=== PATIENT | female | born 1990 | race Caucasian/White ===

== ENCOUNTER 2021-08-29 15:15 | Outpatient (CLI) | payer BC, MEDICAID, SELFPAY | END 2021-08-29 15:16 | disposition home or self-care (01) | LOC: LKVREF 15:15 | PROVIDERS: PCP Family Medicine; Visit Provider Nurse Practitioner Family | DX: R53.83 Other fatigue (principal); N76.0 Acute vaginitis | CPT/HCPCS: 86618 ==

== ENCOUNTER 2021-09-11 15:30 | Outpatient (CLI) | payer BC, MEDICAID, SELFPAY ==
[2021-09-11 16:01] LABS: Basophils Absolute Auto 0.06 K/uL (0.00-0.30); Basophils Percent Auto 0.9 % (0.0-3.0); Eosinophils Percent Auto 25.3 % (0.0-7.0); Hematocrit 44.3 % (33.0-51.0); Hemoglobin* 14.4 gm/dL (12.0-16.0); Immature Granulocytes Abs Auto 0.01 K/uL (0.00-0.30); Immature Granulocytes Pct Auto 0.1 %; Lymphocytes Percent Auto 31.1 % (20-44); Mean Corpuscular HGB Conc 33 gm/dL (32-36); Mean Corpuscular Hemoglobin 29 pg (26-34); Mean Corpuscular Volume 89 fL (80-100); Monocytes Absolute Auto 0.52 K/UL (0.00-0.90); Monocytes Percent Auto 7.7 % (0.0-11.0); Neutrophils Percent Auto 34.9 % (42.0-72.0); Platelet Count* 287 K/uL (140-440); RDW Coefficient of Variation % 13.2 % (11.5-15.5); Red Blood Count 4.97 m/uL (4.00-5.20); White Blood Count* 6.76 K/uL (4.50-11.00)
[2021-09-11 16:05] LABS: Slide Review Reflex No
[2021-09-11 17:31] LABS: Chloride* 106 mmol/L (96-114); Potassium* 4.3 mmol/L (3.6-5.1); Sodium* 137 mmol/L (135-149)
[2021-09-11 17:33] LABS: Creatinine* 0.6 mg/dL (0.5-1.5); Estimated Glomerular Filt Rate 125 ml/min
[2021-09-11 17:34] LABS: Blood Urea Nitrogen* 10 mg/dL (5-24); Calcium* 8.9 mg/dL (8.4-10.6); Carbon Dioxide* 28 mmol/L (20-32); Glucose* 69 mg/dL (60-115)
[2021-09-11 17:48] LABS: Vitamin D 25 Hydroxy* 49 ng/mL (30-80)
[2021-09-11 18:06] LABS: Ferritin* 23.6 ng/mL (6.24-137.0)
[2021-09-11 18:08] LABS: Thyroid Stimulating Hormone* < 0.015 uIU/mL (0.270-4.20)
== END 2021-09-11 15:31 | disposition home or self-care (01) ==
PROVIDERS: PCP Family Medicine; Visit Provider Family Medicine
DX: E03.9 Hypothyroidism, unspecified (principal); R53.83 Other fatigue
CPT/HCPCS: 80048; 82306; 82728; 84443; 85025

== ENCOUNTER 2021-12-26 15:50 | Outpatient (CLI) | payer BC, MEDICAID, SELFPAY ==
[2021-12-26 22:08] LABS: Chlamydia DNA Amplified* NOT DETECTED (No Detected); GC DNA Amplified* NOT DETECTED (No Detected)
== END 2021-12-26 15:51 | disposition home or self-care (01) ==
LOC: NFLDREF 15:51
PROVIDERS: PCP Family Medicine; Visit Provider Registered Nurse
DX: Z11.3 Encounter for screening for infections with a predominantly sexual mode of transmission (principal)
CPT/HCPCS: 87491; 87591

== ENCOUNTER 2022-02-12 00:05 | Emergency (ER) | payer MEDICAID, SELFPAY ==
[2022-02-12 00:13] VITALS: BP 123/89; PULSE 60; RESP 14; TEMP 36.4; O2SAT 100; BMI 22.6
--- NOTE | 2022-02-12 00:59 | ED.NURSE ---
Vaginal exam chaperoned. Condom removed by MD. Patient tolerated well.
--- NOTE | 2022-02-12 08:32 | ED_ITS ---
HPI - General Adult General Chief complaint: Skin/Abscess/Foreign Body Stated complaint: Condom stuck inside vagina Time Seen by Provider: 02/12/22 00:22 History of Present Illness HPI narrative: 31-year-old woman presenting to the emergency department with concern of retained condom. This was consensual sex. She is here that this is the only place the condom can be. She has been unable to locate it. She would also like to be screened for STIs. She is currently with a longer standing partner. He apparently so far has resisted any screening. This is the only encounter where there has been condom failure; always using condoms prior. She is less worried about noting that she has a Mirena in place. Related Data Home Medications Medication Instructions Recorded Confirmed montelukast 10 mg tablet 10 mg PO .Bedtime 09/07/21 12/29/21 Previous Rx's Medication Instructions Recorded albuterol sulfate 90 mcg/actuation 2 puff inhalation Q4-6H PRN 12/29/21 aerosol inhaler shortness of breath or wheezing #8.5 grams fluticasone 250 mcg-salmeterol 50 1 inh inhalation BID #60 ea 12/29/21 mcg/dose blistr powdr for inhalation levothyroxine 125 mcg tablet 125 mcg PO QDAY #30 tabs 01/01/22 Allergies Allergy/AdvReac Type Severity Reaction Status Date / Time etonogestrel [From Nexplanon] Allergy Mild Verified 12/29/21 15:48 Review of Systems Status of ROS: Reports: 6 or more systems reviewed and unremarkable except as noted in History and below [facility] Medical History Allergic rhinitis Arnold-Chiari malformation Chronic sinusitis History of anemia (2016) History of radioactive iodine thyroid ablation (03/2013) History of severe acute respiratory syndrome coronavirus 2 (SARS-CoV-2) disease (12/24/19) History of use of contraceptive intrauterine device (IUD) (01/2020) Hypothyroidism Incomplete spontaneous (2013) Meniere's disease Moderate asthma without complication Moderate persistent asthma Numbness and tingling of right upper extremity Positive antinuclear antibody (01/26/20) Recurrent urinary tract infection Varicose veins of both legs with edema Surgical History History of dilation and curettage (05/13/13) History of nasal septoplasty (2018) Status post delivery (11/2019) Social History Narrative: Exercises daily, 20 min walking , 6 kids, Balaji Patient told she was single 04/01/2020 Non-smoker No EtOH Smoking Status: Never smoker Do you use any of these nicotine containing products: None and E-Cigarettes Second hand tobacco smoke exposure: No How often do you have a drink containing alcohol: monthly or less AUDIT-C Alcohol total score: 1 Non-prescribed substance use: denies use service: No Exam Narrative: Exam Narrative: Pleasant NAD. Breathing easily. Skin is warm and dry. No evidence of trauma on her person. Carefully and casually groomed. Abdomen soft. Return with Nursing assist for a speculum exam. Placing speculum then at the distal end of the speculum relatively easy to locate the condom. Removed with ring forceps along with the speculum without difficulty. Const: Vital Signs, click to edit/add: Vital Signs - 24 hr 02/12/22 00:13 Temperature 97.5 F L Pulse Rate [Left P ulse Oximeter] 60 Respiratory Rate 14 Blood Pressure [Le ft Upper Arm] 123/89 Pulse Oximetry 100 Oxygen Delivery Me thod Room Air Documenting provider has reviewed patient's vital signs: yes Course Vital Signs Vital signs: Initial Vital Signs Temperature 97.5 F L 02/12/22 00:13 Temperature Source Temporal Artery Scan 02/12/22 00:13 Pulse Rate 60 02/12/22 00:13 Respiratory Rate 14 02/12/22 00:13 Blood Pressure 123/89 02/12/22 00:13 Blood Pressure Mean 100 02/12/22 00:13 Pulse Oximetry 100 02/12/22 00:13 Oxygen Delivery Method 02/12/22 00:13 Vital Signs Temperature 97.5 F L 02/12/22 00:13 Pulse Rate 60 02/12/22 00:13 Respiratory Rate 14 02/12/22 00:13 Blood Pressure 123/89 02/12/22 00:13 Pulse Oximetry 100 02/12/22 00:13 Oxygen Delivery Method 02/12/22 00:13 Temperature 97.5 F L 02/12/22 00:13 Pulse Rate 60 02/12/22 00:13 Respiratory Rate 14 02/12/22 00:13 Blood Pressure 123/89 02/12/22 00:13 Pulse Oximetry 100 02/12/22 00:13 Oxygen Delivery Method 02/12/22 00:13 Medical Decision Making MDM Narrative Medical decision making narrative: Discussed STI screening. This was apparently not thought to be a higher risk encounter. Does not sound like baseline labs would be indicated. I would therefore wait and screen in a couple of weeks or pending symptoms in primary care.. Discharge Plan Discharge Clinical Impression: Retained vaginal foreign body Patient Disposition: Home, Self-Care Condition: Improved Additional Instructions: Yes. Probably is a good idea to get STI screening in maybe a couple of weeks as discussed. Prescriptions: No Action fluticasone propion-salmeterol 250-50 mcg/dose blister with device 1 inh inhalation BID Qty: 60 12RF albuterol sulfate 90 mcg/actuation HFA aerosol inhaler 2 puff inhalation Q4-6H PRN (Reason: shortness of breath or wheezing) Qty: 8.5 12RF montelukast 10 mg tablet 10 mg PO .Bedtime levothyroxine 125 mcg tablet 125 mcg PO QDAY Qty: 30 1RF Follow Up/Referrals: Indra Rose MD [Primary Care Provider] - Stand Alone Forms: [employer] Info Instructions
== END 2022-02-12 01:11 | disposition home or self-care (01) ==
LOC: ED 01:06
PROVIDERS: Emergency Provider Family Medicine; PCP Family Medicine
DX: T19.2XXA Foreign body in vulva and vagina, initial encounter (principal); X58.XXXA Exposure to other specified factors, initial encounter; Y93.89 Activity, other specified; Y92.9 Unspecified place or not applicable
CPT/HCPCS: 99282; 99283

== ENCOUNTER 2022-04-09 10:24 | Outpatient (CLI) | payer MEDICAID, SELFPAY | END 2022-04-09 10:25 | disposition home or self-care (01) | LOC: NFLDREF 16:01 | PROVIDERS: PCP Family Medicine; Visit Provider Family Medicine | DX: E03.9 Hypothyroidism, unspecified (principal) | CPT/HCPCS: 84443 ==

== ENCOUNTER 2022-05-17 16:48 | Outpatient (CLI) | payer MEDICAID, SELFPAY | END 2022-05-17 16:49 | disposition home or self-care (01) | PROVIDERS: PCP Family Medicine; Visit Provider Physician Assistant Medical | DX: Z00.00 Encounter for general adult medical examination without abnormal findings (principal); J45.40 Moderate persistent asthma, uncomplicated; R05.9 Cough, unspecified | CPT/HCPCS: 80053; 84439; 84443; 86480; 86592; 86703; 86706; 86803; 87340 ==

== ENCOUNTER 2022-06-25 16:45 | Outpatient (RCR) | payer MEDICAID, SELFPAY | END 2022-10-23 23:59 | disposition home or self-care (01) | PROVIDERS: PCP Family Medicine; Visit Provider Family Medicine | DX: M54.2 Cervicalgia (principal); Z51.89 Encounter for other specified aftercare | CPT/HCPCS: 97110; 97140; 97161 ==

== ENCOUNTER 2022-07-19 19:01 | Outpatient (CLI) | payer MEDICAID, SELFPAY | END 2022-07-19 19:02 | disposition home or self-care (01) | PROVIDERS: PCP Family Medicine; Visit Provider Family Medicine | DX: R53.83 Other fatigue (principal); E03.9 Hypothyroidism, unspecified | CPT/HCPCS: 84439; 84443; 84703 ==

== ENCOUNTER 2022-11-26 15:48 | Outpatient (CLI) | payer MEDICAID, SELFPAY ==
[2022-11-26 16:05] LABS: Clue Cells No Clue Cells Seen (None Seen); Trichomonas No Trichomonas Seen (None Seen); Yeast No Yeast Seen (None Seen)
[2022-11-26 21:02] LABS: Chlamydia DNA Amplified* NOT DETECTED (No Detected); GC DNA Amplified* NOT DETECTED (No Detected)
== END 2022-11-26 15:49 | disposition home or self-care (01) ==
PROVIDERS: PCP Family Medicine; Visit Provider Advanced Practice Midwife
DX: N89.8 Other specified noninflammatory disorders of vagina (principal); Z11.3 Encounter for screening for infections with a predominantly sexual mode of transmission
CPT/HCPCS: 84439; 84443; 86592; 86703; 86706; 87210; 87340; 87491; 87591

== ENCOUNTER 2022-12-04 15:40 | Outpatient (CLI) | payer MEDICAID, SELFPAY | END 2022-12-04 15:41 | disposition home or self-care (01) | LOC: NFLDREF 12-07 22:27 | PROVIDERS: PCP Family Medicine; Referring Provider Family Medicine; Visit Provider Advanced Practice Midwife | DX: E03.9 Hypothyroidism, unspecified (principal) | CPT/HCPCS: 84480; 84481; 86376; 86800 ==

== ENCOUNTER 2023-01-08 16:12 | Outpatient (CLI) | payer MEDICAID, SELFPAY | END 2023-01-08 16:13 | disposition home or self-care (01) | PROVIDERS: PCP Family Medicine; Referring Provider Family Medicine; Visit Provider Advanced Practice Midwife | DX: Z13.29 Encounter for screening for other suspected endocrine disorder (principal) | CPT/HCPCS: 84443 ==

== ENCOUNTER 2023-02-05 16:52 | Outpatient (CLI) | payer MEDICAID, SELFPAY ==
--- NOTE | 2023-02-05 17:00 | CRLHL7_ITS ---
For Patients: As a result of the Cures Act, medical imaging exams and procedure reports are released immediately into your electronic medical record. You may view this report before your referring provider. If you have questions, please contact your health care provider. INDICATION: First trimester scan, establish dates. COMPARISON: None. TECHNIQUE: Real-time aguilar-scale imaging of the pelvis was performed. FINDINGS: Sonographic imaging demonstrates a single living intrauterine gestation. The embryo demonstrates a regular cardiac rate measuring 185 beats per minute. The embryo`s crown-rump length measurement of 2.4 cm corresponds to a gestational age of 9 weeks 1 day with a sonographic due date of 09/09/2023. There is a normal-appearing yolk sac. There are no gross abnormalities noted within the embryo at this early state of development. The gestational sac has a normal appearance. There is a right-sided perigestational hemorrhage measuring 5.4 x 1.0 x 1.5 cm. The amount of fluid within the sac appears appropriate for gestational age. The cervix is closed. section scar incidentally noted. The ovaries are of normal size. Corpus luteal cyst right ovary. There are no suspicious fluid collections noted in the cul-de-sac. IMPRESSION: Single living intrauterine with sonographic gestational age 9 weeks 1 day and sonographic due date 09/09/2023. Large right-sided subchorionic hemorrhage measuring 5.4 x 1.0 x 1.5 cm extending from the fundal region to the lower uterine segment. Dictated by Indra Bonner MD @ 02/06/2023 11:30:50 AM (Electronically Signed)
== END 2023-02-05 16:53 | disposition home or self-care (01) ==
LOC: US 16:54
PROVIDERS: PCP Family Medicine; Visit Provider Registered Nurse
DX: Z34.91 Encounter for supervision of normal pregnancy, unspecified, first trimester (principal); O20.9 Hemorrhage in early pregnancy, unspecified; Z3A.09 9 weeks gestation of pregnancy
CPT/HCPCS: 76817

== ENCOUNTER 2023-02-05 18:48 | Outpatient (CLI) | payer MEDICAID, SELFPAY ==
[2023-02-06 06:10] LABS: Chlamydia DNA Amplified* NOT DETECTED (No Detected); GC DNA Amplified* NOT DETECTED (No Detected)
== END 2023-02-05 18:49 | disposition home or self-care (01) ==
PROVIDERS: PCP Family Medicine; Visit Provider Registered Nurse
DX: Z34.91 Encounter for supervision of normal pregnancy, unspecified, first trimester (principal); O20.9 Hemorrhage in early pregnancy, unspecified; Z3A.09 9 weeks gestation of pregnancy
CPT/HCPCS: 86592; 86703; 86704; 86706; 86762; 86787; 86803; 86850; 86900; 86901; 87086; 87340; 87491; 87591

== ENCOUNTER 2023-02-21 15:32 | Outpatient (CLI) | payer BC, MEDICAID, SELFPAY | END 2023-02-21 15:33 | disposition home or self-care (01) | PROVIDERS: PCP Family Medicine; Visit Provider Nurse Practitioner Family | DX: R63.1 Polydipsia (principal); R35.0 Frequency of micturition; R51.9 Headache, unspecified; R11.0 Nausea | CPT/HCPCS: 80048; 82607; 84443; 86592; 86703; 86704; 86706; 86762; 86787; 86803; 86850; 86900; 86901; 87086; 87340 ==

== ENCOUNTER 2023-03-24 06:46 | Emergency (ER) | payer BC, MEDICAID, SELFPAY ==
[2023-03-24 06:50] VITALS: BP 123/77; PULSE 102; RESP 28; TEMP 36.2; O2SAT 96; BMI 26.6
--- NOTE | 2023-03-24 07:24 | ED_ITS ---
HPI - General Adult General Chief complaint: Shortness of Breath/Dyspnea <Keke Cutler MD - Last Filed: 03/25/23 00:25> Stated complaint: difficulty breathing, wheezing <Keke Cutler MD - Last Filed: 03/25/23 00:25> Time Seen by Provider: 03/24/23 07:12 <Keke Cutler MD - Last Filed: 03/25/23 00:25> Source: patient <Keke Cutler MD - Last Filed: 03/25/23 00:25> Mode of arrival: ambulatory <Keke Cutler MD - Last Filed: 03/25/23 00:25> Limitations: no limitations <Keke Cutler MD - Last Filed: 03/25/23 00:25> History of Present Illness HPI narrative: 32-year-old female, reportedly 14 weeks presents to the emergency department with wheezing and cough. Symptoms started last night. No fever. Known history of asthma. Reports that she is out of her inhalers. She does not currently have a nebulizer machine. She has been prescribed steroids in the past but no prior hospitalization or intubation for her asthma. Mild nonproductive cough, no nausea or vomiting. No vaginal bleeding. Is not yet feeling movement. No pelvic cramping. No known sick contacts or pertinent travel. Has not tried any other interventions prior to coming to the emergency department. Past medical history notable for hypothyroidism, multiple prior pregnancies. Home meds are Synthroid and does have prescriptions for inhalers that she does not currently have any in her possession. Nonsmoker. ROS notable for the respi ratory symptoms as described above, otherwise benign times 12 systems. <Keke Cutler MD - Last Filed: 03/25/23 00:25> Related Data Home medications: Previous Rx's Medication Instructions Recorded fluticasone 250 mcg-salmeterol 50 1 inh inhalation BID #60 ea 12/29/21 mcg/dose blistr powdr for inhalation albuterol sulfate 2.5 mg/0.5 mL 2.5 mg (0.5 mL) inhalation Q4-6H 05/17/22 solution for nebulization #30 ea albuterol sulfate 90 mcg/actuation 2 puff inhalation Q4-6H PRN 05/17/22 aerosol inhaler shortness of breath or wheezing #8.5 grams montelukast 10 mg tablet 10 mg PO QHS #90 tabs 06/22/22 cetirizine 10 mg tablet (Zyrtec) 10 mg PO QDAY #30 tabs 08/06/22 fluticasone propionate 50 1 spray intranasal QDAY #16 grams 08/06/22 mcg/actuation nasal spray,suspension (Flonase Allergy Relief) levothyroxine 200 mcg tablet 200 mcg PO DAILY #30 tabs 01/11/23 albuterol sulfate 90 mcg/actuation 2 puff inhalation Q4H PRN 03/24/23 aerosol inhaler (Proventil HFA) shortness of breath or wheezing #8.5 grams beclomethasone dipropionate 80 1 inh inhalation BID #10.6 grams 03/24/23 mcg/actuation HFA breath activated aerosol (Qvar RediHaler) prednisone 20 mg tablet 20 mg PO DAILY #3 tabs 03/24/23 <Keke Cutler MD - Last Filed: 03/25/23 00:25> Allergies/adverse reactions: Allergies Allergy/AdvReac Type Severity Reaction Status Date / Time etonogestrel [From Nexplanon] Allergy Mild Verified 02/19/23 15:57 <Keke Cutler MD - Last Filed: 03/25/23 00:25> [facility] Medical History: Medical History PTSD (post-traumatic stress disorder) ?F43.10 - Post-traumatic stress disorder, unspecified (ICD-10) Moderate persistent asthma ?J45.40 - Moderate persistent asthma, uncomplicated (ICD-10) Varicose veins of both legs with edema ?I83.893 - Varicose veins of bilateral lower extremities with other complications (ICD-10) Recurrent urinary tract infection ?N39.0 - Urinary tract infection, site not specified (ICD-10) Positive antinuclear antibody (01/26/20) ?R76.8 - Other specified abnormal immunological findings in serum (ICD-10) Numbness and tingling of right upper extremity ?R20.0 - Anesthesia of skin (ICD-10) ?R20.2 - Paresthesia of skin (ICD-10) Moderate asthma without complication ?J45.909 - Unspecified asthma, uncomplicated (ICD-10) Meniere's disease ?H81.09 - Meniere's disease, unspecified ear (ICD-10) Incomplete spontaneous (2013) ?O03.4 - Incomplete spontaneous without complication (ICD-10) Hypothyroidism ?E03.9 - Hypothyroidism, unspecified (ICD-10) History of use of contraceptive intrauterine device (IUD) (01/2020) ?Z92.0 - Personal history of contraception (ICD-10) History of severe acute respiratory syndrome coronavirus 2 (SARS-CoV-2) disease (12/24/19) ?Z86.16 - Personal history of COVID-19 (ICD-10) History of radioactive iodine thyroid ablation (03/2013) ?Z92.3 - Personal history of irradiation (ICD-10) History of anemia (2016) ?Z86.2 - Personal history of diseases of the blood and blood-forming organs and certain disorders involving the immune mechanism (ICD-10) Chronic sinusitis ?J32.9 - Chronic sinusitis, unspecified (ICD-10) Arnold-Chiari malformation ?Q07.00 - Arnold-Chiari syndrome without spina bifida or hydrocephalus (ICD- 10) Allergic rhinitis ?J30.9 - Allergic rhinitis, unspecified (ICD-10) <Keke Cutler MD - Last Filed: 03/25/23 00:25> Surgical History: Surgical History Status post delivery (11/2019) ?Z98.891 - History of uterine scar from previous surgery (ICD-10) History of nasal septoplasty (2017) ?Z98.890 - Other specified postprocedural states (ICD-10) History of dilation and curettage (05/13/13) ?Z98.890 - Other specified postprocedural states (ICD-10) <Keke Cutler MD - Last Filed: 03/25/23 00:25> Social History: Social History Narrative: Works at [employer] and [employer] 6 kids Non-smoker No EtOH What is your current living situation?: I presently have a place to live Problems where you live: no known problems In the past 12 months, utilities in danger of being shut off: no In past 12 months, lack of transportation kept you from medical appts, meetings, work, or getting things needed for daily living: no In the past 12 mos, have been you worried that your food would run out before you had money to buy more?: never true In the past 12 mos, the food you bought just didn't last and you didn't have money to buy more?: never true Smoking Status: Never smoker Do you use any of these nicotine containing products: None and E-Cigarettes Second hand tobacco smoke exposure: No How often do you have a drink containing alcohol: monthly or less AUDIT-C Alcohol total score: 1 Non-prescribed substance use: denies use How often does anyone, including family, friends and others, physically hurt you : never How often does anyone, including family, friends and others, insult or talk down to you: never How often does anyone, including family, friends and others, threaten you with harm: never How often does anyone, including family, friends and others, scream or curse at you: never Little interest or pleasure in doing things: not at all Feeling down, depressed, or hopeless: not at all service: No <Keke Cutler MD - Last Filed: 03/25/23 00:25> Exam Const: Vital Signs, click to edit/add: Vital Signs - 24 hr 03/24/23 06:50 Temperature 97.1 F L Pulse Rate [Left P ulse Oximeter] 102 H Respiratory Rate 28 H Blood Pressure [Ri ght Upper Arm] 123/77 Pulse Oximetry 96 Oxygen Delivery Me thod Room Air <Keke Cutler MD - Last Filed: 03/25/23 00:25> Vital Signs, click to edit/add: Vital Signs - 24 hr 03/24/23 06:50 Temperature 97.1 F L Pulse Rate [Left P ulse Oximeter] 102 H Respiratory Rate 28 H Blood Pressure [Ri ght Upper Arm] 123/77 Pulse Oximetry 96 Oxygen Delivery Me thod Room Air <Kingsley Shanks MD - Last Filed: 03/24/23 08:17> Documenting provider has reviewed patient's vital signs: yes <Keke Cutler MD - Last Filed: 03/25/23 00:25> Common normals: no apparent distress <MD Daisha Cardenas Last Filed: 03/25/23 00:25> General appearance: cooperative and well kempt <Keek Cutler MD - Last Filed: 03/25/23 00:25> Other: Nursing team reported that she was audibly wheezing in triage and I was in another room, they did elect to start a DuoNeb. By the time I get to her about 5 minutes later, she is breathing comfortably on room air and respiratory rate is around 16. <Keke Cutler MD - Last Filed: 03/25/23 00:25> HENMT: Common normals: normocephalic <Keke Cutelr MD - Last Filed: 03/25/23 00:25> Head and scalp: normocephalic <MD Daisha Cardenas Last Filed: 03/25/23 00:25> Face and sinus: normal facial exam <MD Daisha Cardenas Last Filed: 03/25/23 00:25> Mouth: oral and palatal mucosa normal <MD Daisha Cardenas Last Filed: 03/25/23 00:25> Throat: posterior oropharynx normal <MD Daisha Cardenas Last Filed: 03/25/23 00:25> Eye: Common normals: conjunctivae normal <MD Daisha Cardenas Last Filed: 03/25/23 00:25> General eye: normal appearance of both eyes <MD Daisha Cardenas Last Filed: 03/25/23 00:25> Conjunctiva: conjunctiva(e) normal <MD Daisha Cardenas Last Filed: 03/25/23 00:25> Neck & C-Spine: Common normals: full ROM and no lymphadenopathy <MD Daisha Cardenas Last Filed: 03/25/23 00:25> Resp: Common normals: normal respiratory effort <MD Daisha Cardenas Last Filed: 02/12/24 00:25> Other: Moderate expiratory wheeze and mild prolongation of expiration. No crackles. Normal respiratory effort on my exam but that was after DuoNeb, reportedly increased by the nursing team. <Keke Cutler MD - Last Filed: 03/25/23 00:25> Cardio: Common normals: regular rate, regular rhythm, S1 normal heart sound, S2 normal heart sound and no murmurs <Keke Cutler MD - Last Filed: 03/25/23 00:25> Rate: regular rate <Keke Cutler MD - Last Filed: 03/25/23 00:25> Rhythm: regular rhythm <Keke Cutler MD - Last Filed: 03/25/23 00:25> Heart sounds: S1 normal and S2 normal <Keke Cutler MD - Last Filed: 03/25/23 00:25> Extremity: Common normals: normal to inspection and normal capillary refill <Keke Cutler MD - Last Filed: 03/25/23 00:25> Psych: Appearance: well kempt <Keke Cutler MD - Last Filed: 03/25/23 00:25> Mood and affect: euthymic mood <Keke Cutler MD - Last Filed: 03/25/23 00:25> Insight: insight good <Keke Cutler MD - Last Filed: 03/25/23 00:25> Judgement: judgment good <Keke Cutler MD - Last Filed: 03/25/23 00: 25> Skin: Common normals: no rashes or lesions noted <Keke Cutler MD - Last Filed: 03/25/23 00:25> General skin exam: no rashes or lesions noted <Keke Cutler MD - Last Filed: 03/25/23 00:25> Course Course ED Course: Asthma exacerbation in 2nd trimester . Risks and benefits of steroids discussed with patient. I do recommend that she start prednisone based on her history. Will give 40 mg p.o. x1 and I recommend a 5 day course of steroid. Since her symptoms have been present for less than 24 hours and she also is and would potentially benefit from antiviral medicine, I recommend viral swabs. Consider an additional albuterol neb treatment prior to discharge. Discussed need for home inhalers, I will prescribe these with lots of refills. Alarm symptoms reviewed that would warrant ED presentation. She verbalizes understanding and agreement. <Keke Cutler MD - Last Filed: 03/25/23 00:25> Reevaluation(s) Reevaluation #1: Care handed over for Dr. Kevin toussaint for interpretation of labs and additional prescription if needed. <Keke Cutler MD - Last Filed: 03/25/23 00:25> Vital Signs Vital signs: Initial Vital Signs Temperature 97.1 F L 03/24/23 06:50 Temperature Source Temporal Artery Scan 03/24/23 06:50 Pulse Rate 102 H 03/24/23 06:50 Pulse Rhythm Regular 03/24/23 06:50 Respiratory Rate 28 H 03/24/23 06:50 Blood Pressure 123/77 03/24/23 06:50 Blood Pressure Mean 92 03/24/23 06:50 Blood Pressure Position Sitting 03/24/23 06:50 Pulse Oximetry 96 03/24/23 06:50 Oxygen Delivery Method Room Air 03/24/23 06:50 Vital Signs Temperature 97.1 F L 03/24/23 06:50 Pulse Rate 102 H 03/24/23 06:50 Respiratory Rate 28 H 03/24/23 06:50 Blood Pressure 123/77 03/24/23 06:50 Pulse Oximetry 96 03/24/23 06:50 Oxygen Delivery Method Room Air 03/24/23 06:50 Temperature 97.1 F L 03/24/23 06:50 Pulse Rate 102 H 03/24/23 06:50 Respiratory Rate 28 H 03/24/23 06:50 Blood Pressure 123/77 03/24/23 06:50 Pulse Oximetry 96 03/24/23 06:50 Oxygen Delivery Method Room Air 03/24/23 06:50 <Keke Cutler MD - Last Filed: 03/25/23 00:25> Initial Vital Signs Temperature 97.1 F L 03/24/23 06:50 Temperature Source Temporal Artery Scan 03/24/23 06:50 Pulse Rate 102 H 03/24/23 06:50 Pulse Rhythm Regular 03/24/23 06:50 Respiratory Rate 28 H 03/24/23 06:50 Blood Pressure 123/77 03/24/23 06:50 Blood Pressure Mean 92 03/24/23 06:50 Blood Pressure Position Sitting 03/24/23 06:50 Pulse Oximetry 96 03/24/23 06:50 Oxygen Delivery Method Room Air 03/24/23 06:50 Vital Signs Temperature 97.1 F L 03/24/23 06:50 Pulse Rate 102 H 03/24/23 06:50 Respiratory Rate 28 H 03/24/23 06:50 Blood Pressure 123/77 03/24/23 06:50 Pulse Oximetry 96 03/24/23 06:50 Oxygen Delivery Method Room Air 03/24/23 06:50 Temperature 97.1 F L 03/24/23 06:50 Pulse Rate 102 H 03/24/23 06:50 Respiratory Rate 28 H 03/24/23 06:50 Blood Pressure 123/77 03/24/23 06:50 Pulse Oximetry 96 03/24/23 06:50 Oxygen Delivery Method Room Air 03/24/23 06:50 <Kingsley Shanks MD - Last Filed: 03/24/23 08:17> Medications Administered Medications: Discontinued Medications Generic Name Dose Route Start Last Admin Trade Name Freq PRN Reason Stop Dose Admin Albuterol/Ipratropium 1 neb 03/24/23 07:22 03/24/23 07:38 Iprat-Albut 0.5-2.5 Mg/3 Ml Neb 03/24/23 07:23 1 neb ONCE ONE Administration Prednisone 40 mg 03/24/23 07:22 03/24/23 07:38 Prednisone 10 Mg Tablet PO 03/24/23 07:23 20 mg ONCE ONE Administration <Keke Cutler MD - Last Filed: 03/25/23 00:25> Discontinued Medications Generic Name Dose Route Start Last Admin Trade Name Freq PRN Reason Stop Dose Admin Albuterol/Ipratropium 1 neb 03/24/23 07:22 03/24/23 07:38 Iprat-Albut 0.5-2.5 Mg/3 Ml Neb 03/24/23 07:23 1 neb ONCE ONE Administration Prednisone 40 mg 03/24/23 07:22 03/24/23 07:38 Prednisone 10 Mg Tablet PO 03/24/23 07:23 20 mg ONCE ONE Administration <Kingsley Shanks MD - Last Filed: 03/24/23 08:17> Medical Decision Making MDM Narrative Medical decision making narrative: Nasal pharyngeal swab returns negative for COVID, influenza, and RSV. The patient is feeling much better and is okay to be discharged home. Prescriptions are provided for a steroid and inhaler. <Kingsley Shanks MD - Last Filed: 03/24/23 08:17> Lab Data Lab results reviewed: Yes I reviewed the patient's lab results <Keke Cutler MD - Last Filed: 03/25/23 00:25> Labs: Lab Results 03/24/23 Range/Units 07:23 SARS-CoV-2 (PCR) Negative SARS-CoV-2 (Negative) Influenza Type A (PCR) Negative PCR FLU A (Negative) Influenza Type B (PCR) Negative PCR FLU B (Negative) RSV (PCR) Negative PCR RSV (Negative) <Keke Cutler MD - Last Filed: 03/25/23 00:25> Lab Results 03/24/23 Range/Units 07:23 SARS-CoV-2 (PCR) Negative SARS-CoV-2 (Negative) Influenza Type A (PCR) Negative PCR FLU A (Negative) Influenza Type B (PCR) Negative PCR FLU B (Negative) RSV (PCR) Negative PCR RSV (Negative) <Kingsley Shanks MD - Last Filed: 03/24/23 08:17> Discharge Plan Discharge Clinical Impression: Asthma exacerbation <Keke Cutler MD - Last Filed: 03/25/23 00:25> Patient Disposition: Home w/ Parent or Adult <Keke Cutler MD - Last Filed: 03/25/23 00:25> Condition: Improved <Keke Cutler MD - Last Filed: 03/25/23 00:25> Instructions: Asthma (DC) <Keke Cutler MD - Last Filed: 03/25/23 00:25> Additional Instructions: As we discussed, I am concerned about your asthma flare up. You were given 40 mg of prednisone today in the emergency department as well as a nebulizer treatment. I have sent prescriptions for a few things to your pharmacy. The 1st is more prednisone. You will take this once daily for 3 additional days. This is a slightly lower dose than what your given today and your next dose will be Saturday morning. Please try to pick this up today. Try to take it with food as it can upset your stomach. The next thing is albuterol. I have prescribed and albuterol inhaler with lots of refills. Pick these up so that you have several around the house and easy access to them when needed. Use these every few hours as needed to help with your shortness of breath and coughing spells. I have also refilled a medication called QVAR. This is an inhaled steroid that helps prevent asthma flares. I want you on this for the next 2-3 months. This is safer than Advair or other medications that have long- acting bronchodilators and them. Sometimes though, it does not keep her asthma under good enough control and we need to increase to a stronger medication. This is the safest option for you and the baby for now. You should be doing much better in 48 hours, if not I would like for you to make an appointment to be re-evaluated by her primary care or urgent care. Any severe shortness of breath, please come back to the emergency department. <Keke Cutler MD - Last Filed: 03/25/23 00:25> Prescriptions: New Qvar RediHaler 80 mcg/actuation HFA aerosol breath activated 1 inh inhalation BID Qty: 10.6 3RF Rx Instructions: Use 1-2 daily to prevent asthma flare. Not a rescue inhaler. albuterol sulfate [Proventil HFA] 90 mcg/actuation HFA aerosol inhaler 2 puff inhalation Q4H PRN (Reason: shortness of breath or wheezing) Qty: 8.5 12RF prednisone 20 mg tablet 20 mg PO DAILY Qty: 3 0RF No Action fluticasone propion-salmeterol 250-50 mcg/dose blister with device 1 inh inhalation BID Qty: 60 12RF albuterol sulfate 2.5 mg/0.5 mL solution for nebulization 2.5 mg inhalation Q4-6H Qty: 30 3RF albuterol sulfate 90 mcg/actuation HFA aerosol inhaler 2 puff inhalation Q4-6H PRN (Reason: shortness of breath or wheezing) Qty: 8.5 12RF fluticasone propionate [Flonase Allergy Relief] 50 mcg/actuation spray ,suspension 1 spray intranasal QDAY Qty: 16 5RF Rx Instructions: administer into each nostril cetirizine [Zyrtec] 10 mg tablet 10 mg PO QDAY Qty: 30 5RF montelukast 10 mg tablet 10 mg PO QHS Qty: 90 1RF levothyroxine 200 mcg tablet 200 mcg PO DAILY Qty: 30 6RF <Keke Cutler MD - Last Filed: 03/25/23 00:25> Follow Up/Referrals: Indra Rose MD [Primary Care Provider] - <Keke Cutler MD - Last Filed: 03/25/23 00:25> [facility] <Keke Cutler MD - Last Filed: 03/25/23 00:25>
[2023-03-24] MEDS: IPRAT-ALBUT 0.5-2.5 MG/3 ML NEB 1 NEB IH (07:38)
[2023-03-24] MEDS: predniSONE 10 MG TABLET 40 MG PO (07:38)
--- OUTSIDE RECORDS SUMMARY | 2023-03-24 07:42 | XMS_ITS | Referral Summary ---
Author Name Unknown Organization [facility] Address [address] [place] [address] Care Team Providers Care Plating Department Helper Name Role Phone Unavailable Primary Care Provider Unavailabl e Source Comments Patient records contain information from all sites at [facility]. For routine questions regarding patient records, call [phone] during business hours, M-F 8:00 AM - 5:00 PM Central Time. Record requests for emergency care only can be directed to [phone] at any time.[facility] Allergies Active Allergy Reactions Criticality Noted Date Comments Etonogestrel Other (see comments) Low 07/29/2017 Medications Medication Sig Dispensed Refills Start Date End Date Status acetaminophen (TYLENOL) 325 mg tablet Take 650 mg by mouth every 6 (six) hours as needed. 0 09/02/2017 Active levothyroxine (SYNTHROID, LEVOTHROID) 200 mcg tablet Take 200 mcg by mouth daily. 0 07/15/2017 Active levothyroxine (SYNTHROID, LEVOTHROID) 25 mcg tablet Take 25 mcg by mouth daily. 0 07/11/2017 Active albuterol 2.5 mg /3 mL nebulizer solution USE 1 VIAL VIA NEBULIZER EVERY 4 TO 6 HOURS 0 05/18/2022 Active Ventolin HFA 90 mcg/actuation inhaler INHALE 2 PUFFS BY MOUTH EVERY 4 TO 6 HOURS NEEDED FOR SHORTNESS OF BREATH OR WHEEZING 0 05/16/2022 Active albuterol 90 mcg/actuation inhaler Inhale 1-2 puffs. 0 01/04/2020 Active albuterol 90 mcg/actuation inhaler Every 4 Hours as needed 0 09/10/2019 Active azelastine (ASTELIN) 137 mcg/spray (0.1 %) nasal spray Inhale 2 Sprays into affected nostril(s) 2 times daily. 0 08/29/2020 Active budesonide (PULMICORT) 1 mg/2 mL nebulizer solution Put one respule in sinus rinse kit and irrigate twice daily 0 02/17/2020 Active cetirizine (ZyrTEC) 10 mg tablet Daily 0 09/04/2019 Active fluticasone propion-salmeteroL 250-50 mcg/dose diskus inhaler Twice A Day 0 09/11/2019 Active montelukast (SINGULAIR) 10 mg tablet Take 10 mg by mouth at bedtime. 0 06/22/2022 Active polyethylene glycol (MIRALAX) 17 gram/dose oral powder Take 17 g by mouth as needed. 0 05/15/2019 Active predniSONE (DELTASONE) 20 mg tablet daily. 0 05/17/2022 Active fluticasone propionate (FLOVENT HFA) 110 mcg/actuation inhaler Inhale 2 puffs 2 (two) times a day. 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 left for [place] and no treatment till 01/2013. Poor concentration, forgetfulness, shakiness, nervous, hyperactive, restless, weight loss, history of lose BMs. Weak muscles. 11/2012: TSH < 0.02, FreeT4 2.78 Immunizations Name Administration Dates Next Due DTaP ([employer], [employer]) 06/27/1995,1992, 1992,1992 HepB Pediatric/Adolescent 03/17/1996,08/29/1995, 06/27/1995 Hib, Unspecified 06/27/1995,1992, 3,1992 IPV 06/27/1995,1992,1992 Influenza TIV (IM) 12/25/2009 Influenza, Unspecified 03/24/2011,12/25/2009 MMR 03/24/2011,06/27/1995 Tdap 12/19/2016,05/27/2015,12/28/2013 ,10/11/2004 GALDINO 10/11/2004 Social History Tobacco Use Types Packs/Day Years Used Date Smoking Tobacco: Never Smokeless Tobacco: Never Tobacco Cessation:Counseling Given: Not Answered Nutrition Answer Date Recorded Nutrition: EVOO Fat Source Unknown 04/01 Nutrition: Servings of Fruits/Vegetables per Day Not on file 04/01/2020 Dental Answer Date Recorded Dental: Regular Dentist Unknown 04/01/19 21 Sex and Gender Information Value Date Recorded Sex Assigned at Not on file Gender Identity Not on file Sexual Orientation Not on file Last Filed Vital Signs Vital Sign Reading Time Taken Comments Blood Pressure 106/66 08/02/2022 3:44 PM CDT Pulse 77 08/02/2022 3:44 PM CDT Temperature - - Respiratory Rate - - Oxygen Saturation - - Inhaled Oxygen Concentration - - Weight 64.8 kg (142 lb 12 oz) 08/02/2022 3:44 PM CDT Height 167.6 cm (5' 6) 08/02/2022 3:44 PM CDT Body Mass Index 23.04 08/02/2022 3:44 PM CDT Plan of Treatment Not on file
--- OUTSIDE RECORDS SUMMARY | 2023-03-24 07:42 | XMS_ITS | Encounter Summary ---
Author Name Unknown Organization [facility] Address [address] [place] [address] Care Team Providers Care Heel Brusher Name Role Phone Unavailable Primary Care Provider Unavailabl e Reason for Referral * MRI/CAT/PET Scan (Routine) - Closed Specialty Diagnoses / Procedures Referred By Contac t Referred To Contact Radiology Diagnoses Headache Unspecified Malformation Arnold Chiari (HCC) Procedures MR Brain without and with IV Contrast MR Brain without IV Contrast UT MRI BRAIN WO CNTRST HC MRI BRAIN WO CNTRST UT MRI BRAIN WO/W Gina Johansen M.D., M.P.H. [address] [place] [address] [facility] Region Referral ID Status Reason Start Date Expiration Date Visits Re quested Visits Authorized [id number] Closed 08/02/2022 08/02/2023 1 1 Reason for Visit * MRI/CAT/PET Scan (Routine) - Closed Specialty Diagnoses / Procedures Referred By Contac t Referred To Contact Radiology Diagnoses Headache Unspecified Malformation Arnold Chiari (HCC) Procedures MR Brain without and with IV Contrast MR Brain without IV Contrast UT MRI BRAIN WO CNTRST HC MRI BRAIN WO CNTRST UT MRI BRAIN WO/W CNTPOLINAT Gina Schroeder M.D., M.P.H. [address] [place] [address] [facility] Region Referral ID Status Reason Start Date Expiration Date Visits Re quested Visits Authorized [id number] Closed 08/02/2022 08/02/2023 1 1 Encounter Details Date Type Department Care Team (Latest Contact Info) Description 09/12/2022 3:31 PM CDT - 09/12/2022 11:59 PM CDT Hospital Encounter Department of Radiology in [place], [place] [address] [place] [address] Gina Schroeder M.D., M.P.H. [address] [place] [address] Headache Unspecified; Malformation Michael Sanchez ([facility]) Discharge Disposition: Home or Self Care Social History Tobacco Use Types Packs/Day Years Used Date Smoking Tobacco: Never Smokeless Tobacco: Never Nutrition Answer Date Recorded Nutrition: EVOO Fat Source Unknown 04/01 Nutrition: Servings of Fruits/Vegetables per Day Not on file 04/01/2020 Dental Answer Date Recorded Dental: Regular Dentist Unknown 04/01/19 21 Sex and Gender Information Value Date Recorded Sex Assigned at Not on file Gender Identity Not on file Sexual Orientation Not on file documented as of this encounter Medications at Time of Discharge Medication Sig Dispensed Refills Start Date End Date acetaminophen (TYLENOL) 325 mg tablet Take 650 mg by mouth every 6 (six) hours as needed. 0 09/02/2017 albuterol 2.5 mg /3 mL nebulizer solution USE 1 VIAL VIA NEBULIZER EVERY 4 TO 6 HOURS 0 05/18/2022 albuterol 90 mcg/actuation inhaler Inhale 1-2 puffs. 0 01/04/2020 albuterol 90 mcg/actuation inhaler Every 4 Hours as needed 0 09/10/19 20 azelastine (ASTELIN) 137 mcg/spray (0.1 %) nasal spray Inhale 2 Sprays into affected nostril(s) 2 times daily. 0 08/29/2020 budesonide (PULMICORT) 1 mg/2 mL nebulizer solution Put one respule in sinus rinse kit and irrigate twice daily 0 02/17/2020 cetirizine (ZyrTEC) 10 mg tablet Daily 0 09/04/2019 fluticasone propion-salmeteroL 250-50 mcg/dose diskus inhaler Twice A Day 0 09/11/2019 fluticasone propionate (FLOVENT HFA) 110 mcg/actuation inhaler Inhale 2 puffs 2 (two) times a day. 0 02/08/2020 ipratropium-albuteroL (DUONEB) 0.5-2.5 mg/3 mL nebulizer solution Four Times Daily 0 09/05/2019 levothyroxine (SYNTHROID, LEVOTHROID) 200 mcg tablet Take 200 mcg by mouth daily. 0 07/15/2017 levothyroxine (SYNTHROID, LEVOTHROID) 25 mcg tablet Take 25 mcg by mouth daily. 0 07/11/2017 montelukast (SINGULAIR) 10 mg tablet Take 10 mg by mouth at bedtime. 0 06/22/2022 polyethylene glycol (MIRALAX) 17 gram/dose oral powder Take 17 g by mouth as needed. 0 05/15/2019 predniSONE (DELTASONE) 20 mg tablet daily. 0 05/17/2022 Ventolin HFA 90 mcg/actuation inhaler INHALE 2 PUFFS BY MOUTH EVERY 4 TO 6 HOURS NEEDED FOR SHORTNESS OF BREATH OR WHEEZING 0 05/16/2022 documented as of this encounter Plan of Treatment Not on file documented as of this encounter Procedures Procedure Name Priority Date/Time Associated Diagnosis Comments MR BRAIN WITHOUT AND WITH IV CONTRAST RAD - Routine (most inpatients and all outpatients) 09/12/2022 4:35 PM CDT Headache Unspecified Malformation Arnold Chiari (HCC) documented in this encounter Results * MR Brain without and with IV Contrast (09/12/2022 4:35 PM CDT) Anatomical Region Laterality Modality Head, Brain, Neuroradiology [facility], [facility], [facility] N[facility]A Magnetic Resonance 09/12/2022 4:39 PM CDT Impressions 09/12/2022 4:52 PM CDT -Cerebellar tonsillar ectopia. -Bilateral maxillary and ethmoid sinusitis. Narrative 09/12/2022 4:52 PM CDT EXAM: MR BRAIN WITHOUT AND WITH IV CONTRAST COMPARISON:None FINDINGS: The right cerebellar tonsils extend approximately 5 mm below the foramen magnum. The left cerebellar tonsil extends approximately 2 mm below the foramen magnum. Bilateral cerebellar tonsils maintain normal rounded configuration. Normal morphology of the cerebellar vermis, brainstem and upper cervical cord. No areas of restricted diffusion to suggest acute infarct. No abnormal parenchymal susceptibility. No focal enhancing brain lesions. No extra-axial fluid collection, intracranial mass or midline shift. The basal cisterns are patent. ??Intact intracranial arterial flow voids. Bilateral orbits are unremarkable. Near complete opacification of the right maxillary sinus, partial opacification of bilateral ethmoid sinuses and mild mucosal thickening of the left maxillary sinus. Procedure Note Octavio Mackey M.B., Sourav Rice - 09/12/2022 EXAM: MR BRAIN WITHOUT AND WITH IV CONTRAST COMPARISON:None FINDINGS: The right cerebellar tonsils extend approximately 5 mm below the foramenmagnum. The left cerebellar tonsil extends approximately 2 mm below the foramen magnum. Bilateralcerebellar tonsils maintain normal rounded configuration. Normal morphology of the cerebellar vermis,brainstem and upper cervical cord. No areas of restricted diffusion to suggest acute infarct.No abnormal parenchymal susceptibility. No focal enhancing brain lesions. No extra-axial fluidcollection, intracranial mass or midline shift. The basal cisterns are patent. Intact intracranialarterial flow voids. Bilateral orbits are unremarkable. Near complete opacification of the rightmaxillary sinus, partial opacification of bilateral ethmoid sinuses and mild mucosal thickening ofthe left maxillary sinus. IMPRESSION: -Cerebellar tonsillar ectopia. -Bilateral maxillary and ethmoid sinusitis. Gina Schroeder M.D., M.P.H. [facility] MRI PROC EDURES documented in this encounter Visit Diagnoses Diagnosis Headache Unspecified Malformation Arnold Chiari (HCC) documented in this encounter Administered Medications Inactive Administered Medications - up to 3 most recent administrations Medication Order MAR Action Action Date Dose Rate Site gadobutrol injection 0.5-15 mL (GADAVIST) 0.5-15 mL, intravenous, Once in imaging, contrast, Starting on Sat09/12/22 at 1636, For 1 dose, Dose per Radiant Medication Guidelines Intrathecal doses greater than 0.25 mL not recommended. Given 09/12/2022 4:36 PM CDT 6.5 mL NaCl 0.9 % bolus 10 mL 10 mL, intravenous, at 10 mL/hr, Administer over 1 Hours, Once, On Sat09/12/22 at 1700, For 1 dose New Bag 09/12/2022 4:37 PM CDT 10 mL 10 mL/hr documented in this encounter
--- OUTSIDE RECORDS SUMMARY | 2023-03-24 07:42 | XMS_ITS ---
Author Name Unknown Organization [facility] Address [address] [place] [address] Care Team Providers Care Transmission Maintenance Supervisor Name Role Phone Unavailable Unavailable Unavailable Surgery Details Not on file Complications Check Surgery Details section. Procedure Estimated Blood Loss Check Surgery Details section. Procedure Findings Check Surgery Details section. Procedure Specimens Taken Check Surgery Details section.
--- OUTSIDE RECORDS SUMMARY | 2023-03-24 07:42 | XMS_ITS | Clinical Summary ---
Author Name Unknown Organization [facility] Address [facility] [place] [address] Care Team Providers Care Supervisor [employer] Name Role Phone Clinic, [facility] Primary Care Provider Allergies No known active allergies Medications Medication Sig Dispensed Refills Start Date End Date Status Vit w/Xl-Rfwoxembn-YF (PNV PO) Take 1 tablet by mouth 0 Active levothyroxine (SYNTHROID, LEVOTHROID) 125 MCG tabletIndications:Hypot hyroidism, unspecified hypothyroidism type Take 1 tablet (125 mcg) by mouth daily 90 tablet 3 07/14/2014 Active Omeprazole (PRILOSEC PO) 0 Active Active Problems Problem Noted Date Diagnosed Date Abdominal pain 02/05/2014 CARDIOVASCULAR SCREENING; LDL GOAL LESS THAN 160 07/02/2013 [facility] 05/02/2011 Overview: DX V65.8 REPLACED WITH [address]28 [employer] LONGTERM (05/19/2012) Hypothyroidism Resolved Problems Problem Noted Date Diagnosed Date Resolved Date Hyperthyroidism 01/02/2013 07/20/2013 Cervical pain 05/18/2011 07/17/2011 Pain in thoracic spine 05/18/201107/16 Mirena IUD placed 05/02/2011 05/02/2011 07/02/2013 Overview: Problem list name updated by automated process. Provider to review and confirm Neck pain 03/02/2011 04/03/2011 Headache 03/02/2011 04/03/2011 Overview: Problem list name updated by automated process. Provider to review and confirm Problem list name updated by automated process. Provider to review state, incidental 03/02/2011 0 04/03/2011 Supervision of normal first 01/15/2011 06/29/2013 Encounters Date Type Department Care Team Description 03/13/2023 11:30 AM DRAFTER CIVIL (CAD) Office Visit [facility] [address] [place] [address] Elena Giraldo APRN CNM Parnerkar, Vaishnavi, MD Hypothyroidism, unspecified type 03/13/2023 Travel from Last 3 Months Immunizations Name Administration Dates Next Due DTAP (<7y) 06/27/1995,1992,1992 ,1992 HIB (PRP-T) 06/27/1995,1992,1992 ,1992 HepB 03/17/1996,08/29/1995,06/27/1995 Influenza (IIV3) PF 03/24/2011,12/25/2009 MMR 03/24/2011,06/27/1995 OPV, trivalent, live 06/27/1995,1992,07/27 TD,PF 7+ (Tenivac) 10/11/2004 Varicella 10/11/2004 Family History Medical History Relation Comments Asthma Maternal Aunt Depression Mother living Relation Status Comments Maternal Aunt Mother Social History Tobacco Use Types Packs/Day Years Used Date Smoking Tobacco: Never Smokeless Tobacco: Never Alcohol Use Standard Drinks/Week Comments No 0 (1 standard drink = 0.6 oz pur e alcohol) Adolescent Education Answer Date Record ed Getting School Help Needed Not on file 11/02 Sex and Gender Information Value Date Recorded Sex Assigned at Not on file Gender Identity Not on file Sexual Orientation Not on file Last Filed Vital Signs Vital Sign Reading Time Taken Comments Blood Pressure 99/66 03/13/2023 11:34 AM DRAFTER CIVIL (CAD) Pulse 114 03/13/2023 11:34 AM DRAFTER CIVIL (CAD) Temperature 37 ??C (98.6 ??F) 03/13/2023 11:34 AM DRAFTER CIVIL (CAD) Respiratory Rate 18 03/13/2023 11:34 AM DRAFTER CIVIL (CAD) Oxygen Saturation 94% 03/13/2023 11:34 AM DRAFTER CIVIL (CAD) Inhaled Oxygen Concentration - - Weight 71.8 kg (158 lb 3.2 oz) 03/13/2023 11:34 AM DRAFTER CIVIL (CAD) Height 153.7 cm (5' 0.5) 03/13/2023 11:34 AM CS T Body Mass Index 30.39 03/13/2023 11:34 AM DRAFTER CIVIL (CAD) Plan of Treatment Upcoming Encounters Date Type Department Care Team (Late st Contact Info) Description 06/11/2023 8:30 AM CDT Virtual Visit [facility] [address] [place] [address] Anita Celis MD [address] [place] [address] Health Maintenance Due Date Last Done Comments ADVANCE CARE PLANNING 1992 ANNUAL REVIEW OF HM ORDERS 1992 YEARLY PREVENTIVE VISIT 1992 IPV IMMUNIZATION (4 of 4 - 4-dose series) 1996 06/27/1995, 06/27/1995, 1992, Additional history exists HEPATITIS C SCREENING 2010 PAP 05/12/2016 05/12/2013 COVID-19 Vaccine ( season) 2022 12/09/2021, 11/11/2021 INFLUENZA VACCINE (#1) 2022 9, 11/17/2017, 11/17/2017, Additional history exists PHQ-2 (once per calendar year) 2023 TSH W/FREE T4 REFLEX 03/13/2024 03/13/2023, 03/13/2023, 07/13/2014, Additional history exists DTAP/TDAP/TD IMMUNIZATION (11 - Td or Tdap) 11/06/2028 11/06/2018, 12/05/2017, 12/19/2016, Additional history exists HEPATITIS B IMMUNIZATION Completed 997, 03/17/1996, 03/17/1996, Additional history exists HIV SCREENING Completed 10/24/2010 HPV IMMUNIZATION Aged Out No longer e ligible based on patient's age to complete this topic MENINGITIS IMMUNIZATION Aged Out No l onger eligible based on patient's age to complete this topic Pneumococcal Vaccine: Pediatrics (0 to 5 Years) and At-Risk Patients (6 to 64 Years) Aged Out No longer eligible based on patient's age to complete this topic RSV MONOCLONAL ANTIBODY Aged Out No l onger eligible based on patient's age to complete this topic Procedures Procedure Name Priority Date/Time Associated Diagnosis Comments THYROID PEROXIDASE ANTIBODY Routine 03/13/2023 11:57 AM DRAFTER CIVIL (CAD) Hypothyroidism, unspecified type TSH Routine 03/13/2023 11:57 AM DRAFTER CIVIL (CAD) Hypothyroidism, unspecified type T4 FREE Routine 03/13/2023 11:57 AM DRAFTER CIVIL (CAD) Hypothyroidism, unspecified type from Last 3 Months Results * (ABNORMAL) TSH (03/13/2023 11:57 AM DRAFTER CIVIL (CAD)) TSH 30.80(H) 0.30 - 4.20 uIU/mL 03/14/2023 6:59 AM DRAFTER CIVIL (CAD) [facility] Blood BLOOD SPECIMEN / Unknown Venipuncture / Unknown 03/13/2023 11:57 AM DRAFTER CIVIL (CAD) 03/13/2023 11:57 AM DRAFTER CIVIL (CAD) Anita Celis MD LAB - BLOOD ORDER [facility] [address], [address] [id number] [phone] * Thyroid peroxidase antibody (03/13/2023 11:57 AM DRAFTER CIVIL (CAD)) Thyroid Peroxidase Antibody <10 <35 IU/mL 03/14/2023 11:24 AM DRAFTER CIVIL (CAD) [facility] Blood BLOOD SPECIMEN / Unknown Venipuncture / Unknown 03/13/2023 11:57 AM DRAFTER CIVIL (CAD) 03/13/2023 11:57 AM DRAFTER CIVIL (CAD) Anita Celis MD LAB - BLOOD ORDER [facility]o [address] [facility] [address], [id number] [place] [address] * (ABNORMAL) T4 free (03/13/2023 11:57 AM DRAFTER CIVIL (CAD)) Free T4 0.86(L) 0.90 - 1.70 ng/dL 03/14/2023 6:59 AM DRAFTER CIVIL (CAD) [facility] Blood BLOOD SPECIMEN / Unknown Venipuncture / Unknown 03/13/2023 11:57 AM DRAFTER CIVIL (CAD) 03/13/2023 11:57 AM DRAFTER CIVIL (CAD) Anita Celis MD LAB - BLOOD ORDER [facility] [address], [address] [place] [address], [facility] [phone] from Last 3 Months Care Teams Supervisor [employer] Relationship Specialty Start Date End Date [facility], [address] [address] PCP - General 04/07/15
--- OUTSIDE RECORDS SUMMARY | 2023-03-24 07:42 | XMS_ITS | Encounter Summary ---
Author Name Unknown Organization [facility] Address [address] [place] [address] Care Team Providers Care Case Advocate Name Role Phone Unavailable Primary Care Provider Unavailabl e Encounter Details Date Type Department Care Team (Late st Contact Info) Description 09/17/2022 Clinical Communication Department of Sleep Medicine in [address] [address] Gina Schroeder M.D., M.P.H. [address] [place] [id number] Social History Tobacco Use Types Packs/Day Years [...] on file documented as of this encounter Plan of Treatment Not on file documented as of this encounter Visit Diagnoses Not on filedocumented in this encounter
--- OUTSIDE RECORDS SUMMARY | 2023-03-24 07:42 | XMS_ITS | Data Portability ---
Author Name Unknown Address [address] [place] [address] Phone [phone] Organization [place] - [facility], [facility] Address [address] [place] [address] Care Team Providers Care Knockout Man Name Role Phone RUTHANN HENRY Referring Provider [phone] Assessment Encounter Date Assessment Date Assessment LastModified by Organization Details LastModified Time 09/12/2020 09/12/2020 Today I spent an extensive amount of time discussing this patient's chief complaints in addition to reviewing their past medical and personal history. I performed a physical examination which is fully documented in the electronic health record. I also educated the patient about the pathophysiology of the disorder, potential contributing and risk factors as well as treatment options to address their complaints. Today panoramic imaging was obtained. On this film there appeared to be very mild flattening on the anterior aspect of the left TMJ condyle. There was sclerosis on the anterior aspect of the right TMJ condyle. There appeared to be moderately reduced radiolucency in the right maxillary sinus with what appears to be a large (~4.0cm x ~8.0cm) oval mass with increased radiopacity, having the appearance of a mucous retention cyst. Multiple teeth were missing (see exam for details). There was a large radiolucent area on the mesial of tooth #30. There were smaller radiolucent areas on the distal of tooth #30 and the mesial of tooth #31. Root canal filling material was extruded through the apices of tooth #19 (RCT tooth). Within the limits of resolution for this film, all other bony and dental structures visualized appeared to be within normal limits. I've recommended advanced imaging with CT. From a treatment perspective I've recommended self-care. Treatment begins with home self management designed to rest the muscles of mastication and reduce inflammation in the temporomandibular joints. This includes heat and ice compresses, eating a soft food or pain-free diet, bilateral chewing identifying and decreasing daytime muscle tension and modification of their sleep position. Beyond self management I do believe that they would benefit from an intraoral appliance. The goal of treatment is to restore function and reduce pain. I do believe that by following these treatment recommendations there is a good prognosis for reduction of symptoms. Today time spent may have included a review of past records, history taking, review of diagnoses, contributing factors, treatment plan, diagnostic testing, prognosis, expectations, risks and complications of treatment/no treatment, discussions with other providers and completing documentation was 60. Not available 09/14/2020 12:20:52 10/13/2020 10/13/2020 Patient was seen today for follow-up and insertion of a maxillary stabilization intraoral appliance. Diagnosis and contributing factors were reviewed. Questions were answered. Self-management and home exercise techniques were reviewed. Today the intraoral appliance was fit to patient comfort. Specifically, adjustments were made to balance appliance occlusion. Instructions on proper use and care were discussed/reviewed both written and verbally. I suggested that (s)he uses the appliance as a retraining tool to aid in relaxing their jaw muscles - put it in 20-30 minutes before bed time, keeping their jaw in a relaxed balanced position, simultaneously applying a heat compress on the jaw as a way to help with jaw relaxation. Potential side effects were reviewed. The patient was advised to discontinue oral appliance use should they experience untoward side effects or be unable to return for follow-up care. The patient was advised to return in 3-4 weeks to reassess their progress and continue their treatment plan as previously outlined. In addition to oral appliance insertion today we review home self-care strategies as previously discussed. We discussed additional treatment options including rehabilitative treatment with physical therapy. Today cone beam CT imaging was obtained. History today was obtained from the patient. The patient has 5+ diagnoses which we are addressing. Their symptoms are unchanged. This case is low complexity because of limited diagnoses and chronic nature. Data reviewed included no records were available today ? SREEDHAR was obtained. Discussion with treatment team members before visit was not necessary. Risk of complications include disease/symptom progression were discussed. Today time spent may have included a review of past records, history taking, review of diagnoses, contributing factors, treatment plan, diagnostic testing, prognosis, expectations, risks and complications of treatment/no treatment, discussions with other providers and completing documentation was 35 minutes. Not available 10/18/2020 11:11:49 Plan of Treatment Reminders Order Date Submit Date Provider Last Modified By Organization Details Last Modified Time Details Appointments None recorded. Lab None recorded. Referral None recorded. Procedures None recorded. Surgeries None recorded. Imaging CT, maxillofaci al, w/o contrast 2020 021 [email or web address] 2 Not available 14:10:45 XR, orthopantog tee 2020 021 [email or web address], [place], [address], 08:48:53 Medication Orders None recorded. Patient TargetsNo targets recorded. Patient Instructions Encounter Date Encounter Id Patient Instructions Last Modified By Organization Details Last Modified Time 10/13/2020 [id number] 1. inserted [place] F PS splint and instructed pt. in care and use of the splint 2. 1/2 hr w/Dr. De La Cruz in 2 weeks to monitor symptoms and review CT scan results. 3. took maxillofacial CT today. Not available 10/13/2020 17:43:52 09/12/2020 [id number] 1. instructed in self cares 2. possible PT evaluation in the future: muscle relaxation, instruct in proper jaw mechanics to reduce TMJ clicking 3. P.A. Mx FPS (4mm thick posterior Thermoflex): impressions by dental assistant administrator done today are being held until insurance authorizes FPS. Pt. also has [employer] through the state (secondary insurance) 4. took and reviewed panorex with patient today 5. .P.A. maxillofacial CT scan to evaluate for dental pathology that may be causing pt's tooth pain 6. possible health psychology evaluation: extreme stress in her home life (see confid). I didn't discuss this with pt. yet. Not available 09/12/2020 22:24:47 Reason for Referral None Reported. Results Created Date Observation Date Name Description Value Unit Range Abnormal Flag LastModifiedBy Organization Detail LastModifiedTime 09/13/19 21 XR, ortho panto gram No observ ation record ed. Not Available 09/12/2020 17:00:29 09/13/19 21 09/13/2020 XR, ortho panto gram No observ ation record ed. [address], [place], [address], 09/13/2020 21:22:25 10/29/[address], maxil lofac ial, w/o contr ast No observ ation record ed. Not Available 10/30/2020 17:02:56 Result Notes None recorded. 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 021 Peggy De La Cruz DDS [address], [place], [address] , [facility] 09/12/2020 22:25:05 Bilateral temporomandibular joint pain Active 021 Peggy De La Cruz DDS [address], [place], [address] , [facility] 09/12/2020 22:25:07 Toothache Active 021 Peggy De La Cruz DDS [address], [place], [address] , [facility] 09/12/2020 22:30:40 Tension-type headache Active 021 Peggy De La Cruz DDS [address], [place], [address] , [facility] 09/12/2020 22:30:42 Problem Notes None recorded. Procedures Surgical History Date Name Laterality Status Provider Name and Address Organization Details Recorded Time CT TMJ completed Milagros guadalupe, [facility] 10/13/2020 17:22:03 Oral appliance completed Milagros guadalupe, [facility] 10/13/2020 16:59:09 Caesarean Section completed Milagros guadalupe, [facility] 09/12/2020 16:15:07 Unlisted px accessory sinus completed Milagros guadalupe, [facility] 09/12/2020 16:15:18 endoscopy completed Milagros guadalupe, [facility] 09/12/2020 16:15:36 Dilation and Curettage completed Milagros guadalupe, [facility] 09/12/2020 16:15:53 Imaging Results Imaging Date Name Status LastModified by Organization Details LastModified Time 09/12/2020 [email or web address] In[facility] not available 09/12/2020 17:00:29 09/13/2020 XR, orthopantogram completed [email or web address] [address], [address], 09/13/2020 21:22:25 10/28/2020 CT, maxillofacial, w/o contrast completed [facility] Information not available 10/30/2020 17:02:56 Procedure Notes None recorded. Medical Equipment None Reported. Allergies Allergen ID Allergen Name Allergen Category Reaction Reaction Severity Criticality Documentation Date Start Date Code Code System Note Provider Name and Address Organization Details Recorded Time 55903 naproxen medicatio n Not available Not available Not available 09/12/2020 7258 RxNorm Milagros guadalupe, [facility] 16:12:26 Medications Name Sig Start Date Stop Date Status Note LastModified by Organization Details LastModified Time clindamycin HCl 300 mg capsule 09/12 completed Not Available Not Available Not Available albuterol sulfate 2.5 mg/3 mL (0.083 %) solution for nebulization 09/12 completed Not Available Not Available Not Available azithromycin 250 mg tablet 09/12 completed Not Available Not Available Not Available metronidazole 0.75 % (37.5 mg/5 gram) vaginal gel 09/12 completed Not Available Not Available Not Available prednisone 20 mg tablet 021 active Not Available Not Available Not Avai lable metronidazole 500 mg tablet 09/12 completed Not Available Not Available Not Available levothyroxine 150 mcg tablet 09/12 completed Not Available Not Available Not Available Advair Diskus 250 mcg-50 mcg/dose powder for inhalation 09/12 completed Not Available Not Available Not Available azelastine 137 mcg (0.1 %) nasal spray aerosol 09/12 completed Not Available Not Available Not Available albuterol sulfate HFA 90 mcg/actuation aerosol inhaler 021 active Not Available Not Available Not Avai lable Flovent HFA 110 mcg/actuation aerosol inhaler 09/12 completed Not Available Not Available Not Available Synthroid active Not Available Not Amparo ilable Not Available Hair Vitamins active Not Available Not Available Not Available budesonide 1 mg/2 mL suspension for nebulization 09/12 completed Not Available Not Available Not Available Neilmed Sinus Rinse Complete with packet 09/12 completed Not Available Not Available Not Available ProChamber 09/12 completed Not Available Not Available Not Available Vitals Date Recorded Body height Body mass index (BMI) Body weight Heart rate Systolic blood pressure Diastolic blood pressure Provider Name and Address Organization Details Last Updated DateTime 1 167.64 cm 21 kg/m2 38732.0 1 g 71 /min 107 mm[Hg] 70 mm[Hg] WIL[place] Sterling [facility] 1 16:35:07 Date Recorded Body height Body mass index (BMI) Body weight Heart rate Systolic blood pressure Diastolic blood pressure Provider Name and Address Organization Details Last Updated DateTime 1 167.64 cm 21 kg/m2 74968.0 1 g 81 /min 107 mm[Hg] 77 mm[Hg] [place] Sterling [facility] 1 16:58:37 Social History Question Answer Notes LastModified by Organizat ion Details LastModified Time Tobacco Smoking Status Never Smoker WILIAM Sterling [facility] 09/12/2020 16:14:49 What Is Your Level Of Alcohol Consumption? None Information not available 09/12/2020 What Is Your Level Of Caffeine Consumption? Moderate Information not available 09/12/2020 Are You Currently Employed? Yes Information not available 09/12/2020 What Type Of Diet Are You Following? REGULAR Information not available 09/12/2020 What Is The Highest Grade Or Level Of School You Have Completed Or The Highest Degree You Have Received? [id number] Information not available 09/12/2020 What Is Your Relationship Status? Information not available 09/12/2020 Sex: Female Functional Status Question Answer Note LastModified by Organizat ion Details LastModified Time What is your exercise level? Occasional Information not available 09/12/2020 Mental Status None recorded. Family History Relationship Description Onset Age of this Age Resolved Age Notes Father No current problems or disability Mother No current problems or disability Medical History Condition Response Coronary Artery Disease N Other N Gout N Chronic fatigue syndrome N Hyperthyroidism N Premenstrual syndrome (PMS) N MRSA N Emphysema N Head Trauma/Injury N Irritable bowel syndrome N COPD N Depression N Lung Disease N Hypothyroidism Y Glaucoma N Pneumonia N Pacemaker N Obstructive Sleep Apnea N Anxiety Disorder N Autoimmune disease N Muscle, Joint, or Bone Problems N Vision or Eye Problems N Arthritis N Serious Illness or Injuries N Acid Reflux (GERD) N Cancer N Stroke N Neck Injury N Eating disorder N Back Injury N High Cholesterol N History of chemotherapy N Neurologic Disorder Y Liver Disease N Organ Transplant N Rheumatoid Arthritis N Fibromyalgia N Headaches Y Kidney Disease N Allergies/Hayfever N Post traumatic stress disorder (PTSD) N Parkinson's Disease N Migraines N Brain Tumors N Anemia Y Multiple Sclerosis N Immune System Disorder N Meningitis N Pancreatic disease N Heart Attack (MS) N Stomach Ulcers N Back pain N Diabetes N Bleeding Disorder N Seizures/Epilepsy N Sjogren's syndrome N Tuberculosis N AIDS/HIV N History of radiation therapy N Hyperlipidemia N Dementia N Asthma Y Physical or sexual abuse N Substance Abuse N Peripheral Vascular Disease N Psoriasis N Reflux/GERD N Mental Problems N Vertigo N Sleep Disorder N Hepatitis N Aneurysm N Neuropathy N Heart Disease N Pulmonary Embolism N Hypertension N Osteoporosis N Gynecological HistoryNo gynecological history recorded. Obstetrics History GPAL:G 0 P 0 0 0 0 Past Encounters Encounter ID Performer Location Encounter Start Date Encounter Closed Date Diagnosis/Indication [id number] Peggy De La Cruz, DESMONDS [address] 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 Toothache Myofascial pain Tension-type headache Health Concerns Section Related Observation LastModified by Organization Detai ls LastModified Time None Recorded Concern Status LastModified by Organization Details LastModified Time None Recorded Advance Directives Directive None Recorded Payers Encounter Date Sequence Insurance Name Policy Number Policy Mckeon Covered Member ID Mckeon Member ID Guarantor Name 10/13/2020 2 [employer] - DOS PRIOR TO 2021 [facility] Kera Hale [id number] Jeanne Hale 10/13/2020 1 [place] [id number] Kera Hale [id number] Jeanne Hale 09/12/2020 2 [employer] - [place] PRIOR TO 2021 [facility] Kera Hale [id number] Jeanne Hale 09/12/2020 1 [place] [id number] Kera Hale [id number] Jeanne Hale Notes Date Note Type Note Provider Name and Address Organization Details Recorded Time 09/12/2020 text/html HPI Notes: gener al HPI for jaw, face, TMD pain Reported by patient. Onset: started 4 year(s) ago Location: bilateral Quality: aching Severity: radiating to the ear (and head) Duration constant Symptom triggers: no known trigger/insidious Aggravating Factors: sweet food, chocolate Alleviating Factors: acetaminophen (helps a little) Associated Symptoms: no jaw clicking; no jaw popping; malocclusion Prior Tests: NONE Prior opinion dentist Symptoms status stable Notes: Tooth sensitivity in multiple maxillary and mandibular teeth, 5-7/10, constant moderate to strong ache; sensitive to hot, cold, sweet pt. denies TMJ clicking or jaw locking R > L temporal/frontal and occipital headaches, 4-10/10, almost daily intermittent dull to strong ache; aggravated as the day progresses Patient presents today for evaluation of a possible temporomandibular disorder. These symptoms are chronic and began with no clear triggering events. Previous consultation include evaluation with his/her dentist. Symptoms are bilateral and aggravated by jaw use and function. The patient is not aware of teeth clenching and grinding. Jeanne states she has pain in multiple maxillary and mandibular teeth. She has had restorations placed in multiple teeth but her dental pain persisted so she had 4 root canals done. After the root canal treatments on those teeth she was still having tooth pain so she had 4 of the painful teeth extracted. However, in spite of this treatment she continues to have pain in the areas of the extraction. Jeanne is confused about why she still has tooth pain where there are no teeth. She subsequently developed tooth pain in some left-sided teeth last year but her dentist did not want to treat them until she was evaluated in our clinic. She states its really hard for her to eat and chew. When food touches are teeth (i.e. chocolate) her posterior teeth are really sensitive. She chews on her front teeth and puts food on her tongue to eat. Her teeth sometimes ache and the pain radiates to her ears. Her tooth pain gives her headaches. Her headaches are usually on top of head and back of head. The headaches are new and just started this year. Felicia states when she get dental treatment her dentist gives her extra Novocaine. It's hard to get her numb. Peggy De La Cruz, DESMONDS [address], [place], [address], [facility] 10/13/2020 14:03:49 10/13/2020 text/html HPI Notes: gener al HPI for jaw, face, TMD pain Reported by patient. Onset: started 4 year(s) ago Location: bilateral Quality: aching Severity: radiating to the ear (and head) Duration constant Symptom triggers: no known trigger/insidious Aggravating Factors: sweet food, chocolate Alleviating Factors: acetaminophen (helps a little) Associated Symptoms: no jaw clicking; no jaw popping; malocclusion Prior Tests: NONE Prior opinion dentist Symptoms status stable Notes: 10/13/2020: pt. reports her stress level has improved. 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 The Mx tooth pain went away for 4 months, but then maxillary tooth pain returned. 09/12/2020: Tooth sensitivity in multiple maxillary and mandibular teeth, 5-7/10, constant moderate to strong ache; sensitive to hot, cold, sweet pt. denies TMJ clicking or jaw locking R > L temporal/frontal and occipital headaches, 4-10/10, almost daily intermittent dull to strong ache; aggravated as the day progresses Patient presents today for insertion of a maxillary stabilization oral appliance. They note no changes in symptoms which along with prior data was reviewed, updated and documented in the patient history of present illness. (S)he describes compliance with home self care as previously recommended. Peggy De La Cruz, DDS [address], [place], [address], [facility] 10/18/2020 11:17:08 OBGyn Episode No OBEpisode recorded.
--- OUTSIDE RECORDS SUMMARY | 2023-03-24 07:42 | XMS_ITS | Clinical Summary ---
Author Name Unknown Organization [facility] Address [place], [place] [address] Care Team Providers Care Senior Sourcing Manager Name Role Phone Guilherme Olguin MD Unavailable Unavailable Pcp, No Primary Care Provider Unavailabl e Allergies Active Allergy Reactions Criticality Noted Date Comments Etonogestrel Other - Describe In Comment Field 02/15/2016 sig hair loss Medications Medication Sig Dispensed Refills Start Date End Date Status polyethylene glycoL (MIRALAX) 17 gram/dose powderIndications:Fat igue, unspecified type Take 17 g by mouth once daily. 1 jar 3 05/15/2019 Active albuterol HFA (PRO-AIR) 90 mcg/actuation inhalerIndications:Mi ld intermittent asthma, unspecified whether complicated Inhale 1-2 Puffs by mouth every 4 hours while awake. 1 Each 0 01/04/2020 Active inhalational spacing deviceIndications:Mod erate persistent asthma with acute exacerbation For home use. 1 Device 0 02/08/2020 Active fluticasone propionate (FLOVENT) 110 mcg/Actuation inhalerIndications:Mo derate persistent asthma with acute exacerbation Inhale 2 Puffs by mouth 2 times daily. 1 Inhaler 2 02/08/2020 Active budesonide (PULMICORT) 1 mg/2 mL neb suspensionIndications :Nasal congestion,Left nasal polyps Put one respule in sinus rinse kit and irrigate twice daily 120 mL 0 02/17/2020 Active levothyroxine (SYNTHROID) 150 mcg tabletIndications:Hyp othyroidism (acquired) Take 1 Tablet (150 mcg) by mouth before breakfast. 90 tablet. 1 06/11/2020 Active azelastine 137 mcg/actuation (ASTELIN) nasal sprayIndications:Microsoft Net Developer aye pansinusitis,Mucous retention cyst of maxillary sinus,Allergic rhinitis, unspecified seasonality, unspecified trigger Inhale 2 Sprays into affected nostril(s) 2 times daily. 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 left for [place] and no treatment till 01/2013. Poor concentration, forgetfulness, shakiness, nervous, hyperactive, restless, weight loss, history of lose BMs. Weak muscles. 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 left for [place] and no treatment till 01/2013. Poor concentration, forgetfulness, shakiness, nervous, hyperactive, restless, weight loss, history of lose BMs. Weak muscles. 11/2012: TSH < 0.02, FreeT4 2.78 Other and unspecified ovarian cyst 06/10/2012 Chronic frontal sinusitis Acute recurrent sphenoidal sinusitis Polypoid middle turbinate Chronic maxillary sinusitis Hypertrophy of both inferior nasal turbinates Nasal septal deviation Resolved Problems Problem Noted Date Diagnosed Date Resolved Date (normal spontaneous vaginal delivery) 01/03/2018 03/08/2020 Anemia during in third trimester 12/09/2017 03/08/2020 care, subsequent 10/29/2017 03/08/2020 Limited care in third trimester 02/21/2017 03/08/2020 Overview: GBS negative. (Lab drawn at [facility] on 02/03/17) Limited care. Kyleena or depo recommended . mirena cause hair loss. Discussed tubal ligation as she feels she is done having children now. Consult advised for after delivery. Silva ReevesODarren 02/21/2017 8:43 AM 01/11/2017 03/08/2020 Overview: Estimated Date of Delivery: 02/25/17 Patient's last menstrual period was 05/21/2016. Last Tdap- 12/19/2016 Last Flu vaccine- 03/24/2011 Allergies Allergen Reactions ? ? Nexplanon [Etonogestrel] Other - Describe In Comment Field sig hair loss Obstetric History T3 L3 SAB1 TAB0 Ectopic0 Multiple0 Live Births3 # Outcome Date GA Lbr Polo/2nd Weight Sex Delivery Anes PTL Lv 5 Current 4 Term 06/17/15 40w1d 3.175 kg (7 lb) M Vag NONE N [place] Name: Peter 3 Term 03/09/14 2.722 kg (6 lb) F Vag-Spont [place] Name: Nadine 2 SAB 05/2013 SPONTANEOUS 1 Term 03/22/11 38w0d 3.175 kg (7 lb) F Vag EPIDURAL [place] Name: Amanda Component Latest Ref Rng & Units 12/19/2016 HEMOGLOBIN 12.0 - 16.0 g/dL 10.8 (L) MCV 80 - 100 fL 83 TSH 0.35 - 4.94 uIU/mL 1.78 Past Medical History: Diagnosis Date ? ? Asthma Childhood ? ? Blighted ovum ? ? Graves disease 06/11/2012 Diagnosed in 05/2012 (12 months post ),FreeT4 2.67 , TSH < 0.01, T3 298, TSI 5.3. left for [place] and no treatment till 01/2013. Poor concentration, forgetfulness, shakiness, nervous, hyperactive, restless, weight loss, history of lose BMs. Weak muscles. 11/2012: TSH < 0.02, FreeT4 2.78 ? ? Postablative hypothyroidism 03/25/2013 ? ? Supervision of other normal 03/05/2013 Past Surgical History: Procedure Laterality Date ? ? D&C blighted ovum No data on file. AISHWARYA 02/25/2017 Problems (from 08/02/16 to present) Problem Noted Resolved Chiari I malformation (HC) 08/06/2016 by Silas John MD No Sinusitis chronic, frontal 08/06/2016 by Silas John MD No Asthma 08/06/2016 by Silas John MD No consult 08/02/2016 by Frida Salazar RN No Overview Addendum 08/02/2016 4:10 PM by Frida Salazar, [facility] MOMS CONSULTATION ON 08/06/2016 F/U MOMS CLINIC PATIENT REASON FOR CONSULT: Maternal Arnold Chiari malformation (pt believes type 1) TODAY'S APPOINTMENT: MD Consultation & ultrasound exam PRIMARY DIAGNOSIS: 26 y.o. Estimated Date of Delivery: 02/25/17 Maternal Arnold Chiari malformation Hx Graves Hypothryoidism, on synthroid Migraines (currently c/o every day) Hx recurrent UTI Chronic HTN (no documentation) LAST GROWTH: 07/27/16: viability 9w 4d by US (AISHWARYA 02/28/17) REFERRING PHYSICIAN/PHONE/LAST UPDATE: Olivia Shaw NP, [facility] - [phone] Primary MD approves scheduling of recommended ultrasounds/testing: Unknown SPECIALISTS/PHONE: Neurology [facility] - last seen 12/19/15 - notes scanned SREEDHAR: SREEDHAR signed for [facility]: CARE COORDINATION: GENETICS: PROCEDURES: PERTINENT LABS: Blood type: Last pap: Initial Hgb /Ferritin Hgb 28 wk Hgb 36 wk Repeat hgb anemic and compliant every 4 wks if/until >11.0 MEDS: Synthroid 150 mcg daily vitamin Miralax PRN NEXT VISIT ALERTS: FUTURE APPOINTMENTS: Testing: Through Growth: OB visits: Through TESTING PLANS: ROCK WORKER: CONSULTS: NURSING: DEPRESSION SCREEN Initial screen: Date PHQ-9 score: 24 week screen: Due ~ PHQ-9 score: Previous history of depression or anxiety? NO YES Tdap vaccine: GIVE BETWEEN 27 AND 36 WEEKS Date given: Treponema Pallidum: DRAW @ 28 WEEKS Date drawn: Plan for Gestational Diabetes screening: Plan screen @ for DELIVERY PLANS: Is the Delivery Care Plan in the chart? N/A Yes Date: Was it discussed with patient by 32 weeks? 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 Estimated Date of Delivery: 02/25/17 Maternal Arnold Chiari malformation Hx Graves Hypothryoidism, on synthroid Migraines (currently c/o every day) Hx recurrent UTI Chronic HTN (no documentation) LAST GROWTH: 07/27/16: viability 9w 4d by US (AISHWARYA 02/28/17) REFERRING PHYSICIAN/PHONE/LAST UPDATE: Olivia Shaw NP, [facility] - [phone] Primary MD approves scheduling of recommended ultrasounds/testing: Unknown SPECIALISTS/PHONE: Neurology [facility] - last seen 12/19/15 - notes scanned SREEDHAR: SREEDHAR signed for [facility]: CARE COORDINATION: GENETICS: PROCEDURES: PERTINENT LABS: Blood type: Last pap: Initial Hgb /Ferritin Hgb 28 wk Hgb 36 wk Repeat hgb anemic and compliant every 4 wks if/until >11.0 MEDS: Synthroid 150 mcg daily vitamin Miralax PRN NEXT VISIT ALERTS: FUTURE APPOINTMENTS: Testing: Through Growth: OB visits: Through TESTING PLANS: ROCK WORKER: CONSULTS: NURSING: DEPRESSION SCREEN Initial screen: Date PHQ-9 score: 24 week screen: Due ~ PHQ-9 score: Previous history of depression or anxiety? NO YES Tdap vaccine: GIVE BETWEEN 27 AND 36 WEEKS Date given: Treponema Pallidum: DRAW @ 28 WEEKS Date drawn: Plan for Gestational Diabetes screening: Plan screen @ for DELIVERY PLANS: Is the Delivery Care Plan in the chart? N/A Yes Date: Was it discussed with patient by 32 weeks? N/A Yes Date: Planning/Not planning Tubal Ligation Is/Is not Medical assistance PLAN OF CARE: Maternal iron deficiency ane bonita affecting in third trimester, antepartum 04/21/2015 11/09/2015 03/05/2013 11/09/2015 Overview: GBS negative. TDAP given 05/27/15 Hyperthyroidism 06/11/2012 01/06/2013 Diarrhea 06/10/2012 11/28/2012 Abdominal pain, left lower quadrant 06/10/2012 01/06/2013 Immunizations Name Administration Dates Next Due DTaP 06/27/1995, 3,1992,1992 Hepatitis B (Peds) 03/17/1996,08/29/1995, 996 Hib Conjugate, Unspecified 06/27/1995,,1992,1992 Inactivated Polio Vaccine 06/27/1995,1992, 1992 Influenza Virus, Unspecified 03/24/2011,12/26/19 10 Influenza, IIV3 (Age >=3 years) 03/24/2011,12/25 Influenza, IIV4 11/11/2018 Influenza, IIV4 (=>6mos) MDV 11/17/2017,12/26/19 10 MMR 01/04/2018,03/24/2011,06/27/1995 MMRV 01/04/2018,10/11/2004 Oral Polio Vaccine 06/27/1995,1992, 993 Td, Preservative Free (age > = 7 Years) 10/11/2004 Tdap 11/06/2018, 8,12/19/2016,2015,12/28/2013,10/11/2004 Varicella Vaccine 10/11/2004 Family History Medical History Relation Name Comments Diabetes Brother Relation Name Status Comments Brother Alive Father Maternal Grandfather Maternal Grandmother Mother Alive Paternal Grandfather Paternal Grandmother Social History Tobacco Use Types Packs/Day Years Used Date Smoking Tobacco: Never Smokeless Tobacco: Never Tobacco Cessation:Counseling Given: Yes Alcohol Use Standard Drinks/Week Comments No 0 (1 standard drink = 0.6 oz pur e alcohol) PHQ-2 Answer Date Recorded PHQ-2 Score 0 04/15/2018 Social Connections Answer Date Recorded Frequency of Communication with Friends and Fami ly Not on file 02/10/2021 Financial Resource Strain Answer Date R ecorded Difficulty of Paying Living Expenses Not on file 02/10/2021 Difficulty of Paying Living Expenses Not on file 02/10/2021 Sex and Gender Information Value Date Recorded Sex Assigned at Not on file Gender Identity Not on file Sexual Orientation Not on file Obstetrics History Para Term AB IAB SAB Ectopic Multiple Livin g Live Births 7 5 5 0 1 0 1 0 0 5 5 Date Outcome GA Total Labor Labor/2nd/3rd Weight Sex Delivery Anes PTL [place] A1 A5 Name Cl in 03/22 Term 38w 0d 3.18 kg (7 lb) F Vag Epidu ral Gypsy ng Amanda Delivery Location:[facility] 05/31 14 SAB SPONTANEO US Comments:Blighted Ovum 03/09 Term 2.72 kg (6 lb) F Vag-Spont Gypsy ng Umm za Delivery Location:[place] 06/16 Term 40w 1d 3.18 kg (7 lb) M Vag None N Gypsy ng Peter Complications:None Delivery Location:[facility] 02/22 Term 39w 4d M Vag Gypsy ng Santosh 01/03 Term 39w 2d 0h 11m 3.29 kg (7 lb 4 oz) F Vag Epidu ral N Gypsy ng 9 9 BONIL LA,BG JAAlexMI N Cosmo k Complications:None Delivery Location:[facility] Last Filed Vital Signs Vital Sign Reading Time Taken Comments Blood Pressure 120/73 04/13/2020 3:58 PM LEVERS LACE MACHINE OPERATOR Pulse 85 04/13/2020 3:58 PM LEVERS LACE MACHINE OPERATOR Temperature 37.1 ??C (98.7 ??F) 03/07/2020 3:36 PM CS T Respiratory Rate 20 03/24/2020 3:34 PM LEVERS LACE MACHINE OPERATOR Oxygen Saturation 99% 04/13/2020 3:58 PM LEVERS LACE MACHINE OPERATOR Inhaled Oxygen Concentration - - Weight 60.8 kg (134 lb) 03/07/2020 3:36 PM LEVERS LACE MACHINE OPERATOR Height 156 cm (5' 1.42) 03/07/2020 3:36 PM LEVERS LACE MACHINE OPERATOR Body Mass Index 24.98 03/07/2020 3:36 PM LEVERS LACE MACHINE OPERATOR Plan of Treatment Health Maintenance Due Date Last Done Comments COVID-19 vaccine series (#1) 1992 Depression screening for age 12+ 04/21/2020 04/22/2019, 04/22/2019, 07/17/2018, Additional history exists BMI (ht and wt on same day) for age 18+ 03/07/2021 03/07/2020, 01/26/2020, 01/04/2020, Additional history exists Influenza for age 9-49 10/12/2022 9, 11/17/2017, 03/24/2011, Additional history exists Pap test for age 21-65 10/31/2024 , 10/31/2021, 09/01/2018, Additional history exists Tetanus booster 11/06/2028 11/06/2018, 11/12, 12/19/2016, Additional history exists Hepatitis C screening for age 18-79 Completed 11/02/2014, 07/27/2013 HIV for age 15-65 Completed 10/29/2017, , 10/26/2013, Additional history exists Tdap Completed 11/06/2018, 11/12, 12/19/2016, Additional history exists Pneumococcal series for age 6-64 Aged Out No longer eligible based on patient's age to complete this topic Medical Devices Implanted Type Area Airport Utility Worker Device Identifier Shelf Expiration Date Model / Serial / Lot Stent Ent Mini Steroid-Releas ing Propel Bioabsorb - [id number] Implanted:Qty: 2 on 04/22/2017 by Pedro Plascencia MD at [facility] Bilateral : [employer] 10/30/2018 [id number]# / / [id number] Stent Sinus 8mm Propel Contour Bioabsorb - [id number] Implanted:Qty: 1 on 04/22/2017 by Pedro Plascencia MD at [facility] Left: [employer] 10/19/2018 [id number]# / / [id number] Advance Directives Latest Code Status on File Code Status Date Activated Date Inactivated Comments Full Code 01/03/2018 4:57 PM 01/04/2018 5:40 PM Code Status History Code Status Date Activated Date Inactivated Comments Full Code 09/01/2017 5:01 PM 09/02/2017 1:36 PM Question Answer Comments Code Status Discussion: Not Discussed Full Code 04/22/2017 10:35 AM 04/22/2017 7:58 PM Question Answer Comments Code Status Discussion: Not Discussed Care Teams Senior Sourcing Manager Relationship Specialty Start Date End Date Pcp, No . PCP - General 09/30/20 Guilherme Olguin MD [employer] Obstetrics and Gynecology 01/25/11
--- OUTSIDE RECORDS SUMMARY | 2023-03-24 07:42 | XMS_ITS | Clinical Summary ---
Author Name Unknown Organization [facility] Address [address] [place] [address] Care Team Providers Care Bed Worker Name Role Phone Unavailable Primary Care Provider Unavailabl e Source Comments Patient records contain information from all sites at [facility]. For routine questions regarding patient records, call [phone] during business hours, M-F 8:00 AM - 5:00 PM Central Time. Record requests for emergency care only can be directed to [phone] at any time.[facility] Allergies Active Allergy Reactions Criticality Noted [...] 08/02/2022 3:44 PM CDT Plan of Treatment Health Maintenance Due Date Last Done Comments HIV Screening 1992 Hepatitis C Screening 1992 Pneumococcal vaccine (0-64 years) (1 of 2 - PCV) 1998 Asthma Action Plan 09/04/2017 Asthma Control Test Questionnaire 09/04/2017 Thyroid Stimulating Hormone (TSH) test for thyroid function 01/25/2021 01/26/2020, 07/08/2019, 04/22/2019, Additional history exists COVID-19 Vaccine ( - season) 2022 12/09/2021, 11/11/2021 Influenza Vaccine (#1) 2022 9, 11/17/2017, 03/24/2011, Additional history exists Depression Screening (Annual PHQ-2) 02/11/2023 Cervical Cancer Screening 10/31/2024 10/31/2021 DTaP,Tdap,and Td Vaccines (11 - Td or Tdap) 11/06/2028 11/06/2018, 12/05/2017, 12/19/2016, Additional history exists Hepatitis B Vaccines Completed 03/17/1996, 03/17/1996, 03/17/1996, Additional history exists HPV Vaccines Aged Out No longer eligi ble based on patient's age to complete this topic
--- OUTSIDE RECORDS SUMMARY | 2023-03-24 07:42 | XMS_ITS | Referral Summary ---
Author Name Unknown Organization [facility] Address [address] [place] [address] Care Team Providers Care Freight Car Loader Name Role Phone [facility] Primary Care Provider Encounters Date Type Department Care Team Description 03/13/2023 Travel 03/13/2023 11:30 AM STAIN WIPER Office Visit [facility] [address] [place] [address] Elena Giraldo APRN CNM Parnerkar, Vaishnavi, MD Hypothyroidism, unspecified type from Last 3 Months Allergies No known active allergies Medications Medication Sig Dispensed Refills Start Date End Date Status Vit w/Ss-Jaqgwgxaf-VK (PNV PO) Take 1 tablet by mouth 0 Active levothyroxine (SYNTHROID, LEVOTHROID) 125 MCG tabletIndications:Hypot hyroidism, unspecified hypothyroidism type Take 1 tablet (125 mcg) by mouth daily 90 tablet 3 07/14/2014 Active Omeprazole (PRILOSEC PO) 0 Active Active Problems Problem Noted Date Diagnosed Date Abdominal pain 02/05/2014 CARDIOVASCULAR SCREENING; LDL GOAL LESS THAN 160 07/02/2013 [facility] Assisted 05/02/2011 Overview: DX V65.8 REPLACED WITH [id number] [facility] (05/19/2012) Hypothyroidism Resolved Problems Problem Noted Date [...] 04/03/2011 Supervision of normal first 01/15/2011 06/29/2013 Immunizations Name Administration Dates Next Due DTAP (<7y) 06/27/1995,1992,1992 ,1992 HIB (PRP-T) 06/27/1995,1992,1992 ,1992 HepB 03/17/1996,08/29/1995,06/27/1995 Influenza (IIV3) PF 03/24/2011,12/25/2009 MMR 03/24/2011,06/27/1995 OPV, trivalent, live 06/27/1995,1992,07/27 TD,PF 7+ (Tenivac) 10/11/2004 Varicella 10/11/2004 Social History Tobacco Use Types Packs/Day [...] Comments Blood Pressure 99/66 03/13/2023 11:34 AM STAIN WIPER Pulse 114 03/13/2023 11:34 AM STAIN WIPER Temperature 37 ??C (98.6 ??F) 03/13/2023 11:34 AM STAIN WIPER Respiratory Rate 18 03/13/2023 11:34 AM STAIN WIPER Oxygen Saturation 94% 03/13/2023 11:34 AM STAIN WIPER Inhaled Oxygen Concentration - - Weight 71.8 kg (158 lb 3.2 oz) 03/13/2023 11:34 AM STAIN WIPER Height 153.7 cm (5' 0.5) 03/13/2023 11:34 AM CS T Body Mass Index 30.39 03/13/2023 11:34 AM STAIN WIPER Plan of Treatment Upcoming Encounters Date Type Department Care Team (Late st Contact Info) Description 06/11/2023 8:30 AM CDT Virtual Visit [facility] [address] [place] [address] Anita Celis MD [address] [place] [address] Procedures Procedure Name Priority Date/Time Associated Diagnosis Comments THYROID PEROXIDASE ANTIBODY Routine 03/13/2023 11:57 AM STAIN WIPER Hypothyroidism, unspecified type TSH Routine 03/13/2023 11:57 AM STAIN WIPER Hypothyroidism, unspecified type T4 FREE Routine 03/13/2023 11:57 AM STAIN WIPER Hypothyroidism, unspecified type from Last 3 Months Results * (ABNORMAL) TSH (03/13/2023 11:57 AM STAIN WIPER) TSH 30.80(H) 0.30 - 4.20 uIU/mL 03/14/2023 6:59 AM STAIN WIPER [facility] Blood BLOOD SPECIMEN / Unknown Venipuncture / Unknown 03/13/2023 11:57 AM STAIN WIPER 03/13/2023 11:57 AM STAIN WIPER Anita Celis MD LAB - BLOOD ORDER [facility] [address], [address] [place] [address], [facility] [phone] * Thyroid peroxidase antibody (03/13/2023 11:57 AM STAIN WIPER) Thyroid Peroxidase Antibody <10 <35 IU/mL 03/14/2023 11:24 AM STAIN WIPER SPECIALTY CORE/PROT/ENDO Blood BLOOD SPECIMEN / Unknown Venipuncture / Unknown 03/13/2023 11:57 AM STAIN WIPER 03/13/2023 11:57 AM STAIN WIPER Anita Celis MD LAB - BLOOD ORDER [facility] SPECIALTY CORE/PROT/ENDO Specialty Core/Prot/Endo [address], [address] [place], [place] [address] [phone] * (ABNORMAL) T4 free (03/13/2023 11:57 AM STAIN WIPER) Free T4 0.86(L) 0.90 - 1.70 ng/dL 03/14/2023 6:59 AM STAIN WIPER [facility] Blood BLOOD SPECIMEN / Unknown Venipuncture / Unknown 03/13/2023 11:57 AM STAIN WIPER 03/13/2023 11:57 AM STAIN WIPER Anita Celis MD LAB - BLOOD ORDER [facility] [address], [address] [place] [address], [facility] [phone] from Last 3 Months Care Teams Freight Car Loader Relationship Specialty Start Date End Date [facility], [address] [address] PCP - General 04/07/15
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
--- OUTSIDE RECORDS SUMMARY | 2023-03-24 07:43 | XMS_ITS | Encounter Summary ---
Author Name Unknown Organization [facility] Address [address] [facility] [place] [address] Care Team Providers Care Brazer Controlled Atmospheric Furnace Name Role Phone [facility] Primary Care Provider Reason for Referral * Consultation (Routine) - Pending Review Specialty Diagnoses / Procedures Referred By Ashleigh t Referred To Contact Endocrinology, Diabetes, and Metabolism Diagnoses Hypothyroidism, unspecified type Elena Ordonez APRN CNM [facility] [address] [place] [address] Referral ID Status Reason Start Date Expiration Date V isits Requested Visits Authorized [id number] Pending Review 11/28/2022 11/28/2023 1 1 Question Answer Reason for Referral: Thyroid Scheduling Instructions: [employer] will call you to coordinate your care as prescribed by the provider. If you don? t hear from a underwriting sales representative within 2 business days, please call [phone]. Additional Information: TSH 44 on 11/27/22 Comments Please be aware that coverage of these services is subject to the terms and limitations of your health insurance plan. Call member services at your health plan with any benefit or coverage questions. Referral Transcribed by external fax Provider: ELENA ORDONEZ affiliated with [facility] at [address] [facility] [address]. Phone number: [phone] Fax number: [phone] [employer] will call you to coordinate your care as prescribed by the provider. If you don? t hear from a underwriting sales representative within 2 business days, please call [phone]. Encounter Details Date Type Department Care Team (Late st Contact Info) Description 11/28/2022 Transcribe Orders GENERIC EXTERNAL DATA DEPARTMENT Provider, Generic External Data Hypothyroidism, unspecified type (Primary Dx) Social History Tobacco Use Types Packs/Day Years [...] as of this encounter Plan of Treatment Upcoming Encounters Date Type Department Care Team (Late st Contact Info) Description 06/11/2023 8:30 AM CDT Virtual Visit [facility] [address] [facility] [address] [place] [phone] Anita Celis MD [address] [place] [address] [address] [place] [address] Scheduled Referrals Name Type Priority Associated Diagnoses Orde r Schedule Adult Endocrinology Surveillance Analyst Referral Referral Routine Hypothyroidism, Unspecified Type Expected: 11/28/2022 (Approximate), Expires: 11/29/2023 documented as of this encounter Visit Diagnoses Diagnosis Hypothyroidism, unspecified type- Primary documented in this encounter Care Teams [employer] At[employer] Furnace Relationship Specialty Start Date End Date [address] [address] PCP - General 04/07/15 documented as of this encounter
--- OUTSIDE RECORDS SUMMARY | 2023-03-24 07:43 | XMS_ITS | Encounter Summary ---
Author Name Unknown Organization [place] Address [address] [facility] [place] [address] Care Team Providers Care High Density Finishing Operator Name Role Phone [facility] Primary Care Provider No Ref-Primary, Physician Primary Care Provider India Arora DO Primary Care Provider [phone] No Ref-Primary, Physician Primary Care Provider Brit García APRN [facility] Primary Care [facility] Primary Care Provider Reason for Visit * Reason Onset Date Comments Nurse Advice Line 04/06/2011 Encounter Details Date Type Department Care Team (Late st Contact Info) Description 04/06/[address] [place] [address] [facility] - [address] [address] Nurse Advice Line Social History Tobacco Use Types Packs/Day Years Used Date Smoking Tobacco: Never Smokeless Tobacco: Never Alcohol Use Standard Drinks/Week Comments No 0 (1 standard drink = 0.6 oz pur e alcohol) Sex and Gender Information Value Date Recorded Sex Assigned at Not on file Gender Identity Not on file Sexual Orientation Not on file documented as of this encounter Miscellaneous Notes * Telephone Encounter - Negin Masters - 10/31/2011 8:51 AM CDT [facility] NurseLine Triage Call Report Patient Name: Kera Hale Call Date & Time: 04/06/2011 5:39:53PM Patient PCP Name: MRN: Patient Address: Patient Date of : 1990 Age: 21 yr. Patient Gender: Female Credit And Loan Collections Supervisor Name: Ora Joseph Presenting Problem: Calling that she had a baby 2 weeks ago and is having difficulty having bm's and some blood when she does. Hurts to have a bm and the stools are hard. Abdominal pain started last week and it torres with vdg. She is unsure what she will do but understands I recommend she be seen. Discussed urgent care options. Triage Note: Guideline Title: GI Bleeding Recommended Disposition: Override Disposition: See Provider within 4 hours Question Response Question Note New or worsening signs and symptoms that may indicate No shock Severe unbearable abdominal or back pain (localized, No generalized, deep, boring or tearing) Vomiting red, bloody or coffee-ground material, more than No streaks of blood or scant amount (not following nosebleed within past day) Passing red, black or tarry material from rectum AND No onset of new signs and symptoms of hypovolemia Any cardiac signs/symptoms for more than 5 minutes, now No or within last hour Swallowed toxic or caustic substance No Vomited blood after nosebleed No Bloody diarrhea associated with any temperature No elevation AND has not been evaluated. Receiving or recently completed chemotherapy or radiation No therapy AND more than one episode of black or tarry stool, not blood streaked History of esophageal varices AND more than one episode No of black or tarry stool, not blood streaked Immediately following abdominal or rectal injury AND No having any amount bright red rectal bleeding Rectal foreign body with any amount of bright red No bleeding Bleeding began after GI surgery or procedure during No cautionary timeframe specified in post-op instructions One or more episodes of rectal bleeding (more than Yes scant) and no symptoms of hypovolemia Physician Contacted: Physician Instructions: No Care Advice: - Limit activities and increase periods of rest. - May drink clear liquids (such as water, cola or other soda, tea) but do not eat solid foods priorto being seen by provider. - Call EMS 911 if signs and symptoms of shock develop (such as unable to stand due to faintness, dizziness, or lightheadedness; new onset of confusion; slow to respond or difficult to awaken; skin is pale, aguilar, cool, or moist to touch; severe weakness; loss of consciousness). - DO NOT drive until consulting with provider. - Call provider immediately if symptoms of hypovolemia develop including: pulse more than 100/minute, lightheaded or dizzy when rising from sitting/reclining position, shortness of breath, weakness with exertion, angina, or paleness. MEDICAL HISTORY Conditions: Condition Note: Medication: Medication Note: Allergy: Reaction: Procedure: Procedure Note: documented in this encounter Plan of Treatment Upcoming Encounters Date Type Department Care Team (Late st Contact Info) Description 06/11/2023 8:30 AM CDT Virtual Visit [facility] [address] [facility] [facility] [address] [place] [address] Anita Celis MD [address] [address] [place], [place] [id number] documented as of this encounter Visit Diagnoses Not on filedocumented in this encounter Care Teams High Density Finishing Operator Relationship Specialty Start Date End Date [facility] PCP - General 02/26/11 06/02/12 No Ref-Primary, Physician PCP - General 06/03/12 07/01/13 India Arora DO PCP - General product consultant 07/02/13 02/04/14 No Ref-Primary, Physician PCP - General 02/05/14 04/13/14 Brit García APRN CNP PCP - General Nurse Practitioner - Adult Health 07/13/14 04/06/[address] [address] PCP - General 04/07/15 documented as of this encounter
--- OUTSIDE RECORDS SUMMARY | 2023-03-24 07:43 | XMS_ITS | Encounter Summary ---
Author Name Unknown Organization [facility] Address [address] [facility] [place] [address] Care Team Providers Care Wet Process Operator Name Role Phone Clinic, [facility] Primary Care Provider Reason for Visit * Reason Comments New Patient Referred by Dr. Timur ngo for hypothyroid. * Consultation (Routine) - Pending Review Specialty Diagnoses / Procedures Referred By Ashleigh hines Referred To Contact Endocrinology, Diabetes, and Metabolism Diagnoses Hypothyroidism, unspecified type Elena Giraldo APRN [facility] [address] [place] [address] Referral ID Status Reason Start Date Expiration Date V isits Requested Visits Authorized [id number] Pending Review 11/28/2022 11/28/2023 1 1 Encounter Details Date Type Department Care Team (Late st Contact Info) Description 03/13/2023 11:30 AM FIRST OFFICER AND FLIGHT INSTRUCTOR Office Visit [facility] [address] [place] [address] Elena Giraldo APRN [facility] [address] [place] [address] Anita Celis MD [address] [place] [address] Hypothyroidism, unspecified type Social History Tobacco Use Types Packs/Day Years [...] Comments Blood Pressure 99/66 03/13/2023 11:34 AM FIRST OFFICER AND FLIGHT INSTRUCTOR Pulse 114 03/13/2023 11:34 AM FIRST OFFICER AND FLIGHT INSTRUCTOR Temperature 37 ??C (98.6 ??F) 03/13/2023 11:34 AM FIRST OFFICER AND FLIGHT INSTRUCTOR Respiratory Rate 18 03/13/2023 11:34 AM FIRST OFFICER AND FLIGHT INSTRUCTOR Oxygen Saturation 94% 03/13/2023 11:34 AM FIRST OFFICER AND FLIGHT INSTRUCTOR Inhaled Oxygen Concentration - - Weight 71.8 kg (158 lb 3.2 oz) 03/13/2023 11:34 AM FIRST OFFICER AND FLIGHT INSTRUCTOR Height 153.7 cm (5' 0.5) 03/13/2023 11:34 AM CS T Body Mass Index 30.39 03/13/2023 11:34 AM FIRST OFFICER AND FLIGHT INSTRUCTOR documented in this encounter Patient Instructions * Patient Instructions* Anita Celis MD - 03/13/2023 11:30 AM FIRST OFFICER AND FLIGHT INSTRUCTOR [facility] Dr Celis, Endocrinology Department [address] [place] [address] Appointment [phone] [place]: Saturday - Thyroid labs needed. Dose change based on that. Fax records from [facility]. Follow up in 3 months. Take Levothyroxine on an empty stomach. Take it with a full glass of water at least 30 minutes to 1hour before eating breakfast. This medicine should be taken at least 4 hours before or 4 hours after these medicines: antacids (Maalox??, Mylanta??, Tums??), calcium supplements, cholestyramine (Prevalite??, Questran??), colestipol (Colestid??), iron supplements, orlistat (Troy??, Xenical??), simethicone (Gas-X??, Mylicon??), and sucralfate (Carafate??). Swallow the capsule whole. Do not cut or crush it. T OFFICER AND FLIGHT INSTRUCTOR documented in this encounter Progress Notes * Anita Celis MD - 03/13/2023 11:30 AM CST ENDOCRINOLOGY CLINIC NOTE: Name: Kera Hale Seen in consultation with Elena Giraldo APRN CNM for Hypothyroidism. HPI: Kera Hale is a 32 year old female who presents for the evaluation of above. has a past medical history of Asthma, Depression, and Hypothyroidism. Was seen by in 2013. Referring provider Elena Giraldo APRN CNM outside [facility]. No recent lab results to review. Limited records are available. Postablative hypothyroidism: She reports that she was diagnosed with Graves' disease when she was 20-year-old and received radiation treatment. Following that she developed hypothyroidism and was started on levothyroxine after that. Currently she is --12 weeks. This is 7th . Has 6 kids. She reports that she is followed by [facility] at local clinic. She reports that she was having frequent periods in 06/2022 Labs done in 11/2022 showed abnormal thyroid labs. No records to review. She reports that she has history open stable labs. On review of record it appears that there was questionable compliance resulting in fluctuating labs. Currently taking levothyroxine 125 mcg X on this dose since 11/2022 Feeling exhausted and tired. Palpitations: Yes: on and off Changes to hair or skin: Yes: + hair loss Diarrhea/Constipation:on and off Changes in menses: Yes: Changes in vision:sometimes blurry Dysphagia or Shortness of breath:Yes: sometimes. No dysphagia. Tremors:Yes: sometimes Changes in weight: Yes: no weight gain during this . Heat or cold intolerance: feels warm History of Pelican or Amiodarone use:No Head or neck surgery/radiation:Yes: h/o hyperthyroidism (Graves disease s/p CASTILLO) at age 20. IV Contrast: No Family History of Thyroid Problems: No Wt Readings from Last 2 Encounters: 03/13/23 71.8 kg (158 lb 3.2 oz) 08/17/14 59.4 kg (131 lb) PMH/PSH: Past Medical History: Diagnosis Date Asthma starting at age 10 Depression started treatment 3 months ago. Hypothyroidism 2012 Past Surgical History: Procedure Laterality Date no history of surgery Family Hx: Family History Problem Relation Age of Onset Depression Mother living Asthma Maternal Aunt Social Hx: Social History Socioeconomic History Marital status: Single Spouse name: Not on file Number of children: Not on file Years of education: Not on file Highest education level: Not on file Occupational History Not on file Tobacco Use Smoking status: Never Smokeless tobacco: Never Substance and Sexual Activity Alcohol use: No Drug use: No Sexual activity: Yes Partners: Male Other Topics Concern Parent/sibling w/ CABG, IN or angioplasty before 65F 55M? Not Asked Social History Narrative Not on file Social Determinants of Health Financial Resource Strain: Not on file Food Insecurity: Not on file Transportation Needs: Not on file Physical Activity: Not on file Stress: Not on file Social Connections: Not on file Interpersonal Safety: Not on file Housing Stability: Not on file MEDICATIONS: has a current medication list which includes the following prescription(s): levothyroxine, omeprazole magnesium, and vit w/oj-tdltqaayu-wz. ROS ROS: 10 point ROS neg other than the symptoms noted above in the HPI. Physical Exam VS: There were no vitals taken for this visit. GENERAL: healthy, alert and no distress EYES: Eyes grossly normal to inspection, conjunctivae and sclerae normal ENT: no nose swelling, nasal discharge. Thyroid: no apparent thyroid nodules. Thyroid appears normal in size and nontender. CV: RRR, no rubs, gallops, no murmurs RESP: CTAB, no wheezes, rales, or ronchi ABDO: +BS EXTREMITIES: no hand tremors. NEURO: Cranial nerves grossly intact, mentation intact and speech normal SKIN: No apparent skin lesions, rash or edema seen PSYCH: mentation appears normal, affect normal/bright, judgement and insight intact, normal speech and appearance well-groomed LABS: TFTs: TSH Date Value Ref Range Status 07/13/2014 0.25 (L) 0.40 - 4.00 mU/L Final TG/TPO: All pertinent notes, labs, and images personally reviewed by me. A/P Ms.Jazmin Niko Hale is a 32 year old here for the evaluation of hypothyroidism: #1. Postablative hypothyroidism: History of Graves' disease status post radiation. Currently taking levothyroxine 125 mcg/day X 11/2022 Currently she is . No recent labs to review Plan: Discussed diagnosis, pathophysiology, management and treatment options of condition with pt. Recommend labs as noted below. Dose change based on labs. Will send a new prescription if dose is changed. Discussed importance of euthyroidism during and close follow-up during Follow-up in 3 months. Recommend to get records from outside clinic and fax. Discussed s/s of hypothyroidism and hyperthyroidism to watch for. The patient indicates understanding of these issues and agrees with the plan. Standard treatment for hypothyroidism involves daily use of the synthetic thyroid hormone levothyroxine (Levothroid, Synthroid, others). The dosage of thyroxine should normally be that required to bring the serum TSH level to the low normal range, such as 0.3 - 1 uU/ml. This is typically achieved with 1 ug L- T4/lb body weight/day, ranges from 75 - 125 ug/day in women, and 125 - 200 ug/day in men.Once thyroxine treatment is initiated, it is required indefinitely in most patients. Symptoms should improve one to two weeks after starting treatment. Treatment with levothyroxine is usually lifelong. Doseage may need to be adjusted based on body weight, medications, or . To determine the right dosage of levothyroxine initially we will repeat TSH and free T4 after two months. Excessive amounts of the hormone can cause side effects, such as: Increased appetite, insomnia, heart palpitations, and shakiness. Patients with CAD will be started on a lower dose. Levothyroxine causes virtually no side effects when used in the appropriate dose. In patients with childbearing age precaution should be taking regarding hypothyroidism. Hypothyroidwoman are more likely to experience infertility, and they have an increase. Balance and portion, anemia, and gestational hypertension, placental abruption and hemorrhage. Certain medications, supplements and foods can affect the body???s ability to absorb levothyroxine.Medications include: Iron supplements, Cholestyramine and Calcium supplements. Available records, labs and images from outside clinic were personally reviewed. Follow-up: As noted in AVS Anita Celis MD Endocrinology [facility] CC: [place] The longitudinal plan of care for hypothyroidism was addressed during this visit. Due to the added complexity in care, I will continue to support Kera in the subsequent management of this condition(s) and with the ongoing continuity of care of this condition(s). All questions were answered. The patient indicates understanding of the above issues and agrees with the plan set forth. T OFFICER AND FLIGHT INSTRUCTOR documented in this encounter Plan of Treatment Upcoming Encounters Date Type Department Care Team (Late st Contact Info) Description 06/11/2023 8:30 AM CDT Virtual Visit [facility] [address] [facility] [address] [place] [address] Anita Celis MD [address] [place] [address] documented as of this encounter Procedures Procedure Name Priority Date/Time Associated Diagnosis Comments TSH Routine 03/13/2023 11:57 AM FIRST OFFICER AND FLIGHT INSTRUCTOR Hypothyroidism, unspecified type THYROID PEROXIDASE ANTIBODY Routine 03/13/2023 11:57 AM FIRST OFFICER AND FLIGHT INSTRUCTOR Hypothyroidism, unspecified type T4 FREE Routine 03/13/2023 11:57 AM FIRST OFFICER AND FLIGHT INSTRUCTOR Hypothyroidism, unspecified type documented in this encounter Results * Thyroid peroxidase antibody (03/13/2023 11:57 AM FIRST OFFICER AND FLIGHT INSTRUCTOR) Thyroid Peroxidase Antibody <10 <35 IU/mL 03/14/2023 11:24 AM FIRST OFFICER AND FLIGHT INSTRUCTOR [facility] Blood BLOOD SPECIMEN / Unknown Venipuncture / Unknown 03/13/2023 11:57 AM FIRST OFFICER AND FLIGHT INSTRUCTOR 03/13/2023 11:57 AM FIRST OFFICER AND FLIGHT INSTRUCTOR Anita Celis MD LAB - BLOOD ORDER [facility]END[facility]Prot/Endo [address] [facility] [address], Room [address] [phone] * (ABNORMAL) TSH (03/13/2023 11:57 AM FIRST OFFICER AND FLIGHT INSTRUCTOR) TSH 30.80(H) 0.30 - 4.20 uIU/mL 03/14/2023 6:59 AM FIRST OFFICER AND FLIGHT INSTRUCTOR [facility] Blood BLOOD SPECIMEN / Unknown Venipuncture / Unknown 03/13/2023 11:57 AM FIRST OFFICER AND FLIGHT INSTRUCTOR 03/13/2023 11:57 AM FIRST OFFICER AND FLIGHT INSTRUCTOR Anita Celis MD LAB - BLOOD ORDER [facility] [address] [facility], [address] [address], [facility] [phone] * (ABNORMAL) T4 free (03/13/2023 11:57 AM FIRST OFFICER AND FLIGHT INSTRUCTOR) Free T4 0.86(L) 0.90 - 1.70 ng/dL 03/14/2023 6:59 AM FIRST OFFICER AND FLIGHT INSTRUCTOR [facility] Blood BLOOD SPECIMEN / Unknown Venipuncture / Unknown 03/13/2023 11:57 AM FIRST OFFICER AND FLIGHT INSTRUCTOR 03/13/2023 11:57 AM FIRST OFFICER AND FLIGHT INSTRUCTOR Anita Celis MD LAB - BLOOD ORDER EGR[facility] Core Lab [address] [facility], [address] [place] [address], [facility] [phone] documented in this encounter Visit Diagnoses Diagnosis Hypothyroidism, unspecified type documented in this encounter Care Teams Wet Process Operator Relationship Specialty Start Date End Date [address] [address] PCP - General 04/07/15 documented as of this encounter
--- OUTSIDE RECORDS SUMMARY | 2023-03-24 07:43 | XMS_ITS | Encounter Summary ---
Author Name Unknown Organization [facility] Address [address] [facility] [place] [address] Care Team Providers Care Independent Living Instructor Name Role Phone [facility] Primary Care Provider No Ref-Primary, Physician Primary Care Provider India Arora DO Primary Care Provider [phone] No Ref-Primary, Physician Primary Care Provider Brit García APRN [facility] Primary Care [facility] Primary Care Provider Reason for Visit * Reason Onset Date Comments Nurse Advice Line 08/25/2011 FNA Encounter Details Date Type Department Care Team (Late st Contact Info) Description 08/25/2011 [facility] [address] [place] [address] [facility] - [address] [id number] Nurse Advice Line (FNA) Social History Tobacco Use Types Packs/Day Years [...] encounter Miscellaneous Notes * Telephone Encounter - Juliet Spain - 08/25/2011 9:01 PM CDT Call to FNA: I have Mirena inserted in me and I was wondering how often I should get it checked. -wanting to have IUD checked, but states clinic will not make appt for her and that they were very rude to her when she was there last; gets sharp, stabbing pain in pelvic or lower abdominal area; happens about 3 times/day; has not gotten menses; is not feeling well and states she fainted yesterday Care advice given. FNA advised pt needs to be seen in ED and then follow up at [facility] for eval of the IUD Juliet Spain RN [facility] documented in this encounter Plan of Treatment Upcoming Encounters Date Type Department Care Team (Late st Contact Info) Description 06/11/2023 8:30 AM CDT Virtual Visit [facility] [address] [address] [place] [address] Anita Celis MD [address] [place] [address] documented as of this encounter Visit Diagnoses Not on filedocumented in this encounter Care Teams Independent Living Instructor Relationship Specialty Start Date End Date [facility] PCP - General 02/26/11 06/02/12 No Ref-Primary, Physician PCP - General 06/03/12 07/01/13 India Arora DO PCP - General time recorder 07/02/13 02/04/14 No Ref-Primary, Physician PCP - General 02/05/14 04/13/14 Brit García APRN LASER MACHINE OPERATOR PCP - General Nurse Practitioner - [facility] 07/13/14 04/06/15 Clinic, [address] [address] PCP - General 04/07/15 documented as of this encounter
--- OUTSIDE RECORDS SUMMARY | 2023-03-24 07:43 | XMS_ITS | Encounter Summary ---
Author Name Unknown Organization [facility] Address [address] [facility] [place] [address] Care Team Providers Care Senior Premium Auditor Name Role Phone [facility] Primary Care Provider Encounter Details Date Type Department Care Team (Latest Contact Info) Description 03/13/2023 Travel Social History Tobacco Use Types Packs/Day Years [...] Description 06/11/2023 8:30 AM CDT Virtual Visit [facility] [address] [facility] [address] [place] [address] Anita Celis MD [address] [place] [address] documented as of this encounter Visit Diagnoses Not on filedocumented in this encounter Care Teams Senior Premium Auditor Relationship Specialty Start Date [facility] [address] [place] [address] PCP - General 04/07/15 documented as of this encounter
--- OUTSIDE RECORDS SUMMARY | 2023-03-24 07:43 | XMS_ITS | Encounter Summary ---
Author Name Unknown Organization [facility] Address [address] [facility] [place] [address] Care Team Providers Care Insurance Risk Surveyor Name Role Phone [facility] Primary Care Provider Encounter Details Date Type Department Care Team (Late Contact Info) Description 11/27/2022 Medical Correspondence [facility] [address] [place] [address] Outside, Provider Social History Tobacco Use Types Packs/Day Years [...] Encounters Date Type Department Care Team (Late Contact Info) Description 06/11/2023 8:30 AM CDT Virtual Visit [facility] [address] [place] [address] Anita Celis MD [address] [place] [address] documented as of this encounter Visit Diagnoses Not on filedocumented in this encounter Care Teams Insurance Risk Surveyor Relationship Specialty Start Date End Date [facility] [address] [place] [address] PCP - General 04/07/15 documented as of this encounter
[2023-03-24 08:06] LABS: PCR FLU A Negative PCR FLU A (Negative); PCR FLU B Negative PCR FLU B (Negative); PCR RSV Negative PCR RSV (Negative); SARS PCR* Negative SARS-CoV-2 (Negative)
== END 2023-03-24 08:28 | disposition home or self-care (01) ==
PROVIDERS: Emergency Provider Family Medicine; PCP Family Medicine
DX: J45.901 Unspecified asthma with (acute) exacerbation (principal)
CPT/HCPCS: 87631; 94640; 99284; J7512

== ENCOUNTER 2023-04-11 09:09 | Outpatient (CLI) | payer BC, MEDICAID, SELFPAY ==
[2023-04-11 13:41] LABS: Chlamydia DNA Amplified* NOT DETECTED (No Detected); GC DNA Amplified* NOT DETECTED (No Detected)
== END 2023-04-11 09:10 | disposition home or self-care (01) ==
PROVIDERS: PCP Family Medicine; Visit Provider Physician Assistant
DX: N89.8 Other specified noninflammatory disorders of vagina (principal); O26.899 Other specified pregnancy related conditions, unspecified trimester; Z11.3 Encounter for screening for infections with a predominantly sexual mode of transmission
CPT/HCPCS: 80306; 84439; 84443; 87491; 87591

== ENCOUNTER 2023-04-26 04:31 | Emergency (ER) | payer BC, MEDICAID, SELFPAY ==
[2023-04-26 04:46] VITALS: BP 120/74; PULSE 72; RESP 20; TEMP 37; BMI 28.3
--- NOTE | 2023-04-26 05:05 | ED_ITS ---
HPI - General Adult General Time Seen by Provider: 04:50 Date Seen: 04/26/23 Chief complaint: Extremity Pain/Injury, Lower Stated complaint: Varicose veins - Clinic told her to come to ER Time Seen by Provider: 04/26/23 04:56 Source: patient, RN notes reviewed and old records reviewed Mode of arrival: ambulatory Limitations: no limitations History of Present Illness HPI narrative: Patient is a very pleasant 32-year-old female currently at 20 weeks, 116 with history of varicose veins who is sent to the [facility] by triage nurse for evaluation regarding leg pain. Patient noted to have a history of varicose veins in both legs and into the labia. She states that 2 days ago her left leg started hurting and that her lower right leg was swollen. She shows me her left leg and notes there is pain behind the knee and on the medial calf. She has not had a history of DVT in the past. She also notes that her right leg seems to be more swelling. She has not have any difficulty breathing, denies chest pain or a cough. Pressing over this area greatly increases the pain. Patient notes that she did take Tylenol at 0200 hours. Related Data Previous Rx's Medication Instructions Recorded fluticasone 250 mcg-salmeterol 50 1 inh inhalation BID #60 ea 12/29/21 mcg/dose blistr powdr for inhalation albuterol sulfate 2.5 mg/0.5 mL 2.5 mg (0.5 mL) inhalation Q4-6H 05/17/22 solution for nebulization #30 ea albuterol sulfate 90 mcg/actuation 2 puff inhalation Q4-6H PRN 05/17/22 aerosol inhaler shortness of breath or wheezing #8.5 grams montelukast 10 mg tablet 10 mg PO QHS #90 tabs 06/22/22 cetirizine 10 mg tablet (Zyrtec) 10 mg PO QDAY #30 tabs 08/06/22 fluticasone propionate 50 1 spray intranasal QDAY #16 grams 08/06/22 mcg/actuation nasal spray,suspension (Flonase Allergy Relief) albuterol sulfate 90 mcg/actuation 2 puff inhalation Q4H PRN 03/24/23 aerosol inhaler (Proventil HFA) shortness of breath or wheezing #8.5 grams prednisone 20 mg tablet 20 mg PO DAILY #3 tabs 02/11/24 fluticasone propionate 110 1 puff inhalation BID #12 grams 04/11/23 mcg/actuation HFA aerosol inhaler metronidazole 500 mg tablet 500 mg PO BID #14 tabs 04/11/23 levothyroxine 100 mcg tablet 100 mcg PO QDAY #30 tabs 04/22/23 levothyroxine 75 mcg tablet 75 mcg PO QDAY #30 tabs 04/22/23 Allergies Allergy/AdvReac Type Severity Reaction Status Date / Time etonogestrel [From Nexplanon] Allergy Mild Verified 04/11/23 08:40 Review of Systems Status of ROS: Reports: 10 or more systems reviewed and unremarkable except as noted in History and below Const: Denies: fever ENMT: Denies: difficulty swallowing Cardio: Reports: swelling of feet/ankles; Denies: chest pain, lightheadedness or shortness of breath with exertion Resp: Denies: shortness of breath or cough GI: Denies: abdominal pain, nausea, vomiting or difficulty swallowing PFSH [facility] Medical History History of thyroid irradiation ?Z92.3 - Personal history of irradiation (ICD-10) History of Graves' disease ?Z86.39 - Personal history of other endocrine, nutritional and metabolic disease (ICD-10) PTSD (post-traumatic stress disorder) ?F43.10 - Post-traumatic stress disorder, unspecified (ICD-10) Moderate persistent asthma ?J45.40 - Moderate persistent asthma, uncomplicated (ICD-10) Varicose veins of both legs with edema ?I83.893 - Varicose veins of bilateral lower extremities with other complications (ICD-10) Recurrent urinary tract infection ?N39.0 - Urinary tract infection, site not specified (ICD-10) Positive antinuclear antibody (01/26/20) ?R76.8 - Other specified abnormal immunological findings in serum (ICD-10) Numbness and tingling of right upper extremity ?R20.0 - Anesthesia of skin (ICD-10) ?R20.2 - Paresthesia of skin (ICD-10) Moderate asthma without complication ?J45.909 - Unspecified asthma, uncomplicated (ICD-10) Meniere's disease ?H81.09 - Meniere's disease, unspecified ear (ICD-10) Incomplete spontaneous (2013) ?O03.4 - Incomplete spontaneous without complication (ICD-10) Hypothyroidism ?E03.9 - Hypothyroidism, unspecified (ICD-10) History of use of contraceptive intrauterine device (IUD) (01/2020) ?Z92.0 - Personal history of contraception (ICD-10) History of severe acute respiratory syndrome coronavirus 2 (SARS-CoV-2) disease (12/24/19) ?Z86.16 - Personal history of COVID-19 (ICD-10) History of radioactive iodine thyroid ablation (03/2013) ?Z92.3 - Personal history of irradiation (ICD-10) History of anemia (2016) ?Z86.2 - Personal history of diseases of the blood and blood-forming organs and certain disorders involving the immune mechanism (ICD-10) Chronic sinusitis ?J32.9 - Chronic sinusitis, unspecified (ICD-10) Arnold-Chiari malformation ?Q07.00 - Arnold-Chiari syndrome without spina bifida or hydrocephalus (ICD- 10) Allergic rhinitis ?J30.9 - Allergic rhinitis, unspecified (ICD-10) Surgical History Status post delivery (11/2019) ?Z98.891 - History of uterine scar from previous surgery (ICD-10) History of nasal septoplasty (2017) ?Z98.890 - Other specified postprocedural states (ICD-10) History of dilation and curettage (05/13/13) ?Z98.890 - Other specified postprocedural states (ICD-10) Social History Narrative: Works at [employer] and [employer] 6 kids Non-smoker No EtOH What is your current living situation?: I presently have a place to live Problems where you live: no known problems In the past 12 months, utilities in danger of being shut off: no In past 12 months, lack of transportation kept you from medical appts, meetings, work, or getting things needed for daily living: no In the past 12 mos, have been you worried that your food would run out before y ou had money to buy more?: never true In the past 12 mos, the food you bought just didn't last and you didn't have money to buy more?: never true Smoking Status: Never smoker Do you use any of these nicotine containing products: None and E-Cigarettes Second hand tobacco smoke exposure: No How often do you have a drink containing alcohol: monthly or less AUDIT-C Alcohol total score: 1 Non-prescribed substance use: denies use How often does anyone, including family, friends and others, physically hurt you : never How often does anyone, including family, friends and others, insult or talk down to you: never How often does anyone, including family, friends and others, threaten you with harm: never How often does anyone, including family, friends and others, scream or curse at you: never Little interest or pleasure in doing things: not at all Feeling down, depressed, or hopeless: not at all service: No Exam Narrative: Exam Narrative: Patient is alert and oriented. Nontoxic in appearance. External ears eyes nose clear. Heart with regular rate and rhythm and lungs are clear bilaterally. Lower extremities show 1+ edema of the right leg with no calf tenderness. Left leg however shows a multiple superficial veins with some increased swelling on the medial calf as well as behind the knee. Moving all extremities. Const: Vital Signs, click to edit/add: Vital Signs - 24 hr 04/26/23 04:46 Temperature 98.6 F Pulse Rate [Pulse Oximeter] 72 Respiratory Rate 20 Blood Pressure [Ri ght Upper Arm] 120/74 Oxygen Delivery Me thod Room Air Documenting provider has reviewed patient's vital signs: yes Course Course ED Course: Differential diagnosis includes superficial thrombophlebitis, vein superficial engorgement, DVT. At this time patient needs ultrasound. We have an ultrasound appointment available at 0630 approximately 1 hour from now and she has been scheduled for that time slot. She agrees to sleep here until our techs are av ailable. Reevaluation(s) Reevaluation #1: Patient rested comfortably during her time in the emergency room. Ultrasound now here. Vital Signs Vital signs: Initial Vital Signs Temperature 98.6 F 04/26/23 04:46 Temperature Source Temporal Artery Scan 04/26/23 04:46 Pulse Rate 72 04/26/23 04:46 Respiratory Rate 20 04/26/23 04:46 Blood Pressure 120/74 04/26/23 04:46 Blood Pressure Mean 89 04/26/23 04:46 Oxygen Delivery Method Room Air 04/26/23 04:46 Vital Signs Temperature 98.6 F 04/26/23 04:46 Pulse Rate 72 04/26/23 04:46 Respiratory Rate 20 04/26/23 04:46 Blood Pressure 120/74 04/26/23 04:46 Oxygen Delivery Method Room Air 04/26/23 04:46 Temperature 98.6 F 04/26/23 04:46 Pulse Rate 72 04/26/23 04:46 Respiratory Rate 20 04/26/23 04:46 Blood Pressure 120/74 04/26/23 04:46 Oxygen Delivery Method Room Air 04/26/23 04:46 Medical Decision Making MDM Narrative Medical decision making narrative: 1. Bilateral leg pain-likely secondary to varicosities as well as and lower extremity edema. Fortunately no evidence of DVT or superficial thrombophlebitis at this time. Recommend use of compression stockings while awake. Recommend elevation of legs as much as possible. Follow-up with primary MD or corporate sales trainer for ongoing issues. Patient may use Tylenol as needed. 2. -no bleeding or abdominal pain reported today 3. Disposition-home at this time. Return for worsening symptoms and as needed. Medical Records Medical records reviewed: Yes I reviewed the patient's medical records Imaging Data Venous US: Attestation: I have reviewed the pertinent imaging results. Radiologist's impression: Ultrasound venous duplex lower extremity bilateral. Compression venous exam was performed using aguilar-scale, color Doppler, and spectral Doppler imaging. COMPARISON: None. FINDINGS: Sonographic imaging demonstrates the common femoral, deep femoral, superficial femoral, popliteal, posterior tibial and greater saphenous veins to be fully compressible with normal color Doppler blood flow in both lower extremities. IMPRESSION: Normal bilateral lower extremity venous ultrasound, no sign of deep venous thrombosis. Discharge Plan Discharge Clinical Impression: Bilateral leg pain Patient Disposition: Home, Self-Care Condition: Unchanged Additional Instructions: There was no evidence of blood clots on the ultrasound today. However, your discomfort is likely from blood pooling in your superficial varicose vein. I would recommend wearing stockings that are supportive such as Severino hose or Jobst stockings. Try to elevate her legs as much as possible. Follow-up with your OB specialist for ongoing issues. You may to use Tylenol as needed for discomfort. Prescriptions: No Action fluticasone propion-salmeterol 250-50 mcg/dose blister with device 1 inh inhalation BID Qty: 60 12RF albuterol sulfate 2.5 mg/0.5 mL solution for nebulization 2.5 mg inhalation Q4-6H Qty: 30 3RF albuterol sulfate 90 mcg/actuation HFA aerosol inhaler 2 puff inhalation Q4-6H PRN (Reason: shortness of breath or wheezing) Qty: 8.5 12RF fluticasone propionate [Flonase Allergy Relief] 50 mcg/actuation spray,suspension 1 spray intranasal QDAY Qty: 16 5RF Rx Instructions: administer into each nostril cetirizine [Zyrtec] 10 mg tablet 10 mg PO QDAY Qty: 30 5RF metronidazole 500 mg tablet 500 mg PO BID Qty: 14 0RF fluticasone propionate 110 mcg/actuation HFA aerosol inhaler 1 puff inhalation BID Qty: 12 3RF albuterol sulfate [Proventil HFA] 90 mcg/actuation HFA aerosol inhaler 2 puff inhalation Q4H PRN (Reason: shortness of breath or wheezing) Qty: 8.5 12RF prednisone 20 mg tablet 20 mg PO DAILY Qty: 3 0RF montelukast 10 mg tablet 10 mg PO QHS Qty: 90 1RF levothyroxine 100 mcg tablet 100 mcg PO QDAY Qty: 30 1RF levothyroxine 75 mcg tablet 75 mcg PO QDAY Qty: 30 1RF Follow Up/Referrals: Indra Rose MD [Primary Care Provider] - Stand Alone Forms: [facility] Info Instructions
--- NOTE | 2023-04-26 05:05 | US_ITS ---
Patient: JOSE A STANTON Facility:?[facility] Patient ID:?[id number] Site Patient ID:?[id number] Site :?1990 Study:?US-Extremity Bilateral LEV-04/26/2023 7:11:39 AM Ordering Physician:?JOE CERDA Final Report: INDICATION: Pain, swelling and varicose veins in TECHNIQUE: Ultrasound venous duplex lower extremity bilateral. Compression venous exam was performed using aguilar-scale, color Doppler, and spectral Doppler imaging. COMPARISON: None. FINDINGS: Sonographic imaging demonstrates the common femoral, deep femoral, superficial femoral, popliteal, posterior tibial and greater saphenous veins to be fully compressible with normal color Doppler blood flow in both lower extremities. IMPRESSION: Normal bilateral lower extremity venous ultrasound, no sign of deep venous thrombosis. Dictated by Callum Bianchi MD @ 04/26/2023 7:16:28 AM Signed by:?Callum Bianchi MD @04/26/2023 7:16:28 AM (Electronic Signature)
== END 2023-04-26 07:45 | disposition home or self-care (01) ==
PROVIDERS: Emergency Provider Family Medicine; PCP Family Medicine
DX: M79.661 Pain in right lower leg (principal); M79.662 Pain in left lower leg; Z3A.20 20 weeks gestation of pregnancy
CPT/HCPCS: 93970; 99283

== ENCOUNTER 2023-05-01 13:38 | Outpatient (CLI) | payer BC, MEDICAID, SELFPAY ==
--- NOTE | 2023-05-01 14:00 | US_ITS ---
Patient: JOSE A STANTON Facility:?[facility] Patient ID:?[id number] Site Patient ID:?[id number]. Site :?1990 Study:?US-OB Pelvis OB > 14wks-05/01/2023 3:19:25 PM Ordering Physician:?Agnieszka Horan Final Report: INDICATION: Evaluate anatomy. COMPARISON: 02/05/2023 TECHNIQUE: Real time aguilar scale imaging of the fetus was performed as well as color Doppler analysis of the umbilical vessels. FINDINGS: Sonographic imaging demonstrates a single living intrauterine gestation. Fetus demonstrates a regular cardiac rate of 138 beats per minute. Fetus has a breech position. The placenta lies anterior/posterior fundal without evidence of placenta previa. Posterior placental edge is 5.4 cm from the internal cervical os and 6.3 cm from the anterior placental edge amniotic fluid volume appears normal. Single deepest vertical pocket: 7.0 cm. The cervix is closed and measures 4.1 cm in length. The composite ultrasound gestational age is calculated at 21 weeks 1 day with an estimated sonographic due date of 09/10/2023. The estimated weight is 415 grams which lies at the 78th %. The following biometric measurements were obtained: Biparietal diameter: 5.0 cm/21 weeks 0 days 63rd% Head circumference: 18.5 cm/20 weeks 6 days 47th% Abdominal circumference: 16.4 cm/21 weeks 3 days 67th% Femur length: 3.6 cm/21 weeks 2 days 64th% The HC/AC ratio measures: 1.13 range (1.06-1.25) On anatomic survey, there is a normal appearance of the cerebral ventricles, cavum septi pellucidi, cisterna magna and cerebellum. The nose, lips, and facial profile appear normal. The cervical, thoracic and lumbar spine are incompletely visualized. There is a normal four-chamber heart view and the left and right ventricular outflow tracts appear normal. The diaphragm and stomach appear normal. The kidneys and bladder also appear normal. There is a normal three-vessel cord and there is an eccentric cord insertion site, located 2.7 cm from the anterior placental edge. The four extremities appear normal. IMPRESSION: Concordance of clinical and sonographic dating. Incomplete visualization of the spine due to position. Remainder of the anatomic survey is normal. Short-term follow-up recommended. Eccentric placental cord insertion. Dictated by Indra Bonner MD @ 05/02/2023 11:04:16 AM Signed by:?Indra Bonner MD @05/02/2023 11:04:16 AM (Electronic Signature)
== END 2023-05-01 13:39 | disposition home or self-care (01) ==
LOC: US 13:38
PROVIDERS: PCP Family Medicine; Visit Provider Registered Nurse
DX: Z34.92 Encounter for supervision of normal pregnancy, unspecified, second trimester (principal); Z3A.21 21 weeks gestation of pregnancy
CPT/HCPCS: 76805

== ENCOUNTER 2023-05-21 16:54 | Outpatient (CLI) | payer BC, MEDICAID, SELFPAY ==
--- NOTE | 2023-05-21 17:00 | US_ITS ---
Patient: JOSE A STANTON Facility:?[facility] Patient ID:?[id number] Site Patient ID:?[id number]. Site :?1990 Study:?US-OB Pelvis OB F/U SUBOPTIMAL VIEWS-05/21/2023 5:37:29 PM Ordering Physician:?JOSELITO DELUNA CNP Final Report: OB ULTRASOUND FOLLOWUP 05/21/2023 CLINICAL HISTORY: Followup suboptimal views of spine. AISHWARYA by LMP: 09/13/2023. GA: 23 weeks, 4 days. Single. COMPARISON: 05/01/2023. TECHNIQUE: Transabdominal. FINDINGS: CERVIX: Not visualized. POSITION: Vertex. AMNIOTIC FLUID: 7.2 cm SDP. PLACENTA: Technique: TA. PLACENTA POSITION: Anterior, left wall, posterior. DOPPLERS: heart rate: 144 bpm. IMPRESSION: The spine is visualized and appears within normal limits. Sarahi Cesar M.D. Diagnostic/Breast Radiologist [email or web address] TKP/rigow: D& Transcribed: 10:05 am DW/Dictated by: Sarahi Cesar MD @ 05/23/2023 6:54:00 AM Signed by:?Sarahi Cesar MD @05/23/2023 10:59:52 AM (Electronic Signature)
== END 2023-05-21 16:55 | disposition home or self-care (01) ==
LOC: US 16:54
PROVIDERS: PCP Family Medicine; Visit Provider Registered Nurse
DX: Z34.92 Encounter for supervision of normal pregnancy, unspecified, second trimester (principal); Z3A.23 23 weeks gestation of pregnancy
CPT/HCPCS: 76816

== ENCOUNTER 2023-06-04 17:01 | Outpatient (CLI) | payer BC, MEDICAID, SELFPAY ==
--- OUTSIDE RECORDS SUMMARY | 2023-06-04 17:07 | XMS_ITS | Encounter Summary ---
Author Name Unknown Organization [place] Address [address] [place] [address] Care Team Providers Care Efficiency Miner Blasting Name Role Phone [facility] Primary Care Provider No Ref-Primary, Physician Primary Care Provider India Arora DO Primary Care Provider [phone] No Ref-Primary, Physician Primary Care Provider Brit García APRN [facility] Primary Care Provi saad Unavailable [facility] Primary Care Provider Anita Celis MD Unavailable [phone] Reason for Visit * Reason Onset Date Comments Nurse Advice Line 08/25/2011 FNA Encounter Details Date Type Department Care Team (Late st Contact Info) Description 08/25/2011 [facility] [address] [place] [address] [address] Nurse Advice Line (FNA) Social History Tobacco [...] in ED and then follow up at [facility] for eval of the IUD Juliet Spain RN [place] [facility] documented in this encounter Plan of Treatment Upcoming Encounters Date Type Department Care Team (Late st Contact Info) Description 06/11/2023 8:30 AM CDT Virtual Visit [facility] [address] [place] [address] Anita Celis MD [address] [place], [place] [id number] documented as of this encounter Visit Diagnoses Not on filedocumented in this encounter Care Teams Efficiency Miner Blasting Relationship Specialty Start Date End Date Clinic - [facility] PCP - General 02/26/11 06/02/12 No Ref-Primary, Physician PCP - General 06/03/12 07/01/13 India Arora DO PCP - General top and seat cover fitter 07/02/13 02/04/14 No Ref-Primary, Physician PCP - General 02/05/14 04/13/14 Brit García APRN [employer] PCP - General Nurse Practitioner - Adult Health 07/13/14 04/06/15 [facility], [address] [address] PCP - General 04/07/15 Anita Celis MD [address] [place] [address] [address] [place] [address] Assigned Endocrinology Provider 04/05/23 documented as of this encounter
--- OUTSIDE RECORDS SUMMARY | 2023-06-04 17:07 | XMS_ITS | Encounter Summary ---
Author Name Unknown Organization [place] Address [address] [place] [address] Care Team Providers Care Produce Manager Name Role Phone Kaitlynn [facility] Primary Care Provider Encounter Details Date Type [...] 06/11/2023 8:30 AM CDT Virtual Visit [facility] [address] [place] [address] Ainta Celis MD [address] [place] [address] documented as of this encounter Visit Diagnoses Not on filedocumented in this encounter Care Teams Produce Manager Relationship Specialty Start Date End Date [facility] [address] [place] [address] PCP - General 04/07/15 documented as of this encounter
--- OUTSIDE RECORDS SUMMARY | 2023-06-04 17:07 | XMS_ITS | Encounter Summary ---
Author Name Unknown Organization [place] Address [address] [facility] [place] [address] Care Team Providers Care Drop Press Hand Name Role Phone Clinic, [facility] Primary Care Provider Encounter Details Date Type Department Care Team (Late st Contact Info) Description 03/28/2023 Telephone [facility] [address] [place] [address] Anita Celis MD [address] [place], [place] [phone] Social History Tobacco Use Types Packs/Day Years [...] encounter Miscellaneous Notes * Telephone Encounter - Charissa Barrios RN - 04/01/2023 10:45 AM EXECUTIVE ADMINISTRATOR Spoke to pt and informed of below. Pt verbalized understanding. Pt will call back to schedule lab appointment. UTIVE ADMINISTRATOR * Telephone Encounter - Charissa Barrios RN - 03/28/2023 2:52 PM EXECUTIVE ADMINISTRATOR LM for pt to c/b to discuss below. UTIVE ADMINISTRATOR * Telephone Encounter - Anita Celis MD - 03/28/2023 2:41 PM EXECUTIVE ADMINISTRATOR Latest Ref Rng 03/13/2023 11:57 AM ENDO THYROID LABS-[facility] TSH 0.30 - 4.20 uIU/mL 30.80 (H) FREE T4 0.90 - 1.70 ng/dL 0.86 (L) Thyroid Peroxidase Antibody <35 IU/mL <10 Last visit 02/2023. Currently she is --12 weeks. This is 7th . Has 6 kids. She reports that she is followed by CONTROL DIRECTOR at local clinic. Currently taking levothyroxine 125 mcg X on this dose since 11/2022 Based on 02/2023 labs recommend to increase dose to 150 mcg/day. Labs in 6 weeks. (Very important) Please make a lab appointment for blood work and follow up clinic appointment in 1 week after that to discuss results. Take Levothyroxine on an empty stomach. Take [...] whole. Do not cut or crush it. UTIVE ADMINISTRATOR documented in this encounter Plan of Treatment Upcoming Encounters Date Type Department Care Team (Late st Contact Info) Description 06/11/2023 8:30 AM CDT Virtual Visit [facility] [address] [facility] [address] [place] [address] Anita Celis MD [address] [facility] [address] [place] [address] Scheduled Orders Name Type Priority Associated Diagnoses Orde r Schedule T4 free Lab Routine Hypothyroidism, unspecified type Expected: 05/27/2023 (Approximate), Expires: 03/28/2024 TSH Lab Routine Hypothyroidism, unspecified type Expected: 05/27/2023 (Approximate), Expires: 03/28/2024 documented as of this encounter Visit Diagnoses Diagnosis Hypothyroidism, unspecified type- Primary documented in this encounter Care Teams Drop Press Hand Relationship Specialty Start Date End Date [facility], [address] [address] PCP - General 04/07/15 documented as of this encounter
--- OUTSIDE RECORDS SUMMARY | 2023-06-04 17:07 | XMS_ITS | Clinical Summary ---
Author Name Unknown Organization [facility] Address [address] [place] [address] Care Team Providers Care Certified Solid Waste Facility Operator Name Role Phone Unavailable Primary Care Provider Unavailabl e Source Comments Patient records contain information from all sites at [facility]. For routine questions regarding patient records, call [phone] during business hours, M-F 8:00 AM - 5:00 PM Central Time. Record requests for emergency care only can be directed to [phone] at any time.[facility] Allergies Active Allergy Reactions Criticality Noted Date Comments Etonogestrel Other (see comments) Low 07/29/2017 Medications Medication Sig Dispensed Refills Start Date End Date Status acetaminophen (TYLENOL) 325 mg tablet Take 650 mg by mouth every 6 (six) hours as needed. 09/02/2017 Active levothyroxine (SYNTHROID, LEVOTHROID) 200 mcg tablet Take 200 mcg by mouth daily. 07/15/2017 Active levothyroxine (SYNTHROID, LEVOTHROID) 25 mcg tablet Take 25 mcg by mouth daily. 07/11/2017 Active albuterol 2.5 mg /3 mL nebulizer solution USE 1 VIAL VIA NEBULIZER EVERY 4 TO 6 HOURS 05/18/2022 Active Ventolin HFA 90 mcg/actuation inhaler INHALE 2 PUFFS BY MOUTH EVERY 4 TO 6 HOURS NEEDED FOR SHORTNESS OF BREATH OR WHEEZING 05/16/2022 Active albuterol 90 mcg/actuation inhaler Inhale 1-2 puffs. 01/04/2020 Active albuterol 90 mcg/actuation inhaler Every 4 Hours as needed 09/10/2019 Active azelastine (ASTELIN) 137 mcg/spray (0.1 %) nasal spray Inhale 2 Sprays into affected nostril(s) 2 times daily. 08/29/2020 Active budesonide (PULMICORT) 1 mg/2 mL nebulizer solution Put one respule in sinus rinse kit and irrigate twice daily 02/17/2020 Active cetirizine (ZyrTEC) 10 mg tablet Daily 09/04/2019 Active fluticasone propion-salmeteroL 250-50 mcg/dose diskus inhaler Twice A Day 09/11/2019 Active montelukast (SINGULAIR) 10 mg tablet Take 10 mg by mouth at bedtime. 06/22/2022 Active polyethylene glycol (MIRALAX) 17 gram/dose oral powder Take 17 g by mouth as needed. 05/15/2019 Active predniSONE (DELTASONE) 20 mg tablet daily. 05/17/2022 Active fluticasone propionate (FLOVENT HFA) 110 mcg/actuation inhaler Inhale 2 puffs 2 (two) times a day. 02/08/2020 Active ipratropium-albuteroL (DUONEB) 0.5-2.5 mg/3 mL nebulizer solution Four Times Daily 09/05/2019 Active Active Problems Problem Noted Date [...] 04/22/2019, Additional history exists COVID-19 Vaccine ( season) 2022 12/09/2021, 11/11/2021 Influenza Vaccine (#1) 2022 9, 11/17/2017, 03/24/2011, Additional history exists Depression Screening (Annual PHQ-2) 02/11/2023 Cervical Cancer Screening 10/31/2024 10/31/2021 DTaP,Tdap,and Td Vaccines (11 - Td or Tdap) 11/06/2028 11/06/2018, 12/05/2017, 12/19/2016, Additional history exists Hepatitis B Vaccines Completed 03/17/1996, 08/29/1995, 06/27/1995 HPV Vaccines Aged Out No longer eligi ble based on patient's age to complete this topic Procedures Procedure Name Priority Date/Time Associated Diagnosis Comments EXTI THYROID-STIMULATING HORMONE-SENSITIVE (S-TSH), S Routine 01/26/2020 4:37 PM STICK PULLER from Last 3 Months or Most Recently Relevant to Health Maintenance
--- OUTSIDE RECORDS SUMMARY | 2023-06-04 17:07 | XMS_ITS ---
Author Name Unknown Organization [facility] Address [address] [place] [address] Care Team Providers Care Inside Sales Supervisor Name Role Phone Unavailable Unavailable Unavailable Surgery Details Not on file Complications Check Surgery Details section. Procedure Estimated Blood Loss Check Surgery Details section. Procedure Findings Check Surgery Details section. Procedure Specimens Taken Check Surgery Details section.
--- OUTSIDE RECORDS SUMMARY | 2023-06-04 17:07 | XMS_ITS | Encounter Summary ---
Author Name Unknown Organization [facility] Address [address] [facility] [place] [address] Care Team Providers Care Cnc Set Up Operator Name Role Phone Clinic, [facility] Primary Care Provider Reason for Visit * Reason Comments New Patient Referred by Dr. Timur ngo for hypothyroid. * Consultation (Routine) - Pending Review Specialty Diagnoses / Procedures Referred By Ashleigh hines Referred To Contact Endocrinology, Diabetes, and Metabolism Diagnoses Hypothyroidism, unspecified type Elena Giraldo APRN [facility] [address] [place] [address] Referral ID Status Reason Start Date Expiration Date V isits Requested Visits Authorized [id number] Pending Review 11/28/2022 11/28/2023 1 1 Encounter Details Date Type Department Care Team (Late st Contact Info) Description 03/13/2023 11:30 AM ALUMINUM CONTAINER TESTER Office Visit [facility] [address] [place] [address] [facility] [address] [place] [address] Anita Celis MD [address] [place] [address] Hypothyroidism, unspecified type Social History Tobacco Use [...] Comments Blood Pressure 99/66 03/13/2023 11:34 AM ALUMINUM CONTAINER TESTER Pulse 114 03/13/2023 11:34 AM ALUMINUM CONTAINER TESTER Temperature 37 ??C (98.6 ??F) 03/13/2023 11:34 AM ALUMINUM CONTAINER TESTER Respiratory Rate 18 03/13/2023 11:34 AM ALUMINUM CONTAINER TESTER Oxygen Saturation 94% 03/13/2023 11:34 AM ALUMINUM CONTAINER TESTER Inhaled Oxygen Concentration - - Weight 71.8 kg (158 lb 3.2 oz) 03/13/2023 11:34 AM ALUMINUM CONTAINER TESTER Height 153.7 cm (5' 0.5) 03/13/2023 11:34 AM CS T Body Mass Index 30.39 03/13/2023 11:34 AM ALUMINUM CONTAINER TESTER documented in this encounter Patient Instructions * Patient Instructions* Anita Celis MD - 03/13/2023 11:30 AM ALUMINUM CONTAINER TESTER [facility] [address] Celis, Endocrinology Department [address] [place] [address] Appointment [phone] [place]: Saturday - Thyroid labs needed. Dose change based on that. Fax records from [facility]. Follow up in 3 months. Take Levothyroxine [...] whole. Do not cut or crush it. INUM CONTAINER TESTER documented in this encounter Progress Notes * [...] Referring provider Elena Giraldo APRN CNM outside [facility]. No recent lab results to review. Limited records are available. Postablative hypothyroidism: She reports that she was diagnosed with Graves' disease when she was 20-year-old and received radiation treatment. Following that she developed hypothyroidism and was started on levothyroxine after that. Currently she is --12 weeks. This is 7th . Has 6 kids. She reports that she is followed by AUDIO VISUAL AIDE at local clinic. She reports that she [...] or cold intolerance: feels warm History of [place] or Amiodarone use:No Head or neck surgery/radiation:Yes: [...] Male Other Topics Concern Parent/sibling w/ CABG, [place] or angioplasty before 65F 55M? Not Asked [...] following prescription(s): levothyroxine, omeprazole magnesium, and vit w/ay-ymrfebjxv-uw. ROS ROS: 10 point ROS neg other [...] noted in AVS Anita Celis MD Endocrinology [facility]/[place] CC: [place] The longitudinal plan of [...] and agrees with the plan set forth. INUM CONTAINER TESTER documented in this encounter Miscellaneous Notes * Result Encounter Note - Anita Celis MD - 03/13/2023 11:30 AM ALUMINUM CONTAINER TESTER Labs/results noted. Please see telephone encounter dated 03/28/2023. INUM CONTAINER TESTER documented in this encounter Plan of Treatment Upcoming Encounters Date Type Department Care Team (Late st Contact Info) Description 06/11/2023 8:30 AM CDT Virtual Visit [facility] [address] [facility] [address] [place] [address] Anita Celis MD [address] [place] [address] documented as of this encounter Procedures Procedure Name Priority Date/Time Associated Diagnosis Comments TSH Routine 03/13/2023 11:57 AM ALUMINUM CONTAINER TESTER Hypothyroidism, unspecified type THYROID PEROXIDASE ANTIBODY Routine 03/13/2023 11:57 AM ALUMINUM CONTAINER TESTER Hypothyroidism, unspecified type T4 FREE Routine 03/13/2023 11:57 AM ALUMINUM CONTAINER TESTER Hypothyroidism, unspecified type documented in this encounter Results * Thyroid peroxidase antibody (03/13/2023 11:57 AM ALUMINUM CONTAINER TESTER) Thyroid Peroxidase Antibody <10 <35 IU/mL 03/14/2023 11:24 AM ALUMINUM CONTAINER TESTER [facility] CORE/PROT/ENDO Blood BLOOD SPECIMEN / Unknown Venipuncture / Unknown 03/13/2023 11:57 AM ALUMINUM CONTAINER TESTER 03/13/2023 11:57 AM ALUMINUM CONTAINER TESTER Anita Celis MD LAB - BLOOD ORDER GERRI [facility] SPECIALTY CORE/PROT/ENDO Specialty Core/Prot/Endo [address] [facility], [address] [address] [phone] * (ABNORMAL) TSH (03/13/2023 11:57 AM ALUMINUM CONTAINER TESTER) TSH 30.80(H) 0.30 - 4.20 uIU/mL 03/14/2023 6:59 AM ALUMINUM CONTAINER TESTER [facility] Blood BLOOD SPECIMEN / Unknown Venipuncture / Unknown 03/13/2023 11:57 AM ALUMINUM CONTAINER TESTER 03/13/2023 11:57 AM ALUMINUM CONTAINER TESTER Anita Celis MD LAB - BLOOD ORDER GERRI [facility] Core Lab [address] [facility], [address] [address], [place] [phone] * (ABNORMAL) T4 free (03/13/2023 11:57 AM ALUMINUM CONTAINER TESTER) Free T4 0.86(L) 0.90 - 1.70 ng/dL 03/14/2023 6:59 AM ALUMINUM CONTAINER TESTER [facility] Blood BLOOD SPECIMEN / Unknown Venipuncture / Unknown 03/13/2023 11:57 AM ALUMINUM CONTAINER TESTER 03/13/2023 11:57 AM ALUMINUM CONTAINER TESTER Anita Celis MD LAB - BLOOD ORDER GERRI [facility] [place] Core Lab [address] [facility], [address] [address], [place] [phone] documented in this encounter Visit Diagnoses Diagnosis Hypothyroidism, unspecified type documented in this encounter Care Teams Cnc Set Up Operator Relationship Specialty Start Date End Date [facility], [place] [id number] PCP - General 04/07/15 documented as of this encounter
--- OUTSIDE RECORDS SUMMARY | 2023-06-04 17:07 | XMS_ITS | Clinical Summary ---
Author Name Unknown Organization [facility] Address [facility] [facility] [address] Care Team Providers Care Client Success Director Name Role Phone Clinic, [facility] Primary Care Provider Anita Celis MD Unavailable [phone] Allergies No known active allergies Medications Medication Sig Dispensed Refills Start Date End Date Status Vit w/Bx-Vycldpqgm-FM (PNV PO) Take 1 tablet by mouth Active Omeprazole (PRILOSEC PO) Active levothyroxine (SYNTHROID/LEVOTHROID) 150 MCG tabletIndications:Hypo thyroidism, unspecified type Take 1 tablet (150 mcg) by mouth daily 90 tablet 03/28/2023 Active Active Problems Problem Noted Date Diagnosed Date Abdominal pain 02/05/2014 CARDIOVASCULAR SCREENING; LDL GOAL LESS THAN 160 07/02/2013 [facility] 05/02/2011 Overview: DX V65.8 REPLACED WITH 88[address] HEALTH HALFWAY (05/19/2012) Hypothyroidism Resolved Problems Problem Noted Date [...] Encounters Date Type Department Care Team Description 04/11/2023 Telephone [facility] [address] [place] [phone] [facility] [place] 03/28/2023 Telephone [facility] [address] [place] [phone] Anita Celis MD 03/13/2023 11:30 AM JOCKEY VALET Office Visit [facility] [address] [place] [phone] Elena Giraldo APRN CNM Parnerkar, Vaishnavi, MD [...] Comments Blood Pressure 99/66 03/13/2023 11:34 AM JOCKEY VALET Pulse 114 03/13/2023 11:34 AM JOCKEY VALET Temperature 37 ??C (98.6 ??F) 03/13/2023 11:34 AM JOCKEY VALET Respiratory Rate 18 03/13/2023 11:34 AM JOCKEY VALET Oxygen Saturation 94% 03/13/2023 11:34 AM JOCKEY VALET Inhaled Oxygen Concentration - - Weight 71.8 kg (158 lb 3.2 oz) 03/13/2023 11:34 AM JOCKEY VALET Height 153.7 cm (5' 0.5) 03/13/2023 11:34 AM CS T Body Mass Index 30.39 03/13/2023 11:34 AM JOCKEY VALET Plan of Treatment Upcoming Encounters Date Type Department Care Team (Late st Contact Info) Description 06/11/2023 8:30 AM CDT Virtual Visit [facility] [address] [facility] [address] [place] [address] Anita Cleis MD [address] [place] [address] Health Maintenance Due Date Last Done Comments [...] Procedure Name Priority Date/Time Associated Diagnosis Comments LAB RESULT - HIM SCAN 04/11/2023 12:00 AM JOCKEY VALET THYROID PEROXIDASE ANTIBODY Routine 03/13/2023 11:57 AM JOCKEY VALET Hypothyroidism, unspecified type TSH Routine 03/13/2023 11:57 AM JOCKEY VALET Hypothyroidism, unspecified type T4 FREE Routine 03/13/2023 11:57 AM JOCKEY VALET Hypothyroidism, unspecified type ABSTRACT PAP ([facility] EXTERNAL RESULT) Routine 05/12/2013 HIV 1 AND 2 ANTIBODY ([facility]) Routine 10/24/2010 11:41 AM CDT Supervision of normal first from Last 3 Months or Most Recently Relevant to Health Maintenance Results * LAB RESULT - HIM SCAN (04/11/2023 12:00 AM JOCKEY VALET) 04/11/2023 Provider Outside NON-BEAKER LAB TE STING * (ABNORMAL) TSH (03/13/2023 11:57 AM JOCKEY VALET) TSH 30.80(H) 0.30 - 4.20 uIU/mL 03/14/2023 6:59 AM JOCKEY VALET [facility] Blood BLOOD SPECIMEN / Unknown Venipuncture / Unknown 03/13/2023 11:57 AM JOCKEY VALET 03/13/2023 11:57 AM JOCKEY VALET Anita Celis MD LAB - BLOOD ORDER GERRI [facility] [place] Core Lab [address] [facility], [address] [address], [facility] [phone] * Thyroid peroxidase antibody (03/13/2023 11:57 AM JOCKEY VALET) Thyroid Peroxidase Antibody <10 <35 IU/mL 03/14/2023 11:24 AM JOCKEY VALET [facility] CORE/PROT/ENDO Blood BLOOD SPECIMEN / Unknown Venipuncture / Unknown 03/13/2023 11:57 AM JOCKEY VALET 03/13/2023 11:57 AM JOCKEY VALET Anita Celis MD LAB - BLOOD ORDER GERRI Performing Organization Address City/[facility]/ZIP Co de Phone Number SPECIALTY CORE/PROT/ENDO Specialty Core/Prot/Endo [address] [facility], [address] [address], [facility] [phone] * (ABNORMAL) T4 free (03/13/2023 11:57 AM JOCKEY VALET) Free T4 0.86(L) 0.90 - 1.70 ng/dL 03/14/2023 6:59 AM JOCKEY VALET [facility] Blood BLOOD SPECIMEN / Unknown Venipuncture / Unknown 03/13/2023 11:57 AM JOCKEY VALET 03/13/2023 11:57 AM JOCKEY VALET Anita Celis MD LAB - BLOOD ORDER GERRI [facility] [place] Core Lab [address] [facility], [address] [address], [facility] [phone] * ABSTRACT PAP-NO CHARGE (05/12/2013) 05/12/2013 Impressions EXTERNAL LAB - 05/12/2013 Information from office visit dated: 06/12/2013 Pap smear done on ??this date: 05/2013 (approximately), by this group: [facility], results were WNL. ?? Provider Outside LAB - HIM EXTERNAL R ESULT EXTERNAL LAB External Lab * HIV 1 and 2 Antibody (10/24/2010 11:41 AM CDT) HIV 1&2 Antibody Negative NEG [facility] Blood specimen (specimen) 10/24/2010 11:41 AM CDT 10/24/2010 11:46 AM CDT India Arora DO LAB - BLOOD ORDER GERRI [facility] from Last 3 Months or Most Recently Relevant to Health Maintenance Care Teams Client Success Director Relationship Specialty Start Date End Date Clinic, [facility] [address] [place] [address] PCP - General 04/07/15 Anita Celis MD [address] [facility] [address] [place] [address] Assigned Endocrinology Provider 04/05/23
--- OUTSIDE RECORDS SUMMARY | 2023-06-04 17:07 | XMS_ITS | Encounter Summary ---
Author Name Unknown Organization [facility] Address [address] [place] [address] Care Team Providers Care Sliver Machine Operator Name Role Phone [facility] Primary Care Provider Anita Celis MD Unavailable [phone] Encounter Details Date Type Department Care Team (Late st Contact Info) Description 04/11/[address] [place] [address] [facility] [address] [place] [address] Social History Tobacco Use Types Packs/Day Years [...] Telephone Encounter - Charissa Barrios RN - 04/17/2023 10:56 AM NIBBLER OPERATOR Spoke to Lyudmila and informed of below Verbalized understanding. LER OPERATOR * Telephone Encounter - Charissa Barrios RN - 04/15/2023 9:03 AM NIBBLER OPERATOR Called Clinic back to inform of below. No triage nurse available. Will have a triage nurse call back to relay below. LER OPERATOR * Telephone Encounter - Anita Celis MD - 04/15/2023 8:52 AM NIBBLER OPERATOR Ok to increase dose based on TSH as per OB plan. Ok to follow up with PCP/obgyn per pt preference. LER OPERATOR * Telephone Encounter - Kostas Jaquez RN - 04/11/2023 2:30 PM NIBBLER OPERATOR Lyudmila (triage nurse) with [facility] calling, requesting to relay a message from KALEY Peraza to Dr. Celis. Patient was seen in their clinic today with a high TSH result of 50.3 (from 30.8). Patient is awareabout the result and is currently taking Levothyroxine 150 mcg daily (no skip/missing doses). KALEY Rodriguez would like to know if they need to increase Levothyroxine to 175 mcg. Per nurse Coreas, the patient would like their team to manage her hypothyroidism during if okay with Dr. Celis. Nurse Coreas will fax the TSH result to Dr. Celis's fax # at [phone] Celis's team: patient told nurse Coreas that she may not be able to join a futurevideo appointment with Dr. Celis on 06/10 as some settings or Hit the [place] (patient is unsure) does not work on her phone. Patient needs some assistance on this. Can call [facility] at [phone] and speak to triage nurse. LER OPERATOR documented in this encounter Plan of Treatment Upcoming Encounters Date Type Department Care Team (Late st Contact Info) Description 06/11/2023 8:30 AM CDT Virtual Visit [place] [address] [place] [phone] Anita Celis MD [address] [facility] [address] [place] [address] documented as of this encounter Visit Diagnoses Not on filedocumented in this encounter Care Teams Sliver Machine Operator Relationship Specialty Start Date End Date [facility], [address] [address] PCP - General 04/07/15 Anita Celis MD [address] [facility] [address] [place] [address] Assigned Endocrinology Provider 04/05/23 documented as of this encounter
--- OUTSIDE RECORDS SUMMARY | 2023-06-04 17:07 | XMS_ITS | Encounter Summary ---
Author Name Unknown Organization [facility] Address [address] [facility] [place] [address] Care Team Providers Care Veterans Services Specialist Name Role Phone [facility] Primary Care Provider No Ref-Primary, Physician Primary Care Provider India Arora DO Primary Care Provider [phone] No Ref-Primary, Physician Primary Care Provider Brit García APRN [facility] Primary Care Provi saad Unavailable [facility] Primary Care Provider Anita Celis MD Unavailable [phone] Reason for Visit * Reason Onset Date Comments Nurse Advice Line 04/06/2011 Encounter Details Date Type Department Care Team (Late st Contact Info) Description 04/06/[address] [place] [address] [facility] [address] [place] [address] Nurse Advice Line Social History Tobacco [...] Negin Masters - 10/31/2011 8:51 AM CDT [facility] Triage Call Report Patient Name: Kera Hale Call Date & Time: 04/06/2011 5:39:53PM Patient PCP Name: MRN: Patient Address: Patient Date of : 1990 Age: 21 yr. Patient Gender: Female Custodian Supervisor Name: Ora Joseph Presenting Problem: Calling [...] Description 06/11/2023 8:30 AM CDT Virtual Visit [facility] [address] [facility] [address] [place] [address] Anita Celis MD [address] [address] [place] [address] documented as of this encounter Visit Diagnoses Not on filedocumented in this encounter Care Teams Veterans Services Specialist Relationship Specialty Start Date End Date [facility] PCP - General 02/26/11 06/02/12 No Ref-Primary, Physician PCP - General 06/03/12 07/01/13 India Arora DO PCP - General website designer 07/02/13 02/04/14 No Ref-Primary, Physician PCP - General 02/05/14 04/13/14 Brit García APRN CNP PCP - General Nurse Practitioner - [facility] 07/13/14 04/06/[address] [address] PCP - General 04/07/15 Anita Celis MD [address] [place] [address] [address] [place] [address] Assigned Endocrinology Provider 04/05/23 documented as of this encounter
--- OUTSIDE RECORDS SUMMARY | 2023-06-04 17:07 | XMS_ITS | Clinical Summary ---
Author Name Unknown Organization [facility] Address [place], [place] [address] Care Team Providers Care Ict Support Technicians Name Role Phone Guilherme Olguin MD Unavailable [...] every 4 hours while awake. 1 Each 01/04/2020 Active inhalational spacing deviceIndications:Mod erate persistent asthma with acute exacerbation For home use. 1 Device 02/08/2020 Active fluticasone propionate (FLOVENT) 110 mcg/Actuation inhalerIndications:Mo derate persistent asthma with acute exacerbation Inhale 2 Puffs by mouth 2 times daily. 1 Inhaler 2 02/08/2020 Active budesonide (PULMICORT) 1 mg/2 mL neb suspensionIndications :Nasal congestion,Left nasal polyps Put one respule in sinus rinse kit and irrigate twice daily 120 mL 02/17/2020 Active levothyroxine (SYNTHROID) 150 mcg tabletIndications:Hyp othyroidism (acquired) Take 1 Tablet (150 mcg) by mouth before breakfast. 90 tablet. 1 06/11/2020 Active azelastine 137 mcg/actuation (ASTELIN) nasal sprayIndications:Branch Operations Specialist aye pansinusitis,Mucous retention cyst of maxillary sinus,Allergic rhinitis, unspecified seasonality, unspecified trigger Inhale 2 Sprays into affected nostril(s) 2 times daily. 90 mL 08/29/2020 Active Hospital, Clinic, or Other Facility [...] 0.01, T3 298, TSI 5.3. left for [place] and no treatment till 01/2013. Poor concentration, forgetfulness, shakiness, nervous, hyperactive, restless, weight loss, history of lose BMs. Weak muscles. 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 left for [place] and no treatment till 01/2013. Poor concentration, [...] 03/08/2020 Overview: GBS negative. (Lab drawn at [facility] on 02/03/17) Limited care. Kyleena or depo [...] John MD No consult 08/02/2016 by Frida Salazar, RN No Overview Addendum 08/02/2016 4:10 PM by Frida Salazar, RN MPP MOMS CONSULTATION ON 08/06/2016 F/U MOMS [...] 02/28/17) REFERRING PHYSICIAN/PHONE/LAST UPDATE: Olivia Shaw NP, [facility] - [phone] Primary MD approves scheduling of recommended ultrasounds/testing: Unknown SPECIALISTS/PHONE: [facility] - last seen 12/19/15 - notes [...] Through Growth: OB visits: Through TESTING PLANS: FELT FINISHING SUPERVISOR: CONSULTS: NURSING: DEPRESSION SCREEN Initial screen: Date [...] RNC.....01/15/2017 9:45 AM consult 08/02/2016 03/08/2020 Overview: [facility] MOMS CONSULTATION ON 08/06/2016 F/U MOMS [...] 02/28/17) REFERRING PHYSICIAN/PHONE/LAST UPDATE: Olivia Shaw NP, [facility] - [phone] Primary MD approves scheduling of recommended ultrasounds/testing: Unknown SPECIALISTS/PHONE: [facility] - last seen 12/19/15 - notes scanned SREEDHAR: SREEDHAR signed for [facility]: CARE COORDINATION: GENETICS: PROCEDURES: PERTINENT LABS: Blood type: Last pap: Initial Hgb /Ferritin Hgb 28 wk Hgb 36 wk Repeat hgb anemic and compliant every 4 wks if/until >11.0 MEDS: Synthroid 150 mcg daily vitamin Miralax PRN NEXT VISIT ALERTS: FUTURE APPOINTMENTS: Testing: Through Growth: OB visits: Through TESTING PLANS: FELT FINISHING SUPERVISOR: CONSULTS: NURSING: DEPRESSION SCREEN Initial screen: Date [...] Vag Epidu ral Gypsy ng Amanda Delivery Location:[facility] 05/31 14 SAB SPONTANEO US Comments:Blighted Ovum 03/09 Term 2.72 kg (6 lb) F Vag-Spont Gypsy ng Umm za Delivery Location:[place] 06/16 Term 40w 1d 3.18 kg (7 lb) M Vag None N Gypsy ng Peter Complications:None Delivery Location:[place] 02/22 Term 39w 4d M Vag Gypsy ng Santosh 01/03 Term 39w 2d 0h 11m 3.29 kg (7 lb 4 oz) F Vag Epidu ral N Gpysy ng 9 9 BONIL LA,BG JAAlexMI N Cosmo k Complications:None Delivery Location:[facility] Last Filed Vital Signs Vital Sign Reading Time Taken Comments Blood Pressure 120/73 04/13/2020 3:58 PM PMO ANALYST Pulse 85 04/13/2020 3:58 PM PMO ANALYST Temperature 37.1 ??C (98.7 ??F) 03/07/2020 3:36 PM CS T Respiratory Rate 20 03/24/2020 3:34 PM PMO ANALYST Oxygen Saturation 99% 04/13/2020 3:58 PM PMO ANALYST Inhaled Oxygen Concentration - - Weight 60.8 kg (134 lb) 03/07/2020 3:36 PM PMO ANALYST Height 156 cm (5' 1.42) 03/07/2020 3:36 PM PMO ANALYST Body Mass Index 24.98 03/07/2020 3:36 PM PMO ANALYST Plan of Treatment Health Maintenance Due Date Last Done Comments Depression screening for age 12+ 04/21/2020 04/22/2019, 04/22/2019, 07/17/2018, Additional history exists BMI (ht and wt on same day) for age 18+ 03/07/2021 03/07/2020, 01/26/2020, 01/04/2020, Additional history exists COVID-19 vaccine series (2022- season) 2022 Influenza for age 9-49 10/13/2023 9, 11/17/2017, 03/24/2011, Additional history exists Pap [...] this topic Medical Devices Implanted Type Area Vp Corporate Partnerships Device Identifier Shelf Expiration Date Model / Serial / Lot Stent Ent Mini Steroid-Releas ing [employer] Bio[employer]orb - [id number] Implanted:Qty: 2 on 04/22/2017 by Pedro Plascencia MD at [facility] Bilateral : [employer] 10/30/2018 [id number]# / / [id number] Stent Sinus 8mm Propel Contour Bioabsorb - [id number] Implanted:Qty: 1 on 04/22/2017 by Pedro Plascencia MD at [facility] Left: [employer] 10/19/2018 [id number]# / / [id number] Procedures Procedure Name Priority Date/Time Associated Diagnosis Comments HPV THIN PREP Routine 10/31/2021 12:00 PM CDT ANTI HIV 1/2 Routine 10/29/2017 10:21 AM CDT , unspecified gestational age ANTI HCV Routine 11/02/2014 5:51 PM CDT from Last 3 Months or Most Recently Relevant to Health Maintenance Results * HPV HIGH RISK (10/31/2021 12:00 PM CDT) TYPE 16 Negative Negative 11/03/2021 11:22 AM CDT [facility] TYPE 18 Negative Negative 11/03/2021 11:22 AM CDT [facility] OTHER HIGH RISK TYPES Negative Negative 11/03/2021 11:22 AM CDT [facility] Other (Cervical) 10/31/2021 12:00 PM CDT 11/02/2021 9:17 AM CDT Narrative [facility] - 11/03/2021 11:22 AM CDT HPV types 16, 18, 31, 33, 35, 39, 45, 51, 52, 56, 58, 59, 66 and 68 DNA were undetectable or below the pre-set threshold. Methodology: Kenisha Simone 4800 HPV Test Agnieszka Horan NP MICROBIOLOGY [facility] [address] [place] [address], * ANTI HIV 1/2 (10/29/2017 10:21 AM CDT) HIV-1/HIV-2 ANTIBODY Non-Reacti ve Non-Reacti ve 10/29/2017 5:05 PM CDT [facility] Comment:HIV-1 p24 and HIV-1/ HIV-2 Ab not detected. Blood BLOOD SPECIMEN / Unknown Venipuncture / Unknown 10/29/2017 10:21 AM CDT 10/29/2017 10:21 AM CDT Jessica Machado MD SEND OUT[facility] [address] [place] [address], * ANTI HCV (11/02/2014 5:51 PM CDT) HEPATITIS C ANTIBODY Non-Reacti ve Non-Reacti ve 11/03/2014 1:19 PM CDT [facility] Blood specimen (specimen) BLOOD SPECIMEN / Unknown Venipuncture / Unknown 11/02/2014 5:51 PM CDT 11/02/2014 5:[address] [facility] - 11/03/2014 1:19 PM CDT Antibodies to HCV not detected; does not exclude the possibility of exposure to HCV. Vale ROCHE [facility] OUTS [facility] [address] [place] [address], from Last 3 Months or Most Recently Relevant to Health Maintenance Advance Directives * Full Code (Latest Code Status on File) Date Activated Date Inactivated Comments 01/03/2018 4:57 PM 01/04/2018 5:40 PM * Full Code Date Activated Date Inactivated Comments 09/01/2017 5:01 PM 09/02/2017 1:36 PM Question Answer Comments Code Status Discussion: Not Discussed * Full Code Date Activated Date Inactivated Comments 04/22/2017 10:35 AM 04/22/2017 7:58 PM Question Answer Comments Code Status Discussion: Not Discussed Care Teams Ict Support Technicians Relationship Specialty Start Date End Date Pcp, No . PCP - General 09/30/20 Guilherme Olguin MD [employer] Obstetrics and Gynecology 01/25/11
--- OUTSIDE RECORDS SUMMARY | 2023-06-04 17:07 | XMS_ITS | Referral Summary ---
Author Name Unknown Organization [facility] Address [address] [place] [address] Care Team Providers Care Milieu Therapist Name Role Phone Unavailable Primary Care Provider Unavailabl e Source Comments Patient records contain information from all sites at [facility]. For routine questions regarding patient records, call [phone] during business hours, M-F 8:00 AM - 5:00 PM Central Time. Record requests for emergency care only can be directed to [phone] at any time.[facility] Allergies Active Allergy Reactions Criticality Noted [...] CDT Plan of Treatment Not on file Procedures Procedure Name Priority Date/Time Associated Diagnosis Comments EXTI THYROID-STIMULATING HORMONE-SENSITIVE (S-TSH), S Routine 01/26/2020 4:37 PM ASSISTANT DISTRICT ATTORNEY from Last 3 Months or Most Recently Relevant to Health Maintenance
--- OUTSIDE RECORDS SUMMARY | 2023-06-04 17:07 | XMS_ITS | Referral Summary ---
Author Name Unknown Organization [facility] Address [facility] [place] [address] Care Team Providers Care Grinder Needle Tip Name Role Phone [facility] Primary Care Provider Anita Celis MD Unavailable [phone] Encounters Date Type Department Care Team Description 04/11/2023 Telephone [facility] [address] [place] [phone] [facility] 03/28/2023 Telephone [facility] [address] [place] [phone] Anita Celis MD 03/13/2023 Travel 03/13/2023 11:30 AM CENTRIFUGAL STATION OPERATOR Office Visit [facility] [address] [place] [phone] Elena Giraldo APRN CNM Parnerkar, Vaishnavi, MD Hypothyroidism, unspecified type from Last 3 Months Allergies No known active allergies Medications Medication Sig Dispensed Refills Start Date End Date Status Vit w/Cs-Zhidogqrn-RN (PNV PO) Take 1 tablet by mouth Active Omeprazole (PRILOSEC PO) Active levothyroxine (SYNTHROID/LEVOTHROID) 150 MCG tabletIndications:Hypo thyroidism, unspecified type Take 1 tablet (150 mcg) by mouth daily 90 tablet 03/28/2023 Active Active Problems Problem Noted Date Diagnosed Date Abdominal pain 02/05/2014 CARDIOVASCULAR SCREENING; LDL GOAL LESS THAN 160 07/02/2013 Health Long Term 05/02/2011 Overview: DX V65.8 REPLACED WITH 15380 HEALTH SHELTER (05/19/2012) Hypothyroidism Resolved Problems Problem Noted Date [...] Comments Blood Pressure 99/66 03/13/2023 11:34 AM CENTRIFUGAL STATION OPERATOR Pulse 114 03/13/2023 11:34 AM CENTRIFUGAL STATION OPERATOR Temperature 37 ??C (98.6 ??F) 03/13/2023 11:34 AM CENTRIFUGAL STATION OPERATOR Respiratory Rate 18 03/13/2023 11:34 AM CENTRIFUGAL STATION OPERATOR Oxygen Saturation 94% 03/13/2023 11:34 AM CENTRIFUGAL STATION OPERATOR Inhaled Oxygen Concentration - - Weight 71.8 kg (158 lb 3.2 oz) 03/13/2023 11:34 AM CENTRIFUGAL STATION OPERATOR Height 153.7 cm (5' 0.5) 03/13/2023 11:34 AM CS T Body Mass Index 30.39 03/13/2023 11:34 AM CENTRIFUGAL STATION OPERATOR Plan of Treatment Upcoming Encounters Date Type Department Care Team (Late st Contact Info) Description 06/11/2023 8:30 AM CDT Virtual Visit [facility] [address] [facility] [address] [place] [address] Anita Celis MD [address] [address] [place] [address] Procedures Procedure Name Priority Date/Time Associated Diagnosis Comments LAB RESULT - HIM SCAN 04/11/2023 12:00 AM CENTRIFUGAL STATION OPERATOR THYROID PEROXIDASE ANTIBODY Routine 03/13/2023 11:57 AM CENTRIFUGAL STATION OPERATOR Hypothyroidism, unspecified type TSH Routine 03/13/2023 11:57 AM CENTRIFUGAL STATION OPERATOR Hypothyroidism, unspecified type T4 FREE Routine 03/13/2023 11:57 AM CENTRIFUGAL STATION OPERATOR Hypothyroidism, unspecified type ABSTRACT PAP ([facility]) Routine 05/12/2013 HIV 1 AND 2 ANTIBODY ([facility]) Routine 10/24/2010 11:41 AM CDT Supervision of normal first from Last 3 Months or Most Recently Relevant to Health Maintenance Results * LAB RESULT - HIM SCAN (04/11/2023 12:00 AM CENTRIFUGAL STATION OPERATOR) 04/11/2023 Provider Outside NON-BEAKER LAB TE STING * (ABNORMAL) TSH (03/13/2023 11:57 AM CENTRIFUGAL STATION OPERATOR) TSH 30.80(H) 0.30 - 4.20 uIU/mL 03/14/2023 6:59 AM CENTRIFUGAL STATION OPERATOR [facility] Blood BLOOD SPECIMEN / Unknown Venipuncture / Unknown 03/13/2023 11:57 AM CENTRIFUGAL STATION OPERATOR 03/13/2023 11:57 AM CENTRIFUGAL STATION OPERATOR Anita Celis MD LAB - BLOOD ORDER [facility] [address] [facility] [address] [phone] * Thyroid peroxidase antibody (03/13/2023 11:57 AM CENTRIFUGAL STATION OPERATOR) Thyroid Peroxidase Antibody <10 <35 IU/mL 03/14/2023 11:24 AM CENTRIFUGAL STATION OPERATOR SPECIALTY CORE/PROT/ENDO Blood BLOOD SPECIMEN / Unknown Venipuncture / Unknown 03/13/2023 11:57 AM CENTRIFUGAL STATION OPERATOR 03/13/2023 11:57 AM CENTRIFUGAL STATION OPERATOR Anita Celis MD LAB - BLOOD ORDER [facility] SPECIALTY CORE/PROT/ENDO Specialty Core/Prot/Endo [address] [facility], [address] [phone] * (ABNORMAL) T4 free (03/13/2023 11:57 AM CENTRIFUGAL STATION OPERATOR) Free T4 0.86(L) 0.90 - 1.70 ng/dL 03/14/2023 6:59 AM CENTRIFUGAL STATION OPERATOR [facility] Blood BLOOD SPECIMEN / Unknown Venipuncture / Unknown 03/13/2023 11:57 AM CENTRIFUGAL STATION OPERATOR 03/13/2023 11:57 AM CENTRIFUGAL STATION OPERATOR Anita Celis MD LAB - BLOOD ORDER [facility] [address] [facility] [address], [address] [place] [address], [facility] [phone] * ABSTRACT PAP-NO CHARGE (05/12/2013) 05/12/2013 Impressions EXTERNAL LAB - 05/12/2013 Information from office visit dated: 06/12/2013 Pap smear done on ??this date: 05/2013 (approximately), by this group: [facility] [place], results were WNL. ?? Provider Outside LAB - HIM EXTERNAL R ESULT EXTERNAL LAB External Lab * HIV 1 and 2 Antibody (10/24/2010 11:41 AM CDT) HIV 1&2 Antibody Negative NEG [facility] Blood specimen (specimen) 10/24/2010 11:41 AM CDT 10/24/2010 11:46 AM CDT India Arora DO LAB - BLOOD ORDER GERRI [facility] from Last 3 Months or Most Recently Relevant to Health Maintenance Care Teams Grinder Needle Tip Relationship Specialty Start Date End Date Clinic, [facility] [address] [address] PCP - General 04/07/15 Anita Celis MD [address] [place] [address] [address] [place] [address] Assigned Endocrinology Provider 04/05/23
== END 2023-06-04 17:02 | disposition home or self-care (01) ==
PROVIDERS: PCP Family Medicine; Visit Provider Registered Nurse
DX: E03.9 Hypothyroidism, unspecified (principal); O09.32 Supervision of pregnancy with insufficient antenatal care, second trimester
CPT/HCPCS: 80306; 84439; 84443

== ENCOUNTER 2023-06-13 05:07 | Emergency (ER) | payer BC, MEDICAID, SELFPAY ==
[2023-06-13 05:14] VITALS: BP 115/74; PULSE 75; RESP 20; TEMP 36.9; O2SAT 99; BMI 26.6
--- NOTE | 2023-06-13 05:35 | ED_ITS ---
HPI - General Adult General Chief complaint: Lower Extremity Swelling Stated complaint: Swelling feet Time Seen by Provider: 06/13/23 05:25 Source: patient Mode of arrival: ambulatory Limitations: no limitations History of Present Illness HPI narrative: 33-year-old female presents the emergency department 27 weeks for evaluation of leg swelling. Has ongoing issues with leg swelling but her concern is that the right leg is more swollen over the last few days on the left. No fever, no shortness of breath, baby moving well. No vaginal discharge, no bleeding. Did not contact her Ob provider to report the increased unilateral swelling on the right. She has previously been prescribed compression socks which she states she does not often wear because they began to hurt. Denies history of DVT or PE. No headache or other symptoms of preeclampsia. States that she has had an ultrasound that was negative for DVT about a month ago. Quick review of the records shows several missed appointments and canceled ultrasounds in the past. Past medical history reviewed, OB notes briefly reviewed. Gestational it is consistent with reported history. Prior ultrasound reviewed. ROS is otherwise negative times 12 systems Related Data Previous Rx's Medication Instructions Recorded montelukast 10 mg tablet 10 mg PO QHS #90 tabs 06/22/22 levothyroxine 100 mcg tablet 100 mcg PO QDAY #30 tabs 04/22/23 levothyroxine 75 mcg tablet 75 mcg PO QDAY #30 tabs 04/22/23 gilbert.stocking,thigh,reg,med #2 ea 06/04/23 Allergies Allergy/AdvReac Type Severity Reaction Status Date / Time etonogestrel [From Nexplanon] Allergy Mild Verified 06/13/23 05:18 [facility] Medical History History of thyroid irradiation ?Z92.3 - Personal history of irradiation (ICD-10) History of Graves' disease ?Z86.39 - Personal history of other endocrine, nutritional and metabolic disease (ICD-10) PTSD (post-traumatic stress disorder) ?F43.10 - Post-traumatic stress disorder, unspecified (ICD-10) Moderate persistent asthma ?J45.40 - Moderate persistent asthma, uncomplicated (ICD-10) Varicose veins of both legs with edema ?I83.893 - Varicose veins of bilateral lower extremities with other complications (ICD-10) Recurrent urinary tract infection ?N39.0 - Urinary tract infection, site not specified (ICD-10) Positive antinuclear antibody (01/26/20) ?R76.8 - Other specified abnormal immunological findings in serum (ICD-10) Numbness and tingling of right upper extremity ?R20.0 - Anesthesia of skin (ICD-10) ?R20.2 - Paresthesia of skin (ICD-10) Moderate asthma without complication ?J45.909 - Unspecified asthma, uncomplicated (ICD-10) Meniere's disease ?H81.09 - Meniere's disease, unspecified ear (ICD-10) Incomplete spontaneous (2013) ?O03.4 - Incomplete spontaneous without complication (ICD-10) Hypothyroidism ?E03.9 - Hypothyroidism, unspecified (ICD-10) History of use of contraceptive intrauterine device (IUD) (01/2020) ?Z92.0 - Personal history of contraception (ICD-10) History of severe acute respiratory syndrome coronavirus 2 (SARS-CoV-2) disease (12/24/19) ?Z86.16 - Personal history of COVID-19 (ICD-10) History of radioactive iodine thyroid ablation (03/2013) ?Z92.3 - Personal history of irradiation (ICD-10) History of anemia (2016) ?Z86.2 - Personal history of diseases of the blood and blood-forming organs and certain disorders involving the immune mechanism (ICD-10) Chronic sinusitis ?J32.9 - Chronic sinusitis, unspecified (ICD-10) Arnold-Chiari malformation ?Q07.00 - Arnold-Chiari syndrome without spina bifida or hydrocephalus (ICD- 10) Allergic rhinitis ?J30.9 - Allergic rhinitis, unspecified (ICD-10) Surgical History Status post delivery (11/2019) ?Z98.891 - History of uterine scar from previous surgery (ICD-10) History of nasal septoplasty (2017) ?Z98.890 - Other specified postprocedural states (ICD-10) History of dilation and curettage (05/13/13) ?Z98.890 - Other specified postprocedural states (ICD-10) Social History Narrative: Works at [employer] and [employer] 6 kids Non-smoker No EtOH What is your current living situation?: I presently have a place to live Problems where you live: no known problems In the past 12 months, utilities in danger of being shut off: no In past 12 months, lack of transportation kept you from medical appts, meetings, work, or getting things needed for daily living: no In the past 12 mos, have been you worried that your food would run out before you had money to buy more?: never true In the past 12 mos, the food you bought just didn't last and you didn't have money to buy more?: never true Smoking Status: Never smoker Do you use any of these nicotine containing products: None and E-Cigarettes Second hand tobacco smoke exposure: No How often do you have a drink containing alcohol: monthly or less AUDIT-C Alcohol total score: 1 Non-prescribed substance use: denies use How often does anyone, including family, friends and others, physically hurt you : never How often does anyone, including family, friends and others, insult or talk down to you: never How often does anyone, including family, friends and others, threaten you with harm: never How often does anyone, including family, friends and others, scream or curse at you: never Little interest or pleasure in doing things: not at all Feeling down, depressed, or hopeless: not at all service: No Exam Const: Vital Signs, click to edit/add: Vital Signs - 24 hr 06/13/23 05:14 Temperature 98.4 F Pulse Rate [Right Pulse Oximeter] 75 Respiratory Rate 20 Blood Pressure [Ri ght Upper Arm] 115/74 Pulse Oximetry 99 Oxygen Delivery Me thod Room Air Documenting provider has reviewed patient's vital signs: yes General appearance: well kempt Resp: Common normals: normal respiratory effort, no use of accessory muscles and clear to auscultation bilaterally Effort & inspection: able to speak in complete sentences Auscultation: clear to auscultation bilaterally Cardio: Common normals: regular rate, regular rhythm, S1 normal heart sound, S2 normal heart sound and no murmurs Rate: regular rate Rhythm: regular rhythm Heart sounds: S1 normal and S2 normal Extremity: Other: Both legs with extensive varicose veins. Left side with 1+ edema to the knee. Right side with 2 to 3+ edema up to the knee, including foot. Obscuring of lateral malleolus borders which was her concern. Palpation does not reveal any obvious discrete clot but would be very difficult to tell due to the extent of her varicose veins. Equivocal Homans on right. Psych: Appearance: well kempt Activity/motor behavior: appropriate eye contact Insight: fair Judgement: fair Skin: Common normals: no rashes or lesions noted General skin exam: no rashes or lesions noted Course Course ED Course: Asymmetric leg swelling in , concern for DVT. I have not previously assessed patient but some asymmetry has been described in her note. Counseled patient that I would like to get an ultrasound. Our vending service technician will be here in about 1 hour. It will take about 15 minutes to do the study and about an hour to get the results after. She states that she cannot stay for the study as she needs to get her kids to school. She asked if she could come back to the ED. I tell her that this is not in her best interest and if she does I will not be here to get the results. If the test is being ordered by an emergency department provider, she needs to stay and wait for the test and the results. She asked if her Ob provider could order the test, I said her Ob provider can order whenever test that provider deems is appropriate. The patient should have been in contact with her Ob provider regarding the swelling. Patient states that she would like to leave, but will contact her Ob provider to get an order for an ultrasound later today. I counseled patient that that would definitely be leaving against medical advice and she understands the ramifications of that. I counseled her to please come back to the emergency department if she is unable to secure an order from her Ob provider. She was willing to sign AMA form outlining that she needed to stay for the ultrasound and chose to leave against medical advice. Vital Signs Vital signs: Initial Vital Signs Temperature 98.4 F 06/13/23 05:14 Temperature Source Temporal Artery Scan 06/13/23 05:14 Pulse Rate 75 06/13/23 05:14 Respiratory Rate 20 06/13/23 05:14 Blood Pressure 115/74 06/13/23 05:14 Blood Pressure Mean 87 06/13/23 05:14 Blood Pressure Position Sitting 06/13/23 05:14 Pulse Oximetry 99 06/13/23 05:14 Oxygen Delivery Method Room Air 06/13/23 05:14 Vital Signs Temperature 98.4 F 06/13/23 05:14 Pulse Rate 75 06/13/23 05:14 Respiratory Rate 20 06/13/23 05:14 Blood Pressure 115/74 06/13/23 05:14 Pulse Oximetry 99 06/13/23 05:14 Oxygen Delivery Method Room Air 06/13/23 05:14 Temperature 98.4 F 06/13/23 05:14 Pulse Rate 75 06/13/23 05:14 Respiratory Rate 20 06/13/23 05:14 Blood Pressure 115/74 06/13/23 05:14 Pulse Oximetry 99 06/13/23 05:14 Oxygen Delivery Method Room Air 06/13/23 05:14 Discharge Plan Discharge Clinical Impression: Leg swelling in Patient Disposition: Left Against Medical Advice Prescriptions: No Action (DME) gilbert.stocking,thigh,reg,med Misc See Rx Instructions .Route Qty: 2 0RF Rx Instructions: As directed montelukast 10 mg tablet 10 mg PO QHS Qty: 90 1RF levothyroxine 100 mcg tablet 100 mcg PO QDAY Qty: 30 1RF levothyroxine 75 mcg tablet 75 mcg PO QDAY Qty: 30 1RF Follow Up/Referrals: Indra Rose MD [Primary Care Provider] - Stand Alone Forms: MyHealth Info Instructions
--- OUTSIDE RECORDS SUMMARY | 2023-06-13 05:38 | XMS_ITS | Referral Summary ---
Author Name Unknown Organization [facility] Address [address] [place] [address] Care Team Providers Care Graphic Production Artist Name Role Phone Unavailable Primary Care Provider Unavailabl e Source Comments Patient records contain information from all sites at [facility]. For routine questions regarding patient records, call [phone] during business hours, M-F 8:00 AM - 5:00 PM Central Time. Record requests for emergency care only can be directed to [phone] at any time.[facility] Allergies Active Allergy Reactions Criticality Noted Date [...] HORMONE-SENSITIVE (S-TSH), S Routine 01/26/2020 4:37 PM WOOD CARVER HAND from Last 3 Months or Most Recently Relevant to Health Maintenance
--- OUTSIDE RECORDS SUMMARY | 2023-06-13 05:38 | XMS_ITS | Clinical Summary ---
Author Name Unknown Organization [facility] Address [address] [place] [address] Care Team Providers Care Director Funeral Name Role Phone Unavailable Primary Care Provider Unavailabl e Source Comments Patient records contain information from all sites at [facility]. For routine questions regarding patient records, call [phone] during business hours, M-F 8:00 AM - 5:00 PM Central Time. Record requests for emergency care only can be directed to [phone] at any time.[facility] Allergies Active Allergy Reactions Criticality Noted [...] Plan 09/04/2017 Asthma Control Test Questionnaire 09/04/2017 Asthma Management/Exacerbation Questionnaire (AMQ/AEQ) 09/04/2017 Thyroid Stimulating Hormone (TSH) test for thyroid function 01/25/2021 01/26/2020, 07/08/2019, 04/22/2019, Additional history exists COVID-19 Vaccine (3 - season) 2022 12/09/2021, 11/11/2021 Influenza Vaccine [...] HORMONE-SENSITIVE (S-TSH), S Routine 01/26/2020 4:37 PM MECHANICAL SERVICE SPECIALIST from Last 3 Months or Most Recently Relevant to Health Maintenance
--- OUTSIDE RECORDS SUMMARY | 2023-06-13 05:38 | XMS_ITS ---
Author Name Unknown Organization [facility] Address [address] [place] [address] Care Team Providers Care Studio Designer Name Role Phone Unavailable Unavailable Unavailable Surgery Details Not on file Complications Check Surgery Details section. Procedure Estimated Blood Loss Check Surgery Details section. Procedure Findings Check Surgery Details section. Procedure Specimens Taken Check Surgery Details section.
--- OUTSIDE RECORDS SUMMARY | 2023-06-13 05:39 | XMS_ITS | Encounter Summary ---
Author Name Unknown Organization [place] Address [address] [facility] [place] [address] Care Team Providers Care Coal Crusher Operator Name Role Phone Clinic, [facility] Primary Care Provider Encounter Details Date Type Department Care Team (Late st Contact Info) Description 03/28/2023 Telephone [facility] [address] [place] [address] Anita Celis MD [address] [place], [place] [id number] Social History Tobacco Use Types Packs/Day Years [...] Charissa Barrios RN - 04/01/2023 10:45 AM MOLDER AUTOMOBILE CARPETS Spoke to pt and informed of below. Pt verbalized understanding. Pt will call back to schedule lab appointment. ER AUTOMOBILE CARPETS * Telephone Encounter - Charissa Barrios RN - 03/28/2023 2:52 PM MOLDER AUTOMO[employer] CARPET[employer] LM for pt to c/b to discuss below. ER AUTOMOBILE CARPETS * Telephone Encounter - Anita Celis MD - 03/28/2023 2:41 PM MOLDER AUTOMOBILE CARPETS Latest Ref Rng 03/13/2023 11:57 AM ENDO [facility]YRO[facility] TSH 0.30 - 4.20 uIU/mL 30.80 (H) FREE T4 0.90 - 1.70 ng/dL 0.86 (L) Thyroid Peroxidase Antibody <35 IU/mL <10 Last visit 02/2023. Currently she is --12 weeks. This is 7th . Has 6 kids. She reports that she is followed by SMALL MACHINE BINDERY OPERATOR at local clinic. Currently taking levothyroxine 125 [...] whole. Do not cut or crush it. ER AUTOMOBILE CARPETS documented in this encounter Plan of Treatment Upcoming Encounters Date Type Department Care Team (Late st Contact Info) Description 06/13/2023 3:30 PM CDT Virtual Visit [facility] [address] [facility] [address] [place] [address] Anita Celis MD [address] [address] [place] [address] Scheduled Orders Name Type Priority Associated Diagnoses Orde r Schedule T4 free Lab Routine Hypothyroidism, unspecified type Expected: 05/27/2023 (Approximate), Expires: 03/28/2024 TSH Lab Routine Hypothyroidism, unspecified type Expected: 05/27/2023 (Approximate), Expires: 03/28/2024 documented as of this encounter Visit Diagnoses Diagnosis Hypothyroidism, unspecified type- Primary documented in this encounter Care Teams Coal Crusher Operator Relationship Specialty Start Date End Date [facility], [address] [address] PCP - General 04/07/15 documented as of this encounter
--- OUTSIDE RECORDS SUMMARY | 2023-06-13 05:39 | XMS_ITS | Encounter Summary ---
Author Name Unknown Organization [place] Address [address] [facility] [place] [address] Care Team Providers Care Programming Equipment Operator Name Role Phone [facility] Primary Care Provider No Ref-Primary, Physician Primary Care Provider India Arora DO Primary Care Provider [phone] No Ref-Primary, Physician Primary Care Provider Brit García APRN [facility] Primary Care Provi saad Unavailable [facility] Primary Care Provider Anita Celis MD Unavailable [phone] Reason for Visit * Reason Onset Date Comments Nurse Advice Line 08/25/2011 [facility] Encounter Details Date Type Department Care Team (Late st Contact Info) Description 08/25/2011 [facility] [address] [place] [address] [address] Nurse Advice Line (FNA) Social History Tobacco [...] in ED and then follow up at [facility] for eval of the IUD Juliet Spain RN [facility] documented in this encounter Plan of Treatment Upcoming Encounters Date Type Department Care Team (Late st Contact Info) Description 06/13/2023 3:30 PM CDT Virtual Visit [facility] [address] [place] [address] Anita Celis MD [address] [place], [place] [address] documented as of this encounter Visit Diagnoses Not on filedocumented in this encounter Care Teams Programming Equipment Operator Relationship Specialty Start Date End Date Clinic - [facility] PCP - General 02/26/11 06/02/12 No Ref-Primary, Physician PCP - General 06/03/12 07/01/13 India Arora DO PCP - General procurement cost coordinator 07/02/13 02/04/14 No Ref-Primary, Physician PCP - General 02/05/14 04/13/14 Brit García APRN FILM COATER PCP - General Nurse Practitioner - Adult Health 07/13/14 04/06/15 [facility], [address] [address] PCP - General 04/07/15 Anita Celis MD [address] [place] [address] [address] [place] [address] Assigned Endocrinology Provider 04/05/23 documented as of this encounter
--- OUTSIDE RECORDS SUMMARY | 2023-06-13 05:39 | XMS_ITS | Encounter Summary ---
Author Name Unknown Organization [place] Address [address] [facility] [place] [address] Care Team Providers Care Crop Nutrition Scientist Name Role Phone [facility], [facility] Primary Care Provider Anita Celis MD Unavailable [phone] Reason for Visit * Reason Onset Date Comments Call Back 06/11/2023 Patient Request 06/11/2023 Encounter Details Date Type Department Care Team (Late st Contact Info) Description 06/11/2023 Telephone [facility] [address] [facility] [address] [place] [address] Anita Celis MD [address] [place] [address] Call Back; Patient Request Social History Tobacco Use Types Packs/Day Years [...] encounter Miscellaneous Notes * Telephone Encounter - Tuyet Lara - 06/12/2023 1:30 PM CDT 06/11- lmtcb x1 * Telephone Encounter - Juliet Barrios CMA - 06/12/2023 11:48 AM CDT Can she do a video visit on 06/12 at 3:30? Yasmin Barrios CMA [facility] [phone] * Telephone Encounter - Emma Godwin - 06/12/2023 8:57 AM CDT Spoke with patient, she cannot do today. She gets off work at 3pm. * Telephone Encounter - Juliet Barrios CMA - 06/12/2023 8:21 AM CDT Offer 06/11 at 3 pm for in person or video visit with dr. Celis. Yasmin Barrios CMA [facility] [phone] * Telephone Encounter - Veronica Bello - 06/11/2023 12:09 PM CDT [facility] Phone Message May a detailed message be left on voicemail: yes Reason for Call: Other: Patient is calling in today seems to have some confusion about appointmentsand seeing an endo. Patient stated she had no idea about her appointment today stated she had some confusion about a different doc telling her she didn't need to see an endo. She states she had scan and was wondering when her endo would like to see her. Automatic Packer Operator then stated to patient she missed her appt. Action Taken: Message routed to: [facility] endo Travel Screening: Not Applicable documented in this encounter Plan of Treatment Upcoming Encounters Date Type Department Care Team (Late st Contact Info) Description 06/13/2023 3:30 PM CDT Virtual Visit [facility] [address] [place] [address] Anita Celis MD [address] [place] [address] documented as of this encounter Visit Diagnoses Not on filedocumented in this encounter Care Teams Crop Nutrition Scientist Relationship Specialty Start Date End Date [facility], [address] [address] PCP - General 04/07/15 Anita Celis MD [address] [place] [address] Assigned Endocrinology Provider 04/05/23 documented as of this encounter
--- OUTSIDE RECORDS SUMMARY | 2023-06-13 05:39 | XMS_ITS | Encounter Summary ---
Author Name Unknown Organization [facility] Address [address] [place] [address] Care Team Providers Care Operations Management Professionals Name Role Phone [facility] Primary Care Provider No Ref-Primary, Physician Primary Care Provider India Arora DO Primary Care Provider [phone] No Ref-Primary, Physician Primary Care Provider Brit García APRN [facility] Primary Care Provi saad Unavailable [facility] Primary Care Provider Anita Celis MD Unavailable [phone] Reason for Visit * Reason Onset Date Comments Nurse Advice Line 04/06/2011 Encounter Details Date Type Department Care Team (Late st Contact Info) Description 04/06/[address] [place] [address] [facility] [address] [place] [address] Nurse Advice Line Social History [...] Negin Masters - 10/31/2011 8:51 AM CDT [facility] Triage Call Report Patient Name: Kera Hale Call Date & Time: 04/06/2011 5:39:53PM Patient PCP Name: MRN: Patient Address: Patient Date of : 1990 Age: 21 yr. Patient Gender: Female Scientific Database Curator Name: Ora Joseph Presenting Problem: Calling that [...] Description 06/13/2023 3:30 PM CDT Virtual Visit [facility] [address] [facility] [address] [place] [address] Anita Celis MD [address] [address] [place] [address] documented as of this encounter Visit Diagnoses Not on filedocumented in this encounter Care Teams Operations Management Professionals Relationship Specialty Start Date End Date [facility] PCP - General 02/26/11 06/02/12 No Ref-Primary, Physician PCP - General 06/03/12 07/01/13 India Arora DO PCP - General shipping and receiving operator 07/02/13 02/04/14 No Ref-Primary, Physician PCP - General 02/05/14 04/13/14 Brit García APRN CNP PCP - General Nurse Practitioner - [facility] 07/13/14 04/06/[address] [address] PCP - General 04/07/15 Anita Celis MD [address] [place] [address] [address] [place] [address] Assigned Endocrinology Provider 04/05/23 documented as of this encounter
--- OUTSIDE RECORDS SUMMARY | 2023-06-13 05:39 | XMS_ITS | Clinical Summary ---
Author Name Unknown Organization [employer] Address [place], [place] [address] Care Team Providers Care Roving Weight Gauger Name Role Phone Guilherme Olguin MD Unavailable [...] 06/11/2020 Active azelastine 137 mcg/actuation (ASTELIN) nasal sprayIndications:Director Patient Accounting aye pansinusitis,Mucous retention cyst of maxillary sinus,Allergic [...] 0.01, T3 298, TSI 5.3. left for van horne and no treatment till 01/2013. Poor concentration, forgetfulness, shakiness, nervous, hyperactive, restless, weight loss, history of lose BMs. Weak muscles. 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 left for van horne and no treatment till 01/2013. Poor concentration, [...] 03/08/2020 Overview: GBS negative. (Lab drawn at [facility] on 02/03/17) Limited care. Kyleena or [...] 02/28/17) REFERRING PHYSICIAN/PHONE/LAST UPDATE: Olivia Shaw NP, [facility] - [phone] Primary MD approves scheduling of recommended ultrasounds/testing: Unknown SPECIALISTS/PHONE: Neurology [facility] - last seen 12/19/15 - notes scanned [...] Through Growth: OB visits: Through TESTING PLANS: MANAGER MENTAL HEALTH: CONSULTS: NURSING: DEPRESSION SCREEN Initial screen: Date [...] RNC.....01/15/2017 9:45 AM consult 08/02/2016 03/08/2020 Overview: [facility] MOMS CONSULTATION ON 08/06/2016 F/U MOMS CLINIC [...] 02/28/17) REFERRING PHYSICIAN/PHONE/LAST UPDATE: Olivia Shaw NP, [facility] - [phone] Primary MD approves scheduling of recommended ultrasounds/testing: Unknown SPECIALISTS/PHONE: Neurology [facility] - last seen 12/19/15 - notes scanned SREEDHAR: SREEDHAR signed for [facility]: CARE COORDINATION: GENETICS: PROCEDURES: PERTINENT LABS: Blood type: Last pap: Initial Hgb /Ferritin Hgb 28 wk Hgb 36 wk Repeat hgb anemic and compliant every 4 wks if/until >11.0 MEDS: Synthroid 150 mcg daily vitamin Miralax PRN NEXT VISIT ALERTS: FUTURE APPOINTMENTS: Testing: Through Growth: OB visits: Through TESTING PLANS: MANAGER MENTAL HEALTH: CONSULTS: NURSING: DEPRESSION SCREEN Initial screen: Date [...] Vag Epidu ral Gypsy ng Amanda Delivery Location:[facility] 05/31 14 SAB SPONTANEO US Comments:Blighted Ovum 03/09 Term 2.72 kg (6 lb) F Vag-Spont Gypsy ng Umm za Delivery Location:[place] 06/16 Term 40w 1d 3.18 kg (7 lb) M Vag None N Gypsy ng Peter Complications:None Delivery Location:[place] 02/22 Term 39w 4d M Vag Gypsy ng Santosh 01/03 Term 39w 2d 0h 11m 3.29 kg (7 lb 4 oz) F Vag Epidu ral N Gypsy ng 9 9 BONIL LA,BG JAAlexMI N Cosmo k Complications:None Delivery Location:[facility] Last Filed Vital Signs Vital Sign Reading Time Taken Comments Blood Pressure 120/73 04/13/2020 3:58 PM BRICK CARRIER Pulse 85 04/13/2020 3:58 PM BRICK CARRIER Temperature 37.1 ??C (98.7 ??F) 03/07/2020 3:36 PM CS T Respiratory Rate 20 03/24/2020 3:34 PM BRICK CARRIER Oxygen Saturation 99% 04/13/2020 3:58 PM BRICK CARRIER Inhaled Oxygen Concentration - - Weight 60.8 kg (134 lb) 03/07/2020 3:36 PM BRICK CARRIER Height 156 cm (5' 1.42) 03/07/2020 3:36 PM BRICK CARRIER Body Mass Index 24.98 03/07/2020 3:36 PM BRICK CARRIER Plan of Treatment Health Maintenance Due Date [...] this topic Medical Devices Implanted Type Area Civil Engineer'S Aide Device Identifier Shelf Expiration Date Model / Serial / Lot Stent Ent Mini Steroid-Releas ing Propel Bioabsorb - [id number] Implanted:Qty: 2 on 04/22/2017 by Pedro Plascencia MD at [facility] Bilateral : [employer] 10/30/2018 [id number]# / / [id number] Stent Sinus 8mm Propel Contour Bioabsorb - [id number] Implanted:Qty: 1 on 04/22/2017 by Pedro Plascencia MD at [facility] Left: [employer] 10/19/2018 [id number]# / / [id number] Procedures Procedure Name Priority Date/Time Associated Diagnosis Comments HPV THIN PREP Routine 10/31/2021 12:00 PM CDT ANTI HIV 1/2 Routine 10/29/2017 10:21 AM CDT , unspecified gestational age ANTI HCV Routine 11/02/2014 5:51 PM CDT from Last 3 Months or Most Recently Relevant to Health Maintenance Results * HPV HIGH RISK (10/31/2021 12:00 PM CDT) TYPE 16 Negative Negative 11/03/2021 11:22 AM CDT [facility] TYPE 18 Negative Negative 11/03/2021 11:22 AM CDT [facility] OTHER HIGH RISK TYPES Negative Negative 11/03/2021 11:22 AM CDT [facility] Other (Cervical) 10/31/2021 12:00 PM CDT 11/02/2021 9:17 AM CDT Narrative [facility] - 11/03/2021 11:22 AM CDT HPV types 16, 18, 31, 33, 35, 39, 45, 51, 52, 56, 58, 59, 66 and 68 DNA were undetectable or below the pre-set threshold. Methodology: Kenisha Simone 4800 HPV Test Agnieszka Horan NP MICROBIOLOGY [facility] [address] [place] [address], * ANTI HIV 1/2 (10/29/2017 10:21 AM CDT) HIV-1/HIV-2 ANTIBODY Non-Reacti ve Non-Reacti ve 10/29/2017 5:05 PM CDT [facility] Comment:HIV-1 p24 and HIV-1/ HIV-2 Ab not detected. Blood BLOOD SPECIMEN / Unknown Venipuncture / Unknown 10/29/2017 10:21 AM CDT 10/29/2017 10:21 AM CDT Jessica Machado MD SEND OUTS [facility] [address] [place] [address], * ANTI HCV (11/02/2014 5:51 PM CDT) HEPATITIS C ANTIBODY Non-Reacti ve Non-Reacti ve 11/03/2014 1:19 PM CDT [facility] Blood specimen (specimen) BLOOD SPECIMEN / Unknown Venipuncture / Unknown 11/02/2014 5:51 PM CDT 11/02/2014 5:51 PM CDT Narrative [facility] - 11/03/2014 1:19 PM CDT Antibodies to HCV not detected; does not exclude the possibility of exposure to HCV. Vale ROCHE SEND OUTS [facility] [address] [place] [address], from Last 3 Months or Most Recently [...] Code Status Discussion: Not Discussed Care Teams Roving Weight Gauger Relationship Specialty Start Date End Date Pcp, No . PCP - General 09/30/20 Guilherme Olguin MD PATTERN CLERK Obstetrics and Gynecology 01/25/11
--- OUTSIDE RECORDS SUMMARY | 2023-06-13 05:39 | XMS_ITS | Referral Summary ---
Author Name Unknown Organization [place] Address [facility] [place] [address] Care Team Providers Care Mix Crusher Operator Name Role Phone [facility] Primary Care Provider Anita Celis MD Unavailable [phone] Encounters Date Type Department Care Team Description 06/11/2023 Telephone [facility] [address] [place] [address] Anita Celis MD Call Back; Patient Request 04/11/2023 Telephone [facility] [address] [place] [address] [facility] 03/28/2023 Telephone [facility] [address] [place] [address] Anita Celis MD from Last 3 Months Allergies No known active allergies Medications Medication Sig Dispensed Refills Start Date End Date Status Vit w/Sf-Xpreyvqka-NB (PNV PO) Take 1 tablet by mouth Active Omeprazole (PRILOSEC PO) Active levothyroxine (SYNTHROID/LEVOTHROID) 150 MCG tabletIndications:Hypo thyroidism, unspecified type Take 1 tablet (150 mcg) by mouth daily 90 tablet 03/28/2023 Active Active Problems Problem Noted Date Diagnosed Date Abdominal pain 02/05/2014 CARDIOVASCULAR SCREENING; LDL GOAL LESS THAN 160 07/02/2013 [facility] 05/02/2011 Overview: DX V65.8 REPLACED WITH 02567 HEALTH ASSISTED (05/19/2012) Hypothyroidism Resolved Problems Problem Noted Date [...] Comments Blood Pressure 99/66 03/13/2023 11:34 AM CREW LEADER Pulse 114 03/13/2023 11:34 AM CREW LEADER Temperature 37 ??C (98.6 ??F) 03/13/2023 11:34 AM CREW LEADER Respiratory Rate 18 03/13/2023 11:34 AM CREW LEADER Oxygen Saturation 94% 03/13/2023 11:34 AM CREW LEADER Inhaled Oxygen Concentration - - Weight 71.8 kg (158 lb 3.2 oz) 03/13/2023 11:34 AM CREW LEADER Height 153.7 cm (5' 0.5) 03/13/2023 11:34 AM CS T Body Mass Index 30.39 03/13/2023 11:34 AM CREW LEADER Plan of Treatment Upcoming Encounters Date Type Department Care Team (Late st Contact Info) Description 06/13/2023 3:30 PM CDT Virtual Visit [facility] [address] [facility] [address] [place] [address] Anita Celis MD [address] [place] [address] Procedures Procedure Name Priority Date/Time Associated Diagnosis Comments LAB RESULT - HIM SCAN 04/11/2023 12:00 AM CREW LEADER TSH Routine 03/13/2023 11:57 AM CREW LEADER Hypothyroidism, unspecified type ABSTRACT PAP ([facility] EXTERNAL RESULT) Routine 05/12/2013 HIV 1 AND 2 ANTIBODY ([facility]) Routine 10/24/2010 11:41 AM CDT Supervision of normal first from Last 3 Months or Most Recently Relevant to Health Maintenance Results * LAB RESULT - HIM SCAN (04/11/2023 12:00 AM CREW LEADER) 04/11/2023 Provider Outside NON-BEAKER LAB TE STING * (ABNORMAL) TSH (03/13/2023 11:57 AM CREW LEADER) TSH 30.80(H) 0.30 - 4.20 uIU/mL 03/14/2023 6:59 AM CREW LEADER [facility] Blood BLOOD SPECIMEN / Unknown Venipuncture / Unknown 03/13/2023 11:57 AM CREW LEADER 03/13/2023 11:57 AM CREW LEADER Anita Celis MD LAB - BLOOD ORDER GERRI [facility] [address] [facility], [address] [place] [address], [facility] [phone] * ABSTRACT PAP-NO CHARGE (05/12/2013) 05/12/2013 Impressions EXTERNAL LAB - 05/12/2013 Information from office visit dated: 06/12/2013 Pap smear done on ??this date: 05/2013 (approximately), by this group: [facility] [place], results were WNL. ?? Provider Outside LAB - HIM EXTERNAL R ESULT EXTERNAL LAB External Lab * HIV 1 and 2 Antibody (10/24/2010 11:41 AM CDT) HIV 1&2 Antibody Negative NEG [facility] Blood specimen (specimen) 10/24/2010 11:41 AM CDT 10/24/2010 11:46 AM CDT India Arora DO LAB - BLOOD ORDER GERRI [facility] from Last 3 Months or Most Recently Relevant to Health Maintenance Care Teams Mix Crusher Operator Relationship Specialty Start Date End Date Clinic, [address] [address] PCP - General 04/07/15 Anita Celis MD [address] [facility] [address] [place] [address] Assigned Endocrinology Provider 04/05/23
--- OUTSIDE RECORDS SUMMARY | 2023-06-13 05:39 | XMS_ITS | Encounter Summary ---
Author Name Unknown Organization [place] Address [address] [facility] [place] [address] Care Team Providers Care Cert Pharmacy Tech Name Role Phone Clinic, [facility] Primary Care Provider Reason for Visit * Reason Comments New Patient Referred by Dr. Timur ngo for hypothyroid. * Consultation (Routine) - Pending Review Specialty Diagnoses / Procedures Referred By Ashleigh hines Referred To Contact Endocrinology, Diabetes, and Metabolism Diagnoses Hypothyroidism, unspecified type Elena Giraldo APRN [facility] [address] [place] [address] Referral ID Status Reason Start Date Expiration Date V isits Requested Visits Authorized [id number] Pending Review 11/28/2022 11/28/2023 1 1 Encounter Details Date Type Department Care Team (Late st Contact Info) Description 03/13/2023 11:30 AM RETAIL FIELD SUPERVISOR Office Visit [facility] [address] [place] [address] Elena Giraldo APRN [facility] [address] [place] [address] Anita Celis MD [address] [place] [address] Hypothyroidism, unspecified type Social History Tobacco Use [...] Comments Blood Pressure 99/66 03/13/2023 11:34 AM RETAIL FIELD SUPERVISOR Pulse 114 03/13/2023 11:34 AM RETAIL FIELD SUPERVISOR Temperature 37 ??C (98.6 ??F) 03/13/2023 11:34 AM RETAIL FIELD SUPERVISOR Respiratory Rate 18 03/13/2023 11:34 AM RETAIL FIELD SUPERVISOR Oxygen Saturation 94% 03/13/2023 11:34 AM RETAIL FIELD SUPERVISOR Inhaled Oxygen Concentration - - Weight 71.8 kg (158 lb 3.2 oz) 03/13/2023 11:34 AM RETAIL FIELD SUPERVISOR Height 153.7 cm (5' 0.5) 03/13/2023 11:34 AM CS T Body Mass Index 30.39 03/13/2023 11:34 AM RETAIL FIELD SUPERVISOR documented in this encounter Patient Instructions * Patient Instructions* Anita Celis MD - 03/13/2023 11:30 AM RETAIL FIELD SUPERVISOR [facility] Dr Celis, Endocrinology Department [address] [place] [address] Appointment [phone] [place]: Saturday - Thyroid labs needed. Dose change based on that. Fax records from [facility]. Follow up in 3 months. Take Levothyroxine [...] whole. Do not cut or crush it. [place] FIELD SUPERVISOR documented in this encounter Progress Notes * [...] Referring provider Elena Giraldo APRN CNM outside [place]. No recent lab results to review. Limited records are available. Postablative hypothyroidism: She reports that she was diagnosed with Graves' disease when she was 20-year-old and received radiation treatment. Following that she developed hypothyroidism and was started on levothyroxine after that. Currently she is --12 weeks. This is 7th . Has 6 kids. She reports that she is followed by RESIDENCE HALL DIRECTOR at local clinic. She reports that she [...] or cold intolerance: feels warm History of [place] or Amiodarone use:No Head or neck surgery/radiation:Yes: [...] Male Other Topics Concern Parent/sibling w/ CABG, NE or angioplasty before 65F 55M? Not Asked [...] following prescription(s): levothyroxine, omeprazole magnesium, and vit w/aj-agpwafceb-xf. ROS ROS: 10 point ROS neg other [...] noted in AVS Anita Celis MD Endocrinology [facility]/[place] CC: [place] The longitudinal plan of [...] and agrees with the plan set forth. IL FIELD SUPERVISOR documented in this encounter Miscellaneous Notes * Result Encounter Note - Anita Celis MD - 03/13/2023 11:30 AM RETAIL FIELD SUPERVISOR Labs/results noted. Please see telephone encounter dated 03/28/2023. IL FIELD SUPERVISOR documented in this encounter Plan of Treatment Upcoming Encounters Date Type Department Care Team (Late st Contact Info) Description 06/13/2023 3:30 PM CDT Virtual Visit [facility] [address] [facility] [address] [place] [address] Anita Celis MD [address] [place] [address] documented as of this encounter Procedures Procedure Name Priority Date/Time Associated Diagnosis Comments TSH Routine 03/13/2023 11:57 AM RETAIL FIELD SUPERVISOR Hypothyroidism, unspecified type THYROID PEROXIDASE ANTIBODY Routine 03/13/2023 11:57 AM RETAIL FIELD SUPERVISOR Hypothyroidism, unspecified type T4 FREE Routine 03/13/2023 11:57 AM RETAIL FIELD SUPERVISOR Hypothyroidism, unspecified type documented in this encounter Results * Thyroid peroxidase antibody (03/13/2023 11:57 AM RETAIL FIELD SUPERVISOR) Thyroid Peroxidase Antibody <10 <35 IU/mL 03/14/2023 11:24 AM RETAIL FIELD SUPERVISOR [facility] Blood BLOOD SPECIMEN / Unknown Venipuncture / Unknown 03/13/2023 11:57 AM RETAIL FIELD SUPERVISOR 03/13/2023 11:57 AM RETAIL FIELD SUPERVISOR Anita Celis MD LAB - BLOOD ORDER GERRI [facility]ENDO Specialty Core/Prot/Endo [address] [facility], [address] [address] [phone] * (ABNORMAL) TSH (03/13/2023 11:57 AM RETAIL FIELD SUPERVISOR) TSH 30.80(H) 0.30 - 4.20 uIU/mL 03/14/2023 6:59 AM RETAIL FIELD SUPERVISOR [facility] Blood BLOOD SPECIMEN / Unknown Venipuncture / Unknown 03/13/2023 11:57 AM RETAIL FIELD SUPERVISOR 03/13/2023 11:57 AM RETAIL FIELD SUPERVISOR Anita Celis MD LAB - BLOOD ORDER GERRI [facility] Lab [address] [facility], [address] [address], [facility] [phone] * (ABNORMAL) T4 free (03/13/2023 11:57 AM RETAIL FIELD SUPERVISOR) Free T4 0.86(L) 0.90 - 1.70 ng/dL 03/14/2023 6:59 AM RETAIL FIELD SUPERVISOR [facility] Blood BLOOD SPECIMEN / Unknown Venipuncture / Unknown 03/13/2023 11:57 AM RETAIL FIELD SUPERVISOR 03/13/2023 11:57 AM RETAIL FIELD SUPERVISOR Anita Celis MD LAB - BLOOD ORDER GERRI [facility] [address] [facility], [address] [address], [facility] [phone] documented in this encounter Visit Diagnoses Diagnosis Hypothyroidism, unspecified type documented in this encounter Care Teams Cert Pharmacy Tech Relationship Specialty Start Date End Date [facility] [place], [place] [id number] PCP - General 04/07/15 documented as of this encounter
--- OUTSIDE RECORDS SUMMARY | 2023-06-13 05:39 | XMS_ITS | Clinical Summary ---
Author Name Unknown Organization [place] Address [facility] [place] [address] Care Team Providers Care Content Assistant Name Role Phone Clinic, [facility] Primary Care Provider Anita Celis MD Unavailable [phone] Allergies No known active allergies Medications Medication Sig Dispensed Refills Start Date End Date Status Vit w/Gn-Ylrrjdcep-UC (PNV PO) Take 1 tablet by mouth Active Omeprazole (PRILOSEC PO) Active levothyroxine (SYNTHROID/LEVOTHROID) 150 MCG tabletIndications:Hypo thyroidism, unspecified type Take 1 tablet (150 mcg) by mouth daily 90 tablet 03/28/2023 Active Active Problems Problem Noted Date Diagnosed Date Abdominal pain 02/05/2014 CARDIOVASCULAR SCREENING; LDL GOAL LESS THAN 160 07/02/2013 [facility] Longterm 05/02/2011 Overview: DX V65.8 REPLACED WITH [address] [facility] (05/19/2012) Hypothyroidism Resolved Problems Problem Noted [...] Type Department Care Team Description 06/11/2023 Telephone [facility] [address] [place] [phone] Anita Celis MD Call Back; Patient Request 04/11/2023 Telephone [facility] [address] [place] [phone] [facility] 03/28/2023 Telephone [facility] [address] [place] [phone] Anita Celis MD from Last 3 Months Immunizations Name Administration [...] Comments Blood Pressure 99/66 03/13/2023 11:34 AM ENTERTAINMENT DIRECTOR Pulse 114 03/13/2023 11:34 AM ENTERTAINMENT DIRECTOR Temperature 37 ??C (98.6 ??F) 03/13/2023 11:34 AM ENTERTAINMENT DIRECTOR Respiratory Rate 18 03/13/2023 11:34 AM ENTERTAINMENT DIRECTOR Oxygen Saturation 94% 03/13/2023 11:34 AM ENTERTAINMENT DIRECTOR Inhaled Oxygen Concentration - - Weight 71.8 kg (158 lb 3.2 oz) 03/13/2023 11:34 AM ENTERTAINMENT DIRECTOR Height 153.7 cm (5' 0.5) 03/13/2023 11:34 AM CS T Body Mass Index 30.39 03/13/2023 11:34 AM ENTERTAINMENT DIRECTOR Plan of Treatment Upcoming Encounters Date Type Department Care Team (Late st Contact Info) Description 06/13/2023 3:30 PM CDT Virtual Visit [facility] [address] [facility] [address] [place] [address] Anita Celis MD [address] [place] [address] Health Maintenance Due Date Last Done Comments ADVANCE CARE PLANNING 1992 ANNUAL REVIEW OF HM ORDERS 1992 YEARLY PREVENTIVE VISIT 1992 IPV IMMUNIZATION (4 of 4 - 4-dose series) 1996 06/27/1995, 1992, 1992 HEPATITIS C SCREENING 2010 COVID-19 Vaccine ( season) 2022 12/09/2021, 11/11/2021 PHQ-2 (once per calendar year) 2023 INFLUENZA VACCINE (Season Ended) 2023 11/11/2018, 11/17/2017, 03/24/2011, Additional history exists TSH W/FREE T4 REFLEX 03/13/2024 03/13/2023, 03/13/2023, 07/13/2014, Additional history exists PAP 10/31/2024 10/31/2021, 05/12/2013 DTAP/TDAP/TD IMMUNIZATION (11 - Td or Tdap) 11/06/2028 11/06/2018, 12/05/2017, 12/19/2016, Additional history exists HEPATITIS B IMMUNIZATION Completed 997, 03/17/1996, 08/29/1995, Additional history exists HIV SCREENING Completed 10/24/2010 [...] RESULT - HIM SCAN 04/11/2023 12:00 AM ENTERTAINMENT DIRECTOR TSH Routine 03/13/2023 11:57 AM ENTERTAINMENT DIRECTOR Hypothyroidism, unspecified type ABSTRACT PAP ([facility] EXTERNAL RESULT) Routine 05/12/2013 HIV 1 AND 2 ANTIBODY ([facility]) Routine 10/24/2010 11:41 AM CDT Supervision of normal first from Last 3 Months or Most Recently Relevant to Health Maintenance Results * LAB RESULT - HIM SCAN (04/11/2023 12:00 AM ENTERTAINMENT DIRECTOR) 04/11/2023 Provider Outside NON-BEAKER LAB TE STING * (ABNORMAL) TSH (03/13/2023 11:57 AM ENTERTAINMENT DIRECTOR) TSH 30.80(H) 0.30 - 4.20 uIU/mL 03/14/2023 6:59 AM ENTERTAINMENT DIRECTOR [facility] Blood BLOOD SPECIMEN / Unknown Venipuncture / Unknown 03/13/2023 11:57 AM ENTERTAINMENT DIRECTOR 03/13/2023 11:57 AM ENTERTAINMENT DIRECTOR Anita Celis MD LAB - BLOOD ORDER GERRI [facility] [place] [address] [facility] [address], [address] [place] [address] [[email or web address]] [phone] * ABSTRACT PAP-NO CHARGE (05/12/2013) 05/12/2013 Impressions EXTERNAL LAB - 05/12/2013 Information from office visit dated: 06/12/2013 Pap smear done on ??this date: 05/2013 (approximately), by this group: [facility] [place], results were WNL. ?? Provider Outside LAB - HIM EXTERNAL R ESULT EXTERNAL LAB External Lab * HIV 1 and 2 Antibody (10/24/2010 11:41 AM CDT) HIV 1&2 Antibody Negative NEG [facility] Blood specimen (specimen) 10/24/2010 11:41 AM CDT 10/24/2010 11:46 AM CDT India Arora DO LAB - BLOOD ORDER GERRI [facility] from Last 3 Months or Most Recently Relevant to Health Maintenance Care Teams Content Assistant Relationship Specialty Start Date End Date Clinic, [facility] [address] [address] PCP - General 04/07/15 Anita Celis MD [address] [place] [address] Assigned Endocrinology Provider 04/05/23
--- OUTSIDE RECORDS SUMMARY | 2023-06-13 05:39 | XMS_ITS | Data Portability ---
Author Name Unknown Address [address] [place] [address] Phone [phone] Organization [place] [facility], [facility] Address [address] [facility] [address] [place] [address] Care Team Providers Care Steam Box Operator Name Role Phone RUTHANN HENRY Referring Provider Assessment Encounter Date Assessment Date Assessment LastModified [...] XR, orthopantog tee 2020 021 [email or web address], [place], [address], 08:48:53 Medication Orders None recorded. Patient TargetsNo targets recorded. Patient Instructions Encounter Date Encounter Id Patient Instructions Last Modified By Organization Details Last Modified Time 10/13/2020 [id number] 1. inserted [place] F PS splint and instructed pt. in care and use of the splint 2. 1/2 hr w/Dr. De La Cruz in 2 weeks to monitor symptoms and review CT scan results. 3. took maxillofacial CT today. Not available 10/13/2020 17:43:52 09/12/2020 [id number] 1. instructed in self cares 2. possible PT evaluation in the future: muscle relaxation, instruct in proper jaw mechanics to reduce TMJ clicking 3. P.A. Mx FPS (4mm thick posterior Thermoflex): impressions by dental security assistant done today are being held until insurance [...] panto gram No observ ation record ed. [address], [place], [address], 09/13/2020 21:22:25 10/29/[address], maxil lofac ial, w/o contr ast No observ ation record ed. Not Available 10/30/2020 17:02:56 Result Notes None recorded. 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 021 Peggy De La Cruz DDS [address], [place], [address] , [facility] 09/12/2020 22:25:05 Bilateral temporomandibular joint pain Active 021 Peggy De La Cruz DDS [address], [place], [address] , [facility] 09/12/2020 22:25:07 Toothache Active 021 Peggy De La Cruz DDS [address], [place], [address] , [facility] 09/12/2020 22:30:40 Tension-type headache Active 021 Peggy De La Cruz DDS [address], [place], [address] , [facility] 09/12/2020 22:30:42 Problem Notes None recorded. Procedures Surgical History Date Name Laterality Status Provider Name and Address Organization Details Recorded Time CT TMJ completed Milagros guadalupe, [facility] 10/13/2020 17:22:03 Oral appliance completed Milagros guadalupe, [facility] 10/13/2020 16:59:09 Caesarean Section completed Milagros guadalupe, [facility] 09/12/2020 16:15:07 Unlisted px accessory sinus completed Milagros guadalupe, [facility] 09/12/2020 16:15:18 endoscopy completed Milagros guadalupe, [facility] 09/12/2020 16:15:36 Dilation and Curettage completed Milagros guadalupe, [facility] 09/12/2020 16:15:53 Imaging Results Imaging Date Name Status LastModified by Organization Details LastModified Time 09/12/2020 [email or web address] In[facility]ion not available 09/12/2020 17:00:29 09/13/2020 XR, orthopantogram completed [email or web address], [address], 09/13/2020 21:22:25 10/28/2020 CT, maxillofacial, w/o contrast completed [facility] Information not available 10/30/2020 17:02:56 Procedure Notes None recorded. Medical Equipment None Reported. Allergies Allergen ID Allergen Name Allergen Category Reaction Reaction Severity Criticality Documentation Date Start Date Code Code System Note Provider Name and Address Organization Details Recorded Time 51165 naproxen medicatio n Not available Not available Not available 09/12/2020 7258 RxNorm Milagros guadalupe, [facility] 16:12:26 Medications Name Sig Start Date Stop [...] Updated DateTime 1 167.64 cm 21 kg/m2 71174.0 1 g 71 /min 107 mm[Hg] 70 mm[Hg] [place] [facility] 1 16:35:07 Date Recorded Body height Body mass index (BMI) Body weight Heart rate Systolic blood pressure Diastolic blood pressure Provider Name and Address Organization Details Last Updated DateTime 1 167.64 cm 21 kg/m2 54895.0 1 g 81 /min 107 mm[Hg] 77 mm[Hg] [place] [facility] 1 16:58:37 Social History Question Answer Notes LastModified by Organizat ion Details LastModified Time Tobacco Smoking Status Never Smoker [place] [facility] 09/12/2020 16:14:49 [...] Or The Highest Degree You Have Received? [id number] Information not available 09/12/2020 What Is Your [...] Head Trauma/Injury N Irritable bowel syndrome N Depression N COPD N Glaucoma N Lung Disease N Hypothyroidism Y Pneumonia N Pacemaker N Obstructive Sleep Apnea N Anxiety Disorder N Muscle, Joint, or Bone Problems N Autoimmune disease N Vision or Eye Problems N Arthritis N Serious Illness or Injuries N Acid Reflux (GERD) N Cancer N Stroke N Neck Injury N Eating disorder N Back Injury N High Cholesterol N Neurologic Disorder Y History of chemotherapy N Liver Disease N Organ Transplant N Rheumatoid Arthritis N Fibromyalgia N Headaches Y Kidney Disease N Allergies/Hayfever N Post traumatic stress disorder (PTSD) N Parkinson's Disease N Migraines N Brain Tumors N Anemia Y Multiple Sclerosis N Immune System Disorder N Meningitis N Pancreatic disease N Heart Attack ([place]) N Stomach Ulcers N Diabetes N Back pain N Bleeding Disorder N Seizures/Epilepsy N Sjogren's syndrome N Tuberculosis N AIDS/HIV N Hyperlipidemia N History of radiation therapy N Dementia N Asthma Y Physical or sexual abuse N Substance Abuse N Psoriasis N Peripheral Vascular Disease N Reflux/GERD N Mental Problems N Vertigo N Sleep Disorder N Hepatitis N Aneurysm N Neuropathy N Heart Disease N Pulmonary Embolism N Hypertension N Osteoporosis N Gynecological HistoryNo gynecological history recorded. 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 2367614382340 9104 Tension-type headache 39 8225516 Toothache 10032513 [id number] Peggy De La Cruz DDS [address] [place] [address] 10/13/2020 16:52:35 10/13/2020 17:32:18 Bilateral temporomandibular joint pain 7467377212635 9105 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 6700466164189 9104 Toothache 46631477 Myofascial pain 18330909 9 Tension-type headache 39 2231880 Health Concerns Section Related Observation LastModified by Organization Detai ls LastModified Time None Recorded Concern Status LastModified by Organization Details LastModified Time None Recorded Advance Directives Directive None Recorded Payers Encounter Date Sequence Insurance Name Policy Number Policy Mckeon Covered Member ID Mckeon Member ID Guarantor Name 10/13/2020 2 [employer] - DOS PRIOR TO 2021 [facility] Kera Hale [id number] Jeanne Hale 10/13/2020 1 [place] [id number] Kera Hale [id number] Jeanne Hale 09/12/2020 2 [employer] - [place] PRIOR TO 2021 [place] Kera Hale [id number] Jeanne Hale 09/12/2020 1 [place] [id number] Kera Hale [id number] Jeanne Hale Notes Date Note Type Note [...] get her numb. Peggy De La Cruz, DDS [address] [facility] [address], [place], [address], [facility] 10/13/2020 14:03:49 [...] as previously recommended. Peggy De La Cruz, ELIJAH [address] [facility] [address], [place], [address], [facility] 10/18/2020 11:17:08 OBGyn Episode No OBEpisode recorded.
--- OUTSIDE RECORDS SUMMARY | 2023-06-13 05:39 | XMS_ITS | Encounter Summary ---
Author Name Unknown Organization [place] Address [address] [place] [address] Care Team Providers Care Implementation Coordinator Name Role Phone Kaitlynn [facility] Primary Care Provider Encounter Details Date [...] Description 06/13/2023 3:30 PM CDT Virtual Visit [facility] [address] [address] [place] [address] Anita Celis MD [address] [place] [address] documented as of this encounter Visit Diagnoses Not on filedocumented in this encounter Care Teams Implementation Coordinator Relationship Specialty Start Date End [facility] [address] [place] [address] PCP - General 04/07/15 documented as of this encounter
--- OUTSIDE RECORDS SUMMARY | 2023-06-13 05:39 | XMS_ITS | Encounter Summary ---
Author Name Unknown Organization [place] Address [address] [facility] [place] [address] Care Team Providers Care Straight Knife Machine Cutter Name Role Phone [facility] Primary Care Provider Anita Celis MD Unavailable [phone] Encounter Details Date Type Department Care Team (Late st Contact Info) Description 04/11/[address] [place] [address] [facility] [address] [place] [address] Social History Tobacco Use Types Packs/Day Years [...] Charissa Barrios RN - 04/17/2023 10:56 AM BEDSPREAD CUTTER Spoke to Lyudmila and informed of below Verbalized understanding. PREAD CUTTER * Telephone Encounter - Charissa Barrios RN - 04/15/2023 9:03 AM BEDSPREAD CUTTER Called Clinic back to inform of below. No triage nurse available. Will have a triage nurse call back to relay below. PREAD CUTTER * Telephone Encounter - Anita Celis MD - 04/15/2023 8:52 AM BEDSPREAD CUTTER Ok to increase dose based on TSH as per OB plan. Ok to follow up with PCP/obgyn per pt preference. PREAD CUTTER * Telephone Encounter - Kostas Jaquez RN - 04/11/2023 2:30 PM BEDSPREAD CUTTER Lyudmila (triage nurse) with [facility] calling, requesting to relay a message from [...] result to Dr. Celis's fax # at [phone]. [address] Celis's team: patient told nurse Coreas that she may not be able to join a futurevideo appointment with Dr. Celis on 06/10 as some settings or Matchbookhart (patient is unsure) does not work on her phone. Patient needs some assistance on this. Can call [facility] at [phone] and speak to triage nurse. PREAD CUTTER documented in this encounter Plan of Treatment Upcoming Encounters Date Type Department Care Team (Late st Contact Info) Description 06/13/2023 3:30 PM CDT Virtual Visit [place] [address] [place] [phone] Anita Celis MD [address] [facility] [address] [place] [address] documented as of this encounter Visit Diagnoses Not on filedocumented in this encounter Care Teams Straight Knife Machine Cutter Relationship Specialty Start Date End Date [facility], [address] [address] PCP - General 04/07/15 Anita Celis MD [address] [facility] [address] [place] [address] Assigned Endocrinology Provider 04/05/23 documented as of this encounter
[2023-06-13 05:53] VITALS: BP 117/67; PULSE 79; RESP 20; TEMP 36.9; O2SAT 99
[2023-06-13 06:06] VITALS: BP 117/67; PULSE 79; RESP 20; TEMP 36.9
== END 2023-06-13 06:07 | disposition left against medical advice (07) ==
LOC: ED 05:36
PROVIDERS: Emergency Provider Family Medicine; PCP Family Medicine
DX: O26.899 Other specified pregnancy related conditions, unspecified trimester (principal); R22.43 Localized swelling, mass and lump, lower limb, bilateral; Z53.29 Procedure and treatment not carried out because of patient's decision for other reasons
CPT/HCPCS: 99282; 99283

== ENCOUNTER 2023-06-21 15:14 | Outpatient (CLI) | payer BC, MEDICAID, SELFPAY ==
--- OUTSIDE RECORDS SUMMARY | 2023-06-21 15:16 | XMS_ITS ---
Author Name Unknown Organization [facility] Address [address] [place] [address] Care Team Providers Care Supply Chain Procurement Manager Name Role Phone Unavailable Unavailable Unavailable Surgery Details Not on file Complications Check Surgery Details section. Procedure Estimated Blood Loss Check Surgery Details section. Procedure Findings Check Surgery Details section. Procedure Specimens Taken Check Surgery Details section.
--- OUTSIDE RECORDS SUMMARY | 2023-06-21 15:16 | XMS_ITS | Clinical Summary ---
Author Name Unknown Organization [facility] Address [address] [place] [address] Care Team Providers Care Assistant Dean Of Students Name Role Phone Unavailable Primary Care Provider Unavailabl e Source Comments Patient records contain information from all sites at [facility]. For routine questions regarding patient records, call [phone] during business hours, M-F 8:00 AM - 5:00 PM Central Time. Record requests for emergency care only can be directed to [phone] at any time.[facility] Allergies Active Allergy Reactions Criticality Noted Date [...] HORMONE-SENSITIVE (S-TSH), S Routine 01/26/2020 4:37 PM COUNTER HELPER from Last 3 Months or Most Recently Relevant to Health Maintenance
--- OUTSIDE RECORDS SUMMARY | 2023-06-21 15:16 | XMS_ITS | Referral Summary ---
Author Name Unknown Organization [facility] Address [address] [place] [address] Care Team Providers Care Lumber Stacker Driver Name Role Phone Unavailable Primary Care Provider Unavailabl e Source Comments Patient records contain information from all sites at [facility]. For routine questions regarding patient records, call [phone] during business hours, M-F 8:00 AM - 5:00 PM Central Time. Record requests for emergency care only can be directed to [phone] at any time.[facility] Allergies Active Allergy Reactions Criticality [...] HORMONE-SENSITIVE (S-TSH), S Routine 01/26/2020 4:37 PM HYPERBARIC NURSE from Last 3 Months or Most Recently Relevant to Health Maintenance
--- OUTSIDE RECORDS SUMMARY | 2023-06-21 15:17 | XMS_ITS | Encounter Summary ---
Author Name Unknown Organization [place] Address [address] [facility] [place] [address] Care Team Providers Care Lift Team Technician Name Role Phone Clinic, [facility] Primary Care Provider Encounter Details Date Type Department Care Team (Late st Contact Info) Description 03/28/[address] [facility] [address] [place] [address] Anita Celis MD [address] [place], [place] [id number] Social History Tobacco Use Types Packs/Day Years [...] Charissa Barrios RN - 04/01/2023 10:45 AM CABINETMAKER HELPER Spoke to pt and informed of below. Pt verbalized understanding. Pt will call back to schedule lab appointment. NETMAKER HELPER * Telephone Encounter - Charissa Barrios RN - 03/28/2023 2:52 PM CABINETMAKER HELPER LM for pt to c/b to discuss below. NETMAKER HELPER * Telephone Encounter - Anita Celis MD - 03/28/2023 2:41 PM CABINETMAKER HELPER Latest Ref Rng 03/13/2023 11:57 AM ENDO THYROID LABS-[facility] TSH 0.30 - 4.20 uIU/mL 30.80 (H) FREE T4 0.90 - 1.70 ng/dL 0.86 (L) Thyroid Peroxidase Antibody <35 IU/mL <10 Last visit 02/2023. Currently she is --12 weeks. This is 7th . Has 6 kids. She reports that she is followed by PIPELINER at local clinic. Currently taking levothyroxine 125 [...] whole. Do not cut or crush it. NETMAKER HELPER documented in this encounter Plan of Treatment Scheduled Orders Name Type Priority Associated Diagnoses Orde r Schedule T4 free Lab Routine Hypothyroidism, unspecified type Expected: 05/27/2023 (Approximate), Expires: 03/28/2024 TSH Lab Routine Hypothyroidism, unspecified type Expected: 05/27/2023 (Approximate), Expires: 03/28/2024 documented as of this encounter Visit Diagnoses Diagnosis Hypothyroidism, unspecified type- Primary documented in this encounter Care Teams Lift Team Technician Relationship Specialty Start Date End Date [facility], [place] [id number] PCP - General 04/07/15 documented as of this encounter
--- OUTSIDE RECORDS SUMMARY | 2023-06-21 15:17 | XMS_ITS | Encounter Summary ---
Author Name Unknown Organization [place] Address [address] [facility] [place] [address] Care Team Providers Care Head Coach Name Role Phone [facility] Primary Care Provider No Ref-Primary, Physician Primary Care Provider India Arora DO Primary Care Provider [phone] No Ref-Primary, Physician Primary Care Provider Brit García APRN [facility] Primary Care Provi saad Unavailable [facility] Primary Care Provider Anita Celis MD Unavailable [phone] Reason for Visit * Reason Onset Date Comments Nurse Advice Line 04/06/2011 Encounter Details Date Type Department Care Team (Late st Contact Info) Description 04/06/[address] [place] [address] [facility] [address] [place] [address] Nurse Advice Line Social History [...] Negin Masters - 10/31/2011 8:51 AM CDT [facility] Triage Call Report Patient Name: Kera Hale Call Date & Time: 04/06/2011 5:39:53PM Patient PCP Name: MRN: Patient Address: Patient Date of : 1990 Age: 21 yr. Patient Gender: Female Corrugator Helper Name: Ora Joseph Presenting Problem: Calling that [...] documented in this encounter Plan of Treatment Not on file documented as of this encounter Visit Diagnoses Not on filedocumented in this encounter Care Teams Head Coach Relationship Specialty Start Date End Date [facility] PCP - General 02/26/11 06/02/12 No Ref-Primary, Physician PCP - General 06/03/12 07/01/13 India Arora DO PCP - General watch technician 07/02/13 02/04/14 No Ref-Primary, Physician PCP - General 02/05/14 04/13/14 Brit García APRN CNP PCP - General Nurse Practitioner - [facility] 07/13/14 04/06/15 [facility] [address] [place] [address] PCP - General 04/07/15 Anita Celis MD [address] [facility] [address] [place] [address] Assigned Endocrinology Provider 04/05/23 documented as of this encounter
--- OUTSIDE RECORDS SUMMARY | 2023-06-21 15:17 | XMS_ITS | Encounter Summary ---
Author Name Unknown Organization [place] Address [address] [facility] [place] [address] Care Team Providers Care Periodicals Library Assistant Name Role Phone [facility] Primary Care Provider Anita Celis MD Unavailable [phone] Encounter Details Date Type Department Care Team (Late st Contact Info) Description 04/11/[address] [place] [address] [facility] [address] [place] [address] Social History Tobacco Use Types Packs/Day Years [...] Charissa Barrios RN - 04/17/2023 10:56 AM ELECTRONIC SCIENCE TEACHER Spoke to Lyudmila and informed of below Verbalized understanding. TRONIC SCIENCE TEACHER * Telephone Encounter - Charissa Barrios RN - 04/15/2023 9:03 AM ELECTRONIC SCIENCE TEACHER Called Clinic back to inform of below. No triage nurse available. Will have a triage nurse call back to relay below. TRONIC SCIENCE TEACHER * Telephone Encounter - Anita Celis MD - 04/15/2023 8:52 AM ELECTRONIC SCIENCE TEACHER Ok to increase dose based on TSH as per OB plan. Ok to follow up with PCP/obgyn per pt preference. TRONIC SCIENCE TEACHER * Telephone Encounter - Kostas Jaquez RN - 04/11/2023 2:30 PM ELECTRONIC SCIENCE TEACHER Lyudmila (triage nurse) with [facility] calling, requesting to relay a message from [...] result to Dr. Celis's fax # at [phone]. [address] Celis's team: patient told nurse Coreas that she may not be able to join a futurevideo appointment with Dr. Celis on 06/10 as some settings or MediaInterface Dresdent (patient is unsure) does not work on her phone. Patient needs some assistance on this. Can call [facility] at [phone] and speak to triage nurse. TRONIC SCIENCE TEACHER documented in this encounter Plan of Treatment Not on file documented as of this encounter Visit Diagnoses Not on filedocumented in this encounter Care Teams Periodicals Library Assistant Relationship Specialty Start Date End Date [facility], [address] [place] [address] PCP - General 04/07/15 Anita Celis MD [address] [place] [address] [address] [place] [address] Assigned Endocrinology Provider 04/05/23 documented as of this encounter
--- OUTSIDE RECORDS SUMMARY | 2023-06-21 15:17 | XMS_ITS | Encounter Summary ---
Author Name Unknown Organization [place] Address [address] [facility] [place] [address] Care Team Providers Care Construction Accountant Name Role Phone [facility] Primary Care Provider No Ref-Primary, Physician Primary Care Provider India Arora DO Primary Care Provider [phone] No Ref-Primary, Physician Primary Care Provider Brit García APRN [facility] Primary Care Provi saad [facility]available [facility] Provider Anita Celis MD Unavailable [phone] Reason for Visit * Reason Onset Date Comments Nurse Advice Line 08/25/2011 FNA Encounter Details Date Type Department Care Team (Late st Contact Info) Description 08/25/2011 [facility] [address] [place] [address] [address] Nurse Advice Line (FNA) Social History Tobacco [...] in ED and then follow up at [facility] for eval of the IUD Juliet Spain RN [facility] documented in this encounter Plan of Treatment Not on file documented as of this encounter Visit Diagnoses Not on filedocumented in this encounter Care Teams Construction Accountant Relationship Specialty Start Date End Date Clinic - [facility] PCP - General 02/26/11 06/02/12 No Ref-Primary, Physician PCP - General 06/03/12 07/01/13 India Arora DO PCP - General coffee grinder 07/02/13 02/04/14 No Ref-Primary, Physician PCP - General 02/05/14 04/13/14 Brit García APRN FITNESS COORDINATOR PCP - General Nurse Practitioner - [facility] 07/13/14 04/06/15 [facility], [address] [address] PCP - General 04/07/15 Anita Celis MD [address] [place] [address] 200 [place] [address] Assigned Endocrinology Provider 04/05/23 documented as of this encounter
--- OUTSIDE RECORDS SUMMARY | 2023-06-21 15:17 | XMS_ITS | Clinical Summary ---
Author Name Unknown Organization [employer] [facility] Address [place], [place] [address] Care Team Providers Care Gauge Checker Name Role Phone Guilherme Olguin MD Unavailable [...] 06/11/2020 Active azelastine 137 mcg/actuation (ASTELIN) nasal sprayIndications:Environmental Analyst aye pansinusitis,Mucous retention cyst of maxillary sinus,Allergic [...] 0.01, T3 298, TSI 5.3. left for [place] and no treatment till 01/2013. Poor concentration, forgetfulness, shakiness, nervous, hyperactive, restless, weight loss, history of lose BMs. Weak muscles. 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 left for [place] and no treatment till 01/2013. Poor concentration, [...] 03/08/2020 Overview: GBS negative. (Lab drawn at [facility] on 02/03/17) Limited care. Kyleena or [...] 02/28/17) REFERRING PHYSICIAN/PHONE/LAST UPDATE: Olivia Shaw NP, [facility] - [phone] Primary MD approves scheduling of recommended ultrasounds/testing: Unknown SPECIALISTS/PHONE: Neurology [facility] - last seen 12/19/15 - notes scanned [...] Through Growth: OB visits: Through TESTING PLANS: INFORMATICA DEVELOPER: CONSULTS: NURSING: DEPRESSION SCREEN Initial screen: Date [...] RNC.....01/15/2017 9:45 AM consult 08/02/2016 03/08/2020 Overview: [facility] MOMS CONSULTATION ON 08/06/2016 F/U MOMS [...] 02/28/17) REFERRING PHYSICIAN/PHONE/LAST UPDATE: Olivia Shaw NP, [facility] - [phone] Primary MD approves scheduling of recommended ultrasounds/testing: Unknown SPECIALISTS/PHONE: Neurology [facility] - last seen 12/19/15 - notes scanned SREEDHAR: SREEDHAR signed for [facility]: CARE COORDINATION: GENETICS: PROCEDURES: PERTINENT LABS: Blood type: Last pap: Initial Hgb /Ferritin Hgb 28 wk Hgb 36 wk Repeat hgb anemic and compliant every 4 wks if/until >11.0 MEDS: Synthroid 150 mcg daily vitamin Miralax PRN NEXT VISIT ALERTS: FUTURE APPOINTMENTS: Testing: Through Growth: OB visits: Through TESTING PLANS: INFORMATICA DEVELOPER: CONSULTS: NURSING: DEPRESSION SCREEN Initial screen: Date [...] Vag Epidu ral Gypsy ng Amanda Delivery Location:[facility] 05/31 14 SAB SPONTANEO US Comments:Blighted Ovum 03/09 Term 2.72 kg (6 lb) F Vag-Spont Gypsy ng Umm za Delivery Location:[place] 06/16 Term 40w 1d 3.18 kg (7 lb) M Vag None N Gypsy ng Peter Complications:None Delivery Location:[place] 02/22 Term 39w 4d M Vag Gypsy ng Santosh 01/03 Term 39w 2d 0h 11m 3.29 kg (7 lb 4 oz) F Vag Epidu ral N Gypsy ng 9 9 BONIL LA,BG JAAlexMI N Cosmo k Complications:None Delivery Location[facility] ([facility]) Last Filed Vital Signs Vital Sign Reading Time Taken Comments Blood Pressure 120/73 04/13/2020 3:58 PM MIXED ANIMAL VETERINARIAN Pulse 85 04/13/2020 3:58 PM MIXED ANIMAL VETERINARIAN Temperature 37.1 ??C (98.7 ??F) 03/07/2020 3:36 PM CS T Respiratory Rate 20 03/24/2020 3:34 PM MIXED ANIMAL VETERINARIAN Oxygen Saturation 99% 04/13/2020 3:58 PM MIXED ANIMAL VETERINARIAN Inhaled Oxygen Concentration - - Weight 60.8 kg (134 lb) 03/07/2020 3:36 PM MIXED ANIMAL VETERINARIAN Height 156 cm (5' 1.42) 03/07/2020 3:36 PM MIXED ANIMAL VETERINARIAN Body Mass Index 24.98 03/07/2020 3:36 PM MIXED ANIMAL VETERINARIAN Plan of Treatment Health Maintenance Due Date [...] this topic Medical Devices Implanted Type Area Burial Vault Deliverer And Installer Device Identifier Shelf Expiration Date Model / Serial / Lot Stent Ent Mini Steroid-Releas ing Propel Bioabsorb - [id number] Implanted:Qty: 2 on 04/22/2017 by Pedro Plascencia MD at [facility] Bilateral : [employer] 10/30/2018 [id number]# / / [id number] Stent Sinus 8mm Propel Contour Bioabsorb - [id number] Implanted:Qty: 1 on 04/22/2017 by Pedro Plascencia MD at [facility] Left: [employer] 10/19/2018 [id number]# / / [id number] Procedures Procedure Name Priority Date/Time Associated Diagnosis Comments HPV THIN PREP Routine 10/31/2021 12:00 PM CDT ANTI HIV 1/2 Routine 10/29/2017 10:21 AM CDT , unspecified gestational age ANTI HCV Routine 11/02/2014 5:51 PM CDT from Last 3 Months or Most Recently Relevant to Health Maintenance Results * HPV HIGH RISK (10/31/2021 12:00 PM CDT) TYPE 16 Negative Negative 11/03/2021 11:22 AM CDT [facility] TYPE 18 Negative Negative 11/03/2021 11:22 AM CDT [facility] OTHER HIGH RISK TYPES Negative Negative 11/03/2021 11:22 AM CDT [facility] Other (Cervical) 10/31/2021 12:00 PM CDT 11/02/2021 9:17 AM CDT Narrative [facility] - 11/03/2021 11:22 AM CDT HPV types 16, 18, 31, 33, 35, 39, 45, 51, 52, 56, 58, 59, 66 and 68 DNA were undetectable or below the pre-set threshold. Methodology: Kenisha Simone 4800 HPV Test Agnieszka Horan NP MICROBIOLOGY [facility] [address] [place] [address], * ANTI HIV 1/2 (10/29/2017 10:21 AM CDT) HIV-1/HIV-2 ANTIBODY Non-Reacti ve Non-Reacti ve 10/29/2017 5:05 PM CDT [facility] Comment:HIV-1 p24 and HIV-1/ HIV-2 Ab not detected. Blood BLOOD SPECIMEN / Unknown Venipuncture / Unknown 10/29/2017 10:21 AM CDT 10/29/2017 10:21 AM CDT Jessica Machado MD SEND OUTS [facility] [address] [place] [address], * ANTI HCV (11/02/2014 5:51 PM CDT) HEPATITIS C ANTIBODY Non-Reacti ve Non-Reacti ve 11/03/2014 1:19 PM CDT [facility] Blood specimen (specimen) BLOOD SPECIMEN / Unknown Venipuncture / Unknown 11/02/2014 5:51 PM CDT 11/02/2014 5:51 PM CDT Narrative [facility] - 11/03/2014 1:19 PM CDT Antibodies to HCV not detected; does not exclude the possibility of exposure to HCV. Vale ROCHE [facility]END [facility]S [facility] [address] [place] [address], from Last 3 Months or Most Recently [...] Code Status Discussion: Not Discussed Care Teams Gauge Checker Relationship Specialty Start Date End Date Pcp, No . PCP - General 09/30/20 Guilherme Olguin MD PAEDODONTIST Obstetrics and Gynecology 01/25/11
--- OUTSIDE RECORDS SUMMARY | 2023-06-21 15:17 | XMS_ITS | Encounter Summary ---
Author Name Unknown Organization [facility] Address [address] [facility] [place] [address] Care Team Providers Care Profile Grinder Name Role Phone [facility], [facility] Primary Care Provider Anita Celis MD Unavailable [phone] Reason for Visit * Reason Comments RECHECK Thy, labs, utd Encounter Details Date Type Department Care Team (Late st Contact Info) Description 06/13/2023 3:30 PM CDT Virtual Visit [address] [place] [address] Anita Celis MD [address] [facility] [address] [place], [place] [id number] Hypothyroidism, unspecified type Social History Tobacco Use Types Packs/Day Years Used Date Smoking Tobacco: Never Smokeless Tobacco: Never Alcohol Use Standard Drinks/Week Comments No 0 (1 standard drink = 0.6 oz pur e alcohol) PHQ-2 Answer Date Recorded PHQ-2 Score 0 06/13/2023 Adolescent Education Answer Date Record ed Getting School Help Needed Not on file 11/02 Sex and Gender Information Value Date Recorded Sex Assigned at Not on file Gender Identity Not on file Sexual Orientation Not on file documented as of this encounter Patient Instructions * Patient Instructions* Anita Celis MD - 06/13/2023 3:30 PM CDT -[facility] [address] Celis, Endocrinology Department [place] [address] [address] [place] [address] Appointment [phone] [place]: Saturday - Please ask your OB provider to fax records to endocrinology clinic. Start new dose as recommended by PAYMENT PROCESSOR Will review the recommendations and comment if needed. Take Levothyroxine on an empty stomach. Take [...] whole. Do not cut or crush it. documented in this encounter Progress Notes * Anita Celis MD - 06/13/2023 3:30 PM CDT THIS IS A VIDEO VISIT: Phone call visit/virtual visit encounter: Name of patient: Kera Hale Date of encounter: 06/13/2023 Time of start of video visit: 3:30 Video started: 3:38 ( part of visit was telephone only as she was driving and was video connection was not adequate.) Video ended:3;52 Provider location: working from home/ [facility] Patient location: patients home. Mode of transmission: [employer] video/ [employer] Verbal consent: obtained before starting visit. Pt is agreeable. The patient has been notified of following: This VIDEO visit will be conducted via a call between you and your physician/provider. We have found that certain health care needs can be provided without the need for a physical exam. This servicelets us provide the care you need with a short phone conversation. If a prescription is necessary we can send it directly to your pharmacy. If lab work is needed we can place an order for that and you can then stop by our lab to have the test done at a later time. With new updates with mcneal virus patient might be billed as clinic visit. If during the course of the call the physician/provider feels a telephone visit is not appropriate,you will not be charged for this service. Past medical history, social history, family history, allergy and medications were reviewed and updated as appropriate. Reviewed pertinent labs, notes, imaging studies personally. ENDOCRINOLOGY CLINIC NOTE: Name: Kera Hale Seen for follow up of Hypothyroidism. HPI: Kera Hale is a 33 year old female who presents for the evaluation of above. has a past medical history of Asthma, Depression, and Hypothyroidism. Was seen by in 2013. Referring provider Elena Giraldo APRN CNM outside [facility]. No recent lab results to review. Limited records are available. Earlier this morning she was in ER for leg pain and swelling. Postablative hypothyroidism: She reports that she was diagnosed with Graves' disease when she was 20-year-old and received radiation treatment. Following that she developed hypothyroidism and was started on levothyroxine after that. Currently she is -- 7th month. AISHWARYA: September 2023 This is 7th . Has 6 kids. She reports that she is followed by PAYMENT PROCESSOR at local clinic. She reports that she was having frequent periods in 06/2022 Labs done in 11/2022 showed abnormal thyroid labs. She reports that she has history of unstable labs. On review of record it appears that there was questionable compliance resulting in fluctuating labs. 04/11/23 labs done at outside clinic: TSH 50, Ft4 0.75 Currently taking levothyroxine 175 mcg X on this dose X 2 months (she reports that at that time thedose was increased by PAYMENT PROCESSOR and she was asked to follow-up with PAYMENT PROCESSOR. They told her that they can manage levothyroxine dosing but after 03/2023 labs with high TSH and she was asked to follow-up with endocrinology again.--See telephone encounter from 04/11/2023) She reports that she recently had labs done by boom boss at PAYMENT PROCESSOR clinic-- but no labs to review or paperwork sent. She reports that based on those labs her boom boss has recommended to increase the dose but she is not sure about the dose. She has not started new prescription yet. [facility] [place] Cottage Supervisor: KALEY Peraza Gained about 30 lbs during this Feeling exhausted and tired. Palpitations: Yes: on and off Changes to hair or skin: Yes: + hair loss Diarrhea/Constipation:on and off Changes in menses: Yes: Changes in vision:sometimes blurry Dysphagia or Shortness of breath:Yes: sometimes. No dysphagia. Tremors:Yes: sometimes Changes in weight: Yes: + weight gain during this . Heat or cold intolerance: feels warm History of Appleby or Amiodarone use:No Head or neck surgery/radiation:Yes: [...] Male Other Topics Concern Parent/sibling w/ CABG, IA or angioplasty before 65F 55M? Not Asked Social History Narrative Not on file Social Determinants of Health Financial Resource Strain: High Risk (02/10/2021) [facility] Financial Resource Strain Difficulty of Paying Living Expenses: Not on file Difficulty of Paying Living Expenses: Not on file Food Insecurity: Not on file Transportation Needs: Not on file Physical Activity: Not on file Stress: Not on file Social Connections: Unknown (02/10/2021) Received from [facility], [facility] Social Connections Frequency of Communication with Friends and Family: Not on file Interpersonal Safety: Not on file Housing Stability: Not on file MEDICATIONS: has a current medication list which includes the following prescription(s): levothyroxine, omeprazole magnesium, and vit w/ek-mukgmypsv-su. ROS ROS: 10 point ROS neg other than the symptoms noted above in the HPI. Physical Exam VS: There were no vitals taken for this visit. GENERAL: healthy, alert and no distress EYES: Eyes grossly normal to inspection, conjunctivae and sclerae normal ENT: no nose swelling, nasal discharge. Thyroid: no apparent thyroid nodules RESP: no audible wheeze, cough, or visible cyanosis. No visible retractions or increased work of breathing. Able to speak fully in complete sentences. ABDO: not evaluated. EXTREMITIES: no hand tremors. NEURO: Cranial nerves grossly intact, mentation intact and speech normal SKIN: No apparent skin lesions, rash or edema seen PSYCH: mentation appears normal, affect normal/bright, judgement and insight intact, normal speech and appearance well-groomed LABS: TFTs: TSH Date Value Ref Range Status 03/13/2023 30.80 (H) 0.30 - 4.20 uIU/mL Final 07/13/2014 0.25 (L) 0.40 - 4.00 mU/L Final TG/TPO: All pertinent notes, labs, and images personally reviewed by me. A/P Ms.Jazmin Niko Hale is a 32 year old here for the evaluation of hypothyroidism: #1. Postablative hypothyroidism: History of Graves' disease status post radiation. Currently taking levothyroxine 175 mcg/day X 2 months Currently she is . No recent labs to review though she reports that she recently had labs done at her OB office. Plan: Discussed diagnosis, pathophysiology, management and treatment options of condition with pt. Please ask your OB provider to fax records to endocrinology clinic. Start new dose as recommended by PAYMENT PROCESSOR Will review the recommendations and comment if needed. Discussed s/s of hypothyroidism and hyperthyroidism to [...] images from outside clinic were personally reviewed. Discussed indications, risks and benefits of all medications prescribed, and answered questions to patient's satisfaction. The longitudinal plan of care for the diagnosis(es)/condition(s) as documented were addressed during this visit. Due to the added complexity in care, I will continue to support Kera in the subsequent management and with ongoing continuity of care. All questions were answered. The patient indicates understanding of the above issues and agrees with the plan set forth. Follow-up: As noted in AVS Anita Celis MD Endocrinology [facility] CC: [facility] documented in this encounter Nursing Notes * Azalia Childress - 06/13/2023 3:30 PM CDT Is the patient currently in the state of [place]? YES Visit mode:VIDEO If the visit is dropped, the patient can be reconnected by: VIDEO VISIT: Text to cell phone: Telephone Information: Will anyone else be joining the visit? NO (If patient encounters technical issues they should call [phone] :[phone]) How would you like to obtain your AVS? Mail a copy Are changes needed to the allergy or medication list? No Are refills needed on medications prescribed by this physician? YES- pending Reason for visit: RECHECK (Thy, labs, utd) Azalia Childress VVF Pt states that prescription was sent to the pharmacy for the levothyroxine once the pt completed her labs. documented in this encounter Plan of Treatment Not on file documented as of this encounter Visit Diagnoses Diagnosis Hypothyroidism, unspecified type documented in this encounter Care Teams Profile Grinder Relationship Specialty Start Date End Date [address] [address] PCP - General 04/07/15 Anita Celis MD [address] [place] [address] [address] [place] [address] Assigned Endocrinology Provider 04/05/23 documented as of this encounter
--- OUTSIDE RECORDS SUMMARY | 2023-06-21 15:17 | XMS_ITS | Clinical Summary ---
Author Name Unknown Organization [facility] Address [facility] [place] [address] Care Team Providers Care Operations Supervisor Chemical Cleaning Name Role Phone Clinic, [facility] Primary Care Provider Anita Celis MD Unavailable [phone] Allergies No known active allergies Medications Medication Sig Dispensed Refills Start Date End Date Status Vit w/Uu-Ujvfgnred-VI (PNV PO) Take 1 tablet by mouth Active Omeprazole (PRILOSEC PO) Active levothyroxine (SYNTHROID/LEVOTHROID) 150 MCG tabletIndications:Hypo thyroidism, unspecified type Take 1 tablet (150 mcg) by mouth daily 90 tablet 03/28/2023 Active levothyroxine (SYNTHROID/LEVOTHROID) 200 MCG tabletIndications:Hypo thyroidism, unspecified type Take 1 tablet (200 mcg) by mouth daily 60 tablet 06/18/2023 Active Active Problems Problem Noted Date Diagnosed Date Abdominal pain 02/05/2014 CARDIOVASCULAR SCREENING; LDL GOAL LESS THAN 160 07/02/2013 Health Intermediate 05/02/2011 Overview: DX V65.8 REPLACED WITH [address] [facility] (05/19/2012) Hypothyroidism Resolved Problems Problem Noted Date [...] Encounters Date Type Department Care Team Description 06/18/2023 Refill [facility] [address] [place] [phone] Anita Celis MD Medication Refill 06/17/2023 Telephone [facility] [address] [place] [phone] Anita Celis MD 06/13/2023 3:30 PM CDT Virtual Visit [facility] [address] [place] [phone] Anita Celis MD Hypothyroidism, unspecified type 06/11/2023 Telephone [facility] [address] [place] [phone] Anita Celis MD Call Back; Patient Request 04/11/2023 Telephone [facility] [address] [place] [phone] [facility] 03/28/2023 Telephone [facility] [address] [place] [phone] Anita Celis MD from Last 3 Months Immunizations Name Administration Dates Next Due DTAP (<7y) 06/27/1995,1992,1992 ,1992 HIB (PRP-T) 06/27/1995,1992,1992 ,1992 HepB 03/17/1996,08/29/1995,06/27/1995 Influenza (IIV3) PF 03/24/2011,12/25/2009 MMR 03/24/2011,06/27/1995 OPV, trivalent, live 06/27/1995,1992,07/27 TD,PF 7+ ([facility]) 10/11/2004 Varicella 10/11/2004 Family History Medical History [...] Comments Blood Pressure 99/66 03/13/2023 11:34 AM EXPEDITER SERVICE ORDER Pulse 114 03/13/2023 11:34 AM EXPEDITER SERVICE ORDER Temperature 37 ??C (98.6 ??F) 03/13/2023 11:34 AM EXPEDITER SERVICE ORDER Respiratory Rate 18 03/13/2023 11:34 AM EXPEDITER SERVICE ORDER Oxygen Saturation 94% 03/13/2023 11:34 AM EXPEDITER SERVICE ORDER Inhaled Oxygen Concentration - - Weight 71.8 kg (158 lb 3.2 oz) 03/13/2023 11:34 AM EXPEDITER SERVICE ORDER Height 153.7 cm (5' 0.5) 03/13/2023 11:34 AM CS T Body Mass Index 30.39 03/13/2023 11:34 AM EXPEDITER SERVICE ORDER Plan of Treatment Health Maintenance Due Date Last Done Comments ADVANCE CARE PLANNING 1992 ANNUAL REVIEW OF HM ORDERS 1992 YEARLY PREVENTIVE VISIT 1992 IPV IMMUNIZATION (4 of 4 - 4-dose series) 1996 06/27/1995, 1992, 1992 HEPATITIS C SCREENING 2010 COVID-19 Vaccine ( season) 2022 12/09/2021, 11/11/2021 INFLUENZA VACCINE (Season Ended) 2023 11/11/2018, 11/17/2017, 03/24/2011, Additional history exists TSH W/FREE T4 REFLEX 03/13/2024 03/13/2023, 03/13/2023, 07/13/2014, Additional history exists PAP 10/31/2024 10/31/2021, 05/12/2013 DTAP/TDAP/TD IMMUNIZATION (11 - Td or Tdap) 11/06/2028 11/06/2018, 12/05/2017, 12/19/2016, Additional history exists HEPATITIS B IMMUNIZATION Completed 997, 03/17/1996, 08/29/1995, Additional history exists HIV SCREENING Completed 10/24/2010 PHQ-2 (once per calendar year) Completed 06/13/2023 HPV IMMUNIZATION Aged Out No longer e [...] RESULT - HIM SCAN 04/11/2023 12:00 AM EXPEDITER SERVICE ORDER TSH Routine 03/13/2023 11:57 AM EXPEDITER SERVICE ORDER Hypothyroidism, unspecified type ABSTRACT PAP ([facility] EXTERNAL RESULT) Routine 05/12/2013 HIV 1 AND 2 ANTIBODY ([facility]) Routine 10/24/2010 11:41 AM CDT Supervision of normal first from Last 3 Months or Most Recently Relevant to Health Maintenance Results * LAB RESULT - HIM SCAN (04/11/2023 12:00 AM EXPEDITER SERVICE ORDER) 04/11/2023 Provider Outside NON-[facility]AKER LAB TE STING * (ABNORMAL) TSH (03/13/2023 11:57 AM EXPEDITER SERVICE ORDER) TSH 30.80(H) 0.30 - 4.20 uIU/mL 03/14/2023 6:59 AM EXPEDITER SERVICE ORDER [facility] Blood BLOOD SPECIMEN / Unknown Venipuncture / Unknown 03/13/2023 11:57 AM EXPEDITER SERVICE ORDER 03/13/2023 11:57 AM EXPEDITER SERVICE ORDER Anita Celis MD LAB - BLOOD ORDER [facility] [address] [facility] [place] [address], [facility] [phone] * ABSTRACT PAP-NO CHARGE (05/12/2013) 05/12/2013 Impressions EXTERNAL LAB - 05/12/2013 Information from office visit dated: 06/12/2013 Pap smear done on ??this date: 05/2013 (approximately), by this group: [facility], results were WNL. ?? Provider Outside LAB - HIM EXTERNAL R ESULT EXTERNAL LAB External Lab * HIV 1 and 2 Antibody (10/24/2010 11:41 AM CDT) HIV 1&2 Antibody Negative NEG [facility] Blood specimen (specimen) 10/24/2010 11:41 AM CDT 10/24/2010 11:46 AM CDT India Arora DO LAB - BLOOD ORDER [facility] from Last 3 Months or Most Recently Relevant to Health Maintenance Care Teams Operations Supervisor Chemical Cleaning Relationship Specialty Start Date End Date [facility], [address] [address] PCP - General 04/07/15 Anita Celis MD [address] [facility] [address] [place] [address] Assigned Endocrinology Provider 04/05/23
--- OUTSIDE RECORDS SUMMARY | 2023-06-21 15:17 | XMS_ITS | Referral Summary ---
Author Name Unknown Organization [place] Address [facility] [place] [address] Care Team Providers Care Child Neurologist Name Role Phone [facility] Primary Care Provider Anita Celis MD Unavailable [phone] Encounters Date Type Department Care Team Description 06/18/2023 Refill [facility] [address] [place] [address] Anita Celis MD Medication Refill 06/17/2023 Telephone [facility] [address] [place] [address] Anita Celis MD 06/13/2023 3:30 PM CDT Virtual Visit [facility] [address] [place] [address] Anita Celis MD Hypothyroidism, unspecified type 06/11/2023 Telephone [facility] [address] [place] [address] Anita Celis MD Call Back; Patient Request 04/11/2023 Telephone [facility] [address] [place] [address] [facility] 03/28/2023 Telephone [facility] [address] [place] [address] Anita Celis MD from Last 3 Months Allergies No known active allergies Medications Medication Sig Dispensed Refills Start Date End Date Status Vit w/Un-Cfhscbdpn-RI (PNV PO) Take 1 tablet by mouth [...] SCREENING; LDL GOAL LESS THAN 160 07/02/2013 [facility] 05/02/2011 Overview: DX V65.8 REPLACED WITH [facility] (05/19/2012) Hypothyroidism Resolved Problems Problem Noted Date [...] 03/24/2011,06/27/1995 OPV, trivalent, live 06/27/1995,1992,07/27 TD,PF 7+ (Teniva) 10/11/2004 Varicella 10/11/2004 Social History Tobacco Use [...] Comments Blood Pressure 99/66 03/13/2023 11:34 AM CLEARANCE CUTTER Pulse 114 03/13/2023 11:34 AM CLEARANCE CUTTER Temperature 37 ??C (98.6 ??F) 03/13/2023 11:34 AM CLEARANCE CUTTER Respiratory Rate 18 03/13/2023 11:34 AM CLEARANCE CUTTER Oxygen Saturation 94% 03/13/2023 11:34 AM CLEARANCE CUTTER Inhaled Oxygen Concentration - - Weight 71.8 kg (158 lb 3.2 oz) 03/13/2023 11:34 AM CLEARANCE CUTTER Height 153.7 cm (5' 0.5) 03/13/2023 11:34 AM CS T Body Mass Index 30.39 03/13/2023 11:34 AM CLEARANCE CUTTER Plan of Treatment Not on file Procedures Procedure Name Priority Date/Time Associated Diagnosis Comments LAB RESULT - HIM SCAN 04/11/2023 12:00 AM CLEARANCE CUTTER TSH Routine 03/13/2023 11:57 AM CLEARANCE CUTTER Hypothyroidism, unspecified type ABSTRACT PAP ([facility] EXTERNAL RESULT) Routine 05/12/2013 HIV 1 AND 2 ANTIBODY ([facility]) Routine 10/24/2010 11:41 AM CDT Supervision of normal first from Last 3 Months or Most Recently Relevant to Health Maintenance Results * LAB RESULT - HIM SCAN (04/11/2023 12:00 AM CLEARANCE CUTTER) 04/11/2023 Provider Outside NON-BEAKER LAB TE STING * (ABNORMAL) TSH (03/13/2023 11:57 AM CLEARANCE CUTTER) TSH 30.80(H) 0.30 - 4.20 uIU/mL 03/14/2023 6:59 AM CLEARANCE CUTTER [facility] Blood BLOOD SPECIMEN / Unknown Venipuncture / Unknown 03/13/2023 11:57 AM CLEARANCE CUTTER 03/13/2023 11:57 AM CLEARANCE CUTTER Anita Celis MD LAB - BLOOD ORDER GERRI [facility] [address] [facility], [address] [phone], [facility] [phone] * ABSTRACT PAP-NO CHARGE (05/12/2013) 05/12/2013 Impressions EXTERNAL LAB - 05/12/2013 Information from office visit dated: 06/12/2013 Pap smear done on ??this date: 05/2013 (approximately), by this group: [facility], results were WNL. ?? Provider Outside LAB - HIM EXTERNAL R ESULT EXTERNAL LAB External Lab * HIV 1 and 2 Antibody (10/24/2010 11:41 AM CDT) HIV 1&2 Antibody Negative [facility] Blood specimen (specimen) 10/24/2010 11:41 AM CDT 10/24/2010 11:46 AM CDT India Arora DO LAB - BLOOD ORDER GERRI [facility] from Last 3 Months or Most Recently Relevant to Health Maintenance Care Teams Child Neurologist Relationship Specialty Start Date End Date [facility], [address] [address] PCP - General 04/07/15 Anita Celis MD [address] [facility] [address] [place], [place] [address] Assigned Endocrinology Provider 04/05/23
--- OUTSIDE RECORDS SUMMARY | 2023-06-21 15:17 | XMS_ITS | Encounter Summary ---
Author Name Unknown Organization [place] Address [facility] [place] [address] Care Team Providers Care Firing Pin Gauger Name Role Phone [facility] Primary Care Provider Anita Celis MD Unavailable [phone] Reason for Visit * Reason Comments Medication Refill Encounter Details Date Type Department Care Team (Late st Contact Info) Description 06/18/2023 Refill [facility] [address] [facility] [address] [place] [address] Anita Celis MD [address] [place], [place] [address] Medication Refill Social History Tobacco Use Types Packs/Day Years [...] type documented in this encounter Care Teams Firing Pin Gauger Relationship Specialty Start Date End Date [facility] [address] [place] [address] PCP - General 04/07/15 Anita Celis MD [address] [facility] [address] [place] [address] Assigned Endocrinology Provider 04/05/23 documented as of this encounter
--- OUTSIDE RECORDS SUMMARY | 2023-06-21 15:17 | XMS_ITS | Encounter Summary ---
Author Name Unknown Organization [place] Address [address] [facility] [place] [address] Care Team Providers Care Community Health Nurse Supervisor Name Role Phone [facility], [facility] Primary Care Provider Anita Celis MD Unavailable [phone] Encounter Details Date Type Department Care Team (Late st Contact Info) Description 06/17/2023 Telephone [facility] [address] [place] [address] Anita Celis MD [address] [place] [address] Social History Tobacco Use Types Packs/Day Years [...] encounter Miscellaneous Notes * Telephone Encounter - Emma Godwin - 06/20/2023 11:34 AM CDT 06.19- Pt not available to schedule appointment during call as her break was done at 1130. Will have to try different time. * Telephone Encounter - Emma Godwin - 06/18/2023 3:18 PM CDT 06.17- lmtcb x1 * Telephone Encounter - Charissa Barrios RN - 06/18/2023 8:23 AM CDT Spoke to pt and informed of below. Pt verbalized understanding. Pt is currently at work. Would likea call later to help schedule labs and follow up in 6 weeks okay to use COLTON. * Telephone Encounter - Anita Celis MD - 06/17/2023 9:23 PM CDT 05/2023- TSH 17.7 Ft4 0.86 Currently . Currently taking levothyroxine 175 mcg/day (100+75) Based on 05/2023 labs recommend to increase dose to 200 mcg/day. Please send a new prescription and place labs (TSH and free T4) Labs in 6 weeks (very important) Please make a lab appointment for blood work and follow up clinic appointment in 1 week after that to discuss results. COLTON ok. Please inform patient. * Telephone Encounter - Juliet Barrios CMA - 06/17/2023 8:01 AM CDT Images from the original note were not included. It looks like it was done in the ER. Prescriptions: No Action (DME) gilbert.stocking,thigh,reg,med Misc See Rx Instructions .Route Qty: 2 0RF Rx Instructions: As directed montelukast 10 mg tablet 10 mg PO QHS Qty: 90 1RF levothyroxine 100 mcg tablet 100 mcg PO QDAY Qty: 30 1RF levothyroxine 75 mcg tablet 75 mcg PO QDAY Qty: 30 1RF Yasmin Barrios CMA [facility] [phone] * Telephone Encounter - Juliet Barrios CMA - 06/17/2023 8:01 AM CDT please get records from OB clinic. She reports that she recently had labs done in May 2023 and based on labs dose was changed by her inventory control analyst/PA. She is not sure about the labs and what dose she is supposed to take. She has not started new dose yet. She appears confused about the dosing. She wouldlike to continue care with endocrinology. Her OB provider is at [facility] in [place]. Please check with patient about the name of clinic and provider so that you can call and get records. Let me know if you have any questions. Anita Celis MD documented in this encounter Plan of Treatment Scheduled Orders Name Type Priority Associated Diagnoses Orde r Schedule TSH Lab Routine Hypothyroidism, unspecified type Expected: 07/26/2023 (Approximate), Expires: 06/17/2024 T4 free Lab Routine Hypothyroidism, unspecified type Expected: 07/26/2023 (Approximate), Expires: 06/17/2024 documented as of this encounter Visit Diagnoses Diagnosis Hypothyroidism, unspecified type- Primary documented in this encounter Care Teams Community Health Nurse Supervisor Relationship Specialty Start Date End Date [address] [address] PCP - General 04/07/15 Anita Celis MD [address] [facility] [address] [place] [address] Assigned Endocrinology Provider 04/05/23 documented as of this encounter
--- OUTSIDE RECORDS SUMMARY | 2023-06-21 15:17 | XMS_ITS | Encounter Summary ---
Author Name Unknown Organization [place] Address [facility]0 [facility] [place] [address] Care Team Providers Care Grants Administrator Name Role Phone [facility], [facility] Primary Care Provider Encounter Details Date [...] on filedocumented in this encounter Care Teams Grants Administrator Relationship Specialty Start Date End Date [facility] [address] [place] [address] PCP - General 04/07/15 documented as of this encounter
--- OUTSIDE RECORDS SUMMARY | 2023-06-21 15:17 | XMS_ITS | Encounter Summary ---
Author Name Unknown Organization [place] Address [address] [place] [address] Care Team Providers Care Fermenter Operator Name Role Phone Clinic, [facility] Primary Care Provider Reason for Visit * Reason Comments New Patient Referred by Dr. Timur ngo for hypothyroid. * Consultation (Routine) - Pending Review Specialty Diagnoses / Procedures Referred By Ashleigh hines Referred To Contact Endocrinology, Diabetes, and Metabolism Diagnoses Hypothyroidism, unspecified type Elena Giraldo APRN [facility] [address] [place] [address] Referral ID Status Reason Start Date Expiration Date V isits Requested Visits Authorized [id number] Pending Review 11/28/2022 11/28/2023 1 1 Encounter Details Date Type Department Care Team (Late st Contact Info) Description 03/13/2023 11:30 AM GREENS OR GROUNDS SUPERINTENDENT Office Visit [facility] [address] [place] [address] Elena Giraldo APRN [facility] [address] [place] [address] Anita Celis MD [address] [place] [address] Hypothyroidism, unspecified type Social History Tobacco Use [...] Comments Blood Pressure 99/66 03/13/2023 11:34 AM GREENS OR GROUNDS SUPERINTENDENT Pulse 114 03/13/2023 11:34 AM GREENS OR GROUNDS SUPERINTENDENT Temperature 37 ??C (98.6 ??F) 03/13/2023 11:34 AM GREENS OR GROUNDS SUPERINTENDENT Respiratory Rate 18 03/13/2023 11:34 AM GREENS OR GROUNDS SUPERINTENDENT Oxygen Saturation 94% 03/13/2023 11:34 AM GREENS OR GROUNDS SUPERINTENDENT Inhaled Oxygen Concentration - - Weight 71.8 kg (158 lb 3.2 oz) 03/13/2023 11:34 AM GREENS OR GROUNDS SUPERINTENDENT Height 153.7 cm (5' 0.5) 03/13/2023 11:34 AM CS T Body Mass Index 30.39 03/13/2023 11:34 AM GREENS OR GROUNDS SUPERINTENDENT documented in this encounter Patient Instructions * Patient Instructions* Anita Celis MD - 03/13/2023 11:30 AM GREENS OR GROUNDS SUPERINTENDENT [facility] Dr Celis, Endocrinology Department [address] [place] [address] Appointment [phone] [place]: Saturday - Thyroid labs needed. Dose change based on that. Fax records from [facility]. Follow up in 3 months. Take [...] whole. Do not cut or crush it. NS OR GROUNDS SUPERINTENDENT documented in this encounter Progress Notes * [...] Referring provider Elena Giraldo APRN CNM outside [facility]. No recent lab results to review. Limited records are available. Postablative hypothyroidism: She reports that she was diagnosed with Graves' disease when she was 20-year-old and received radiation treatment. Following that she developed hypothyroidism and was started on levothyroxine after that. Currently she is --12 weeks. This is 7th . Has 6 kids. She reports that she is followed by OBSTETRICS AND GYNECOLOGY PROFESSOR at local clinic. She reports that she [...] or cold intolerance: feels warm History of Why or Amiodarone use:No Head or neck surgery/radiation:Yes: [...] Male Other Topics Concern Parent/sibling w/ CABG, VT or angioplasty before 65F 55M? Not Asked [...] following prescription(s): levothyroxine, omeprazole magnesium, and vit w/fc-alrudnzjb-mb. ROS ROS: 10 point ROS neg other [...] noted in AVS Anita Celis MD Endocrinology [facility] CC: [place] The longitudinal plan of [...] and agrees with the plan set forth. NS OR GROUNDS SUPERINTENDENT documented in this encounter Miscellaneous Notes * Result Encounter Note - Anita Celis MD - 03/13/2023 11:30 AM GREENS OR GROUNDS SUPERINTENDENT Labs/results noted. Please see telephone encounter dated 03/28/2023. NS OR GROUNDS SUPERINTENDENT documented in this encounter Plan of Treatment Not on file documented as of this encounter Procedures Procedure Name Priority Date/Time Associated Diagnosis Comments TSH Routine 03/13/2023 11:57 AM GREENS OR GROUNDS SUPERINTENDENT Hypothyroidism, unspecified type THYROID PEROXIDASE ANTIBODY Routine 03/13/2023 11:57 AM GREENS OR GROUNDS SUPERINTENDENT Hypothyroidism, unspecified type T4 FREE Routine 03/13/2023 11:57 AM GREENS OR GROUNDS SUPERINTENDENT Hypothyroidism, unspecified type documented in this encounter Results * Thyroid peroxidase antibody (03/13/2023 11:57 AM GREENS OR GROUNDS SUPERINTENDENT) Thyroid Peroxidase Antibody <10 <35 IU/mL 03/14/2023 11:24 AM GREENS OR GROUNDS SUPERINTENDENT SPECIALTY CORE/PROT/ENDO Blood BLOOD SPECIMEN / Unknown Venipuncture / Unknown 03/13/2023 11:57 AM GREENS OR GROUNDS SUPERINTENDENT 03/13/2023 11:57 AM GREENS OR GROUNDS SUPERINTENDENT Anita Celis MD LAB - BLOOD ORDER GERRI [facility] SPECIALTY CORE/PROT/ENDO [facility] Specialty Core/Prot/Endo [address] [facility], [address] [phone] * (ABNORMAL) TSH (03/13/2023 11:57 AM GREENS OR GROUNDS SUPERINTENDENT) TSH 30.80(H) 0.30 - 4.20 uIU/mL 03/14/2023 6:59 AM GREENS OR GROUNDS SUPERINTENDENT [facility] Blood BLOOD SPECIMEN / Unknown Venipuncture / Unknown 03/13/2023 11:57 AM GREENS OR GROUNDS SUPERINTENDENT 03/13/2023 11:57 AM GREENS OR GROUNDS SUPERINTENDENT Anita Celis MD LAB - BLOOD ORDER GERRI [facility] [address] [facility], [address] [address], [facility] [phone] * (ABNORMAL) T4 free (03/13/2023 11:57 AM GREENS OR GROUNDS SUPERINTENDENT) Free T4 0.86(L) 0.90 - 1.70 ng/dL 03/14/2023 6:59 AM GREENS OR GROUNDS SUPERINTENDENT [facility] Blood BLOOD SPECIMEN / Unknown Venipuncture / Unknown 03/13/2023 11:57 AM GREENS OR GROUNDS SUPERINTENDENT 03/13/2023 11:57 AM GREENS OR GROUNDS SUPERINTENDENT Anita Celis MD LAB - BLOOD ORDER GERRI [facility] [address] [facility], [address] [address], [facility] [phone] documented in this encounter Visit Diagnoses Diagnosis Hypothyroidism, unspecified type documented in this encounter Care Teams Fermenter Operator Relationship Specialty Start Date End Date [address] [address] PCP - General 04/07/15 documented as of this encounter
--- OUTSIDE RECORDS SUMMARY | 2023-06-21 15:17 | XMS_ITS | Encounter Summary ---
Author Name Unknown Organization [place] Address [address] [facility] [place] [address] Care Team Providers Care Safety Security Officer Name Role Phone [facility], [facility] Primary Care Provider Anita Celis MD Unavailable [phone] Reason for Visit * Reason Onset Date Comments Call Back 06/11/2023 Patient Request 06/11/2023 Encounter Details Date Type Department Care Team (Late st Contact Info) Description 06/11/[address] [facility] [address] [place] [address] Anita Celis MD [address] [place], [place] [address] Call Back; Patient Request Social History Tobacco [...] on 06/12 at 3:30? Yasmin Barrios CMA [place] [phone] * Telephone Encounter - Emma Godwin - 06/12/2023 8:57 AM CDT Spoke with patient, she cannot do today. She gets off work at 3pm. * Telephone Encounter - Juliet Barrios CMA - 06/12/2023 8:21 AM CDT Offer 06/11 at 3 pm for in person or video visit with dr. Celis. Yasmin Barrios CMA [facility] [phone] * Telephone Encounter - Veronica Bello - 06/11/2023 12:09 PM CDT [facility] Call Center Phone Message May a detailed message [...] her endo would like to see her. Surveyor Instrument Assistant then stated to patient she missed her appt. Action Taken: Message routed to: [facility]): endo Travel Screening: Not Applicable documented in this encounter Plan of Treatment Not on file documented as of this encounter Visit Diagnoses Not on filedocumented in this encounter Care Teams Safety Security Officer Relationship Specialty Start Date End Date [facility] [address] [address] PCP - General 04/07/15 Anita Celis MD [address] [place] [address] [address] [place] [address] Assigned Endocrinology Provider 04/05/23 documented as of this encounter
--- NOTE | 2023-06-21 16:00 | US_ITS ---
Patient: JOSE A STANTON Facility:?[facility] RIS Patient ID:?[id number] Site Patient ID:?[id number]. Site :?[id number] Study:?US-Extremity Bilateral venous-06/21/2023 4:04:11 PM Ordering Physician:Lena Bauer Final Report: INDICATION: Leg pain and swelling. TECHNIQUE: Ultrasound venous duplex bilateral lower extremity. Compression venous exam was performed using aguilar-scale, color Doppler, and spectral Doppler analysis. COMPARISON: None. FINDINGS: Deep veins: Sonographic imaging demonstrates the bilateral common femoral, deep femoral, superficial femoral, popliteal, and posterior tibial veins to be fully compressible with normal color Doppler blood flow. Superficial veins: Greater saphenous veins are fully compressible. No popliteal cyst. IMPRESSION: No DVT in the bilateral lower extremities Dictated by Ralf Keenan MD @ 06/21/2023 4:41:06 PM Signed by:?Ralf Keenan MD @06/21/2023 4:41:06 PM (Electronic Signature)
== END 2023-06-21 15:15 | disposition home or self-care (01) ==
LOC: US 15:14
PROVIDERS: PCP Family Medicine; Visit Provider Obstetrics & Gynecology
DX: O12.00 Gestational edema, unspecified trimester (principal)
CPT/HCPCS: 86592; 93970

== ENCOUNTER 2023-08-02 15:20 | Outpatient (CLI) | payer BC, MEDICAID, SELFPAY ==
--- OUTSIDE RECORDS SUMMARY | 2023-08-02 15:31 | XMS_ITS | Clinical Summary ---
Author Organization [employer] [facility] Address [place], [place] [address] Care Team Providers Care Truck Driver'S Offsider Name Role Phone Guilherme Olguin MD Unavailable [...] 06/11/2020 Active azelastine 137 mcg/actuation (ASTELIN) nasal sprayIndications:Precision Crop Manager aye pansinusitis,Mucous retention cyst of maxillary sinus,Allergic [...] 0.01, T3 298, TSI 5.3. left for bamberg and no treatment till 01/2013. Poor concentration, forgetfulness, shakiness, nervous, hyperactive, restless, weight loss, history of lose BMs. Weak muscles. 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 left for bamberg and no treatment till 01/2013. Poor concentration, [...] 03/08/2020 Overview: GBS negative. (Lab drawn at [facility] on 02/03/17) Limited care. [place] or depo [...] 0.01, T3 298, TSI 5.3. left for bamberg and no treatment till 01/2013. Poor concentration, [...] 02/28/17) REFERRING PHYSICIAN/PHONE/LAST UPDATE: Olivia Shaw NP, [facility] - [phone] Primary MD approves scheduling of recommended ultrasounds/testing: Unknown SPECIALISTS/PHONE: Neurology [facility] - last seen 12/19/15 - notes scanned SREEDHAR: SREEDHAR signed for [facility]: CARE COORDINATION: GENETICS: PROCEDURES: PERTINENT LABS: Blood type: Last pap: Initial Hgb /Ferritin Hgb 28 wk Hgb 36 wk Repeat hgb anemic and compliant every 4 wks if/until >11.0 MEDS: Synthroid 150 mcg daily vitamin Miralax PRN NEXT VISIT ALERTS: FUTURE APPOINTMENTS: Testing: Through Growth: OB visits: Through TESTING PLANS: SENIOR MAJOR GIFTS OFFICER: CONSULTS: NURSING: DEPRESSION SCREEN Initial screen: Date [...] RNC.....01/15/2017 9:45 AM consult 08/02/2016 03/08/2020 Overview: [facility] MOMS CONSULTATION ON 08/06/2016 F/U MOMS [...] 02/28/17) REFERRING PHYSICIAN/PHONE/LAST UPDATE: Olivia Shaw NP, [facility] - [phone] Primary MD approves scheduling of recommended ultrasounds/testing: Unknown SPECIALISTS/PHONE: Neurology [facility] - last seen 12/19/15 - notes scanned SREEDHAR: SREEDHAR signed for [facility]: CARE COORDINATION: GENETICS: PROCEDURES: PERTINENT LABS: Blood type: Last pap: Initial Hgb /Ferritin Hgb 28 wk Hgb 36 wk Repeat hgb anemic and compliant every 4 wks if/until >11.0 MEDS: Synthroid 150 mcg daily vitamin Miralax PRN NEXT VISIT ALERTS: FUTURE APPOINTMENTS: Testing: Through Growth: OB visits: Through TESTING PLANS: SENIOR MAJOR GIFTS OFFICER: CONSULTS: NURSING: DEPRESSION SCREEN Initial screen: Date [...] Outcome GA Total Labor Labor/2nd/3rd Weight Sex Type Anes PTL [place] A1 A5 Name Clin 2011 Term 38w 0d 3.18 kg (7 lb) F Vag Epidur al Livin g Amanda Delivery Location:[facility] 4 SAB SPONTA NEOUS Comments:Blighted Ovum 2014 Term 2.72 kg (6 lb) F Vag-Sp ont Livin g Umm za Delivery Location:[place] 2015 Term 40w 1d 3.18 kg (7 lb) M Vag None N Livin g Peter Complications:None Delivery Location:[place] 2017 Term 39w 4d M Vag Livin g Santosh 2017 Term 39w 2d 0h 11m 3.29 kg (7 lb 4 oz) F Vag Epidur al N Livin g 9 9 BONIL LA,BG DANAYMI N Cosmo k Complications:None Delivery Location:[facility]) Last Filed Vital Signs Vital Sign Reading Time Taken Comments Blood Pressure 120/73 04/13/2020 3:58 PM TELECOMMUNICATIONS FIELD TECHNICIAN Pulse 85 04/13/2020 3:58 PM TELECOMMUNICATIONS FIELD TECHNICIAN Temperature 37.1 ??C (98.7 ??F) 03/07/2020 3:36 PM CS T Respiratory Rate 20 03/24/2020 3:34 PM TELECOMMUNICATIONS FIELD TECHNICIAN Oxygen Saturation 99% 04/13/2020 3:58 PM TELECOMMUNICATIONS FIELD TECHNICIAN Inhaled Oxygen Concentration - - Weight 60.8 kg (134 lb) 03/07/2020 3:36 PM TELECOMMUNICATIONS FIELD TECHNICIAN Height 156 cm (5' 1.42) 03/07/2020 3:36 PM TELECOMMUNICATIONS FIELD TECHNICIAN Body Mass Index 24.98 03/07/2020 3:36 PM TELECOMMUNICATIONS FIELD TECHNICIAN Plan of Treatment Health Maintenance Due Date Last Done Comments Depression screening for age 12+ 04/21/2020 04/22/2019, 04/22/2019, 07/17/2018, Additional history exists BMI (ht and wt on same day) for age 18+ 03/07/2021 03/07/2020, 01/26/2020, 01/04/2020, Additional history exists COVID-19 vaccine series ( season) 2022 Influenza for age 9-49 10/13/2023 [...] this topic Medical Devices Implanted Type Area Reagent Tender Helper Device Identifier Shelf Expiration Date Model / Serial / Lot Stent Ent Mini Steroid-Releas ing [employer]el Bio[employer]orb - [id number] Implanted:Qty: 2 on 04/22/2017 by Pedro Plascencia MD at [facility] Bilateral : Nose [employer] 10/30/2018 [id number]# / / [id number] Stent Sinus 8mm Propel Contour Bioabsorb - [id number] Implanted:Qty: 1 on 04/22/2017 by Pedro Plascencia MD at [facility] Left: [employer]ose [employer] 10/19/2018 [id number]# / / [id number] Procedures Procedure Name Priority Date/Time Associated Diagnosis Comments HPV THIN PREP Routine 10/31/2021 12:00 PM CDT ANTI HIV 1/2 Routine 10/29/2017 10:21 AM CDT , unspecified gestational age ANTI HCV Routine 11/02/2014 5:51 PM CDT from Last 3 Months or Most Recently Relevant to Health Maintenance Results * HPV HIGH RISK (10/31/2021 12:00 PM CDT) TYPE 16 Negative Negative 11/03/2021 11:22 AM CDT [facility] TYPE 18 Negative Negative 11/03/2021 11:22 AM CDT [facility] OTHER HIGH RISK TYPES Negative Negative 11/03/2021 11:22 AM CDT [facility] Other (Cervical) 10/31/2021 12:00 PM CDT 11/02/2021 9:17 AM CDT Narrative [facility] - 11/03/2021 11:22 AM CDT HPV types 16, 18, 31, 33, 35, 39, 45, 51, 52, 56, 58, 59, 66 and 68 DNA were undetectable or below the pre-set threshold. Methodology: Kenisha Simone 4800 HPV Test Agnieszka Horan NP MICROBIOLOGY [facility] [address] [place] [address], * ANTI HIV 1/2 (10/29/2017 10:21 AM CDT) HIV-1/HIV-2 ANTIBODY Non-Reacti ve Non-Reacti ve 10/29/2017 5:05 PM CDT [facility] Comment:HIV-1 p24 and HIV-1/ HIV-2 Ab not detected. Blood BLOOD SPECIMEN / Unknown Venipuncture / Unknown 10/29/2017 10:21 AM CDT 10/29/2017 10:21 AM CDT Jessica Machado MD SEND OUTS [facility] [address] [place] [address], * ANTI HCV (11/02/2014 5:51 PM CDT) HEPATITIS C ANTIBODY Non-Reacti ve Non-Reacti ve 11/03/2014 1:19 PM CDT [facility] Blood specimen (specimen) BLOOD SPECIMEN / Unknown Venipuncture / Unknown 11/02/2014 5:51 PM CDT 11/02/2014 5:[address] [facility] - 11/03/2014 1:19 PM CDT Antibodies to HCV not detected; does not exclude the possibility of exposure to HCV. Vale ROCHE [facility] OUTS [facility] [address] [place] [address], from Last 3 Months or Most Recently [...] Code Status Discussion: Not Discussed Care Teams Truck Driver'S Offsider Relationship Specialty Start Date End Date Pcp, No . PCP - General 09/30/20 Guilherme Olguin MD POSITION DESCRIPTION MANAGER Obstetrics and Gynecology 01/25/11
--- OUTSIDE RECORDS SUMMARY | 2023-08-02 15:31 | XMS_ITS | Encounter Summary ---
Author Organization [place] Address [facility] [place] [address] Care Team Providers Care Auto Salvage Worker Name Role Phone [facility] Primary Care Provider Anita Celis MD Unavailable [phone] Reason for Visit * Reason Comments Medication Refill Encounter Details Date Type Department Care Team (Late st Contact Info) Description 06/18/2023 Refill [facility] [address] [place] [address] Anita Celis MD [address] [place], [place] [address] Medication Refill Social History Tobacco Use Types [...] type documented in this encounter Care Teams Auto Salvage Worker Relationship Specialty Start Date End Date [facility] [address] [place] [address] PCP - General 04/07/15 nAita Celis MD [address] [facility] [address] [place] [address] Assigned Endocrinology Provider 04/05/23 documented as of this encounter
--- OUTSIDE RECORDS SUMMARY | 2023-08-02 15:31 | XMS_ITS | Referral Summary ---
Author Organization [place] Address [facility] [place] [address] Care Team Providers Care Hand Tennis Ball Coverer Name Role Phone [facility], [facility] Primary Care Provider Anita Celis MD Unavailable [phone] Encounters Date Type Department Care Team Description 06/18/2023 Refill [facility] [address] [place] [phone] Anita Celis MD Medication Refill 06/17/2023 Telephone [facility] [address] [place] [phone] Anita Celis MD 06/13/2023 3:30 PM CDT Virtual Visit [facility] [address] [place] [phone] Anita Celis MD Hypothyroidism, unspecified type 06/11/2023 Telephone [facility] [address] [place] [phone] Anita Celis MD Call Back; Patient Request from Last 3 Months Allergies No known active allergies Medications Medication Sig Dispensed Refills Start Date End Date Status Vit w/Ka-Hzxashgmg-DK (PNV PO) Take 1 tablet by mouth [...] SCREENING; LDL GOAL LESS THAN 160 07/02/2013 Hypothyroidism Resolved Problems Problem Noted Date Diagnosed Date Resolved Date Hyperthyroidism 01/02/2013 07/20/2013 Cervical pain 05/18/2011 07/17/2011 Pain in thoracic spine 05/18/201107/[facility] 05/02/2011 07/29/2023 Overview: DX V65.8 REPLACED WITH 43549 [facility] (05/19/2012) Mirena IUD placed 05/02/2011 05/02/2011 07/02/2013 Overview: [...] Comments Blood Pressure 99/66 03/13/2023 11:34 AM ECCLESIASTICAL WORKER Pulse 114 03/13/2023 11:34 AM ECCLESIASTICAL WORKER Temperature 37 ??C (98.6 ??F) 03/13/2023 11:34 AM ECCLESIASTICAL WORKER Respiratory Rate 18 03/13/2023 11:34 AM ECCLESIASTICAL WORKER Oxygen Saturation 94% 03/13/2023 11:34 AM ECCLESIASTICAL WORKER Inhaled Oxygen Concentration - - Weight 71.8 kg (158 lb 3.2 oz) 03/13/2023 11:34 AM ECCLESIASTICAL WORKER Height 153.7 cm (5' 0.5) 03/13/2023 11:34 AM CS T Body Mass Index 30.39 03/13/2023 11:34 AM ECCLESIASTICAL WORKER Plan of Treatment Not on file Procedures Procedure Name Priority Date/Time Associated Diagnosis Comments THYROID STIMULATING HORMONE (TSH) (EXTERNAL RESULT) Routine 04/11/2023 9:32 AM ECCLESIASTICAL WORKER ABSTRACT PAP (HIM EXTERNAL RESULT) Routine 05/12/2013 HIV 1 AND 2 ANTIBODY ([facility]) Routine 10/24/2010 11:41 AM CDT Supervision of normal first from Last 3 Months or Most Recently Relevant to Health Maintenance Results * (ABNORMAL) Thyroid Stimulating Hormone (TSH) (External Result) (04/11/2023 9:32 AM ECCLESIASTICAL WORKER) TSH (External) 50.300(A) 0.270 - 4.200 uIU/mL [facility] Blood 04/11/2023 9:32 AM ECCLESIASTICAL WORKER Narrative [facility] - 04/11/2023 9:32 AM ECCLESIASTICAL WORKER [facility]-External Lab Results Provider Outside LAB - HIM EXTERNAL R ESULT [facility] [address] [place] [address], [facility] [phone] * ABSTRACT PAP-NO CHARGE (05/12/2013) 05/12/2013 Impressions EXTERNAL LAB - 05/12/2013 Information from office visit dated: 06/12/2013 Pap smear done on ??this date: 05/2013 (approximately), by this group: [facility], results were WNL. ?? Provider Outside LAB - HIM EXTERNAL R ESULT EXTERNAL LAB External Lab * HIV 1 and 2 Antibody (10/24/2010 11:41 AM CDT) HIV 1&2 Antibody Negative NEG [facility] Blood specimen (specimen) 10/24/2010 11:41 AM CDT 10/24/2010 11:46 AM CDT India Arora DO LAB - BLOOD ORDER GERRI [facility] from Last 3 Months or Most Recently Relevant to Health Maintenance Care Teams Hand Tennis Ball Coverer Relationship Specialty Start Date End Date Clinic, [facility] [address] [place] [address] PCP - General 04/07/15 Anita Celis MD [address] [place] [address] [address] [place] [address] Assigned Endocrinology Provider 04/05/23
--- OUTSIDE RECORDS SUMMARY | 2023-08-02 15:31 | XMS_ITS ---
Author Organization [facility] [place] Address [address] [place] [address] Care Team Providers Care Fig Caprifier Name Role Phone Unavailable Unavailable Unavailable Surgery Details Not on file Complications Check Surgery Details section. Procedure Estimated Blood Loss Check Surgery Details section. Procedure Findings Check Surgery Details section. Procedure Specimens Taken Check Surgery Details section.
--- OUTSIDE RECORDS SUMMARY | 2023-08-02 15:31 | XMS_ITS | Referral Summary ---
Author Organization [facility] Address [address] [place] [address] Care Team Providers Care Change Management Lead Name Role Phone Unavailable Primary Care Provider Unavailabl e Source Comments Patient records contain information from all sites at [facility]. For routine questions regarding patient records, call [phone] during business hours, M-F 8:00 AM - 5:00 PM Central Time. Record requests for emergency care only can be directed to [phone] at any time.[facility] Allergies Active Allergy Reactions Criticality Noted [...] HORMONE-SENSITIVE (S-TSH), S Routine 01/26/2020 4:37 PM VICE PRESIDENT OF SALES from Last 3 Months or Most Recently Relevant to Health Maintenance
--- OUTSIDE RECORDS SUMMARY | 2023-08-02 15:31 | XMS_ITS | Encounter Summary ---
Author Organization [place] Address [address] [facility] [place] [address] Care Team Providers Care Strategic Planning Analyst Name Role Phone [facility], [facility] Primary Care Provider Anita Celis MD Unavailable [phone] Encounter Details Date Type Department Care Team (Late st Contact Info) Description 06/17/2023 Telephone [facility] [address] [place] [address] Anita Celis MD [address] [place] [address] Social History Tobacco Use Types [...] encounter Miscellaneous Notes * Telephone Encounter - Zoe Dial RN - 07/01/2023 10:10 AM CDT Noted. * Telephone Encounter - Tuyet Lara - 07/01/2023 9:50 AM CDT Multiple attempts have been made to contact patient to schedule with no response from the patient. * Telephone Encounter - Emma Godwin - 06/26/2023 11:28 AM CDT 05.15- lmtcb x3 * Telephone Encounter - Tuyet Lara - 06/24/2023 11:38 AM CDT 06/23- lmtcb x2 * Telephone Encounter - Emma Godwin - 06/20/2023 11:34 AM CDT 05.09- Pt not available to schedule appointment during call as her break was done at 1130. Will have to try different time. * Telephone Encounter - Emma Godwin - 06/18/2023 3:18 PM CDT 05.07- lmtcb x1 * Telephone Encounter - Charissa [...] week after that to discuss results. COLTON matta. Please inform patient. * Telephone Encounter - [...] QDAY Qty: 30 1RF Yasmin Barrios CMA [facility] [place] [phone] * Telephone Encounter - Juliet Barrios CMA - 06/17/2023 8:01 AM CDT please get records from OB clinic. She reports that she recently had labs done in May 2023 and based on labs dose was changed by her healthcare consultant/PA. She is not sure about the labs and what dose she is supposed to take. She has not started new dose yet. She appears confused about the dosing. She wouldlike to continue care with endocrinology. [facility] [place]. Please check with patient about the name [...] Primary documented in this encounter Care Teams Strategic Planning Analyst Relationship Specialty Start Date End Date [facility], [address] [address] PCP - General 04/07/15 Anita Celis MD [address] [facility] [address] [place] [address] Assigned Endocrinology Provider 04/05/23 documented as of this encounter
--- OUTSIDE RECORDS SUMMARY | 2023-08-02 15:31 | XMS_ITS | Clinical Summary ---
Author Organization [place] Address [address] [place] [address] Care Team Providers Care Telecommunication Engineer Name Role Phone Clinic, [facility] Primary Care Provider Anita Celis MD Unavailable [phone] Allergies No known active allergies Medications Medication Sig Dispensed Refills Start Date End Date Status Vit w/Na-Qusqqankr-ZQ (PNV PO) Take 1 tablet by mouth [...] 07/17/2011 Pain in thoracic spine 05/18/201107/16 [facility] 05/02/2011 07/29/2023 Overview: DX V65.8 REPLACED WITH 20360 [facility] (05/19/2012) Mirena IUD placed 05/02/2011 05/02/2011 07/02/2013 [...] Type Department Care Team Description 06/18/2023 Refill [facility] [address] [place] [address] Anita Celis MD Medication Refill 06/17/2023 Telephone [facility] [address] [place] [address] Anita Celis MD 06/13/2023 3:30 PM CDT Virtual Visit [facility] [address] [place] [address] Anita Celis MD Hypothyroidism, unspecified type 06/11/2023 Telephone [facility] [address] [place] [address] Anita Celis MD Call Back; Patient Request from Last 3 Months Immunizations Name Administration [...] Comments Blood Pressure 99/66 03/13/2023 11:34 AM EDUCATION TRAINER Pulse 114 03/13/2023 11:34 AM EDUCATION TRAINER Temperature 37 ??C (98.6 ??F) 03/13/2023 11:34 AM EDUCATION TRAINER Respiratory Rate 18 03/13/2023 11:34 AM EDUCATION TRAINER Oxygen Saturation 94% 03/13/2023 11:34 AM EDUCATION TRAINER Inhaled Oxygen Concentration - - Weight 71.8 kg (158 lb 3.2 oz) 03/13/2023 11:34 AM EDUCATION TRAINER Height 153.7 cm (5' 0.5) 03/13/2023 11:34 AM CS T Body Mass Index 30.39 03/13/2023 11:34 AM EDUCATION TRAINER Plan of Treatment Health Maintenance Due Date Last Done Comments ADVANCE CARE PLANNING 1992 ANNUAL REVIEW OF HM ORDERS 1992 YEARLY PREVENTIVE VISIT 1992 IPV IMMUNIZATION (4 of 4 - 4-dose series) 1996 06/27/1995, 1992, 1992 HEPATITIS C SCREENING 2010 COVID-19 Vaccine ( season) 2022 12/09/2021, 11/11/2021 INFLUENZA VACCINE (Season Ended) 2023 11/11/2018, 11/17/2017, 03/24/2011, Additional history exists TSH W/FREE T4 REFLEX 04/10/2024 04/11/2023, 03/13/2023, 03/13/2023, Additional history exists PAP 10/31/2024 10/31/2021, 05/12/2013 [...] (TSH) (EXTERNAL RESULT) Routine 04/11/2023 9:32 AM EDUCATION TRAINER ABSTRACT PAP ([facility] EXTERNAL RESULT) Routine 05/12/2013 HIV 1 AND 2 ANTIBODY ([facility]) Routine 10/24/2010 11:41 AM CDT Supervision of normal first from Last 3 Months or Most Recently Relevant to Health Maintenance Results * (ABNORMAL) Thyroid Stimulating Hormone (TSH) (External Result) (04/11/2023 9:32 AM EDUCATION TRAINER) TSH (External) 50.300(A) 0.270 - 4.200 uIU/mL [facility] Blood 04/11/2023 9:32 AM EDUCATION TRAINER Narrative [facility] - 04/11/2023 9:32 AM EDUCATION TRAINER [facility]-External Lab Results Provider Outside LAB - HIM EXTERNAL R ESULT [facility] [address] [place] [address], [facility] [phone] * ABSTRACT PAP-NO CHARGE (05/12/2013) 05/12/2013 Impressions EXTERNAL LAB - 05/12/2013 Information from office visit dated: 06/12/2013 Pap smear done on ??this date: 05/2013 (approximately), by this group: [facility], results were WNL. ?? Provider Outside LAB - HIM EXTERNAL R ESULT EXTERNAL LAB External Lab * HIV 1 and 2 Antibody (10/24/2010 11:41 AM CDT) HIV 1&2 Antibody Negative NEG [facility] Blood specimen (specimen) 10/24/2010 11:41 AM CDT 10/24/2010 11:46 AM CDT India Arora DO LAB - BLOOD ORDER GERRI [facility] from Last 3 Months or Most Recently Relevant to Health Maintenance Care Teams Telecommunication Engineer Relationship Specialty Start Date End Date Clinic, [facility] [address] [place] [address] PCP - General 04/07/15 Anita Celis MD [address] [facility] [address] [place] [address] Assigned Endocrinology Provider 04/05/23
--- OUTSIDE RECORDS SUMMARY | 2023-08-02 15:31 | XMS_ITS | Clinical Summary ---
Author Organization [facility] Address [address] [place] [address] Care Team Providers Care Partner Marketing Manager Name Role Phone Unavailable Primary Care Provider Unavailabl e Source Comments Patient records contain information from all sites at [facility]. For routine questions regarding patient records, call [phone] during business hours, M-F 8:00 AM - 5:00 PM Central Time. Record requests for emergency care only can be directed to [phone] at any time.[facility] Allergies Active Allergy Reactions Criticality Noted Date [...] HORMONE-SENSITIVE (S-TSH), S Routine 01/26/2020 4:37 PM MICROPHONE OPERATOR from Last 3 Months or Most Recently Relevant to Health Maintenance
--- OUTSIDE RECORDS SUMMARY | 2023-08-02 15:32 | XMS_ITS | Encounter Summary ---
Author Organization [facility] Address [address] [facility] [place] [address] Care Team Providers Care Sales Representative Womens Health Name Role Phone [facility], [facility] Primary Care Provider Anita Celis MD Unavailable [phone] Reason for Visit * Reason Comments RECHECK Thy, labs, utd Encounter Details Date Type Department Care Team (Late st Contact Info) Description 06/13/2023 3:30 PM CDT Virtual Visit [place] [address] [place] [address] Anita Celis MD [address] [facility] [address] [place] [address] Hypothyroidism, unspecified type Social History Tobacco Use [...] Celis MD - 06/13/2023 3:30 PM CDT [facility] [address] Celis, Endocrinology Department [place] [address] [place] [address] Appointment [phone] [place]: Saturday - Please ask your OB provider to fax records to endocrinology clinic. Start new dose as recommended by CLIENT RELATIONSHIP EXECUTIVE Will review the recommendations and comment if [...] Video ended:3;52 Provider location: working from home/ [facility] Patient location: patients home. Mode of transmission: [employer] video/ [employer] music Verbal consent: obtained before starting visit. Pt [...] Referring provider Elena Giraldo APRN CNM outside [facility]. No recent lab results to review. Limited [...] She reports that she is followed by CLIENT RELATIONSHIP EXECUTIVE at local clinic. She reports that she [...] at that time thedose was increased by CLIENT RELATIONSHIP EXECUTIVE and she was asked to follow-up with CLIENT RELATIONSHIP EXECUTIVE. They told her that they can manage levothyroxine dosing but after 03/2023 labs with high TSH and she was asked to follow-up with endocrinology again.--See telephone encounter from 04/11/2023) She reports that she recently had labs done by deposit clerk at CLIENT RELATIONSHIP EXECUTIVE clinic-- but no labs to review or paperwork sent. She reports that based on those labs her deposit clerk has recommended to increase the dose but she is not sure about the dose. She has not started new prescription yet. Clinic: [facility] in [place]. Tube And Rod Straightener: KALEY Peraza Gained about 30 lbs during [...] or cold intolerance: feels warm History of [place] or Amiodarone use:No Head or neck surgery/radiation:Yes: [...] Male Other Topics Concern Parent/sibling w/ CABG, [place] or angioplasty before 65F 55M? Not Asked Social History Narrative Not on file Social Determinants of Health Financial Resource Strain: High Risk (02/10/2021) Received from [employer] Financial Resource Strain Difficulty of Paying Living Expenses: Not on file Difficulty of Paying Living Expenses: Not on file Food Insecurity: Not on file Transportation Needs: Not on file Physical Activity: Not on file Stress: Not on file Social Connections: Unknown (02/10/2021) Received from [employer], [employer] Social Connections Frequency of Communication with Friends and Family: Not on file Interpersonal Safety: Not on file Housing Stability: Not on file MEDICATIONS: has a current medication list which includes the following prescription(s): levothyroxine, omeprazole magnesium, and vit w/rg-gxjpqfidf-op. ROS ROS: 10 point ROS neg other [...] clinic. Start new dose as recommended by CLIENT RELATIONSHIP EXECUTIVE Will review the recommendations and comment if [...] noted in AVS Anita Celis MD Endocrinology [facility] CC: [facility] documented in this encounter Nursing Notes * Azalia Childress - 06/13/2023 3:30 PM CDT Is the patient currently in the state of [place]? YES Visit mode:VIDEO If the visit is dropped, the patient can be reconnected by: VIDEO VISIT: Text to cell phone: Telephone Information: Will anyone else be joining the visit? NO (If patient encounters technical issues they should call [phone] :[phone]) How would you like to obtain your [...] type documented in this encounter Care Teams Sales Representative Womens Health Relationship Specialty Start Date End Date [address] [address] PCP - General 04/07/15 Anita Celis MD [address] [place] [address] [address] [place] [address] Assigned Endocrinology Provider 04/05/23 documented as of this encounter
--- OUTSIDE RECORDS SUMMARY | 2023-08-02 15:32 | XMS_ITS | Encounter Summary ---
Author Organization [facility] Address [address] [facility] [place] [address] Care Team Providers Care Farmer Vegetable Name Role Phone [facility] Primary Care Provider No Ref-Primary, Physician Primary Care Provider India Arora DO Primary Care Provider [phone] No Ref-Primary, Physician Primary Care Provider Brit García APRN [facility] Primary Care Provi saad Unavailable [facility] Primary Care Provider Anita Celis MD Unavailable [phone] Reason for Visit * Reason Onset Date Comments Nurse Advice Line 04/06/2011 Encounter Details Date Type Department Care Team (Late st Contact Info) Description 04/06/[address] [place] [address] [facility] [address] [place] [address] Nurse Advice Line Social History [...] Negin Masters - 10/31/2011 8:51 AM CDT [facility] Triage Call Report Patient Name: Kera Hale Call Date & Time: 04/06/2011 5:39:53PM Patient PCP Name: MRN: Patient Address: Patient Date of : 1990 Age: 21 yr. Patient Gender: Female Supervisor Inspection Department Name: Ora Joseph Presenting Problem: Calling that [...] on filedocumented in this encounter Care Teams Farmer Vegetable Relationship Specialty Start Date End Date [facility] PCP - General 02/26/11 06/02/12 No Ref-Primary, Physician PCP - General 06/03/12 07/01/13 India Arora DO PCP - General mine captain 07/02/13 02/04/14 No Ref-Primary, Physician PCP - General 02/05/14 04/13/14 Brit García APRN CNP PCP - General Nurse Practitioner - [facility] 07/13/14 04/06/15 [facility] [address] [place] [address] PCP - General 04/07/15 Anita Celis MD [address] [facility] [address] [place] [address] Assigned Endocrinology Provider 04/05/23 documented as of this encounter
--- OUTSIDE RECORDS SUMMARY | 2023-08-02 15:32 | XMS_ITS | Encounter Summary ---
Author Organization [facility] Address [address] [place] [place] [address] Care Team Providers Care State Manager Name Role Phone [facility], [facility] Primary Care Provider Anita Celis MD Unavailable [phone] Reason for Visit * Reason Onset Date Comments Call Back 06/11/2023 Patient Request 06/11/2023 Encounter Details Date Type Department Care Team (Late st Contact Info) Description 06/11/2023 Telephone [facility] [address] [facility] [address] [place] [address] Anita Celis MD [address] [place] [address] Call Back; Patient Request Social History Tobacco [...] on 06/12 at 3:30? Yasmin Barrios CMA [place] [phone] * Telephone Encounter - Emma Godwin - 06/12/2023 8:57 AM CDT Spoke with patient, she cannot do today. She gets off work at 3pm. * Telephone Encounter - Juliet Barrios CMA - 06/12/2023 8:21 AM CDT Offer 06/11 at 3 pm for in person or video visit with dr. Celis. Yasmin Barrios CMA [facility] [phone] * Telephone Encounter - Veronica Bello - 06/11/2023 12:09 PM CDT [facility] Phone Message May a detailed [...] her endo would like to see her. Joiner Apprentice then stated to patient she missed her appt. Action Taken: Message routed to: [facility] ([facility]): endo Travel Screening: Not Applicable documented in this encounter Plan of Treatment Not on file documented as of this encounter Visit Diagnoses Not on filedocumented in this encounter Care Teams State Manager Relationship Specialty Start Date End Date [address] [place] [address] PCP - General 04/07/15 Anita Celis MD [address] [place] [address] [address] [place] [address] Assigned Endocrinology Provider 04/05/23 documented as of this encounter
--- OUTSIDE RECORDS SUMMARY | 2023-08-02 15:32 | XMS_ITS | Encounter Summary ---
Author Organization [facility] Address [address] [facility] [place] [address] Care Team Providers Care Intern Name Role Phone [facility] Primary Care Provider No Ref-Primary, Physician Primary Care Provider India Arora DO Primary Care Provider [phone] No Ref-Primary, Physician Primary Care Provider Brit García APRN [facility] Primary Care Provi saad Unavailable [facility] Primary Care Provider Anita Celis MD Unavailable [phone] Reason for Visit * Reason Onset Date Comments Nurse Advice Line 08/25/2011 [facility] Encounter Details Date Type Department Care Team (Late st Contact Info) Description 08/25/2011 [facility] [address] [place] [address] [facility] [address] [place], [place] [address] Nurse Advice Line ([facility]NA) Social History Tobacco [...] eval of the IUD Juliet Spain RN [facility] documented in this encounter Plan of Treatment Not on file documented as of this encounter Visit Diagnoses Not on filedocumented in this encounter Care Teams Intern Relationship Specialty Start Date End Date Clinic - [facility] PCP - General 02/26/11 06/02/12 No Ref-Primary, Physician PCP - General 06/03/12 07/01/13 India Arora DO PCP - General complaint specialist 07/02/13 02/04/14 No Ref-Primary, Physician PCP - General 02/05/14 04/13/14 Brit García APRN STORAGE BATTERY CHARGER PCP - General Nurse Practitioner - [facility] 07/13/14 04/06/15 [facility], [address] [id number] PCP - General 04/07/15 Anita Celis MD [address] [place] [address] [address] [place] [address] Assigned Endocrinology Provider 04/05/23 documented as of this encounter
[2023-08-02 17:54] LABS: TSH With Reflex to FT4* 0.506 uIU/mL (0.270-4.200)
== END 2023-08-02 15:21 | disposition home or self-care (01) ==
LOC: NFLDREF 15:22
PROVIDERS: PCP Family Medicine; Visit Provider Obstetrics & Gynecology
DX: E03.9 Hypothyroidism, unspecified (principal)
CPT/HCPCS: 84443

== ENCOUNTER 2023-08-23 10:57 | Outpatient (CLI) | payer BC, MEDICAID, SELFPAY ==
--- NOTE | 2023-08-23 11:00 | CRLHL7_ITS ---
For Patients: As a result of the Century Cures Act, medical imaging exams and procedure reports are released immediately into your electronic medical record. You may view this report before your referring provider. If you have questions, please contact your health care provider. INDICATION: Third trimester scan, evaluate growth. COMPARISON: 06/21/2023 TECHNIQUE: Real time aguilar scale imaging of the fetus was performed. FINDINGS: Sonographic imaging demonstrates a single living intrauterine gestation. Fetus demonstrates a regular cardiac rate of 130 beats per minute. Fetus has a vertex position. The placenta lies anteriorly. Amniotic fluid volume appears normal and there is a single deepest vertical pocket: 5.3 cm. The estimated weight is 3384gm which lies at the 82nd %. On the prior OB ultrasound exam dated 07/01/2023 the estimated weight was at the 78th%. BPD 27th percentile. HC 34th percentile. AC greater than 97th percentile. FL 23rd percentile. The HC/AC ratio measures 0.92 range (0.92-1.05). IMPRESSION: Sonographic gestational age 37 weeks 1 day and sonographic due date of 09/12/2023. Good correlation with dates. Normal interval growth. Estimated weight 82nd percentile. Abdominal circumference greater than 97th percentile. Dictated by Indra Bonner MD @ 08/24/2023 7:45:22 PM (Electronically Signed)
--- OUTSIDE RECORDS SUMMARY | 2023-08-23 11:00 | XMS_ITS | Encounter Summary ---
Author Organization [facility] Address [address] [facility] [place] [address] Care Team Providers Care Yard Pilot Name Role Phone [facility], [facility] Primary Care Provider Anita Celis MD Unavailable [phone] Reason for Visit * Reason Comments RECHECK Thy, labs, utd Encounter Details Date Type Department Care Team (Late st Contact Info) Description 06/13/2023 3:30 PM CDT Virtual Visit [place] [address] [place] [address] Anita Celis MD [address] [facility] [address] [place] [address] Hypothyroidism, unspecified type Social History [...] Celis MD - 06/13/2023 3:[address] [facility] [address] Celis, Endocrinology Department [place] [address] [place] [address] Appointment [phone] [place]: Saturday - Please ask your OB provider to fax records to endocrinology clinic. Start new dose as recommended by CORRECTIONAL MAINTENANCE TECHNICIAN Will review the recommendations and comment if [...] Video ended:3;52 Provider location: working from home/ [facility] Patient location: patients home. Mode of transmission: [employer] video/ [employer] Verbal consent: obtained before starting visit. Pt [...] Referring provider Elena Giraldo APRN CNM outside [facility]. No recent lab results to review. Limited [...] She reports that she is followed by CORRECTIONAL MAINTENANCE TECHNICIAN at local clinic. She reports that she [...] at that time thedose was increased by CORRECTIONAL MAINTENANCE TECHNICIAN and she was asked to follow-up with CORRECTIONAL MAINTENANCE TECHNICIAN. They told her that they can manage levothyroxine dosing but after 03/2023 labs with high TSH and she was asked to follow-up with endocrinology again.--See telephone encounter from 04/11/2023) She reports that she recently had labs done by bookmaker's clerk at CORRECTIONAL MAINTENANCE TECHNICIAN clinic-- but no labs to review or paperwork sent. She reports that based on those labs her bookmaker's clerk has recommended to increase the dose but she is not sure about the dose. She has not started new prescription yet. Clinic: [facility] clinic in [place]. Distributor Cleaner: KALEY Peraza Gained about 30 lbs during [...] or cold intolerance: feels warm History of [place] or Amiodarone use:No Head or neck surgery/radiation:Yes: [...] Male Other Topics Concern Parent/sibling w/ CABG, [place] or angioplasty before 65F 55M? Not Asked Social History Narrative Not on file Social Determinants of Health Financial Resource Strain: High Risk (02/10/2021) Received from [employer] Financial Resource Strain Difficulty of Paying Living Expenses: Not on file Difficulty of Paying Living Expenses: Not on file Food Insecurity: Not on file Transportation Needs: Not on file Physical Activity: Not on file Stress: Not on file Social Connections: Unknown (02/10/2021) Received from [employer] Social Connections Frequency of Communication with Friends and Family: Not on file Interpersonal Safety: Not on file Housing Stability: Not on file MEDICATIONS: has a current medication list which includes the following prescription(s): levothyroxine, omeprazole magnesium, and vit w/qn-iwwercfws-ww. ROS ROS: 10 point ROS neg other [...] clinic. Start new dose as recommended by CORRECTIONAL MAINTENANCE TECHNICIAN Will review the recommendations and comment if [...] noted in AVS Anita Celis MD Endocrinology [facility] CC: [facility] documented in this encounter Nursing Notes * Azalia Childress - 06/13/2023 3:30 PM CDT Is the patient currently in the state of [place]? YES Visit mode:VIDEO If the visit is dropped, the patient can be reconnected by: VIDEO VISIT: Text to cell phone: Telephone Information: Will anyone else be joining the visit? NO (If patient encounters technical issues they should call [phone] :[phone]) How would you like to obtain your [...] type documented in this encounter Care Teams Yard Pilot Relationship Specialty Start Date End Date [address] [address] PCP - General 04/07/15 Anita Celis MD [address] [place] [address] [address] [place] [address] Assigned Endocrinology Provider 04/05/23 documented as of this encounter
--- OUTSIDE RECORDS SUMMARY | 2023-08-23 11:00 | XMS_ITS | Encounter Summary ---
Author Organization [place] Address [facility] [facility] [place] [address] Care Team Providers Care Ccna Name Role Phone [facility] Primary Care Provider Anita Celis MD Unavailable [phone] Reason for Visit * Reason Comments Medication Refill Encounter Details Date Type Department Care Team (Late st Contact Info) Description 06/18/2023 Refill [facility] [address] [facility] [address] [place] [address] Anita Celis MD [address] [place], [place] [address] Medication Refill Social History Tobacco Use Types [...] type documented in this encounter Care Teams Ccna Relationship Specialty Start Date End Date [facility] [address] [place] [address] PCP - General 04/07/15 Anita Celis MD [address] [facility] [address] [place] [address] Assigned Endocrinology Provider 04/05/23 documented as of this encounter
--- OUTSIDE RECORDS SUMMARY | 2023-08-23 11:00 | XMS_ITS | Referral Summary ---
Author Organization [facility] Address [address] [place] [address] Care Team Providers Care Hose Stripper Name Role Phone Unavailable Primary Care Provider Unavailabl e Source Comments Patient records contain information from all sites at [facility]. For routine questions regarding patient records, call [phone] during business hours, M-F 8:00 AM - 5:00 PM Central Time. Record requests for emergency care only can be directed to [phone] at any time.[facility] Allergies Active Allergy Reactions Criticality Noted [...] HORMONE-SENSITIVE (S-TSH), S Routine 01/26/2020 4:37 PM BREEDING TECHNICIAN from Last 3 Months or Most Recently Relevant to Health Maintenance
--- OUTSIDE RECORDS SUMMARY | 2023-08-23 11:00 | XMS_ITS | Clinical Summary ---
Author Organization [facility] Address [place], [place] [address] Care Team Providers Care Materials Inspector Name Role Phone Guilherme Olguin MD Unavailable [...] 06/11/2020 Active azelastine 137 mcg/actuation (ASTELIN) nasal sprayIndications:Building Attendant aye pansinusitis,Mucous retention cyst of maxillary sinus,Allergic [...] 0.01, T3 298, TSI 5.3. left for [place] and no treatment till 01/2013. Poor concentration, forgetfulness, shakiness, nervous, hyperactive, restless, weight loss, history of lose BMs. Weak muscles. 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 left for sabana grande and no treatment till 01/2013. Poor concentration, [...] 03/08/2020 Overview: GBS negative. (Lab drawn at [facility] on 02/03/17) Limited care. Kyleena or depo [...] 0.01, T3 298, TSI 5.3. left for sabana grande and no treatment till 01/2013. Poor concentration, [...] 02/28/17) REFERRING PHYSICIAN/PHONE/LAST UPDATE: Olivia Shaw NP, [facility] - [phone] Primary MD approves scheduling of recommended ultrasounds/testing: Unknown SPECIALISTS/PHONE: Neurology [facility] - last seen 12/19/15 - notes scanned SREEDHAR: SREEDHAR signed for [facility]: CARE COORDINATION: GENETICS: PROCEDURES: PERTINENT LABS: Blood type: Last pap: Initial Hgb /Ferritin Hgb 28 wk Hgb 36 wk Repeat hgb anemic and compliant every 4 wks if/until >11.0 MEDS: Synthroid 150 mcg daily vitamin Miralax PRN NEXT VISIT ALERTS: FUTURE APPOINTMENTS: Testing: Through Growth: OB visits: Through TESTING PLANS: TAX MANAGER: CONSULTS: NURSING: DEPRESSION SCREEN Initial screen: Date [...] RNC.....01/15/2017 9:45 AM consult 08/02/2016 03/08/2020 Overview: [facility] MOMS CONSULTATION ON 08/06/2016 F/U [...] 02/28/17) REFERRING PHYSICIAN/PHONE/LAST UPDATE: Olivia Shaw NP, [facility] - [phone] Primary MD approves scheduling of recommended ultrasounds/testing: Unknown SPECIALISTS/PHONE: Neurology [facility] - last seen 12/19/15 - notes scanned SREEDHAR: SREEDHAR signed for [facility]: CARE COORDINATION: GENETICS: PROCEDURES: PERTINENT LABS: Blood type: Last pap: Initial Hgb /Ferritin Hgb 28 wk Hgb 36 wk Repeat hgb anemic and compliant every 4 wks if/until >11.0 MEDS: Synthroid 150 mcg daily vitamin Miralax PRN NEXT VISIT ALERTS: FUTURE APPOINTMENTS: Testing: Through Growth: OB visits: Through TESTING PLANS: TAX MANAGER: CONSULTS: NURSING: DEPRESSION SCREEN Initial screen: Date [...] Vag Epidur al Livin g Amanda Delivery Location:[facility] 4 SAB SPONTA NEOUS Comments:Blighted Ovum 2014 Term 2.72 kg (6 lb) F Vag-Sp ont Livin g Umm za Delivery Location:[place] 2015 Term 40w 1d 3.18 kg (7 lb) M Vag None N Livin g Peter Complications:None Delivery Location:[place] 2017 Term 39w 4d M Vag Livin g Santosh 2017 Term 39w 2d 0h 11m 3.29 kg (7 lb 4 oz) F Vag Epidur al N Livin g 9 9 BONIL LA,BG DANAYMI N Cosmo k Complications:None Delivery Location:[facility]) Last Filed Vital Signs Vital Sign Reading Time Taken Comments Blood Pressure 120/73 04/13/2020 3:58 PM GREEN FEED ATTENDANT Pulse 85 04/13/2020 3:58 PM GREEN FEED ATTENDANT Temperature 37.1 ??C (98.7 ??F) 03/07/2020 3:36 PM CS T Respiratory Rate 20 03/24/2020 3:34 PM GREEN FEED ATTENDANT Oxygen Saturation 99% 04/13/2020 3:58 PM GREEN FEED ATTENDANT Inhaled Oxygen Concentration - - Weight 60.8 kg (134 lb) 03/07/2020 3:36 PM GREEN FEED ATTENDANT Height 156 cm (5' 1.42) 03/07/2020 3:36 PM GREEN FEED ATTENDANT Body Mass Index 24.98 03/07/2020 3:36 PM GREEN FEED ATTENDANT Plan of Treatment Health Maintenance Due Date [...] this topic Medical Devices Implanted Type Area Commercial Interior Designer Device Identifier Shelf Expiration Date Model / Serial / Lot Stent Ent Mini Steroid-Releas ing Propel Bioabsorb - [id number] Implanted:Qty: 2 on 04/22/2017 by Pedro Plascencia MD at [facility] Bilateral : Nose [employer] 10/30/2018 [id number]# / / [id number] Stent Sinus 8mm Propel Contour Bioabsorb - [id number] Implanted:Qty: 1 on 04/22/2017 by Pedro Plascencia MD at [facility] Left: [employer] 10/19/2018 [id number]# / / [id number] Procedures Procedure Name Priority Date/Time Associated Diagnosis Comments HPV THIN PREP Routine 10/31/2021 12:00 PM CDT ANTI HIV 1/2 Routine 10/29/2017 10:21 AM CDT , unspecified gestational age ANTI HCV Routine 11/02/2014 5:51 PM CDT from Last 3 Months or Most Recently Relevant to Health Maintenance Results * HPV HIGH RISK (10/31/2021 12:00 PM CDT) TYPE 16 Negative Negative 11/03/2021 11:22 AM CDT [facility] TYPE 18 Negative Negative 11/03/2021 11:22 AM CDT [facility] OTHER HIGH RISK TYPES Negative Negative 11/03/2021 11:22 AM CDT [facility] Other (Cervical) 10/31/2021 12:00 PM CDT 11/02/2021 9:17 AM CDT Narrative [facility] - 11/03/2021 11:22 AM CDT HPV types 16, 18, 31, 33, 35, 39, 45, 51, 52, 56, 58, 59, 66 and 68 DNA were undetectable or below the pre-set threshold. Methodology: Kenisha Simone 4800 HPV Test Agnieszka Horan NP MICROBIOLOGY [facility] [address] [place] [address], * ANTI HIV 1/2 (10/29/2017 10:21 AM CDT) HIV-1/HIV-2 ANTIBODY Non-Reacti ve Non-Reacti ve 10/29/2017 5:05 PM CDT [facility] Comment:HIV-1 p24 and HIV-1/ HIV-2 Ab not detected. Blood BLOOD SPECIMEN / Unknown Venipuncture / Unknown 10/29/2017 10:21 AM CDT 10/29/2017 10:21 AM CDT Jessica Machado MD SEND OUTS [facility] [address] [place] [address], * ANTI HCV (11/02/2014 5:51 PM CDT) HEPATITIS C ANTIBODY Non-Reacti ve Non-Reacti ve 11/03/2014 1:19 PM CDT [facility] Blood specimen (specimen) BLOOD SPECIMEN / Unknown Venipuncture / Unknown 11/02/2014 5:51 PM CDT 11/02/2014 5:51 PM CDT Narrative [facility] - 11/03/2014 1:19 PM CDT Antibodies to HCV not detected; does not exclude the possibility of exposure to HCV. Vale ROCHE [facility]END OUTS [facility] [address] [place] [address], from Last 3 Months or Most Recently [...] Code Status Discussion: Not Discussed Care Teams Materials Inspector Relationship Specialty Start Date End Date Pcp, No . PCP - General 09/30/20 Guilherme Olguin MD FORMING DEPARTMENT SUPERVISOR Obstetrics and Gynecology 01/25/11
--- OUTSIDE RECORDS SUMMARY | 2023-08-23 11:00 | XMS_ITS | Encounter Summary ---
Author Organization [facility] Address [address] [facility] [place] [address] Care Team Providers Care Product Design Engineer Name Role Phone [facility], [facility] Primary Care Provider Anita Celis MD Unavailable [phone] Reason for Visit * Reason Onset Date Comments Call Back 08/16/2023 Questions Encounter Details Date Type Department Care Team (Late st Contact Info) Description 08/16/2023 Telephone [facility] [address] [place] [address] Anita Celis MD [address] [place] [address] Call Back (Questions ) Social History Tobacco Use Types Packs/Day Years [...] * Telephone Encounter - Emma Godwin - 08/21/2023 11:17 AM CDT 08.20- No answer/VM full, sent SMS notification * Telephone Encounter - Dagoberto Godwin - 08/19/2023 10:46 AM CDT 08.18- lmtcb x1 to schedule follow up appointment with lab only 1 week prior tesfaye. Okay to scheduleduring a COLTON. * Telephone Encounter - Charissa Barrios RN - 08/16/2023 12:16 PM CDT Pt is due for thyroid labs labs are already in place. Pt can have labs done. See notes from TE 5/6: Labs in 6 weeks (very important) Please make a lab appointment for blood work and follow up clinic appointment in 1 week after that to discuss results. COLTON ok. #1. Postablative hypothyroidism: History of Graves' disease [...] clinic. Start new dose as recommended by ENDOSCOPY SPECIALTY TECHNICIAN Will review the recommendations and comment if needed. * Telephone Encounter - Yris Tapia - 08/16/2023 11:58 AM CDT [facility] Call Center Phone Message May a detailed message be left on voicemail: yes Reason for Call: Other: Per pt would like to speak with someone on the team about her thyroid. Per pt would like her thyroid recheck? Please call her back thank you! Action Taken: Message routed to: [facility] ENDO Travel Screening: Not Applicable Date of Service: documented in this encounter Plan of Treatment Not on file documented as of this encounter Visit Diagnoses Not on filedocumented in this encounter Care Teams Product Design Engineer Relationship Specialty Start Date End Date Clinic, [address] [address] PCP - General 04/07/15 Anita Celis MD [address] [place] [address] [address] [place] [address] Assigned Endocrinology Provider 04/05/23 documented as of this encounter
--- OUTSIDE RECORDS SUMMARY | 2023-08-23 11:00 | XMS_ITS ---
Author Organization [facility] Address [address] [place] [address] Care Team Providers Care Educational Guidance Counselor Name Role Phone Unavailable Unavailable Unavailable Surgery Details Not on file Complications Check Surgery Details section. Procedure Estimated Blood Loss Check Surgery Details section. Procedure Findings Check Surgery Details section. Procedure Specimens Taken Check Surgery Details section.
--- OUTSIDE RECORDS SUMMARY | 2023-08-23 11:00 | XMS_ITS | Clinical Summary ---
Author Organization [place] Address [address] [place] [address] Care Team Providers Care Electric Motor Tester Assembler Name Role Phone Clinic, [facility] Primary Care Provider Anita Celis MD Unavailable [phone] Allergies No known active allergies Medications Medication Sig Dispensed Refills Start Date End Date Status Vit w/Vk-Xnncxmmwu-VA (PNV PO) Take 1 tablet by mouth [...] 07/17/2011 Pain in thoracic spine 05/18/201107/16 [facility] 05/02/2011 07/29/2023 Overview: DX V65.8 REPLACED WITH 37191 HEALTH DETENTION (05/19/2012) Mirena IUD placed 05/02/2011 05/02/2011 07/02/2013 [...] Encounters Date Type Department Care Team Description 08/16/2023 Telephone [facility] [address] [place] [phone] Anita Celis MD Call Back (Questions ) 06/18/2023 Refill [facility] [address] [place] [phone] Anita Celis MD Medication Refill 06/17/2023 Telephone [facility] [address] [place] [phone] Anita Celis MD 06/13/2023 3:30 PM CDT Virtual Visit [facility] [address] [place] [phone] Anita Celis MD Hypothyroidism, unspecified type 06/11/2023 Telephone [facility] [address] [place] [phone] Anita Celis MD Call Back; Patient Request from Last 3 Months Immunizations Name Administration Dates Next Due DTAP (<7y) 06/27/1995,1992,1992 ,1992 HIB (PRP-T) 06/27/1995,1992,1992 ,1992 HepB 03/17/1996,08/29/1995,06/27/1995 Influenza (IIV3) PF 03/24/2011,12/25/2009 MMR 03/24/2011,06/27/1995 OPV, trivalent, live 06/27/1995,1992,07/27 TD,PF 7+ ([facility] [place]) 10/11/2004 Varicella 10/11/2004 Family History Medical History [...] Comments Blood Pressure 99/66 03/13/2023 11:34 AM MEDICAL TERRITORY MANAGER Pulse 114 03/13/2023 11:34 AM MEDICAL TERRITORY MANAGER Temperature 37 ??C (98.6 ??F) 03/13/2023 11:34 AM MEDICAL TERRITORY MANAGER Respiratory Rate 18 03/13/2023 11:34 AM MEDICAL TERRITORY MANAGER Oxygen Saturation 94% 03/13/2023 11:34 AM MEDICAL TERRITORY MANAGER Inhaled Oxygen Concentration - - Weight 71.8 kg (158 lb 3.2 oz) 03/13/2023 11:34 AM MEDICAL TERRITORY MANAGER Height 153.7 cm (5' 0.5) 03/13/2023 11:34 AM CS T Body Mass Index 30.39 03/13/2023 11:34 AM MEDICAL TERRITORY MANAGER Plan of Treatment Health Maintenance Due Date Last Done Comments ADVANCE CARE PLANNING 1992 ANNUAL REVIEW OF HM ORDERS 1992 YEARLY PREVENTIVE VISIT 1992 IPV IMMUNIZATION (4 of 4 - 4-dose series) 1996 06/27/1995, 1992, 1992 HEPATITIS C SCREENING 2010 COVID-19 Vaccine ( season) 2022 12/09/2021, 11/11/2021 INFLUENZA VACCINE (#1) 2023 9, 11/17/2017, 03/24/2011, Additional history exists TSH W/FREE [...] (TSH) (EXTERNAL RESULT) Routine 04/11/2023 9:32 AM MEDICAL TERRITORY MANAGER ABSTRACT PAP (HIM EXTERNAL RESULT) Routine 05/12/2013 HIV 1 AND 2 ANTIBODY (QUEST) Routine 10/24/2010 11:41 AM CDT Supervision of normal first from Last 3 Months or Most Recently Relevant to Health Maintenance Results * (ABNORMAL) Thyroid Stimulating Hormone (TSH) (External Result) (04/11/2023 9:32 AM MEDICAL TERRITORY MANAGER) TSH (External) 50.300(A) 0.270 - 4.200 uIU/mL [facility] Blood 04/11/2023 9:32 AM MEDICAL TERRITORY MANAGER Narrative [facility] - 04/11/2023 9:32 AM MEDICAL TERRITORY MANAGER [facility] Lab Results Provider Outside LAB - HIM EXTERNAL R ESULT [facility] [address] [phone] * ABSTRACT PAP-NO CHARGE (05/12/2013) 05/12/2013 Impressions EXTERNAL LAB - 05/12/2013 Information from office visit dated: 06/12/2013 Pap smear done on ??this date: 05/2013 (approximately), by this group: [facility] [place], results were WNL. ?? Provider Outside LAB - HIM EXTERNAL R ESULT EXTERNAL LAB External Lab * HIV 1 and 2 Antibody (10/24/2010 11:41 AM CDT) HIV 1&2 Antibody Negative [facility]G [facility] Blood specimen (specimen) 10/24/2010 11:41 AM CDT 10/24/2010 11:46 AM CDT India Arora DO LAB - BLOOD ORDER GERRI [facility] from Last 3 Months or Most Recently Relevant to Health Maintenance Care Teams Electric Motor Tester Assembler Relationship Specialty Start Date End Date [facility] [place] [address] [place] [address] PCP - General 04/07/15 Anita Celis MD [address] [facility] [address] [place] [address] Assigned Endocrinology Provider 04/05/23
--- OUTSIDE RECORDS SUMMARY | 2023-08-23 11:00 | XMS_ITS | Encounter Summary ---
Author Organization [place] Address [address] [facility] [place] [address] Care Team Providers Care Cardiac Rn Name Role Phone [facility] Primary Care Provider No Ref-Primary, Physician Primary Care Provider India Arora DO Primary Care Provider [phone] No Ref-Primary, Physician Primary Care Provider Brit García APRN [facility] Primary Care Provi saad Unavailable [facility] Primary Care Provider Anita Celis MD Unavailable [phone] Reason for Visit * Reason Onset Date Comments Nurse Advice Line 08/25/2011 FNA Encounter Details Date Type Department Care Team (Late st Contact Info) Description 08/25/2011 [facility] [address] [place] [address] [facility] [address] [place], [place] [address] Nurse Advice Line (FNA) Social History Tobacco [...] in ED and then follow up at [facility] for eval of the IUD Juliet Spain RN [facility] documented in this encounter Plan of Treatment Not on file documented as of this encounter Visit Diagnoses Not on filedocumented in this encounter Care Teams Cardiac Rn Relationship Specialty Start Date End Date Clinic - [facility] PCP - General 02/26/11 06/02/12 No Ref-Primary, Physician PCP - General 06/03/12 07/01/13 India Arora DO PCP - General nurses' association counselor 07/02/13 02/04/14 No Ref-Primary, Physician PCP - General 02/05/14 04/13/14 Brit García APRN REFERRAL NURSE PCP - General Nurse Practitioner - [facility] 07/13/14 04/06/15 [facility], [address] [id number] PCP - General 04/07/15 Anita Celis MD [address] [place] [address] [address] [place] [address] Assigned Endocrinology Provider 04/05/23 documented as of this encounter
--- OUTSIDE RECORDS SUMMARY | 2023-08-23 11:00 | XMS_ITS | Encounter Summary ---
Author Organization [place] Address [address] [place] [address] Care Team Providers Care Load Dispatcher Local Name Role Phone [facility], [facility] Primary Care Provider Anita Celis MD Unavailable [phone] Reason for Visit * Reason Onset Date Comments Call Back 06/11/2023 Patient Request 06/11/2023 Encounter Details Date Type Department Care Team (Late st Contact Info) Description 06/11/2023 Telephone [facility] [address] [facility] [address] [place] [address] Anita Celis MD [address] [place] [address] Call Back; Patient Request Social [...] on 06/12 at 3:30? Yasmin Barrios CMA [place] [phone] * Telephone Encounter - Emma Godwin - 06/12/2023 8:57 AM CDT Spoke with patient, she cannot do today. She gets off work at 3pm. * Telephone Encounter - Juliet Barrios CMA - 06/12/2023 8:21 AM CDT Offer 06/11 at 3 pm for in person or video visit with dr. Celis. Yasmin Barrios CMA [facility] [phone] * Telephone Encounter - Veronica Bello - 06/11/2023 12:09 PM CDT [facility] Phone Message May a [...] her endo would like to see her. Hot Metal Mixer Operator then stated to patient she missed her appt. Action Taken: Message routed to: [facility] endo Travel Screening: Not Applicable documented in this encounter Plan of Treatment Not on file documented as of this encounter Visit Diagnoses Not on filedocumented in this encounter Care Teams Load Dispatcher Local Relationship Specialty Start Date End Date [address] [place] [address] PCP - General 04/07/15 Anita Celis MD [address] [place] [address] [address] [place] [address] Assigned Endocrinology Provider 04/05/23 documented as of this encounter
--- OUTSIDE RECORDS SUMMARY | 2023-08-23 11:00 | XMS_ITS | Referral Summary ---
Author Organization [place] Address [address] [facility] [place] [address] Care Team Providers Care Cooker Operator Name Role Phone [facility], [facility] Primary Care Provider Anita Celis MD Unavailable [phone] Encounters Date Type Department Care Team Description 08/16/2023 Telephone [facility] [address] [place] [address] Anita Celis MD Call Back (Questions ) 06/18/2023 Refill [facility] [address] [place] [phone] Anita Celis MD Medication Refill 06/17/2023 Telephone [facility] [address] [place] [phone] Anita Celis MD 06/13/2023 3:30 PM CDT Virtual Visit [facility] [address] [place] [address] Anita Celis MD Hypothyroidism, unspecified type 06/11/2023 Telephone [facility] [address] [place] [phone] Anita Celis MD Call Back; Patient Request from Last 3 Months Allergies No known active allergies Medications Medication Sig Dispensed Refills Start Date End Date Status Vit w/Zt-Vygtzdkiz-UQ (PNV PO) Take 1 tablet by mouth [...] Pain in thoracic spine 05/18/201107/16 [facility] 05/02/2011 07/29/2023 Overview: DX V65.8 REPLACED WITH 18564 HEALTH FCI (05/19/2012) Mirena IUD placed 05/02/2011 05/02/2011 07/02/2013 [...] 03/24/2011,06/27/1995 OPV, trivalent, live 06/27/1995,1992,07/27 TD,PF 7+ ([facility]) 10/11/2004 Varicella 10/11/2004 Social History Tobacco Use [...] Comments Blood Pressure 99/66 03/13/2023 11:34 AM LAMINATING MACHINE FEEDER Pulse 114 03/13/2023 11:34 AM LAMINATING MACHINE FEEDER Temperature 37 ??C (98.6 ??F) 03/13/2023 11:34 AM LAMINATING MACHINE FEEDER Respiratory Rate 18 03/13/2023 11:34 AM LAMINATING MACHINE FEEDER Oxygen Saturation 94% 03/13/2023 11:34 AM LAMINATING MACHINE FEEDER Inhaled Oxygen Concentration - - Weight 71.8 kg (158 lb 3.2 oz) 03/13/2023 11:34 AM LAMINATING MACHINE FEEDER Height 153.7 cm (5' 0.5) 03/13/2023 11:34 AM CS T Body Mass Index 30.39 03/13/2023 11:34 AM LAMINATING MACHINE FEEDER Plan of Treatment Not on file Procedures Procedure Name Priority Date/Time Associated Diagnosis Comments THYROID STIMULATING HORMONE (TSH) (EXTERNAL RESULT) Routine 04/11/2023 9:32 AM LAMINATING MACHINE FEEDER ABSTRACT PAP (HIM EXTERNAL RESULT) Routine 05/12/2013 HIV 1 AND 2 ANTIBODY (QUEST) Routine 10/24/2010 11:41 AM CDT Supervision of normal first from Last 3 Months or Most Recently Relevant to Health Maintenance Results * (ABNORMAL) Thyroid Stimulating Hormone (TSH) (External Result) (04/11/2023 9:32 AM LAMINATING MACHINE FEEDER) TSH (External) 50.300(A) 0.270 - 4.200 uIU/mL [facility] Blood 04/11/2023 9:32 AM LAMINATING MACHINE FEEDER Narrative [facility] - 04/11/2023 9:32 AM LAMINATING MACHINE FEEDER [facility]-External Lab Results Provider Outside LAB - HIM EXTERNAL R ESULT [facility] [address] [place] [address], [facility] [phone] * ABSTRACT PAP-NO CHARGE (05/12/2013) 05/12/2013 Impressions EXTERNAL LAB - 05/12/2013 Information from office visit dated: 06/12/2013 Pap smear done on ??this date: 05/2013 (approximately), by this group: [facility] [place], results were WNL. ?? Provider Outside LAB - HIM EXTERNAL R ESULT EXTERNAL LAB External Lab * HIV 1 and 2 Antibody (10/24/2010 11:41 AM CDT) HIV 1&2 Antibody Negative [facility]G [facility] Blood specimen (specimen) 10/24/2010 11:41 AM CDT 10/24/2010 11:46 AM CDT India Arora DO LAB - BLOOD ORDER GERRI [facility] from Last 3 Months or Most Recently Relevant to Health Maintenance Care Teams Cooker Operator Relationship Specialty Start Date End Date [facility], [facility] [address] [place] [address] PCP - General 04/07/15 Anita Celis MD [address] [place] [address] [address] [place] [address] Assigned Endocrinology Provider 04/05/23
--- OUTSIDE RECORDS SUMMARY | 2023-08-23 11:00 | XMS_ITS | Clinical Summary ---
Author Organization [facility] Address [address] [place] [address] Care Team Providers Care Track Worker Name Role Phone Unavailable Primary Care Provider Unavailabl e Source Comments Patient records contain information from all sites at [facility]. For routine questions regarding patient records, call [phone] during business hours, M-F 8:00 AM - 5:00 PM Central Time. Record requests for emergency care only can be directed to [phone] at any time.[facility] Allergies Active Allergy Reactions Criticality Noted Date [...] Vaccine ( - season) 2022 12/09/2021, 11/11/2021 Depression Screening (Annual PHQ-2) 02/11/2023 Influenza Vaccine (#1) 2023 9, 11/17/2017, 03/24/2011, Additional history exists Cervical Cancer Screening 10/31/2024 10/31/2021 DTaP,Tdap,and Td Vaccines (11 - Td or Tdap) 11/06/2028 11/06/2018, 12/05/2017, 12/19/2016, Additional history exists Hepatitis B Vaccines Completed 03/17/1996, 08/29/1995, 06/27/1995 HPV Vaccines Aged Out No longer eligi ble based on patient's age to complete this topic Procedures Procedure Name Priority Date/Time Associated Diagnosis Comments EXTI THYROID-STIMULATING HORMONE-SENSITIVE (S-TSH), S Routine 01/26/2020 4:37 PM PENAL OFFICER from Last 3 Months or Most Recently Relevant to Health Maintenance
--- OUTSIDE RECORDS SUMMARY | 2023-08-23 11:00 | XMS_ITS | Encounter Summary ---
Author Organization [place] Address [address] [facility] [place] [address] Care Team Providers Care Acid Pump Operator Name Role Phone [facility], [facility] Primary Care Provider Anita Celis MD Unavailable [phone] Encounter Details Date Type Department Care Team (Late st Contact Info) Description 06/17/2023 Telephone [facility] [address] [place] [address] Anita Celis MD [address] [place] [address] Social History Tobacco Use Types [...] QDAY Qty: 30 1RF Yasmin Barrios CMA [facility] Endocrinology [place] [phone] * Telephone Encounter - Juliet Barrios CMA - 06/17/2023 8:01 AM CDT please get records from OB clinic. She reports that she recently had labs done in May 2023 and based on labs dose was changed by her trading specialist/PA. She is not sure about the labs and what dose she is supposed to take. She has not started new dose yet. She appears confused about the dosing. She wouldlike to continue care with endocrinology. [facility] provider [facility] in [place]. Please check with patient about the name [...] Primary documented in this encounter Care Teams Acid Pump Operator Relationship Specialty Start Date End Date [facility], [address] [address] PCP - General 04/07/15 Anita Celis MD [address] [facility] [address] [place] [address] Assigned Endocrinology Provider 04/05/23 documented as of this encounter
--- OUTSIDE RECORDS SUMMARY | 2023-08-23 11:01 | XMS_ITS | Encounter Summary ---
Author Organization [place] Address [address] [facility] [place] [address] Care Team Providers Care Audio Visual Manager Name Role Phone [facility] Primary Care Provider No Ref-Primary, Physician Primary Care Provider India Arora DO Primary Care Provider [phone] No Ref-Primary, Physician Primary Care Provider Brit García APRN [facility] Primary Care Provi saad Unavailable [facility] Primary Care Provider Anita Celis MD Unavailable [phone] Reason for Visit * Reason Onset Date Comments Nurse Advice Line 04/06/2011 Encounter Details Date Type Department Care Team (Late st Contact Info) Description 04/06/[address] [place] [address] [facility] [address] [place] [address] Nurse Advice Line Social History [...] Negin Masters - 10/31/2011 8:51 AM CDT [place] [facility] Triage Call Report Patient Name: Kera Hale Call Date & Time: 04/06/2011 5:39:53PM Patient PCP Name: MRN: Patient Address: Patient Date of : 1990 Age: 21 yr. Patient Gender: Female Location Worker Name: Ora Joseph Presenting Problem: Calling that [...] on filedocumented in this encounter Care Teams Audio Visual Manager Relationship Specialty Start Date End Date [facility] PCP - General 02/26/11 06/02/12 No Ref-Primary, Physician PCP - General 06/03/12 07/01/13 India Arora DO PCP - General emt i/85 07/02/13 02/04/14 No Ref-Primary, Physician PCP - General 02/05/14 04/13/14 Brit García APRN CNP PCP - General Nurse Practitioner - [facility] 07/13/14 04/06/15 [facility] [address] [place] [address] PCP - General 04/07/15 Anita Celis MD [address] [facility] [address] [place] [address] Assigned Endocrinology Provider 04/05/23 documented as of this encounter
== END 2023-08-23 10:58 | disposition home or self-care (01) ==
LOC: US 10:58
PROVIDERS: PCP Family Medicine; Visit Provider Obstetrics & Gynecology
DX: Z34.93 Encounter for supervision of normal pregnancy, unspecified, third trimester (principal); Z3A.37 37 weeks gestation of pregnancy
CPT/HCPCS: 76816

== ENCOUNTER 2023-08-24 23:06 | Emergency (ER) | payer BC, MEDICAID, SELFPAY ==
[2023-08-24 23:24] VITALS: BP 153/79; PULSE 94; RESP 20; TEMP 36.6; O2SAT 94
[2023-08-24 23:34] VITALS: BP 116/75
--- NOTE | 2023-08-24 23:38 | ED.ASTHMA ---
HPI - Asthma General Chief Complaint: Asthma Stated Complaint: asthma Time Seen by Provider: 08/24/23 23:26 History of Present Illness HPI Narrative: Patient is a 33-year-old woman who has history of asthma. She is also in the 3rd trimester of her . She has no sick exposures no viral syndrome her symptoms are just significant asthma. Yamilet she is having having symptoms for last week worse today. She is using her albuterol inhaler with limited effect. Evaluation upon arrival shows a blood pressure 153/79 oxygen saturations 94% on room air. Related Data Home Medications ?Medication ?Instructions ?Recorded ?Confirmed levothyroxine 200 mcg tablet 200 mcg PO QDAY 06/21/23 08/24/23 docosahexaenoic acid 200 mg mg PO 08/02/23 08/20/23 capsule ( DHA) albuterol sulfate 2.5 mg/3 mL 1 Q4-6H 08/24/23 (0.083 %) solution for nebulization Previous Rx's ?Medication ?Instructions ?Recorded montelukast 10 mg tablet 10 mg PO QHS #90 tabs 06/22/22 gilbert.stocking,thigh,reg,med #2 ea 06/04/23 compression socks, medium #2 ea 06/21/23 prednisone 20 mg tablet 20 mg PO BID #10 tabs 07/10/23 Allergies Allergy/AdvReac Type Severity Reaction Status Date / Time etonogestrel [From Nexplanon] Allergy Mild Verified 08/24/23 23:22 Review of Systems Status of ROS Reports: 10 or more systems reviewed and unremarkable except as noted in History and below [facility] Medical History History of thyroid irradiation ?Z92.3 - Personal history of irradiation (ICD-10) History of Graves' disease ?Z86.39 - Personal history of other endocrine, nutritional and metabolic disease (ICD-10) PTSD (post-traumatic stress disorder) ?F43.10 - Post-traumatic stress disorder, unspecified (ICD-10) Moderate persistent asthma ?J45.40 - Moderate persistent asthma, uncomplicated (ICD-10) Varicose veins of both legs with edema ?I83.893 - Varicose veins of bilateral lower extremities with other complications (ICD-10) Recurrent urinary tract infection ?N39.0 - Urinary tract infection, site not specified (ICD-10) Positive antinuclear antibody (01/26/20) ?R76.8 - Other specified abnormal immunological findings in serum (ICD-10) Numbness and tingling of right upper extremity ?R20.0 - Anesthesia of skin (ICD-10) ?R20.2 - Paresthesia of skin (ICD-10) Moderate asthma without complication ?J45.909 - Unspecified asthma, uncomplicated (ICD-10) Meniere's disease ?H81.09 - Meniere's disease, unspecified ear (ICD-10) Incomplete spontaneous (2013) ?O03.4 - Incomplete spontaneous without complication (ICD-10) Hypothyroidism ?E03.9 - Hypothyroidism, unspecified (ICD-10) History of use of contraceptive intrauterine device (IUD) (01/2020) ?Z92.0 - Personal history of contraception (ICD-10) History of severe acute respiratory syndrome coronavirus 2 (SARS-CoV-2) disease (12/24/19) ?Z86.16 - Personal history of COVID-19 (ICD-10) History of radioactive iodine thyroid ablation (03/2013) ?Z92.3 - Personal history of irradiation (ICD-10) History of anemia (2016) ?Z86.2 - Personal history of diseases of the blood and blood-forming organs and certain disorders involving the immune mechanism (ICD-10) Chronic sinusitis ?J32.9 - Chronic sinusitis, unspecified (ICD-10) Arnold-Chiari malformation ?Q07.00 - Arnold-Chiari syndrome without spina bifida or hydrocephalus (ICD-10) Allergic rhinitis ?J30.9 - Allergic rhinitis, unspecified (ICD-10) Surgical History Status post delivery (11/2019) ?Z98.891 - History of uterine scar from previous surgery (ICD-10) History of nasal septoplasty (2017) ?Z98.890 - Other specified postprocedural states (ICD-10) History of dilation and curettage (05/13/13) ?Z98.890 - Other specified postprocedural states (ICD-10) Social History Narrative: Works at [employer] kids Non-smoker No EtOH What is your current living situation?: I presently have a place to live Problems where you live: no known problems In the past 12 months, utilities in danger of being shut off: no In past 12 months, lack of transportation kept you from medical appts, meetings, work, or getting things needed for daily living: no In the past 12 mos, have been you worried that your food would run out before you had money to buy more?: never true In the past 12 mos, the food you bought just didn't last and you didn't have money to buy more?: never true Smoking Status: Never smoker Do you use any of these nicotine containing products: None and E-Cigarettes Second hand tobacco smoke exposure: No How often do you have a drink containing alcohol: monthly or less AUDIT-C Alcohol total score: 1 Non-prescribed substance use: denies use How often does anyone, including family, friends and others, physically hurt you: never How often does anyone, including family, friends and others, insult or talk down to you: never How often does anyone, including family, friends and others, threaten you with harm: never How often does anyone, including family, friends and others, scream or curse at you: never Little interest or pleasure in doing things: not at all Feeling down, depressed, or hopeless: not at all service: No Exam Narrative: Exam Narrative: EXAM GENERAL: Patient appears comfortable and well. EYES: No scleral icterus. LYMPH: No supraclavicular or cervical lymphadenopathy. SKIN: Visible skin seen during exam normal or with benign process only. EXT: No dependent lower extremity pedal edema. HEART: Regular rate and rhythm with no murmurs, rubs, or gallops. LUNGS: Expiratory wheezes bilaterally. ABD: Soft, non tender, non distended. PSYCH: Good eye contact, speech is not pressured. Const: Vital Signs, click to edit/add: Vital Signs - 24 hr 08/24/23 23:24 08/24/23 23:34 Temperature 97.8 F Pulse Rate [Pulse Oximeter] 94 Respiratory Rate 20 Blood Pressure 116/75 Blood Pressure [Ri ght Upper Arm] 153/79 H Pulse Oximetry 94 Oxygen Delivery Me thod Room Air Course Course ED Course: Patient seen and examined. Ob contacted. Albuterol nebulizer treatment given. Vital Signs Vital signs: Initial Vital Signs Temperature 97.8 F 08/24/23 23:24 Temperature Source Temporal Artery Scan 08/24/23 23:24 Pulse Rate 94 08/24/23 23:24 Pulse Rhythm Regular 08/24/23 23:24 Pulse Strength 3+ Normal 08/24/23 23:24 Respiratory Rate 20 08/24/23 23:24 Blood Pressure 153/79 H 08/24/23 23:24 Blood Pressure Mean 103 08/24/23 23:24 Pulse Oximetry 94 08/24/23 23:24 Oxygen Delivery Method Room Air 08/24/23 23:24 Vital Signs Temperature 97.8 F 08/24/23 23:24 Pulse Rate 94 08/24/23 23:24 Respiratory Rate 20 08/24/23 23:24 Blood Pressure 153/79 H 08/24/23 23:24 Pulse Oximetry 94 08/24/23 23:24 Oxygen Delivery Method Room Air 08/24/23 23:24 Temperature 97.8 F 08/24/23 23:24 Pulse Rate 94 08/24/23 23:24 Respiratory Rate 20 08/24/23 23:24 Blood Pressure 116/75 08/24/23 23:34 Pulse Oximetry 94 08/24/23 23:24 Oxygen Delivery Method Room Air 08/24/23 23:24 Medications Administered Medications: Generic Name Dose Route Start Last Admin Trade Name Freq PRN Reason Stop Dose Admin Albuterol 2.5 mg 08/24/23 23:37 08/24/23 23:44 Albuterol Sulfate 2.5 Mg/3 Ml Vial.Neb NEB 08/24/23 23:38 2.5 mg ONCE ONE Administration MDM - Asthma MDM Narrative Medical decision making narrative: Patient's 3rd trimester patient with asthma who presents with asthma exacerbation. Is no signs of significant infection and we did not collect any nasal swabs. She did respond to albuterol nebulizer treatment. Her blood pressure initially was elevated but did come down with treatment. We did contact OB and follow their protocols. Patient is a baby was assessed by the Ob staff prior to discharge. At this time patient will be treated with short course of prednisone for 3 days and will continue current medications and follow-up with her lens grinder and polisher as previously scheduled. Differential diagnosis includes but not limited to asthma pneumonia COPD pulmonary edema viral syndrome. Discharge Plan Discharge Clinical Impression: Asthma Patient Disposition: Home, Self-Care Condition: Stable Instructions: Asthma (ED) Additional Instructions: Prednisone as directed Continue albuterol Follow-up with your doctor as scheduled. Activity Level: No Restrictions Discharge Diet: Regular Prescriptions: No Action levothyroxine 200 mcg tablet 200 mcg PO QDAY (DME) compression socks, medium Misc See Rx Instructions .Route Qty: 2 0RF Rx Instructions: As directed (DME) gilbert.stocking,thigh,reg,med Misc See Rx Instructions .Route Qty: 2 0RF Rx Instructions: As directed DHA 200 mg capsule PO prednisone 20 mg tablet 20 mg PO BID Qty: 10 0RF albuterol sulfate 2.5 mg /3 mL (0.083 %) solution for nebulization 1 Q4-6H montelukast 10 mg tablet 10 mg PO QHS Qty: 90 1RF Follow Up/Referrals: Indra Rose MD [Primary Care Provider] - Stand Alone Forms: Bitly Info Instructions
[2023-08-24] MEDS: ALBUTEROL SULFATE 2.5 MG/3 ML VIAL.NEB NEB (23:44)
[2023-08-24 23:47] VITALS: BP 107/77
[2023-08-25 00:02] VITALS: BP 117/70
--- OUTSIDE RECORDS SUMMARY | 2023-08-25 00:34 | XMS_ITS | Encounter Summary ---
Author Organization [place] Address [address] [facility] [place] [address] Care Team Providers Care Hog Counter Name Role Phone [facility], [facility] Primary Care Provider Anita Celis MD Unavailable [phone] Encounter Details Date Type Department Care Team (Late st Contact Info) Description 06/17/[address] [facility] [address] [place] [address] Anita Celis MD [address] [place] [address] Social History Tobacco Use Types [...] QDAY Qty: 30 1RF Yasmin Barrios CMA [facility] Endocrinology [place] [phone] * Telephone Encounter - Juliet Barrios CMA - 06/17/2023 8:01 AM CDT please get records from OB clinic. She reports that she recently had labs done in May 2023 and based on labs dose was changed by her guide delegate/PA. She is not sure about the labs and what dose she is supposed to take. She has not started new dose yet. She appears confused about the dosing. She wouldlike to continue care with endocrinology. [facility] OB provider [facility] at [facility] in [place]. Please check with patient about the name [...] Primary documented in this encounter Care Teams Hog Counter Relationship Specialty Start Date End Date [facility], [address] [address] PCP - General 04/07/15 Anita Celis MD [address] [facility] [address] [place] [address] Assigned Endocrinology Provider 04/05/23 documented as of this encounter
--- OUTSIDE RECORDS SUMMARY | 2023-08-25 00:34 | XMS_ITS | Clinical Summary ---
Author Organization [facility] Address [address] [place] [address] Care Team Providers Care Supervisor Travel Information Center Name Role Phone Unavailable Primary Care Provider Unavailabl e Source Comments Patient records contain information from all sites at [facility]. For routine questions regarding patient records, call [phone] during business hours, M-F 8:00 AM - 5:00 PM Central Time. Record requests for emergency care only can be directed to [phone] at any time.[facility] Allergies Active Allergy Reactions Criticality Noted Date [...] HORMONE-SENSITIVE (S-TSH), S Routine 01/26/2020 4:37 PM COOK CHILL TECHNICIAN from Last 3 Months or Most Recently Relevant to Health Maintenance
--- OUTSIDE RECORDS SUMMARY | 2023-08-25 00:34 | XMS_ITS | Encounter Summary ---
Author Organization [place] Address [address] [facility] [place] [address] Care Team Providers Care Machine Technician Name Role Phone [facility] Primary Care Provider No Ref-Primary, Physician Primary Care Provider India Arora DO Primary Care Provider [phone] No Ref-Primary, Physician Primary Care Provider Brit García APRN [facility] Primary Care Provi saad Unavailable [facility] Primary Care Provider Anita Celis MD Unavailable [phone] Reason for Visit * Reason Onset Date Comments Nurse Advice Line 04/06/2011 Encounter Details Date Type Department Care Team (Late st Contact Info) Description 04/06/[address] [place] [address] [facility] [address] [place] [address] Nurse Advice Line Social History [...] Negin Masters - 10/31/2011 8:51 AM CDT [facility] Triage Call Report Patient Name: Kera Hale Call Date & Time: 04/06/2011 5:39:53PM Patient PCP Name: MRN: Patient Address: Patient Date of : 1990 Age: 21 yr. Patient Gender: Female Retail Store Clerk Name: Ora Joseph Presenting Problem: Calling that [...] on filedocumented in this encounter Care Teams Machine Technician Relationship Specialty Start Date End Date [facility] PCP - General 02/26/11 06/02/12 No Ref-Primary, Physician PCP - General 06/03/12 07/01/13 India Arora DO PCP - General rough rib grader 07/02/13 02/04/14 No Ref-Primary, Physician PCP - General 02/05/14 04/13/14 Brit García APRN CNP PCP - General Nurse Practitioner - [facility] 07/13/14 04/06/15 [facility] [address] [place] [address] PCP - General 04/07/15 Anita Celis MD [address] [facility] [address] [place] [address] Assigned Endocrinology Provider 04/05/23 documented as of this encounter
--- OUTSIDE RECORDS SUMMARY | 2023-08-25 00:34 | XMS_ITS | Clinical Summary ---
Author Organization [employer] [facility] [employer] [facility] [place] [address] Care Team Providers Care Trackwalker Name Role Phone Guilherme Olguin MD Unavailable [...] 06/11/2020 Active azelastine 137 mcg/actuation (ASTELIN) nasal sprayIndications:Applications Intern aye pansinusitis,Mucous retention cyst of maxillary sinus,Allergic [...] 0.01, T3 298, TSI 5.3. left for [place] and no treatment till 01/2013. Poor concentration, forgetfulness, shakiness, nervous, hyperactive, restless, weight loss, history of lose BMs. Weak muscles. 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 left for [place] and no treatment till 01/2013. Poor concentration, [...] Overview: GBS negative. (Lab drawn at [facility] on 02/03/17) Limited care. [place] [...] 0.01, T3 298, TSI 5.3. left for [place] and no treatment till 01/2013. Poor concentration, [...] 02/28/17) REFERRING PHYSICIAN/PHONE/LAST UPDATE: Olivia Shaw NP, [facility] - [phone] Primary MD approves scheduling of recommended ultrasounds/testing: Unknown SPECIALISTS/PHONE: Neurology [facility] - last seen 12/19/15 - notes scanned SREEDHAR: SREEDHAR signed for [facility]: CARE COORDINATION: GENETICS: PROCEDURES: PERTINENT LABS: Blood type: Last pap: Initial Hgb /Ferritin Hgb 28 wk Hgb 36 wk Repeat hgb anemic and compliant every 4 wks if/until >11.0 MEDS: Synthroid 150 mcg daily vitamin Miralax PRN NEXT VISIT ALERTS: FUTURE APPOINTMENTS: Testing: Through Growth: OB visits: Through TESTING PLANS: ASBESTOS HANDLER: CONSULTS: NURSING: DEPRESSION SCREEN Initial screen: Date [...] RNC.....01/15/2017 9:45 AM consult 08/02/2016 03/08/2020 Overview: [facility] MOMS CONSULTATION ON 08/06/2016 F/U MOMS [...] 02/28/17) REFERRING PHYSICIAN/PHONE/LAST UPDATE: Olivia Shaw NP, [facility] - [phone] Primary MD approves scheduling of recommended ultrasounds/testing: Unknown SPECIALISTS/PHONE: Neurology [facility] - last seen 12/19/15 - notes scanned SREEDHAR: SREEDHAR signed for [facility]: CARE COORDINATION: GENETICS: PROCEDURES: PERTINENT LABS: Blood type: Last pap: Initial Hgb /Ferritin Hgb 28 wk Hgb 36 wk Repeat hgb anemic and compliant every 4 wks if/until >11.0 MEDS: Synthroid 150 mcg daily vitamin Miralax PRN NEXT VISIT ALERTS: FUTURE APPOINTMENTS: Testing: Through Growth: OB visits: Through TESTING PLANS: ASBESTOS HANDLER: CONSULTS: NURSING: DEPRESSION SCREEN Initial screen: Date [...] Vag Epidur al Livin g Amanda Delivery Location:[facility] 4 SAB SPONTA NEOUS Comments:Blighted O[place] 2014 Term 2.72 kg (6 lb) F Vag-Sp ont Livin g Umm za Delivery Location:[place] 2015 Term 40w 1d 3.18 kg (7 lb) M Vag None N Livin g Peter Complications:None Delivery Location:[place] 2017 Term 39w 4d M Vag Livin g Santosh 2017 Term 39w 2d 0h 11m 3.29 kg (7 lb 4 oz) F Vag Epidur al N Livin g 9 9 BONIL LA,BG DANAYMI N Cosmo k Complications:None Delivery Location:[facility]) Last Filed Vital Signs Vital Sign Reading Time Taken Comments Blood Pressure 120/73 04/13/2020 3:58 PM HIGH SCHOOL DIRECTOR Pulse 85 04/13/2020 3:58 PM HIGH SCHOOL DIRECTOR Temperature 37.1 ??C (98.7 ??F) 03/07/2020 3:36 PM CS T Respiratory Rate 20 03/24/2020 3:34 PM HIGH SCHOOL DIRECTOR Oxygen Saturation 99% 04/13/2020 3:58 PM HIGH SCHOOL DIRECTOR Inhaled Oxygen Concentration - - Weight 60.8 kg (134 lb) 03/07/2020 3:36 PM HIGH SCHOOL DIRECTOR Height 156 cm (5' 1.42) 03/07/2020 3:36 PM HIGH SCHOOL DIRECTOR Body Mass Index 24.98 03/07/2020 3:36 PM HIGH SCHOOL DIRECTOR Plan of Treatment Health Maintenance Due Date [...] this topic Medical Devices Implanted Type Area Pricing Analyst Device Identifier Shelf Expiration Date Model / Serial / Lot Stent Ent Mini Steroid-Releas ing Propel Bioabsorb - [id number] Implanted:Qty: 2 on 04/22/2017 by Pedro Plascencia MD at [facility] Bilateral : [employer] 10/30/2018 [id number]# / / [id number] Stent Sinus 8mm Propel Contour Bioabsorb - [id number] Implanted:Qty: 1 on 04/22/2017 by Pedro Plascencia MD at [facility] Left: [employer] 10/19/2018 [id number]# / / [id number] Procedures Procedure Name Priority Date/Time Associated Diagnosis Comments HPV THIN PREP Routine 10/31/2021 12:00 PM CDT ANTI HIV 1/2 Routine 10/29/2017 10:21 AM CDT , unspecified gestational age ANTI HCV Routine 11/02/2014 5:51 PM CDT from Last 3 Months or Most Recently Relevant to Health Maintenance Results * HPV HIGH RISK (10/31/2021 12:00 PM CDT) TYPE 16 Negative Negative 11/03/2021 11:22 AM CDT [facility] TYPE 18 Negative Negative 11/03/2021 11:22 AM CDT [facility] OTHER HIGH RISK TYPES Negative Negative 11/03/2021 11:22 AM CDT [facility] Other (Cervical) 10/31/2021 12:00 PM CDT 11/02/2021 9:17 AM CDT Narrative [facility] - 11/03/2021 11:22 AM CDT HPV types 16, 18, 31, 33, 35, 39, 45, 51, 52, 56, 58, 59, 66 and 68 DNA were undetectable or below the pre-set threshold. Methodology: Kenisha Simone 4800 HPV Test Agnieszka Horan NP MICROBIOLOGY [facility] [address] [place] [address], * ANTI HIV 1/2 (10/29/2017 10:21 AM CDT) HIV-1/HIV-2 ANTIBODY Non-Reacti ve Non-Reacti ve 10/29/2017 5:05 PM CDT [facility] Comment:HIV-1 p24 and HIV-1/ HIV-2 Ab not detected. Blood BLOOD SPECIMEN / Unknown Venipuncture / Unknown 10/29/2017 10:21 AM CDT 10/29/2017 10:21 AM CDT Jessica Machado MD [facility] [address] [place] [address], * ANTI HCV (11/02/2014 5:51 PM CDT) HEPATITIS C ANTIBODY Non-Reacti ve Non-Reacti ve 11/03/2014 1:19 PM CDT [facility] Blood specimen (specimen) BLOOD SPECIMEN / Unknown Venipuncture / Unknown 11/02/2014 5:51 PM CDT 11/02/2014 5:51 PM CDT Narrative [facility] - 11/03/2014 1:19 PM CDT Antibodies to HCV not detected; does not exclude the possibility of exposure to HCV. Vale ROCHE [facility] [address] [place] [address], from Last 3 Months or Most Recently [...] Code Status Discussion: Not Discussed Care Teams Trackwalker Relationship Specialty Start Date End Date Pcp, No . PCP - General 09/30/20 Guilherme Olguin MD BUS AIDE Obstetrics and Gynecology 01/25/11
--- OUTSIDE RECORDS SUMMARY | 2023-08-25 00:34 | XMS_ITS | Encounter Summary ---
Author Organization [place] Address [facility] [place] [address] Care Team Providers Care Tour Driver Name Role Phone [facility] Primary Care Provider Anita Celis MD Unavailable [phone] Reason for Visit * Reason Comments Medication Refill Encounter Details Date Type Department Care Team (Late st Contact Info) Description 06/18/2023 Refill [facility] [address] [facility] [address] [place] [address] Anita Celis MD [address] [place], [place] [address] Medication Refill Social History Tobacco Use Types [...] type documented in this encounter Care Teams Tour Driver Relationship Specialty Start Date End Date [facility] [address] [place] [address] PCP - General 04/07/15 Anita Celis MD [address] [facility] [address] [place] [address] Assigned Endocrinology Provider 04/05/23 documented as of this encounter
--- OUTSIDE RECORDS SUMMARY | 2023-08-25 00:34 | XMS_ITS | Referral Summary ---
Author Organization [facility] Address [address] [place] [address] Care Team Providers Care Excel Expert Name Role Phone Unavailable Primary Care Provider Unavailabl e Source Comments Patient records contain information from all sites at [facility]. For routine questions regarding patient records, call [phone] during business hours, M-F 8:00 AM - 5:00 PM Central Time. Record requests for emergency care only can be directed to [phone] at any time.[facility] Allergies Active Allergy Reactions Criticality [...] HORMONE-SENSITIVE (S-TSH), S Routine 01/26/2020 4:37 PM MANAGER LIFE from Last 3 Months or Most Recently Relevant to Health Maintenance
--- OUTSIDE RECORDS SUMMARY | 2023-08-25 00:34 | XMS_ITS | Encounter Summary ---
Author Organization [place] Address [address] [facility] [place] [address] Care Team Providers Care Store Assistant Name Role Phone [facility] Primary Care Provider No Ref-Primary, Physician Primary Care Provider India Arora DO Primary Care Provider [phone] No Ref-Primary, Physician Primary Care Provider Brit García APRN [facility] Primary Care Provi saad Unavailable [facility] Primary Care Provider Anita Celis MD Unavailable [phone] Reason for Visit * Reason Onset Date Comments Nurse Advice Line 08/25/2011 [facility]NA Encounter Details Date Type Department Care Team (Late st Contact Info) Description 08/25/2011 [facility] [address] [place] [address] [facility] [address] [place], [place] [address] Nurse Advice Line (FNA) Social History Tobacco [...] in ED and then follow up at [facility] for eval of the IUD Juliet Spain RN [place] documented in this encounter Plan of Treatment Not on file documented as of this encounter Visit Diagnoses Not on filedocumented in this encounter Care Teams Store Assistant Relationship Specialty Start Date End Date Clinic - [facility] PCP - General 02/26/11 06/02/12 No Ref-Primary, Physician PCP - General 06/03/12 07/01/13 India Arora DO PCP - General behavioral therapy coordinator 07/02/13 02/04/14 No Ref-Primary, Physician PCP - General 02/05/14 04/13/14 Brit García APRN DAIRY NUTRITIONIST PCP - General Nurse Practitioner - [facility] 07/13/14 04/06/15 [facility], [address] [id number] PCP - General 04/07/15 Anita Celis MD [address] [place] [address] [address] [place] [address] Assigned Endocrinology Provider 04/05/23 documented as of this encounter
--- OUTSIDE RECORDS SUMMARY | 2023-08-25 00:34 | XMS_ITS | Data Portability ---
Author Organization [place] [facility] Address [address] [place] [address] [address] [place] [address] Care Team Providers Care Cash Applications Associate Name Role Phone RUTHANN HENRY Referring Provider [...] XR, orthopantog tee 2020 021 [email or web address], [place], [address], 08:48:53 Medication Orders None recorded. Patient TargetsNo targets recorded. Patient Instructions Encounter Date Encounter Id Patient Instructions Last Modified By Organization Details Last Modified Time 09/12/2020 [id number] 1. instructed in self cares 2. possible PT evaluation in the future: muscle relaxation, instruct in proper jaw mechanics to reduce TMJ clicking 3. P.A. Mx FPS (4mm thick posterior Thermoflex): impressions by dental assistant paralegal done today are being held until insurance [...] with pt. yet. Not available 09/12/2020 22:24:47 10/13/2020 [id number] 1. inserted [place] F PS splint and instructed pt. in care and use of the splint 2. 1/2 hr w/Dr. De La Cruz in 2 weeks to monitor symptoms and review CT scan results. 3. took maxillofacial CT today. Not available 10/13/2020 17:43:52 Reason for Referral None Reported. Results Created Date Observation Date Name Description Value Unit Range Abnormal Flag LastModifiedBy Organization Detail LastModifiedTime 09/13/19 21 XR, ortho panto gram No observ ation record ed. Not Available 09/12/2020 17:00:29 09/13/19 21 09/13/2020 XR, ortho panto gram No observ ation record ed. [address], [place], [address], 09/13/2020 21:22:25 10/29/[address], maxil lofac ial, w/o contr ast No observ ation record ed. Not Available 10/30/2020 17:02:56 Result Notes None recorded. 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 021 Peggy De La Cruz DDS [address], [place], [address] , [facility] 09/12/2020 22:25:05 Bilateral temporomandibular joint pain Active 021 Peggy De La Cruz DDS [address], [place], [address] , [facility] 09/12/2020 22:25:07 Toothache Active 021 Peggy De La Cruz DDS [address], [place], [address] , [facility] 09/12/2020 22:30:40 Tension-type headache Active 021 Peggy De La Cruz DDS [address], [place], [address] , [facility] 09/12/2020 22:30:42 Problem Notes None recorded. Procedures Surgical History Date Name Laterality Status Provider Name and Address Organization Details Recorded Time CT TMJ completed Milagros guadalupe [facility] 10/13/2020 17:22:03 Oral appliance completed Milagros guadalupe, [facility] 10/13/2020 16:59:09 Caesarean Section completed Milagros guadalupe, [facility] 09/12/2020 16:15:07 Unlisted px accessory sinus completed Milagros guadalupe, [facility] 09/12/2020 16:15:18 endoscopy completed Milagros guadalupe, [facility] 09/12/2020 16:15:36 Dilation and Curettage completed Milagros guadalupe [facility] 09/12/2020 16:15:53 Imaging Results Imaging Date Name Status LastModified by Organization Details LastModified Time 09/12/2020 XR, [place]opantogram [email or web address] Inform ation not available 09/12/2020 17:00:29 09/13/2020 XR, orthopantogram completed [email or web address] [facility] [address] [facility] [address] [place], [address], 09/13/2020 21:22:25 10/28/2020 CT, maxillofacial, w/o contrast completed [facility] Information not available 10/30/2020 17:02:56 Procedure Notes None recorded. Medical Equipment None Reported. Allergies Allergen ID Allergen Name Allergen Category Reaction Reaction Severity Criticality Documentation Date Start Date Code Code System Note Provider Name and Address Organization Details Recorded Time 30136 naproxen medicatio n Not available Not available Not available 09/12/[address] [facility] 16:12:26 Medications Name Sig Start Date Stop [...] azelastine 137 mcg (0.1 %) nasal spray 09/12 completed Not Available Not Available Not [...] Updated DateTime 1 167.64 cm 21 kg/m2 67073.0 1 g 71 /min 107 mm[Hg] 70 mm[Hg] Milagros Hudson [facility] 16:35:07 Date Recorded Body height Body mass index (BMI) Body weight Heart rate Systolic blood pressure Diastolic blood pressure Provider Name and Address Organization Details Last Updated DateTime 1 167.64 cm 21 kg/m2 71093.0 1 g 81 /min 107 mm[Hg] 77 mm[Hg] Milagros Hudson [facility] 16:58:37 Social History Question Answer Notes LastModified by Organizat ion Details LastModified Time Tobacco Smoking Status Never Smoker [place] [facility] 09/12/2020 [...] Or The Highest Degree You Have Received? WA64453-2 Information not available 09/12/2020 What Is Your [...] N Premenstrual syndrome (PMS) N MRSA N Head Trauma/Injury N Emphysema N Irritable bowel syndrome N COPD N Depression N Lung Disease N Glaucoma N Hypothyroidism Y Pneumonia N Pacemaker N Obstructive Sleep Apnea N Anxiety Disorder N Muscle, Joint, or Bone Problems N Autoimmune disease N Vision or Eye Problems N Arthritis N Serious Illness or Injuries N Acid Reflux (GERD) N Cancer N Stroke N Eating disorder N Neck Injury N Back Injury N High Cholesterol N Neurologic Disorder Y History of chemotherapy N Liver Disease N Organ Transplant N Rheumatoid Arthritis N Headaches Y Fibromyalgia N Kidney Disease N Allergies/Hayfever N Post traumatic stress disorder (PTSD) N Parkinson's Disease N Migraines N Brain Tumors N Anemia Y Multiple Sclerosis N Immune System Disorder N Meningitis N Pancreatic disease N Heart Attack (LA) N Stomach Ulcers N Back pain N [...] Encounter Closed Date Diagnosis/Indication Diagnosis SNOMED-CT Code [id number] Peggy De La Cruz, DESMONDS [address] 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 0710879740555 9104 Toothache 04832754 Myofascial pain 07695618 9 Tension-type headache 39 5495000 Health Concerns Section Related Observation LastModified by Organization Detai ls LastModified Time None Recorded Concern Status LastModified by Organization Details LastModified Time None Recorded Advance Directives Directive None Recorded Payers Encounter Date Sequence Insurance Name Policy Number Policy Mckeon Covered Member ID Mckeon Member ID Guarantor Name 09/12/2020 1 [place] [id number] Kera Hale [id number] Jeanne Hale 09/12/2020 2 [employer] - DOS PRIOR TO 2021 [facility] Kera Hale [id number] Jeanne Hale 10/13/2020 1 [place] [id number] Kera Hale [id number] Jeanne Hale 10/13/2020 2 [employer] - DOS PRIOR TO 2021 [place] Kera Hale [id number] Jeanne Hale Notes Date Note Type Note [...] her numb. Peggy De La Cruz, DESMONDS [address] [facility] [address], [place], [address], [facility] 10/13/2020 [...] as previously recommended. Peggy De La Cruz, DESMONDS [address] [facility] [address], [place], [address], [facility] 10/18/2020 11:17:08 OBGyn Episode No OBEpisode recorded.
--- OUTSIDE RECORDS SUMMARY | 2023-08-25 00:34 | XMS_ITS ---
Author Organization [facility] Address [address] [place] [address] Care Team Providers Care Customer Strategy Manager Name Role Phone Unavailable Unavailable Unavailable Surgery Details Not on file Complications Check Surgery Details section. Procedure Estimated Blood Loss Check Surgery Details section. Procedure Findings Check Surgery Details section. Procedure Specimens Taken Check Surgery Details section.
--- OUTSIDE RECORDS SUMMARY | 2023-08-25 00:34 | XMS_ITS | Clinical Summary ---
Author Organization [place] Address [address] [place] [address] Care Team Providers Care Crossing Flagman Name Role Phone Clinic, [facility] Primary Care Provider Anita Celis MD Unavailable [phone] Allergies No known active allergies Medications Medication Sig Dispensed Refills Start Date End Date Status Vit w/Hg-Mojqknxuc-KS (PNV PO) Take 1 tablet by mouth [...] 07/17/2011 Pain in thoracic spine 05/18/201107/16 [facility] 05/02/2011 07/29/2023 Overview: DX V65.8 REPLACED WITH 48904 HEALTH INTERMEDIATE (05/19/2012) Mirena IUD placed 05/02/2011 05/02/2011 07/02/2013 [...] Type Department Care Team Description 08/16/2023 Telephone [facility] [address] [place] [address] Anita Celis MD Call Back (Questions ) 06/18/2023 Refill [facility] [address] [place] [address] Anita Celis MD Medication Refill 06/17/2023 Telephone [facility] [address] [place] [address] Anita Celis MD 06/13/2023 3:30 PM CDT Virtual Visit [facility] [address] [place] [address] Anita Celis MD Hypothyroidism, unspecified type 06/11/2023 Telephone [facility] [address] [place] [address] Anita Celis MD Call Back; Patient Request from Last 3 Months Immunizations Name Administration Dates Next Due DTAP (<7y) 06/27/1995,1992,1992 ,1992 HIB (PRP-T) 06/27/1995,1992,1992 ,1992 HepB 03/17/1996,08/29/1995,06/27/1995 Influenza (IIV3) PF 03/24/2011,12/25/2009 MMR 03/24/2011,06/27/1995 OPV, trivalent, live 06/27/1995,1992,07/27 TD,PF 7+ ([facility]) 10/11/2004 Varicella 10/11/2004 Family History [...] Comments Blood Pressure 99/66 03/13/2023 11:34 AM CROZER OPERATOR Pulse 114 03/13/2023 11:34 AM CROZER OPERATOR Temperature 37 ??C (98.6 ??F) 03/13/2023 11:34 AM CROZER OPERATOR Respiratory Rate 18 03/13/2023 11:34 AM CROZER OPERATOR Oxygen Saturation 94% 03/13/2023 11:34 AM CROZER OPERATOR Inhaled Oxygen Concentration - - Weight 71.8 kg (158 lb 3.2 oz) 03/13/2023 11:34 AM CROZER OPERATOR Height 153.7 cm (5' 0.5) 03/13/2023 11:34 AM CS T Body Mass Index 30.39 03/13/2023 11:34 AM CROZER OPERATOR Plan of Treatment Health Maintenance Due [...] (TSH) (EXTERNAL RESULT) Routine 04/11/2023 9:32 AM CROZER OPERATOR ABSTRACT PAP (HIM EXTERNAL RESULT) Routine 05/12/2013 HIV 1 AND 2 ANTIBODY (QUEST) Routine 10/24/2010 11:41 AM CDT Supervision of normal first from Last 3 Months or Most Recently Relevant to Health Maintenance Results * (ABNORMAL) Thyroid Stimulating Hormone (TSH) (External Result) (04/11/2023 9:32 AM CROZER OPERATOR) TSH (External) 50.300(A) 0.270 - 4.200 uIU/mL [facility] Blood 04/11/2023 9:32 AM CROZER OPERATOR Narrative [facility] - 04/11/2023 9:32 AM CROZER OPERATOR [facility]-External Lab Results Provider Outside LAB - HIM EXTERNAL R ESULT [facility] [address] [phone] * ABSTRACT PAP-NO CHARGE (05/12/2013) 05/12/2013 Impressions EXTERNAL LAB - 05/12/2013 Information from office visit dated: 06/12/2013 Pap smear done on ??this date: 05/2013 (approximately), by this group: [facility], results were WNL. ?? Provider Outside LAB - HIM EXTERNAL R ESULT EXTERNAL LAB External Lab * HIV 1 and 2 Antibody (10/24/2010 11:41 AM CDT) HIV 1&2 Antibody Negative NEG [facility] Blood specimen (specimen) 10/24/2010 11:41 AM CDT 10/24/2010 11:46 AM CDT India Arora DO LAB - BLOOD ORDER GERRI [facility] from Last 3 Months or Most Recently Relevant to Health Maintenance Care Teams Crossing Flagman Relationship Specialty Start Date End Date [facility] [place] [address] [place] [address] PCP - General 04/07/15 Anita Celis MD [address] [facility] [address] [place] [address] Assigned Endocrinology Provider 04/05/23
--- OUTSIDE RECORDS SUMMARY | 2023-08-25 00:34 | XMS_ITS | Encounter Summary ---
Author Organization [place] Address [address] [facility] [place] [address] Care Team Providers Care Bi Developer Name Role Phone [facility], [facility] Primary Care Provider Anita Celis MD Unavailable [phone] Reason for Visit * Reason Comments RECHECK Thy, labs, utd Encounter Details Date Type Department Care Team (Late st Contact Info) Description 06/13/2023 3:30 PM CDT Virtual Visit [place] [address] [place] [address] Anita Celis MD [address] [facility] [address] [place] [address] Hypothyroidism, unspecified type Social History [...] Celis MD - 06/13/2023 3:30 PM CDT [facility] Dr Celis, Endocrinology Department [place] [address] [address] [place] [address] Appointment [phone] [place]: Saturday - Please ask your OB provider to fax records to endocrinology clinic. Start new dose as recommended by [facility] Will review the recommendations and comment if [...] Video ended:3;52 Provider location: working from home/ [facility] Patient location: patients home. Mode of transmission: [employer] video/ Or[employer] Verbal consent: obtained before starting visit. Pt [...] Referring provider Elena Giraldo APRN CNM outside [place]. No recent lab results to review. Limited [...] She reports that she is followed by [facility] at local clinic. She reports that she [...] at that time thedose was increased by [facility] and she was asked to follow-up with [facility]. They told her that they can manage levothyroxine dosing but after 03/2023 labs with high TSH and she was asked to follow-up with endocrinology again.--See telephone encounter from 04/11/2023) She reports that she recently had labs done by sander and polisher at [facility] clinic-- but no labs to review or paperwork sent. She reports that based on those labs her sander and polisher has recommended to increase the dose but she is not sure about the dose. She has not started new prescription yet. [facility] [place] Drying Room Supervisor: KALEY Peraza Gained about 30 lbs [...] or cold intolerance: feels warm History of [place] or Amiodarone use:No Head or neck surgery/radiation:Yes: [...] Male Other Topics Concern Parent/sibling w/ CABG, ND or angioplasty before 65F 55M? Not Asked Social History Narrative Not on file Social Determinants of Health Financial Resource Strain: High Risk (02/10/2021) Received from [employer] Financial Resource Strain Difficulty of Paying Living Expenses: Not on file Difficulty of Paying Living Expenses: Not on file Food Insecurity: Not on file Transportation Needs: Not on file Physical Activity: Not on file Stress: Not on file Social Connections: Unknown (02/10/2021) Received from [employer], [employer] Social Connections Frequency of Communication with Friends and Family: Not on file Interpersonal Safety: Not on file Housing Stability: Not on file MEDICATIONS: has a current medication list which includes the following prescription(s): levothyroxine, omeprazole magnesium, and vit w/qh-ahlxibfai-ps. ROS ROS: 10 point ROS neg other [...] clinic. Start new dose as recommended by LUMBER PL[facility]ER Will review the recommendations and comment if [...] noted in AVS Anita Celis MD Endocrinology [facility] CC: [facility] documented in this encounter Nursing Notes * Azalia Childress - 06/13/2023 3:30 PM CDT Is the patient currently in the state of [place]? YES Visit mode:VIDEO If the visit is dropped, the patient can be reconnected by: VIDEO VISIT: Text to cell phone: Telephone Information: Will anyone else be joining the visit? NO (If patient encounters technical issues they should call [phone] :[phone]) How would you like to obtain your [...] type documented in this encounter Care Teams Bi Developer Relationship Specialty Start Date End Date [address] [address] PCP - General 04/07/15 Anita Celis MD [address] [place] [address] [address] [place] [address] Assigned Endocrinology Provider 04/05/23 documented as of this encounter
--- OUTSIDE RECORDS SUMMARY | 2023-08-25 00:34 | XMS_ITS | Encounter Summary ---
Author Organization [place] Address [address] [facility] [place] [address] Care Team Providers Care Lpn Instructor Name Role Phone [facility], [facility] Primary Care Provider Anita Celis MD Unavailable [phone] Reason for Visit * Reason Onset Date Comments Call Back 08/16/2023 Questions Encounter Details Date Type Department Care Team (Late st Contact Info) Description 08/16/2023 Telephone [facility] [address] [facility] [address] [place] [address] Anita Celis MD [address] [place] [address] Call Back (Questions ) Social [...] * Telephone Encounter - Emma Godwin - 08/23/2023 11:16 AM CDT 08.22- No answer/vm full * Telephone Encounter - Emma Godwin - [...] clinic. Start new dose as recommended by SUPERVISOR FUNCTIONAL TESTING Will review the recommendations and comment if needed. * Telephone Encounter - ReginaYris - 08/16/2023 11:58 AM CDT [facility] Call Center Phone Message May a detailed [...] on filedocumented in this encounter Care Teams Lpn Instructor Relationship Specialty Start Date End Date [facility], [address] [address] PCP - General 04/07/15 Anita Celis MD [address] [place] [address] [address] [place] [address] Assigned Endocrinology Provider 04/05/23 documented as of this encounter
--- OUTSIDE RECORDS SUMMARY | 2023-08-25 00:34 | XMS_ITS | Encounter Summary ---
Author Organization [place] Address [address] [facility] [place] [address] Care Team Providers Care Interior Paneler Name Role Phone [facility], [facility] Primary Care Provider Anita Celis MD Unavailable [phone] Reason for Visit * Reason Onset Date Comments Call Back 06/11/2023 Patient Request 06/11/2023 Encounter Details Date Type Department Care Team (Late st Contact Info) Description 06/11/2023 Telephone [facility] [address] [place] [address] Anita Celis MD [address] [place] [address] Call Back; Patient Request Social [...] on 06/12 at 3:30? Yasmin Barrios CMA [place] [phone] * Telephone Encounter - Emma Godwin - 06/12/2023 8:57 AM CDT Spoke with patient, she cannot do today. She gets off work at 3pm. * Telephone Encounter - Juliet Barrios CMA - 06/12/2023 8:21 AM CDT Offer 06/11 at 3 pm for in person or video visit with dr. Celis. Yasmin Barrios CMA [facility] [phone] * Telephone Encounter - Veronica Bello - 06/11/2023 12:09 PM CDT [facility] Call Center Phone Message May a [...] her endo would like to see her. Fire Watchman then stated to patient she missed her appt. Action Taken: Message routed to: [facility] ([facility]): endo Travel Screening: Not Applicable documented in this encounter Plan of Treatment Not on file documented as of this encounter Visit Diagnoses Not on filedocumented in this encounter Care Teams Interior Paneler Relationship Specialty Start Date End Date [address] [place] [address] PCP - General 04/07/15 Anita Celis MD [address] [place] [address] [address] [place] [address] Assigned Endocrinology Provider 04/05/23 documented as of this encounter
--- OUTSIDE RECORDS SUMMARY | 2023-08-25 00:34 | XMS_ITS | Referral Summary ---
Author Organization [place] Address [address] [facility] [place] [address] Care Team Providers Care Retrofit Installer Name Role Phone [employer], [facility] Primary Care Provider Anita Celis MD Unavailable [phone] Encounters Date Type Department Care Team Description 08/16/2023 Telephone [facility] [address] [place] [address] Anita Celis MD Call Back (Questions ) 06/18/2023 Refill [facility] [address] [place] [phone] Anita Celis MD Medication Refill 06/17/2023 Telephone [facility] [address] [place] [phone] Anita Celis MD 06/13/2023 3:30 PM CDT Virtual Visit [facility] [address] [place] [address] Anita Celis MD Hypothyroidism, unspecified type 06/11/2023 Telephone [facility] [address] [place] [phone] Anita Celis MD Call Back; Patient Request from Last 3 Months Allergies No known active allergies Medications Medication Sig Dispensed Refills Start Date End Date Status Vit w/Nh-Dxsuljolt-JU (PNV PO) Take 1 tablet by mouth [...] 07/17/2011 Pain in thoracic spine 05/18/201107/16 [facility] 05/02/2011 07/29/2023 Overview: DX V65.8 REPLACED WITH [id number] HEALTH RESIDENTIAL (05/19/2012) Mirena IUD placed 05/02/2011 05/02/2011 07/02/2013 [...] 03/24/2011,06/27/1995 OPV, trivalent, live 06/27/1995,1992,07/27 TD,PF 7+ ([facility]) 10/11/2004 Varicella 10/11/2004 Social History Tobacco [...] Comments Blood Pressure 99/66 03/13/2023 11:34 AM ECONOMETRICIAN Pulse 114 03/13/2023 11:34 AM ECONOMETRICIAN Temperature 37 ??C (98.6 ??F) 03/13/2023 11:34 AM ECONOMETRICIAN Respiratory Rate 18 03/13/2023 11:34 AM ECONOMETRICIAN Oxygen Saturation 94% 03/13/2023 11:34 AM ECONOMETRICIAN Inhaled Oxygen Concentration - - Weight 71.8 kg (158 lb 3.2 oz) 03/13/2023 11:34 AM ECONOMETRICIAN Height 153.7 cm (5' 0.5) 03/13/2023 11:34 AM CS T Body Mass Index 30.39 03/13/2023 11:34 AM ECONOMETRICIAN Plan of Treatment Not on file Procedures Procedure Name Priority Date/Time Associated Diagnosis Comments THYROID STIMULATING HORMONE (TSH) (EXTERNAL RESULT) Routine 04/11/2023 9:32 AM ECONOMETRICIAN ABSTRACT PAP (HIM EXTERNAL RESULT) Routine 05/12/2013 HIV 1 AND 2 ANTIBODY (QUEST) Routine 10/24/2010 11:41 AM CDT Supervision of normal first from Last 3 Months or Most Recently Relevant to Health Maintenance Results * (ABNORMAL) Thyroid Stimulating Hormone (TSH) (External Result) (04/11/2023 9:32 AM ECONOMETRICIAN) TSH (External) 50.300(A) 0.270 - 4.200 uIU/mL [facility] Blood 04/11/2023 9:32 AM ECONOMETRICIAN Narrative [facility] - 04/11/2023 9:32 AM ECONOMETRICIAN [facility]-External Lab Results Provider Outside LAB - HIM EXTERNAL R ESULT [facility] [address] [place] [address], [facility] [phone] * ABSTRACT PAP-NO CHARGE (05/12/2013) 05/12/2013 Impressions EXTERNAL LAB - 05/12/2013 Information from office visit dated: 06/12/2013 Pap smear done on ??this date: 05/2013 (approximately), by this group: [facility], results were WNL. ?? Provider Outside LAB - HIM EXTERNAL R ESULT EXTERNAL LAB External Lab * HIV 1 and 2 Antibody (10/24/2010 11:41 AM CDT) HIV 1&2 Antibody Negative NEG [facility] Blood specimen (specimen) 10/24/2010 11:41 AM CDT 10/24/2010 11:46 AM CDT India Arora DO LAB - BLOOD ORDER GERRI [facility] from Last 3 Months or Most Recently Relevant to Health Maintenance Care Teams Retrofit Installer Relationship Specialty Start Date End Date [employer], [facility] [address] [place] [address] PCP - General 04/07/15 Anita Celis MD [address] [place] [address] [address] [place] [address] Assigned Endocrinology Provider 04/05/23
--- NOTE | 2023-08-25 00:59 | PC.OBNST ---
NST Note NST Note Start: 08/25/23 00:53 Freq: ONCE Status: Active Protocol: Document 08/25/23 00:57 [facility] (Rec: 08/25/23 00:59 [facility] [id number]) NST Note 8 Para (# of births) 6 EDC 09/14/23 Gestational Age In Weeks & Days 37 Weeks & 1 Days High Risk Factors History of Labor/ Delivery Patient Presented with Complaint(s) of Other Other Complaints Asthma exacerbation, patient seen in ED Reactive Yes Appropriate for Gestational Age Yes RN Calixto RN Date 08/25/23 Reactive Yes Appropriate for Gestational Age Yes RN Luke RN Date 08/25/23 OB NST charge No Complete NST Note via Write Note Yes The provider's electronic signature indicates the NST is reactive/appropriate for gestational age. *Note to provider: If an addendum is required, open the patient's chart and click on the note under the Nurse/Allied Health tab.
== END 2023-08-25 00:48 | disposition home or self-care (01) ==
LOC: ED 08-25 00:30
PROVIDERS: Emergency Provider Internal Medicine; PCP Family Medicine
DX: J45.901 Unspecified asthma with (acute) exacerbation (principal)
CPT/HCPCS: 94640; 99283; 99284

== ENCOUNTER 2023-08-30 03:28 | Outpatient (CLI) | payer BC, MEDICAID, SELFPAY ==
--- OUTSIDE RECORDS SUMMARY | 2023-08-30 03:30 | XMS_ITS | Referral Summary ---
Author Organization [facility] Address [address] [place] [address] Care Team Providers Care Brake Repairer Air Name Role Phone Unavailable Primary Care Provider Unavailabl e Source Comments Patient records contain information from all sites at [facility]. For routine questions regarding patient records, call [phone] during business hours, M-F 8:00 AM - 5:00 PM Central Time. Record requests for emergency care only can be directed to [phone] at any time.[facility] Allergies Active Allergy Reactions Criticality [...] HORMONE-SENSITIVE (S-TSH), S Routine 01/26/2020 4:37 PM CONSTRUCTION CONTROLLER from Last 3 Months or Most Recently Relevant to Health Maintenance
--- OUTSIDE RECORDS SUMMARY | 2023-08-30 03:30 | XMS_ITS | Clinical Summary ---
Author Organization [facility] Address [address] [place] [address] Care Team Providers Care Budget Specialist Name Role Phone Unavailable Primary Care Provider Unavailabl e Source Comments Patient records contain information from all sites at [facility]. For routine questions regarding patient records, call [phone] during business hours, M-F 8:00 AM - 5:00 PM Central Time. Record requests for emergency care only can be directed to [phone] at any time.[facility] Allergies Active Allergy Reactions Criticality [...] HORMONE-SENSITIVE (S-TSH), S Routine 01/26/2020 4:37 PM JITTERBUG OPERATOR from Last 3 Months or Most Recently Relevant to Health Maintenance
--- OUTSIDE RECORDS SUMMARY | 2023-08-30 03:30 | XMS_ITS ---
Author Organization [facility] Address [address] [place] [address] Care Team Providers Care Power Transformer Inspector Name Role Phone Unavailable Unavailable Unavailable Surgery Details Not on file Complications Check Surgery Details section. Procedure Estimated Blood Loss Check Surgery Details section. Procedure Findings Check Surgery Details section. Procedure Specimens Taken Check Surgery Details section.
--- OUTSIDE RECORDS SUMMARY | 2023-08-30 03:30 | XMS_ITS | Clinical Summary ---
Author Organization [facility] Address [place], [place] [address] Care Team Providers Care Photograph Finisher Name Role Phone Guilherme Olguin MD Unavailable [...] 06/11/2020 Active azelastine 137 mcg/actuation (ASTELIN) nasal sprayIndications:Hog Ribber aye pansinusitis,Mucous retention cyst of maxillary sinus,Allergic [...] 0.01, T3 298, TSI 5.3. left for [facility] and no treatment till 01/2013. Poor concentration, forgetfulness, shakiness, nervous, hyperactive, restless, weight loss, history of lose BMs. Weak muscles. 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 left for [facility] and no treatment till 01/2013. Poor concentration, [...] 03/08/2020 Overview: GBS negative. (Lab drawn at [facility] on 02/03/17) Limited care. Kyleena or [...] 0.01, T3 298, TSI 5.3. left for [place] and no treatment till 01/2013. Poor concentration, [...] 02/28/17) REFERRING PHYSICIAN/PHONE/LAST UPDATE: Olivia Shaw NP, [facility] - [phone] Primary MD approves scheduling of recommended ultrasounds/testing: Unknown SPECIALISTS/PHONE: Neurology [facility] - last seen 12/19/15 - notes scanned SREEDHAR: SREEDHAR signed for [facility]: CARE COORDINATION: GENETICS: PROCEDURES: PERTINENT LABS: Blood type: Last pap: Initial Hgb /Ferritin Hgb 28 wk Hgb 36 wk Repeat hgb anemic and compliant every 4 wks if/until >11.0 MEDS: Synthroid 150 mcg daily vitamin Miralax PRN NEXT VISIT ALERTS: FUTURE APPOINTMENTS: Testing: Through Growth: OB visits: Through TESTING PLANS: COTTON PICKER OPERATOR: CONSULTS: NURSING: DEPRESSION SCREEN Initial screen: Date [...] RNC.....01/15/2017 9:45 AM consult 08/02/2016 03/08/2020 Overview: [facility] CONSULTATION ON 08/06/2016 F/U [...] 02/28/17) REFERRING PHYSICIAN/PHONE/LAST UPDATE: Olivia Shaw NP, [facility] - [phone] Primary MD approves scheduling of recommended ultrasounds/testing: Unknown SPECIALISTS/PHONE: Neurology [facility] - last seen 12/19/15 - notes scanned SREEDHAR: SREEDHAR signed for [facility]: CARE COORDINATION: GENETICS: PROCEDURES: PERTINENT LABS: Blood type: Last pap: Initial Hgb /Ferritin Hgb 28 wk Hgb 36 wk Repeat hgb anemic and compliant every 4 wks if/until >11.0 MEDS: Synthroid 150 mcg daily vitamin Miralax PRN NEXT VISIT ALERTS: FUTURE APPOINTMENTS: Testing: Through Growth: OB visits: Through TESTING PLANS: COTTON PICKER OPERATOR: CONSULTS: NURSING: DEPRESSION SCREEN Initial screen: Date [...] Vag Epidur al Livin g Amanda [facility] SPONTA NEOUS Comments:Blighted Ovum 2014 Term 2.72 kg (6 lb) F Vag-Sp ont Livin g Umm za Delivery Location:[place] 2015 Term 40w 1d 3.18 kg (7 lb) M Vag None N Livin g Peter Complications:None Delivery Location:[facility] 2017 Term 39w 4d M Vag Livin g Santosh 2017 Term 39w 2d 0h 11m 3.29 kg (7 lb 4 oz) F Vag Epidur al N Livin g 9 9 BONIL LA,BG DANAYMI N Cosmo k Complications:None [facility]) Last Filed Vital Signs Vital Sign Reading Time Taken Comments Blood Pressure 120/73 04/13/2020 3:58 PM FIELD SUPERVISOR Pulse 85 04/13/2020 3:58 PM FIELD SUPERVISOR Temperature 37.1 ??C (98.7 ??F) 03/07/2020 3:36 PM CS T Respiratory Rate 20 03/24/2020 3:34 PM FIELD SUPERVISOR Oxygen Saturation 99% 04/13/2020 3:58 PM FIELD SUPERVISOR Inhaled Oxygen Concentration - - Weight 60.8 kg (134 lb) 03/07/2020 3:36 PM FIELD SUPERVISOR Height 156 cm (5' 1.42) 03/07/2020 3:36 PM FIELD SUPERVISOR Body Mass Index 24.98 03/07/2020 3:36 PM FIELD SUPERVISOR Plan of Treatment Health Maintenance Due Date [...] this topic Medical Devices Implanted Type Area 1St Grade Teacher Device Identifier Shelf Expiration Date Model / Serial / Lot Stent Ent Mini Steroid-Releas ing Propel Bioabsorb - [id number] Implanted:Qty: 2 on 04/22/2017 by Pedro Plascencia MD at [facility] Bilateral : [employer] 10/30/2018 [id number]# / / [id number] Stent Sinus 8mm Propel Contour Bioabsorb - [id number] Implanted:Qty: 1 on 04/22/2017 by Pedro Plascencia MD at [facility] Left: [employer]ose [employer] 10/19/2018 [id number]# / / [id number] Procedures Procedure Name Priority Date/Time Associated Diagnosis Comments HPV THIN PREP Routine 10/31/2021 12:00 PM CDT ANTI HIV 1/2 Routine 10/29/2017 10:21 AM CDT , unspecified gestational age ANTI HCV Routine 11/02/2014 5:51 PM CDT from Last 3 Months or Most Recently Relevant to Health Maintenance Results * HPV HIGH RISK (10/31/2021 12:00 PM CDT) TYPE 16 Negative Negative 11/03/2021 11:22 AM CDT [facility] TYPE 18 Negative Negative 11/03/2021 11:22 AM CDT [facility] OTHER HIGH RISK TYPES Negative Negative 11/03/2021 11:22 AM CDT [facility] Other (Cervical) 10/31/2021 12:00 PM CDT 11/02/2021 9:17 AM CDT N[facility]ative [facility] - 11/03/2021 11:22 AM CDT HPV types 16, 18, 31, 33, 35, 39, 45, 51, 52, 56, 58, 59, 66 and 68 DNA were undetectable or below the pre-set threshold. Methodology: Kenisha Simone 4800 HPV Test Agnieszka Horan NP MICROBIOLOGY [facility] [address] [place] [address], * ANTI HIV 1/2 (10/29/2017 10:21 AM CDT) HIV-1/HIV-2 ANTIBODY Non-Reacti ve Non-Reacti ve 10/29/2017 5:05 PM CDT [facility] Comment:HIV-1 p24 and HIV-1/ HIV-2 Ab not detected. Blood BLOOD SPECIMEN / Unknown Venipuncture / Unknown 10/29/2017 10:21 AM CDT 10/29/2017 10:21 AM CDT Jessica Machado MD SEND OUTS [facility] [address] [place] [address], * ANTI HCV (11/02/2014 5:51 PM CDT) HEPATITIS C ANTIBODY Non-Reacti ve Non-Reacti ve 11/03/2014 1:19 PM CDT [facility] Blood specimen (specimen) BLOOD SPECIMEN / Unknown Venipuncture / Unknown 11/02/2014 5:51 PM CDT 11/02/2014 5:51 PM CDT Narrative [facility] - 11/03/2014 1:19 PM CDT Antibodies to HCV not detected; does not exclude the possibility of exposure to HCV. Vale ROCHE [facility] OUTS [facility] [address] [place] [address], from Last 3 Months or Most Recently [...] Code Status Discussion: Not Discussed Care Teams Photograph Finisher Relationship Specialty Start Date End Date Pcp, No . PCP - General 09/30/20 Guilherme Olguin MD MANAGER READING Obstetrics and Gynecology 01/25/11
--- OUTSIDE RECORDS SUMMARY | 2023-08-30 03:31 | XMS_ITS | Encounter Summary ---
Author Organization [place] Address [facility] [place] [address] Care Team Providers Care Health Psychologist Name Role Phone [facility] Primary Care Provider Anita Celis MD Unavailable [phone] Encounter Details Date Type Department Care Team (Late st Contact Info) Description 06/17/2023 Telephone [facility] [address] [place] [address] Anita Celis MD [address] [place] [address] Social History Tobacco Use Types [...] QDAY Qty: 30 1RF Yasmin Barrios CMA [facility] Endocrinology [place] [phone] * Telephone Encounter - Juliet Barrios CMA - 06/17/2023 8:01 AM CDT please get records from OB clinic. She reports that she recently had labs done in May 2023 and based on labs dose was changed by her upholsterer assembly line/PA. She is not sure about the labs and what dose she is supposed to take. She has not started new dose yet. She appears confused about the dosing. She wouldlike to continue care with endocrinology. [facility] [place]. Please check with patient about the name of clinic and provider so that you can call and get records. Let me know if you have any questions. Anita Celis MD documented in this encounter Plan of Treatment Upcoming Encounters Date Type Department Care Team (Late st Contact Info) Description 09/09/2023 2:00 PM CDT Virtual Visit [facility] [address] [place] [address] Anita Celis MD [address] [place] [address] documented as of this encounter Visit Diagnoses Diagnosis Hypothyroidism, unspecified type- Primary documented in this encounter Care Teams Health Psychologist Relationship Specialty Start Date End Date [facility], [address] [address] PCP - General 04/07/15 Anita Celis MD [address] [place] [address] Assigned Endocrinology Provider 04/05/23 documented as of this encounter
--- OUTSIDE RECORDS SUMMARY | 2023-08-30 03:31 | XMS_ITS | Encounter Summary ---
Author Organization [place] Address [facility] [place] [address] Care Team Providers Care Database Report Writer Name Role Phone [facility] Primary Care Provider Anita Celis MD Unavailable [phone] Reason for Visit * Reason Onset Date Comments Call Back 08/16/2023 Questions Encounter Details Date Type Department Care Team (Late st Contact Info) Description 08/16/2023 Telephone [facility] [address] [place] [address] Anita Celis MD [address] [place] [address] Call Back (Questions ) Social History Tobacco [...] * Telephone Encounter - Emma Godwin - 08/27/2023 11:05 AM CDT Appointments scheduled with patient * Telephone Encounter - Emma Godwin - 08/23/2023 11:16 AM CDT 07.12- No answer/vm full * Telephone Encounter - Emma Godwin - 08/21/2023 11:17 AM CDT 07.10- No answer/VM full, sent SMS notification * [...] after that to discuss results. COLTON matta. #1. Postablative hypothyroidism: History of Graves' disease [...] clinic. Start new dose as recommended by METAL MINER Will review the recommendations and comment if needed. * Telephone Encounter - Yris Tapia - 08/16/2023 11:58 AM CDT [facility] Phone Message May a detailed [...] Upcoming Encounters Date Type Department Care Team ([facility] st Contact Info) Description 09/09/2023 2:00 PM CDT Virtual Visit [facility] [address] [place] [address] Anita Celis MD [address] [address] [place] [address] documented as of this encounter Visit Diagnoses Not on filedocumented in this encounter Care Teams Database Report Writer Relationship Specialty Start Date End Date [address] [address] PCP - General 04/07/15 Anita Celis MD [address] [address] [place] [address] Assigned Endocrinology Provider 04/05/23 documented as of this encounter
--- OUTSIDE RECORDS SUMMARY | 2023-08-30 03:31 | XMS_ITS | Encounter Summary ---
Author Organization [place] Address Formerly [facility] [place] [address] Care Team Providers Care Complaint Investigator Name Role Phone [facility], [facility] Primary Care Provider Anita Celis MD Unavailable [phone] Reason for Visit * Reason Comments RECHECK Thy, labs, utd Encounter Details Date Type Department Care Team (Late st Contact Info) Description 06/13/2023 3:30 PM CDT Virtual Visit [facility] [address] [place] [address] Anita Celis MD [address] [place] [address] Hypothyroidism, unspecified type Social History Tobacco Use [...] [facility] Dr Celis, Endocrinology Department [facility] [address] [place] [address] Appointment [phone] [place]: Saturday - Please ask your OB provider to fax records to endocrinology clinic. Start new dose as recommended by [employer] Will review the recommendations and comment if [...] Video ended:3;52 Provider location: working from home/ [facility] Patient location: patients home. Mode of transmission: textPlus video/ [email or web address] Verbal consent: obtained before starting visit. Pt [...] Referring provider Elena Giraldo APRN CNM outside [place]. No recent lab results to review. Limited records are available. Earlier this morning she was in ER for leg pain and swelling. Postablative hypothyroidism: She reports that she was diagnosed with Graves' disease when she was 20-year-old and received radiation treatment. Following that she developed hypothyroidism and was started on levothyroxine after that. Currently she is -- 7th month. AISHAWRYA: September 2023 This is 7th . Has 6 kids. She reports that she is followed by [employer] at local clinic. She reports that she [...] at that time thedose was increased by [employer] and she was asked to follow-up with [employer]. They told her that they can manage levothyroxine dosing but after 03/2023 labs with high TSH and she was asked to follow-up with endocrinology again.--See telephone encounter from 04/11/2023) She reports that she recently had labs done by feed mill operator at [facility] clinic-- but no labs to review or paperwork sent. She reports that based on those labs her feed mill operator has recommended to increase the dose but she is not sure about the dose. She has not started new prescription yet. Clinic[facility] [place]. Side Gluer: KALEY Peraza Gained about 30 lbs during [...] or cold intolerance: feels warm History of [place] or Amiodarone use:No Head or neck surgery/radiation:Yes: [...] Male Other Topics Concern Parent/sibling w/ CABG, [place] or angioplasty before 65F 55M? Not Asked Social History Narrative Not on file Social Determinants of Health Financial Resource Strain: High Risk (02/10/2021) Received from [facility] Financial Resource Strain Difficulty of Paying Living Expenses: Not on file Difficulty of Paying Living Expenses: Not on file Food Insecurity: Not on file Transportation Needs: Not on file Physical Activity: Not on file Stress: Not on file Social Connections: Unknown (02/10/2021) Received from [facility] Social Connections Frequency of Communication with Friends and Family: Not on file Interpersonal Safety: Not on file Housing Stability: Not on file MEDICATIONS: has a current medication list which includes the following prescription(s): levothyroxine, omeprazole magnesium, and vit w/qx-xppuvsfde-wf. ROS ROS: 10 point ROS neg other [...] Start new dose as recommended by [employer] Will review the recommendations and comment if [...] noted in AVS Anita Celis MD Endocrinology [facility] CC: [facility] documented in this encounter Nursing Notes * Azalia Childress - 06/13/2023 3:30 PM CDT Is the patient currently in the state of [place]? YES Visit mode:VIDEO If the visit is dropped, the patient can be reconnected by: VIDEO VISIT: Text to cell phone: Telephone Information: Will anyone else be joining the visit? NO (If patient encounters technical issues they should call [phone] :[phone]) How would you like to obtain your [...] Description 09/09/2023 2:00 PM CDT Virtual Visit [place] [address] [place] [address] Anita Celis MD [address] [place] [address] [address] [place] [address] documented as of this encounter Visit Diagnoses Diagnosis Hypothyroidism, unspecified type documented in this encounter Care Teams Complaint Investigator Relationship Specialty Start Date End Date [address] [address] PCP - General 04/07/15 Anita Celis MD [address] [place] [address] [address] [place] [address] Assigned Endocrinology Provider 04/05/23 documented as of this encounter
--- OUTSIDE RECORDS SUMMARY | 2023-08-30 03:31 | XMS_ITS | Clinical Summary ---
Author Organization [place] Address [address] [place] [address] Care Team Providers Care Contract Paralegal Name Role Phone Clinic, [facility] Primary Care Provider Anita Celis MD Unavailable [phone] Allergies No known active allergies Medications Medication Sig Dispensed Refills Start Date End Date Status Vit w/Yo-Qigvlmqgf-BQ (PNV PO) Take 1 tablet by mouth [...] 07/17/2011 Pain in thoracic spine 05/18/201107/16 Health Nursing Home 05/02/2011 07/29/2023 Overview: DX V65.8 REPLACED WITH 96886 HEALTH RETIREMENT (05/19/2012) Mirena IUD placed 05/02/2011 05/02/2011 07/02/2013 [...] Encounters Date Type Department Care Team Description 08/29/2023 3:30 PM CDT Lab [facility] [address] [place] [address] Hypothyroidism, unspecified type 08/29/2023 Travel 08/16/2023 Telephone [facility] [address] [place] [address] Anita Celis MD Call Back (Questions ) 06/18/2023 Refill [facility] [address] [place] [phone] Anita Celis MD Medication Refill 06/17/2023 Telephone [facility] [address] [place] [address] Anita Celis MD 06/13/2023 3:30 PM CDT Virtual Visit [facility] [address] [place] [address] Anita Celis MD Hypothyroidism, unspecified type 06/11/2023 Telephone [facility] [address] [place] [address] Anita Celis MD Call Back; Patient Request [...] Comments Blood Pressure 99/66 03/13/2023 11:34 AM GASTROENTEROLOGY MANAGER Pulse 114 03/13/2023 11:34 AM GASTROENTEROLOGY MANAGER Temperature 37 ??C (98.6 ??F) 03/13/2023 11:34 AM GASTROENTEROLOGY MANAGER Respiratory Rate 18 03/13/2023 11:34 AM GASTROENTEROLOGY MANAGER Oxygen Saturation 94% 03/13/2023 11:34 AM GASTROENTEROLOGY MANAGER Inhaled Oxygen Concentration - - Weight 71.8 kg (158 lb 3.2 oz) 03/13/2023 11:34 AM GASTROENTEROLOGY MANAGER Height 153.7 cm (5' 0.5) 03/13/2023 11:34 AM CS T Body Mass Index 30.39 03/13/2023 11:34 AM GASTROENTEROLOGY MANAGER Plan of Treatment Upcoming Encounters Date Type Department Care Team (Late st Contact Info) Description 09/09/2023 2:00 PM CDT Virtual Visit [facility] [address] [place] [address] Anita Celis MD [address] [place] [address] Health Maintenance Due Date Last Done Comments ADVANCE CARE PLANNING 1992 ANNUAL REVIEW OF HM ORDERS 1992 YEARLY PREVENTIVE VISIT 1992 IPV IMMUNIZATION (4 of 4 - 4-dose series) 1996 06/27/1995, 1992, 1992 HEPATITIS C SCREENING 2010 COVID-19 Vaccine ( season) 2022 12/09/2021, 11/11/2021 INFLUENZA VACCINE (#1) 2023 9, 11/17/2017, 03/24/2011, Additional history exists TSH W/FREE T4 REFLEX 04/10/2024 08/29/2023, 08/29/2023, 04/11/2023, Additional history exists PAP 10/31/2024 10/31/2021, 05/12/2013 DTAP/TDAP/TD IMMUNIZATION (12 - Td or Tdap) 08/01/2033 08/02/2023, 11/06/2018, 12/05/2017, Additional history exists HEPATITIS B IMMUNIZATION Completed [...] Priority Date/Time Associated Diagnosis Comments TSH Routine 08/29/2023 3:29 PM CDT Hypothyroidism, unspecified type T4 FREE Routine 08/29/2023 3:29 PM CDT Hypothyroidism, unspecified type ABSTRACT PAP (HIM EXTERNAL RESULT) Routine 05/12/2013 HIV 1 AND 2 ANTIBODY (QUEST) Routine 10/24/2010 11:41 AM CDT Supervision of normal first from Last 3 Months or Most Recently Relevant to Health Maintenance Results * TSH (08/29/2023 3:29 PM CDT) TSH 0.77 0.30 - 4.20 uIU/mL 08/30/2023 2:26 AM CDT [facility] Blood BLOOD SPECIMEN / Unknown Venipuncture / Unknown 08/29/2023 3:29 PM CDT 08/29/2023 3:29 PM CDT Anita Celis MD LAB - BLOOD ORDER GERRI [facility] Lab [address] [facility], [address] * T4 free (08/29/2023 3:29 PM CDT) Free T4 1.13 0.90 - 1.70 ng/dL 08/30/2023 2:26 AM CDT [facility] Blood BLOOD SPECIMEN / Unknown Venipuncture / Unknown 08/29/2023 3:29 PM CDT 08/29/2023 3:29 PM CDT Anita Celis MD LAB - BLOOD ORDER GERRI [facility] [place] [facility] [address] * ABSTRACT PAP-NO CHARGE (05/12/2013) 05/12/2013 Impressions EXTERNAL LAB - 05/12/2013 Information from office visit dated: 06/12/2013 Pap smear done on ??this date: 05/2013 (approximately), by this group: [facility], results were WNL. ?? Provider Outside LAB - HIM EXTERNAL R ESULT EXTERNAL LAB External Lab * HIV 1 and 2 Antibody (10/24/2010 11:41 AM CDT) HIV 1&2 Antibody Negative [facility] Blood specimen (specimen) 10/24/2010 11:41 AM CDT 10/24/2010 11:46 AM CDT India Arora DO LAB - BLOOD ORDER GERRI [facility] from Last 3 Months or Most Recently Relevant to Health Maintenance Care Teams Contract Paralegal Relationship Specialty Start Date End Date [facility], [facility] [address] [place] [address] PCP - General 04/07/15 Anita Celis MD [address] [place] [address] Assigned Endocrinology Provider 04/05/23
--- OUTSIDE RECORDS SUMMARY | 2023-08-30 03:31 | XMS_ITS | Data Portability ---
Author Organization [place] [facility] Address [address] [place] [address] [address] [place] [address] Care Team Providers Care Billboard Installer Name Role Phone RUTHANN HENRY Referring Provider [phone] Assessment Encounter Date Assessment Date Assessment LastModified [...] XR, orthopantog tee 2020 021 [email or web address], [place], [address], 08:48:53 Medication Orders None recorded. Patient TargetsNo targets recorded. Patient Instructions Encounter Date Encounter Id Patient Instructions Last Modified By Organization Details Last Modified Time 09/12/2020 [id number] 1. instructed in self cares 2. possible PT evaluation in the future: muscle relaxation, instruct in proper jaw mechanics to reduce TMJ clicking 3. P.A. Mx FPS (4mm thick posterior Thermoflex): impressions by dental economist research assistant done today are being held until [...] pt. yet. Not available 09/12/2020 22:24:47 10/13/2020 [id number] 1. inserted [place] F PS splint and [...] panto gram No observ ation record ed. [address], [place], [address], 09/13/2020 21:22:25 10/29/[address], maxil lofac ial, w/o contr ast No observ ation record ed. Not Available 10/30/2020 17:02:56 Result Notes None recorded. 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 021 Peggy De La Cruz DDS [address], [place], [address] , [facility] 09/12/2020 22:25:05 Bilateral temporomandibular joint pain Active 021 Peggy De La Cruz DDS [address], [place], [address] , [facility] 09/12/2020 22:25:07 Toothache Active 021 Peggy De La Cruz DDS [address], [place], [address] , [facility] 09/12/2020 22:30:40 Tension-type headache Active 021 Peggy De La Cruz DDS [address], [place], [address] , [facility] 09/12/2020 22:30:42 Problem Notes None recorded. Procedures Surgical History Date Name Laterality Status Provider Name and Address Organization Details Recorded Time CT TMJ completed Milagros guadalupe [facility] 10/13/2020 17:22:03 Oral appliance completed Milagros guadalupe, [facility] 10/13/2020 16:59:09 Caesarean Section completed Milagros guadalupe, [facility] 09/12/2020 16:15:07 Unlisted px accessory sinus completed Milagros guadalupe, [facility] 09/12/2020 16:15:18 endoscopy completed Milagros guadalupe, [facility] 09/12/2020 16:15:36 Dilation and Curettage completed Milagros guadalupe [facility] 09/12/2020 16:15:53 Imaging Results Imaging Date Name Status LastModified by Organization Details LastModified Time 09/12/2020 XR, [place]antogram [email or web address] [id number] Inform ation not available 09/12/2020 17:00:29 09/13/2020 XR, orthopantogram completed [email or web address] [address] [place], [address], 09/13/2020 21:22:25 10/28/2020 CT, maxillofacial, w/o contrast completed [facility] Information not available 10/30/2020 17:02:56 Procedure Notes None recorded. Medical Equipment None Reported. Allergies Allergen ID Allergen Name Allergen Category Reaction Reaction Severity Criticality Documentation Date Start Date Code Code System Note Provider Name and Address Organization Details Recorded Time 75958 naproxen medicatio n Not available Not available Not available 09/12/2020 7258 RxNorm Milagros guadalupe [facility] 16:12:26 Medications [...] Updated DateTime 1 167.64 cm 21 kg/m2 58510.0 1 g 71 /min 107 mm[Hg] 70 mm[Hg] Milagros Hudson [facility] 16:35:07 Date Recorded Body height Body mass index (BMI) Body weight Heart rate Systolic blood pressure Diastolic blood pressure Provider Name and Address Organization Details Last Updated DateTime 1 167.64 cm 21 kg/m2 59535.0 1 g 81 /min 107 mm[Hg] 77 mm[Hg] Milagros Hudson [facility] 16:58:37 Social History Question Answer Notes LastModified by Organizat ion Details LastModified Time Tobacco Smoking Status Never Smoker [place] [facility] 09/12/2020 16:14:49 [...] Or The Highest Degree You Have Received? CG78125-2 Information not available 09/12/2020 What Is Your [...] History Condition Response Coronary Artery Disease N Gout N Other N Chronic fatigue syndrome N Hyperthyroidism N MRSA N Premenstrual syndrome (PMS) N Head Trauma/Injury N Emphysema N Irritable bowel syndrome N Hypothyroidism Y Depression N COPD N Lung Disease N Glaucoma N Pneumonia N Pacemaker N Obstructive [...] Meningitis N Pancreatic disease N Heart Attack (PR) N Stomach Ulcers N Back pain N Diabetes N Bleeding Disorder N Seizures/Epilepsy N Sjogren's syndrome N Tuberculosis N AIDS/HIV N History of radiation therapy N Hyperlipidemia N Dementia N Asthma Y Physical or sexual abuse N Substance Abuse N Peripheral Vascular Disease N Psoriasis N Reflux/GERD N Mental Problems N Vertigo N Sleep Disorder N Aneurysm N Hepatitis N Heart Disease N Neuropathy N Pulmonary Embolism N Hypertension N Osteoporosis N Gynecological HistoryNo gynecological history recorded. Obstetrics History GPAL:G 0 P 0 0 0 0 Past Encounters Encounter ID Performer Location Encounter Start Date Encounter Closed Date Diagnosis/Indication Diagnosis SNOMED-CT Code [id number] Peggy De La Cruz, DESMONDS [address] 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 6686279939632 9104 Toothache 84910542 Myofascial pain 12281852 9 Tension-type headache 39 5621125 Health Concerns Section Related Observation LastModified by Organization Detai ls LastModified Time None Recorded Concern Status LastModified by Organization Details LastModified Time None Recorded Advance Directives Directive None Recorded Payers Encounter Date Sequence Insurance Name Policy Number Policy Mckeon Covered Member ID Mckeon Member ID Guarantor Name 09/12/2020 1 [place] [id number] Kera Hale [id number] Jeanne Hale 09/12/2020 2 [employer] - DOS PRIOR TO 2021 [facility] Kera Hale [id number] Jeanne Hale 10/13/2020 1 [place] [id number] Kera Hale [id number] Jeanne Hale 10/13/2020 2 [employer] - DOS PRIOR TO 2021 [place] Kera Hale [id number] Jeanne Hale Notes Date Note Type Note [...] her numb. Peggy De La Cruz, DESMONDS [address] [facility] [address], [place], [address], [facility] 10/13/2020 [...] previously recommended. Peggy De La Cruz, DESMONDS [address] [facility] [address], [place], [address], [facility] 10/18/2020 11:17:08 OBGyn Episode No OBEpisode recorded.
--- OUTSIDE RECORDS SUMMARY | 2023-08-30 03:31 | XMS_ITS | Referral Summary ---
Author Organization [place] Address [address] [place] [address] Care Team Providers Care Multi Share Program Coordinator Name Role Phone [facility] Primary Care Provider Anita Celis MD Unavailable [phone] Encounters Date Type Department Care Team Description 08/29/2023 Travel 08/29/2023 3:[address] [facility] [address] [place] [address] Hypothyroidism, unspecified type 08/16/[address] [facility] [address] [place] [address] Anita Celis MD Call Back (Questions ) 06/18/[address] [facility] [address] [place] [address] Anita Celis MD Medication Refill 06/17/[address] [facility] [address] [place] [address] Anita Celis MD 06/13/2023 3:30 PM CDT Virtual Visit [facility] [address] [place] [address] Anita Celis MD Hypothyroidism, unspecified type 06/11/[address] [facility] [address] [place] [address] Anita Celis MD Call Back; Patient Request from Last 3 Months Allergies No known active allergies Medications Medication Sig Dispensed Refills Start Date End Date Status Vit w/Tj-Kdhfcjmix-DU (PNV PO) Take 1 tablet by mouth [...] 07/17/2011 Pain in thoracic spine 05/18/201107/16 Health [facility] 05/02/2011 07/29/2023 Overview: DX V65.8 REPLACED WITH 65096 HEALTH LONG TERM (05/19/2012) Mirena IUD placed 05/02/2011 05/02/2011 07/02/2013 [...] Comments Blood Pressure 99/66 03/13/2023 11:34 AM BAKERY ASSOCIATE Pulse 114 03/13/2023 11:34 AM BAKERY ASSOCIATE Temperature 37 ??C (98.6 ??F) 03/13/2023 11:34 AM BAKERY ASSOCIATE Respiratory Rate 18 03/13/2023 11:34 AM BAKERY ASSOCIATE Oxygen Saturation 94% 03/13/2023 11:34 AM BAKERY ASSOCIATE Inhaled Oxygen Concentration - - Weight 71.8 kg (158 lb 3.2 oz) 03/13/2023 11:34 AM BAKERY ASSOCIATE Height 153.7 cm (5' 0.5) 03/13/2023 11:34 AM CS T Body Mass Index 30.39 03/13/2023 11:34 AM BAKERY ASSOCIATE Plan of Treatment Upcoming Encounters Date Type Department Care Team (Late st Contact Info) Description 09/09/2023 2:00 PM CDT Virtual Visit [facility] [address] [place] [address] Anita Celis MD [address] [place], [place] [address] Procedures Procedure Name Priority Date/Time Associated Diagnosis [...] - BLOOD ORDER GERRI Performing Organization Address City/[facility]/ZIP Co de Phone Number LABORATORY [facility] [address] [facility], [address] [phone] * T4 free (08/29/2023 3:29 PM CDT) Free T4 1.13 0.90 - 1.70 ng/dL 08/30/2023 2:26 AM CDT [facility] Blood BLOOD SPECIMEN / Unknown Venipuncture / Unknown 08/29/2023 3:29 PM CDT 08/29/2023 3:29 PM CDT Anita Celis MD LAB - BLOOD ORDER GERRI [facility] [place] [facility] [address] [facility], [address] [place], [place] [address] * ABSTRACT PAP-NO CHARGE (05/12/2013) 05/12/2013 Impressions EXTERNAL LAB - 05/12/2013 Information from office visit dated: 06/12/2013 Pap smear done on ??this date: 05/2013 (approximately), by this group: [facility], results were WNL. ?? Provider Outside LAB - HIM EXTERNAL R ESULT EXTERNAL LAB External Lab * HIV 1 and 2 Antibody (10/24/2010 11:41 AM CDT) HIV 1&2 Antibody Negative [facility]G [facility] Blood specimen (specimen) 10/24/2010 11:41 AM CDT 10/24/2010 11:46 AM CDT India Arora DO LAB - BLOOD ORDER GERRI [facility] from Last 3 Months or Most Recently Relevant to Health Maintenance Care Teams Multi Share Program Coordinator Relationship Specialty Start Date End Date [facility] [address] [address] PCP - General 04/07/15 Anita Celis MD [address] [facility] [address] [place], [place] [address] Assigned Endocrinology Provider 04/05/23
--- OUTSIDE RECORDS SUMMARY | 2023-08-30 03:31 | XMS_ITS | Encounter Summary ---
Author Organization [place] Address [address] [place] [address] Care Team Providers Care Interior Systems Carpenter Name Role Phone [facility] Primary Care Provider Anita Celis MD Unavailable [phone] Reason for Visit * Reason Comments Medication Refill Encounter Details Date Type Department Care Team (Late Contact Info) Description 06/18/2023 Refill [facility] [address] [place] [address] Anita Celis MD [address] [place] [address] [address] [place] [address] Medication Refill Social History Tobacco Use Types [...] Upcoming Encounters Date Type Department Care Team ([facility] Contact Info) Description 09/09/2023 2:00 PM CDT Virtual Visit [facility] [address] [place] [address] Anita Celis MD [address] [place] [address] documented as of this encounter Visit Diagnoses Diagnosis Hypothyroidism, unspecified type documented in this encounter Care Teams Interior Systems Carpenter Relationship Specialty Start Date End Date [facility], [address] [address] PCP - General 04/07/15 Anita Celis MD [address] [place] [address] Assigned Endocrinology Provider 04/05/23 documented as of this encounter
--- OUTSIDE RECORDS SUMMARY | 2023-08-30 03:31 | XMS_ITS | Encounter Summary ---
Author Organization [place] Address [facility] [place] [address] Care Team Providers Care Ad Operations Coordinator Name Role Phone [facility] Primary Care Provider Anita Celis MD Unavailable [phone] Reason for Visit * Reason Onset Date Comments Call Back 06/11/2023 Patient Request 06/11/2023 Encounter Details Date Type Department Care Team (Late st Contact Info) Description 06/11/2023 Telephone [facility] [address] [place] [address] Anita Celis MD [address] [place], [place] [address] Call Back; Patient Request Social History Tobacco [...] on 06/12 at 3:30? Yasmin Barrios CMA [facility] [phone] * Telephone Encounter - Emma Godwin - 06/12/2023 8:57 AM CDT Spoke with patient, she cannot do today. She gets off work at 3pm. * Telephone Encounter - Juliet Barrios CMA - 06/12/2023 8:21 AM CDT Offer 06/11 at 3 pm for in person or video visit with dr. Celis. Yasmin Barrios CMA [facility] [phone] * Telephone Encounter - Veronica Bello - 06/11/2023 12:09 PM CDT [facility] Call Center Phone Message May a [...] her endo would like to see her. Sheet Metal Foreman then stated to patient she missed her appt. Action Taken: Message routed to: [facility] endo Travel Screening: Not Applicable documented in this encounter Plan of Treatment Upcoming Encounters Date Type Department Care Team (Late st Contact Info) Description 09/09/2023 2:00 PM CDT Virtual Visit [facility] [address] [place] [phone] Anita Celis MD [address] [facility] [address] [place] [address] documented as of this encounter Visit Diagnoses Not on filedocumented in this encounter Care Teams Ad Operations Coordinator Relationship Specialty Start Date End Date [address] [address] PCP - General 04/07/15 Anita Celis MD [address] [facility] [address] [place] [address] Assigned Endocrinology Provider 04/05/23 documented as of this encounter
--- OUTSIDE RECORDS SUMMARY | 2023-08-30 03:31 | XMS_ITS | Encounter Summary ---
Author Organization [place] Address [facility] [place] [address] Care Team Providers Care Drawing Operator Name Role Phone [facility] [place] [facility] Primary Care Provider Anita Celis MD Unavailable [phone] Encounter Details Date Type Department Care Team (Latest Contact Info) Description 08/29/2023 Travel Social History Tobacco Use Types Packs/Day [...] Description 09/09/2023 2:00 PM CDT Virtual Visit [facility] [address] [place] [address] Aniat Celis MD [address] [address] [place], [place] [address] documented as of this encounter Visit Diagnoses Not on filedocumented in this encounter Care Teams Drawing Operator Relationship Specialty Start Date End Date [facility] [place] [facility] [address] [place] [address] PCP - General 04/07/15 Anita Celis MD [address] [place] [address] 200 [place] [address] Assigned Endocrinology Provider 04/05/23 documented as of this encounter
--- OUTSIDE RECORDS SUMMARY | 2023-08-30 03:31 | XMS_ITS | Encounter Summary ---
Author Organization [place] Address [address] [place] [address] Care Team Providers Care Soccer Ball Assembler Name Role Phone [facility] Primary Care Provider Anita Celis MD Unavailable [phone] Encounter Details Date Type Department Care Team (Late Contact Info) Description 08/29/2023 3:30 PM CDT Lab [facility] [address] [place] [phone] Hypothyroidism, unspecified type Social History Tobacco Use [...] Description 09/09/2023 2:00 PM CDT Virtual Visit [facility] [address] [place] [phone] Anita Celis MD [address] [facility] [address] [place] [address] documented as of this encounter Procedures Procedure Name Priority Date/Time Associated Diagnosis Comments TSH Routine 08/29/2023 3:29 PM CDT Hypothyroidism, unspecified type T4 FREE Routine 08/29/2023 3:29 PM CDT Hypothyroidism, unspecified type documented in this encounter Results * TSH (08/29/2023 3:29 PM CDT) TSH 0.77 0.30 - 4.20 uIU/mL 08/30/2023 2:26 AM CDT [facility] Blood BLOOD SPECIMEN / Unknown Venipuncture / Unknown 08/29/2023 3:29 PM CDT 08/29/2023 3:29 PM CDT Anita Celis MD LAB - BLOOD ORDER GERRI Performing Organization Address City/[facility]/ZIP Co de Phone Number [facility] [address] [facility], [address] [address] * T4 free (08/29/2023 3:29 PM CDT) Free T4 1.13 0.90 - 1.70 ng/dL 08/30/2023 2:26 AM CDT [facility] Blood BLOOD SPECIMEN / Unknown Venipuncture / Unknown 08/29/2023 3:29 PM CDT 08/29/2023 3:29 PM CDT Anita Celis MD LAB - BLOOD ORDER GERRI [facility] [place] [facility] [address] [facility], [address] [address] documented in this encounter Visit Diagnoses Diagnosis Hypothyroidism, unspecified type documented in this encounter Care Teams Soccer Ball Assembler Relationship Specialty Start Date End Date [facility], [address] [address] PCP - General 04/07/15 Anita Celis MD [address] [facility] [address] [place] [address] Assigned Endocrinology Provider 04/05/23 documented as of this encounter
--- OUTSIDE RECORDS SUMMARY | 2023-08-30 03:32 | XMS_ITS | Encounter Summary ---
Author Organization [facility] Address [address] [place] [address] Care Team Providers Care Auto Top Mechanic Name Role Phone [facility] Primary Care Provider No Ref-Primary, Physician Primary Care Provider India Arora DO Primary Care Provider [phone] No Ref-Primary, Physician Primary Care Provider Brit García APRN [facility] Primary Care Provi saad [facility] Primary Care Provider Anita Celis MD Unavailable [phone] Reason for Visit * Reason Onset Date Comments Nurse Advice Line 08/25/2011 FNA Encounter Details Date Type Department Care Team (Late st Contact Info) Description 08/25/2011 [facility] [address] [place] [address] [facility] [address] [place] [address] Nurse Advice Line (FNA) Social History Tobacco [...] encounter Miscellaneous Notes * Telephone Encounter - Judit Juliet - 08/25/2011 9:01 PM CDT Call to [...] in ED and then follow up at [facility] for eval of the IUD Juliet Spain RN [facility] documented in this encounter Plan of Treatment Upcoming Encounters Date Type Department Care Team (Late st Contact Info) Description 09/09/2023 2:00 PM CDT Virtual Visit [facility] [address] [place] [address] Anita Celis MD [address] [place] [address] documented as of this encounter Visit Diagnoses Not on filedocumented in this encounter Care Teams Auto Top Mechanic Relationship Specialty Start Date End Date Clinic - [facility] PCP - General 02/26/11 06/02/12 No Ref-Primary, Physician PCP - General 06/03/12 07/01/13 India Arora DO PCP - General retread mold operator 07/02/13 02/04/14 No Ref-Primary, Physician PCP - General 02/05/14 04/13/14 Brit García APRN [facility] PCP - General Nurse Practitioner - Adult Health 07/13/14 04/06/15 [facility], [address] [address] PCP - General 04/07/15 Anita Celis MD [address] [place] [address] 200 [place] [address] Assigned Endocrinology Provider 04/05/23 documented as of this encounter
--- OUTSIDE RECORDS SUMMARY | 2023-08-30 03:32 | XMS_ITS | Encounter Summary ---
Author Organization [facility] Address [address] [place] [address] Care Team Providers Care Publishing Editor Name Role Phone [facility] Primary Care Provider No Ref-Primary, Physician Primary Care Provider India Arora DO Primary Care Provider [phone] No Ref-Primary, Physician Primary Care Provider Brit García APRN [facility] Primary Care Provi saad [facility] Primary Care Provider Anita Celis MD Unavailable [phone] Reason for Visit * Reason Onset Date Comments Nurse Advice Line 04/06/2011 Encounter Details Date Type Department Care Team (Late st Contact Info) Description 04/06/[address] [place] [address] [facility] [address] [facility] [place] [address] Nurse Advice Line Social History [...] encounter Miscellaneous Notes * Telephone Encounter - Alberto RamsesNegin - 10/31/2011 8:51 AM CDT [facility] Triage Call Report Patient Name: Kera Hale Call Date & Time: 04/06/2011 5:39:53PM Patient PCP Name: MRN: Patient Address: Patient Date of : 1990 Age: 21 yr. Patient Gender: Female Rn Chronic Name: Ora Joseph Presenting Problem: Calling that [...] Description 09/09/2023 2:00 PM CDT Virtual Visit [facility] [address] [facility] [address] [place] [address] Anita Celis MD [address] [place] [address] documented as of this encounter Visit Diagnoses Not on filedocumented in this encounter Care Teams Publishing Editor Relationship Specialty Start Date End Date [facility] PCP - General 02/26/11 06/02/12 No Ref-Primary, Physician PCP - General 06/03/12 07/01/13 India Arora DO PCP - General company secretary 07/02/13 02/04/14 No Ref-Primary, Physician PCP - General 02/05/14 04/13/14 Brit García APRN [facility] PCP - General Nurse Practitioner - [facility] 07/13/14 04/06/15 [facility], [address] [address] PCP - General 04/07/15 Anita Celis MD [address] [place] [address] 200 [place] [address] Assigned Endocrinology Provider 04/05/23 documented as of this encounter
[2023-08-30 03:33] VITALS: PULSE 82; O2SAT 100
[2023-08-30 03:38] VITALS: PULSE 86; O2SAT 99
[2023-08-30 03:43] VITALS: PULSE 94; O2SAT 98
[2023-08-30 03:44] VITALS: BP 122/80; PULSE 88; RESP 18; TEMP 37.1
--- NOTE | 2023-08-30 06:15 | PC.OBNST ---
NST Note NST Note Start: 08/30/23 03:37 Freq: ONCE Status: Active Protocol: Document 08/30/23 06:02 TOYA (Rec: 08/30/23 06:15 TOYA [id number]) NST Note 8 Para (# of births) 6 EDC 09/13/23 Gestational Age In Weeks & Days 38 Weeks & 0 Days High Risk Factors History of Labor/ Delivery Patient Presented with Complaint(s) of Vaginal bleeding,Pain Other Complaints Vaginal pain and pressure, decreased movement and bloody show Reactive Yes RN Santosh Harley, RN Date 08/30/23 Reactive Yes JERRY Luis RN Date 08/30/23 OB NST charge Yes Complete NST Note via Write Note Yes The provider's electronic signature indicates the NST is reactive/appropriate for gestational age. *Note to provider: If an addendum is required, open the patient's chart and click on the note under the Nurse/Allied Health tab.
== END 2023-08-30 05:33 | disposition home or self-care (01) ==
LOC: OB OUT 03:28 → OB 03:29
PROVIDERS: PCP Family Medicine; Visit Provider Obstetrics & Gynecology
DX: O47.1 False labor at or after 37 completed weeks of gestation (principal); O36.8130 Decreased fetal movements, third trimester, not applicable or unspecified; Z3A.38 38 weeks gestation of pregnancy
CPT/HCPCS: 59025; 87081; 87653; G0463

== ENCOUNTER 2024-03-19 16:09 | Outpatient (CLI) | payer BC, MEDICAID, SELFPAY ==
[2024-03-19 23:29] LABS: Chlamydia DNA Amplified* NOT DETECTED (No Detected); GC DNA Amplified* NOT DETECTED (No Detected)
== END 2024-03-19 16:10 | disposition home or self-care (01) ==
LOC: NFLDUCREF 16:10
PROVIDERS: PCP Registered Nurse; Visit Provider Physician Assistant
DX: A64 Unspecified sexually transmitted disease (principal); Z11.3 Encounter for screening for infections with a predominantly sexual mode of transmission
CPT/HCPCS: 87491; 87591

== ENCOUNTER 2024-03-23 17:05 | Outpatient (CLI) | payer BC, MEDICAID, SELFPAY | END 2024-03-23 17:06 | disposition home or self-care (01) | PROVIDERS: PCP Registered Nurse; Visit Provider Registered Nurse | DX: E03.9 Hypothyroidism, unspecified (principal); R53.83 Other fatigue; Z13.21 Encounter for screening for nutritional disorder; Z13.0 Encounter for screening for diseases of the blood and blood-forming organs and certain disorders involving the immune mechanism | CPT/HCPCS: 82306; 82728; 84439; 84443 ==

== ENCOUNTER 2024-08-05 15:59 | Outpatient (CLI) | payer BC, MEDICAID, SELFPAY | END 2024-08-05 16:00 | disposition home or self-care (01) | LOC: NFLDREF 16:02 | PROVIDERS: PCP Registered Nurse; Visit Provider Registered Nurse | DX: E03.9 Hypothyroidism, unspecified (principal) | CPT/HCPCS: 84439; 84443 ==

== ENCOUNTER 2024-09-01 14:03 | Outpatient (CLI) | payer BC, MEDICAID, SELFPAY ==
--- NOTE | 2024-09-01 13:45 | CRLHL7_ITS ---
For Patients: As a result of the Century Cures Act, medical imaging exams and procedure reports are released immediately into your electronic medical record. You may view this report before your referring provider. If you have questions, please contact your health care provider. INDICATION: Dating and viability TECHNIQUE: Ultrasound OB pelvis transabdominal. Real-time aguilar-scale imaging of the fetus was performed. COMPARISON: None. FINDINGS: Sonographic imaging demonstrates a single living intrauterine gestation. Fetus demonstrates a regular cardiac rate of 139 beats per minute. Fetus has a variable orientation. Amniotic fluid volume appears normal. The following biometric measurements were obtained: Biparietal diameter: 3.2 cm, 16 weeks 0 days. Head circumference: 11.7 cm, 15 weeks 5 days. Abdominal circumference: 9.7 cm, 15 weeks 6 days. Femur length: 1.8 cm, 15 weeks 3 days. The composite ultrasound gestational age is calculated at 15 weeks 5 days with an estimated sonographic due date of 02/18/2025. The weight is estimated at 130 grams. IMPRESSION.: Viable intrauterine measuring 15 weeks 5 days. Dictated by Alessio Blair MD @ 09/03/2024 10:48:52 PM (Electronically Signed)
== END 2024-09-01 14:04 | disposition home or self-care (01) ==
PROVIDERS: PCP Registered Nurse; Visit Provider Physician Assistant
DX: Z34.92 Encounter for supervision of normal pregnancy, unspecified, second trimester (principal); Z3A.15 15 weeks gestation of pregnancy
CPT/HCPCS: 76815

== ENCOUNTER 2024-09-01 15:15 | Outpatient (CLI) | payer BC, MEDICAID, SELFPAY | END 2024-09-01 15:16 | disposition home or self-care (01) | PROVIDERS: PCP Registered Nurse; Visit Provider Physician Assistant | DX: Z34.92 Encounter for supervision of normal pregnancy, unspecified, second trimester (principal); Z3A.15 15 weeks gestation of pregnancy | CPT/HCPCS: 80306; 83020; 83021; 84439; 84443; 85660; 86592; 86703; 86704; 86706; 86762; 86787; 86803; 86850; 87086; 87340; 87491; 87591 ==

== ENCOUNTER 2024-09-29 09:07 | Outpatient (CLI) | payer BC, SELFPAY ==
--- NOTE | 2024-09-29 09:00 | CRLHL7_ITS ---
For Patients: As a result of the 21st Century Cures Act, medical imaging exams and procedure reports are released immediately into your electronic medical record. You may view this report before your referring provider. If you have questions, please contact your health care provider. OB ULTRASOUND SURVEY TRANSABDOMINAL AISHWARYA by US: 02/18/2025. GA: 19 w, 5 d. INDICATION: anatomic survey. TECHNIQUE: Real time aguilar scale imaging of the fetus was performed. Evaluate anatomy. Transabdominal imaging performed. position: Vertex. Cervix: Visualized. Technique: Transabdominal. Length of closed cervix: 3 cm. Placenta/cord: Posterior. Technique: Transabdominal. Placenta tip to internal OS: 3.3 cm. Umbilical Cord: 3-vessel cord. Placenta insertion: Central. Amniotic Fluid: 4.4 cm SDP (greater than/equal to: 2- less than 8 cm). SURVEY: Observed Structures. Calvarium/Spine: Cerebellum: 1.97 cm, 20 w 1 d. Cisterna Magna: 5.2 mm. Nuchal Fold: 5.3 mm. Lateral Ventricle: 5.6 mm. CSP: Yes. Midline Falx: Yes. Choroid Plexus: Yes. Spine: Yes. Abdomen: Stomach: Yes. Abd Cord Insertion: Yes. Urinary Bladder: Yes. Kidneys: Yes. Diaphragm: See comment. Face: Nose/lips: Yes. Orbital view: Yes. Profile: Yes. Limbs: Upper Extremities: Yes. Lower Extremities: Yes. Hands: Yes. Feet: Yes. Vascular: 4-Chamber Heart: Yes. LVOT: Yes. RVOT: Yes. 3VV: Yes. 3VTV: Yes. BPD: 4.3 cm. 19 w, 1 d, 25.7 percent. HC: 16.8 cm. 19 w, 3 d, 30.8 percent. AC: 15.1 cm. 20 w, 2 d, 64.5 percent. FL: 3.1 cm. 19 w, 5 d, 42.5 percent. FL/AC ratio: 20.8 percent. HC/AC ratio: 1.1. heart rate: 135 bpm. age by this US: 19 w, 5 d. AISHWARYA by this US: 02/18/2025. EFW: 322.4 g. Weight: 0 lbs, 11 oz. Percentile by AISHWARYA: 58.9 percent. IMPRESSION: 1. Concordance of clinical and sonographic dating. 2. Incomplete visualization of the diaphragm. Remainder of the anatomic survey is normal. Short-term follow-up recommended. Indra Bonner M.D. Diagnostic Radiologist [email or web address] SP/Dictated by: Indra Bonner MD @ 09/30/2024 5:27:00 PM (Electronically Signed)
== END 2024-09-29 09:08 | disposition home or self-care (01) ==
LOC: US 09:08
PROVIDERS: Visit Provider Physician Assistant
DX: Z34.92 Encounter for supervision of normal pregnancy, unspecified, second trimester (principal); Z3A.19 19 weeks gestation of pregnancy; E03.9 Hypothyroidism, unspecified
CPT/HCPCS: 76805

== ENCOUNTER 2024-09-29 10:25 | Outpatient (CLI) | payer BC, SELFPAY | END 2024-09-29 10:26 | disposition home or self-care (01) | LOC: NFLDREF 10-04 20:42 | PROVIDERS: Visit Provider Obstetrics & Gynecology | DX: E03.9 Hypothyroidism, unspecified (principal) | CPT/HCPCS: 84439; 84443 ==

== ENCOUNTER 2024-11-24 11:33 | Outpatient (CLI) | payer BC, SELFPAY ==
--- NOTE | 2024-11-24 11:30 | CRLHL7_ITS ---
For Patients: As a result of the Century Cures Act, medical imaging exams and procedure reports are released immediately into your electronic medical record. You may view this report before your referring provider. If you have questions, please contact your health care provider. OB ULTRASOUND FOLLOW-UP CLINICAL HISTORY: Diaphragm not seen on survey. COMPARISON: 09/29/2024, 09/01/2024. TECHNIQUE: Real time aguilar scale imaging of the fetus was performed. Transabdominal imaging performed. FINDINGS: AISHWARYA by US: 02/18/2025. GA: 27 weeks 5 days. Gestation: Single. Cervix: Not visualized. Positioning: Vertex. Amniotic Fluid: 3.7 cm SDP. Placenta: Technique: TA. Placenta Position: Posterior. Dopplers: Heart Rate: 137 bpm. IMPRESSION: Normal diaphragm. Indra Bonner M.D. Diagnostic Radiologist [email or web address] Transcribed: 3:13 pm DW/Dictated by: Indra Bonner MD @ 11/24/2024 2:10:00 PM (Electronically Signed)
== END 2024-11-24 11:34 | disposition home or self-care (01) ==
LOC: US 11:33
PROVIDERS: Visit Provider Obstetrics & Gynecology
DX: Z34.92 Encounter for supervision of normal pregnancy, unspecified, second trimester (principal); Z3A.27 27 weeks gestation of pregnancy; E03.9 Hypothyroidism, unspecified
CPT/HCPCS: 76816; 84439; 84443

== ENCOUNTER 2024-11-24 12:17 | Outpatient (CLI) | payer BC, SELFPAY | END 2024-11-24 12:18 | disposition home or self-care (01) | LOC: NFLDREF 11-30 18:26 | PROVIDERS: Visit Provider Obstetrics & Gynecology | DX: E03.9 Hypothyroidism, unspecified (principal) | CPT/HCPCS: 84439; 84443 ==

== ENCOUNTER 2025-01-08 11:05 | Outpatient (CLI) | payer BC, SELFPAY | END 2025-01-08 11:06 | disposition home or self-care (01) | LOC: NFLDREF 01-09 19:06 | PROVIDERS: Visit Provider Obstetrics & Gynecology | DX: E03.9 Hypothyroidism, unspecified (principal); Z34.93 Encounter for supervision of normal pregnancy, unspecified, third trimester | CPT/HCPCS: 84443; 86592 ==

== ENCOUNTER 2025-01-16 21:37 | Emergency (ER) | payer BC, SELFPAY ==
--- OUTSIDE RECORDS SUMMARY | 2025-01-16 21:40 | XMS_ITS | Encounter Summary ---
Author Organization [facility] Address [address] [place] [address] Care Team Providers Care Manager Roofing Name Role Phone Anita Celis MD Unavailable [phone] [facility] Primary Care Provider Reason for Referral * Consultation (Emergency: 1-2 Days) - Referral NOT Required Specialty Diagnoses / Procedures Referred By Ashleigh hines Referred To Contact Endocrinology, Diabetes, and Metabolism Diagnoses Endocrine, nutritional and metabolic diseases complicating , unspecified trimester Hypothyroidism, unspecified Shaila Gerber MD [address] [place] [address] Phone: tel: fax: Referral ID Status Reason Start Date Expiration Date V isits Requested Visits Authorized [id number] Referral NOT Required 01/11/2025 01/11/2026 1 1 Question Answer Reason for Referral: Thyroid Patient Scheduling Instructions: [facility] will call you to coordinate your care as prescribed by the provider. If you don t hear from a solar manufacturer's representative within 2 business days, please call [phone]. Additional Information: Hypothyroidism affecting . Comments [facility] External Fax Details Provider: Shaila Mckeon Affiliated with: [facility] Location: [place], [place] Phone number: [phone] Fax number: Not listed [place] Patient: No Medical records received with referral? Yes, Records sent to HIM with referral Please be aware that coverage of these services is subject to the terms and limitations of your health insurance plan. Call member services at your health plan with any benefit or coverage questions. [facility] will call you to coordinate your care as prescribed by the provider. If you don t hear from a solar manufacturer's representative within 2 business days, please call [phone]. NICAL MARKETING CONSULTANT Encounter Details Date Type Department Care Team (Latest Contact Info) Description 01/11/2025 Transcribe Orders GENERIC EXTERNAL DATA DEPARTMENT Shaila Gerber MD [address] [place] [address] Endocrine, nutritional and metabolic diseases complicating , unspecified trimester (Primary Dx); Hypothyroidism, unspecified Social History Tobacco Use Types Packs/Day Years Used Date Smoking Tobacco: Never Smokeless Tobacco: Never Alcohol Use Standard Drinks/Week Comments No 0 (1 standard drink = 0.6 oz pur e alcohol) PHQ-2 Answer Date Recorded PHQ-2 Score 0 09/09/2023 [place] Depression Scale Answer Date Recorded Last EPDS Total Score Not on file 09/04/2023 The thought of harming myself has occurred to me . Never 09/04/2023 Adolescent Education Answer Date Record ed Getting School Help Needed Not on file 11/02 Comments No Sex and Gender Information Value Date Recorded Sex Assigned at Not on file Legal Sex Female 5:14 AM TECHNICAL MARKETING CONSULTANT Gender Identity Not on file Sexual Orientation Not on file documented as of this encounter Plan of Treatment Upcoming Encounters Date Type Department Care Team (Late st Contact Info) Description 03/18/2025 9:00 AM TECHNICAL MARKETING CONSULTANT Office Visit [facility] [address] [place] [phone] Anita Celis MD [address] [place] [address] Scheduled Referrals Name Type Priority Associated Diagnoses Orde r Schedule Adult Endocrinology Calibration Checker Referral Referral Emergency: 1-2 Days Endocrine, nutritional and metabolic diseases complicating , unspecified trimester Hypothyroidism, unspecified Expected: 01/11/2025 (Approximate), Expires: 01/11/2026 documented as of this encounter Visit Diagnoses Diagnosis Endocrine, nutritional and metabolic diseases complicating , unspecified trimester- Primary Hypothyroidism, unspecified documented in this encounter Care Teams Manager Roofing Relationship Specialty Start Date End Date Clinic, [address] [address] PCP - General 06/22/24 Anita Celis MD [address] [place] [address] [address] [place] [address] Assigned Endocrinology Provider 04/05/23 documented as of this encounter
--- OUTSIDE RECORDS SUMMARY | 2025-01-16 21:40 | XMS_ITS | Encounter Summary ---
Author Organization [facility] Address [facility] [place] [address] Care Team Providers Care Morals Squad Police Officer Name Role Phone Anita Celis MD Unavailable [phone] [facility] Primary Care Provider Encounter Details Date Type Department Care Team (Late st Contact Info) Description 01/11/2025 Medical Correspondence [facility] Information Management [address] [facility] [address] [place] [address] Scan, Non-Provider Social History Tobacco Use Types Packs/Day Years Used Date Smoking Tobacco: Never Smokeless Tobacco: Never Alcohol Use Standard Drinks/Week Comments No 0 (1 standard drink = 0.6 oz pur e alcohol) PHQ-2 Answer Date Recorded PHQ-2 Score 0 09/09/2023 [place] Depression Scale Answer Date Recorded Last EPDS Total Score Not on file 09/04/2023 The thought of harming myself has occurred to me . Never 09/04/2023 Adolescent Education Answer Date Record ed Getting School Help Needed Not on file 11/02 Comments No Sex and Gender Information Value Date Recorded Sex Assigned at Not on file Legal Sex Female 5:14 AM SITE DIRECTOR Gender Identity Not on file Sexual Orientation Not on file documented as of this encounter Plan of Treatment Upcoming Encounters Date Type Department Care Team (Late st Contact Info) Description 03/18/2025 9:00 AM SITE DIRECTOR Office Visit [facility] [address] [place] [address] Anita Celis MD [address] [place] [address] documented as of this encounter Visit Diagnoses Not on filedocumented in this encounter Care Teams Morals Squad Police Officer Relationship Specialty Start Date End Date [facility], [address] [address] PCP - General 06/22/24 Anita Celis MD [address] [place] [address] Assigned Endocrinology Provider 04/05/23 documented as of this encounter
--- OUTSIDE RECORDS SUMMARY | 2025-01-16 21:40 | XMS_ITS | Clinical Summary ---
Author Organization [place] Address [address] [place] [address] Care Team Providers Care Upstairs Maid Name Role Phone Anita Celis MD Unavailable [phone] [facility], [facility] Primary Care Provider Allergies Active Allergy Reactions Criticality Noted Date Comments Etonogestrel Other (See Comments) Low 02/15/2016 sig hair loss Naproxen Unknown 09/02/2023 Medications Vit w/Fe-Methylfol- FA (PNV PO) Take 1 tablet by mouth Active Omeprazole (PRILOSEC PO) Active albuterol (PROVENTIL) (2.5 MG/3ML) 0.083% neb solution Take 2.5 mg by nebulization every 4 hours as needed for shortness of breath, wheezing or cough Active acetaminophen (TYLENOL) 325 MG tabletIndicatio ns:Indication for care in labor or delivery Take 2 tablets (650 mg) by mouth every 4 hours as needed for mild pain 40 tablet 1 4 Active docusate sodium (COLACE) 100 MG capsuleIndicati ons:Indication for care in labor or delivery Take 1 capsule (100 mg) by mouth daily 30 capsule 4 Active hydrocortisone, Perianal, (ANUSOL-HC) 2.5 % creamIndication s:Indication for care in labor or delivery Place rectally 3 times daily as needed for hemorrhoids 30 g 4 Active ibuprofen (ADVIL/MOTRIN) 800 MG tabletIndicatio ns:Indication for care in labor or delivery Take 1 tablet (800 mg) by mouth every 6 hours as needed for other (cramping) 40 tablet 1 4 Active lanolin ointmentIndicat ions:Indication for care in labor or delivery Apply topically every hour as needed for other (sore nipples) 7 g 3 4 Active levothyroxine (SYNTHROID/LEVO THROID) 200 MCG tabletIndicatio ns:Hypothyroidi sm, unspecified type Take one tab p.o. 6 days per week and 1/2 tab p.o. on the 7th day 90 tablet 5 Active Active Problems Problem Noted Date Diagnosed Date Encounter for triage in patient 024 Indication for care in labor or delivery 024 Abdominal pain 02/05/2014 CARDIOVASCULAR SCREENING; LDL GOAL LESS THAN 160 07/02/2013 Hypothyroidism Resolved Problems Problem Noted Date Diagnosed Date Resolved Date Hyperthyroidism 01/02/2013 07/20/2013 Cervical pain 05/18/2011 07/17/2011 Pain in thoracic spine 05/18/201107/16 Health Fdc 05/02/2011 07/29/2023 Overview (05/19/2012): DX V65.8 REPLACED WITH 42817 HEALTH ALF (05/19/2012) Mirena IUD placed 05/02/2011 05/02/2011 07/02/2013 Overview (11/11/2012): Problem list name updated by automated process. Provider to review and confirm Neck pain 03/02/2011 04/03/2011 Headache 03/02/2011 04/03/2011 Overview (11/12/2014): Problem list name updated by automated process. Provider to review and confirm Problem list name updated by automated process. Provider to review state, incidental 03/02/2011 0 04/03/2011 Supervision of normal first 01/15/2011 06/29/2013 Encounters Date Type Department Care Team Description 01/11/2025 Medical Correspondence [facility] Information Management [address] [place] [address] [address] [place] [address] Scan, Non-Provider 01/11/2025 Transcribe Orders GENERIC EXTERNAL DATA DEPARTMENT Shaila oHyt MD Endocrine, nutritional and metabolic diseases complicating , unspecified trimester (Primary Dx); Hypothyroidism, unspecified from Last 3 Months Immunizations Immunization Administration Dates Next Due DTAP (<7y) 06/27/1995,1992,1992 ,1992 HIB (PRP-T) 06/27/1995,1992,1992 ,1992 HepB 03/17/1996,08/29/1995,06/27/1995 Influenza (IIV3) PF 03/24/2011,12/25/2009 MMR (MMRII) 09/04/2023,03/24/2011,06/27/1995 OPV, trivalent, live 06/27/1995,1992,07/27 TD,PF 7+ (Tenivac) 10/11/2004 Varicella (Varivax) 10/11/2004 Family History Medical History Relation Comments Asthma Maternal Aunt Depression Mother living Relation Status Comments Maternal Aunt Mother Social History Tobacco Use Types Packs/Day Years Used Date Smoking Tobacco: Never Smokeless Tobacco: Never Tobacco Cessation:Counseling Given: Not Answered Alcohol Use Standard Drinks/Week Comments No 0 (1 standard drink = 0.6 oz pur e alcohol) PHQ-2 Answer Date Recorded PHQ-2 Score 0 09/09/2023 [place] Depression Scale Answer Date Recorded Last EPDS Total Score Not on file 09/04/2023 The thought of harming myself has occurred to me . Never 09/04/2023 Adolescent Education Answer Date Record ed Getting School Help Needed Not on file 11/02 Comments No Sex and Gender Information Value Date Recorded Sex Assigned at Not on file Legal Sex Female 5:14 AM DISTRICT AGENT Gender Identity Not on file Sexual Orientation Not on file Last Filed Vital Signs Vital Sign Reading Time Taken Comments Blood Pressure 128/82 09/04/2023 8:19 AM CDT Pulse 61 09/04/2023 8:19 AM CDT Temperature 36.6 C (97.9 F) 09/04/2023 8:19 AM CDT Respiratory Rate 15 09/04/2023 8:19 AM CDT Oxygen Saturation 97% 09/02/2023 11:00 AM CDT Inhaled Oxygen Concentration - - Weight 73.1 kg (161 lb 3.2 oz) 09/04/2023 11:02 AM CDT Height 165.1 cm (5' 5) 09/02/2023 6:02 AM CDT Body Mass Index 26.83 09/02/2023 6:02 AM CDT Plan of Treatment Upcoming Encounters Date Type Department Care Team (Late st Contact Info) Description 03/18/2025 9:00 AM DISTRICT AGENT Office Visit [facility] [address] [place] [address] Anita Celis MD [address] [place] [address] Health Maintenance Due Date Last Done Comments ADVANCE CARE PLANNING 1992 ANNUAL REVIEW OF HM ORDERS 1992 YEARLY PREVENTIVE VISIT 05/21/1995 PHQ-2 (once per calendar year) 2024 09/09/2023, 06/13/2023 COVID-19 VACCINE ( season) 2024 12/09/2021, 11/11/2021 INFLUENZA VACCINE (#1) 2024 9, 11/17/2017, 03/24/2011, Additional history exists PAP 10/31/2024 10/31/2021, 05/12/2013 TSH W/FREE T4 REFLEX 05/18/2025 05/18/2024, 05/18/2024, 01/27/2024, Additional history exists DTAP/TDAP/TD VACCINE (12 - Td or Tdap) 08/01/2033 08/02/2023, 11/06/2018, 12/05/2017, Additional history exists ZOSTER VACCINE (1 of 2) 2042 HEPATITIS B VACCINE Completed 03/17/1996, 03/17/1996, 08/29/1995, Additional history exists HEPATITIS C SCREENING Completed 11/02/2014 HIV SCREENING Completed 02/21/2023, 10/12, 10/24/2010 HPV VACCINE (No Doses Required) Completed MENINGITIS VACCINE Aged Out No longer eligible based on patient's age to complete this topic PNEUMOCOCCAL VACCINE: PEDIATRICS (0 to 5 YEARS) AND AT-RISK PATIENTS (6 to 49 YEARS) Aged Out No longer eligible based on patient's age to complete this topic Procedures Procedure Name Priority Date/Time Associated Diagnosis Comments T4 FREE Routine 05/18/2024 11:34 AM CDT Hypothyroidism, unspecified type HIV 1&2 ANTIBODY (EXTERNAL RESULT) Routine 02/21/2023 8:00 AM DISTRICT AGENT ABSTRACT PAP (HIM EXTERNAL RESULT) Routine 05/12/2013 from Last 3 Months or Most Recently Relevant to Health Maintenance Results * T4, free (05/18/2024 11:34 AM CDT) Free T4 1.09 0.90 - 1.70 ng/dL 05/18/2024 12:09 PM CDT LABORATORY Blood STRUCTURE OF RIGHT UPPER LIMB / Unknown Venipuncture / Unknown 05/18/2024 11:34 AM CDT 05/18/2024 11:34 AM CDT Anita Celis MD LAB - BLOOD ORDERABLES Fi nal Result LABORATORY [facility] [address] [facility] (1st floor, no room number) [place] [address] * HIV-1 Antibody (External Result) (02/21/2023 8:00 AM DISTRICT AGENT) Pathologist [facility] HIV 1&2 Antibody (External) Negative Nonreactive EXTERNAL LAB 02/21/2023 8:00 AM DISTRICT AGENT us Patient Reported LAB - HIM EXTERNAL RESULT Final Result EXTERNAL LAB External Lab * ABSTRACT PAP-NO CHARGE (05/12/2013) 05/12/2013 Impressions EXTERNAL LAB - 05/12/2013 Information from office visit dated: 06/12/2013 Pap smear done on this date: 05/2013 (approximately), by this group: [facility], results were WNL. us Provider Outside LAB - HIM EXTERNAL RESULT Final Result Performing Organization Address City/State/[place]UST Co de Phone Number EXTERNAL LAB External Lab from Last 3 Months or Most Recently Relevant to Health Maintenance Insurance BCBS OUT OF STATE BCBS OUT OF STATE Advance Directives For more information, please contact: [phone] * Full Code (Latest Code Status on File) Date Activated Date Inactivated Comments 09/02/2023 4:56 AM 09/03/2023 2:42 AM All basic an d advanced life-sustaining interventions are performed as appropriate Question Answer Comments Code status determined by: Discussion with anne nt/ legal decision maker Care Teams Upstairs Maid Relationship Specialty Start Date End Date Clinic, [address] [address] PCP - General 06/22/24 Anita Celis MD [address] [address] [place] [address] Assigned Endocrinology Provider 04/05/23
--- OUTSIDE RECORDS SUMMARY | 2025-01-16 21:40 | XMS_ITS | Clinical Summary ---
Author Organization [facility] Address [address] [place] [address] Care Team Providers Care Traffic Worker Name Role Phone Guilherme Olgiun MD Unavailable Unavailable Pcp, No Primary Care Provider Unavailabl e Allergies Active Allergy Reactions Criticality Noted Date Comments Etonogestrel Other - Describe In Comment Field 02/15/2016 sig hair loss Medications polyethylene glycoL (MIRALAX) 17 gram/dose powderIndications :Fatigue, unspecified type Take 17 g by mouth once daily. 1 jar 3 0 Active albuterol HFA (PRO-AIR) 90 mcg/actuation inhalerIndication s:Mild intermittent asthma, unspecified whether complicated (HC) Inhale 1-2 Puffs by mouth every 4 hours while awake. 1 Each 0 Active inhalational spacing deviceIndications :Moderate persistent asthma with acute exacerbation (HC) For home use. 1 Device 0 Active fluticasone propionate (FLOVENT) 110 mcg/Actuation inhalerIndication s:Moderate persistent asthma with acute exacerbation (HC) Inhale 2 Puffs by mouth 2 times daily. 1 Inhaler 2 0 Active budesonide (PULMICORT) 1 mg/2 mL neb suspensionIndicat ions:Nasal congestion,Left nasal polyps Put one respule in sinus rinse kit and irrigate twice daily 120 mL 1 Active levothyroxine (SYNTHROID) 150 mcg tabletIndications :Hypothyroidism (acquired) Take 1 Tablet (150 mcg) by mouth before breakfast. 90 tablet. 1 1 Active azelastine 137 mcg/actuation (ASTELIN) nasal sprayIndications: Chronic pansinusitis,Muco us retention cyst of maxillary sinus,Allergic rhinitis, unspecified seasonality, unspecified trigger Inhale 2 Sprays into affected nostril(s) 2 times daily. 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 left for [place] and no treatment till 01/2013. Poor concentration, forgetfulness, shakiness, nervous, hyperactive, restless, weight loss, history of lose BMs. Weak muscles. 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 (Lab drawn at [facility] on 02/03/17) Limited care. Kyleena or depo recommended . mirena cause hair loss. Discussed tubal ligation as she feels she is done having children now. Consult advised for after delivery. Silva Oswald D.O. 02/21/2017 8:43 AM 01/11/2017 03/08/2020 Overview (01/15/2017): Estimated Date of Delivery: 02/25/17 Patient's last menstrual period was 05/21/2016. Last Tdap- 12/19/2016 Last Flu vaccine- 03/24/2011 Allergies Allergen Reactions Nexplanon [Etonogestrel] Other - Describe In Comment [...] uIU/mL 1.78 Past Medical History: Diagnosis Date Asthma Childhood Blighted ovum Graves disease 06/11/2012 Diagnosed in 05/2012 (12 months post ),FreeT4 2.67 , TSH < 0.01, T3 298, TSI 5.3. left for [place] and no treatment till 01/2013. Poor concentration, forgetfulness, shakiness, nervous, hyperactive, restless, weight loss, history of lose BMs. Weak muscles. 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 [...] 02/28/17) REFERRING PHYSICIAN/PHONE/LAST UPDATE: Olivia Shaw NP, [facility] - [phone] Primary MD approves scheduling of recommended ultrasounds/testing: Unknown SPECIALISTS/PHONE: Neurology [facility] - last seen 12/19/15 - notes scanned [...] Through Growth: OB visits: Through TESTING PLANS: FIBERGLASS MACHINE OPERATOR: CONSULTS: NURSING: DEPRESSION SCREEN Initial screen: [...] López RNC.....01/15/2017 9:45 AM consult 08/02/2016 03/08/2020 Overview (08/02/2016): [facility] MOMS CONSULTATION ON 08/06/2016 F/U [...] 02/28/17) REFERRING PHYSICIAN/PHONE/LAST UPDATE: Olivia Shaw NP, [facility] - [phone] Primary MD approves scheduling of recommended ultrasounds/testing: Unknown SPECIALISTS/PHONE: [facility] - last seen 12/19/15 - notes scanned SREEDHAR: SREEDHAR signed for [facility]: CARE COORDINATION: GENETICS: PROCEDURES: PERTINENT LABS: Blood type: Last pap: Initial Hgb /Ferritin Hgb 28 wk Hgb 36 wk Repeat hgb anemic and compliant every 4 wks if/until >11.0 MEDS: Synthroid 150 mcg daily vitamin Miralax PRN NEXT VISIT ALERTS: FUTURE APPOINTMENTS: Testing: Through Growth: OB visits: Through TESTING PLANS: FIBERGLASS MACHINE OPERATOR: CONSULTS: NURSING: DEPRESSION SCREEN Initial screen: [...] planning Tubal Ligation Is/Is not Medical assistance MD PLAN OF CARE: Maternal iron deficiency ane bonita affecting in third trimester, antepartum 04/21/2015 11/09/2015 03/05/2013 11/09/2015 Overview (06/15/2015): GBS negative. 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 on file Not on file Not on file Obstetrics History Para Term AB IAB SAB Ectopic Multiple Livin g Live Births 7 5 5 0 1 0 1 0 0 5 5 Date Outcome GA Total Labor Labor/2nd/3rd Weight Sex Type Anes PTL [place] A1 A5 Name Clin 2011 Term 38w 0d 3.18 kg (7 lb) F Vag Epidur al Livin g Amanda Delivery Location:[facility] 4 SAB SPONTA NEOUS Comments:Blighted Ovum 2014 Term 2.72 kg (6 lb) F Vag-Sp ont Livin g Umm za Delivery Location:[place] 2015 Term 40w 1d 3.18 kg (7 lb) M Vag None N Livin g Peter Complications:None Delivery Location:[place] 2017 Term 39w 4d M Braden lo Santosh 2017 Term 39w 2d 0h 11m 3.29 kg (7 lb 4 oz) F Vag Ismaelur al N Jose Luis g 9 9 BG AISHA HARMON N Cosmo colindres Complications:None Delivery Location:[facility] Last Filed Vital Signs Vital Sign Reading Time Taken Comments Blood Pressure 120/73 04/13/2020 3:58 PM INCIDENT ENGINEER Pulse 85 04/13/2020 3:58 PM INCIDENT ENGINEER Temperature 37.1 C (98.7 F) 03/07/2020 3:36 PM INCIDENT ENGINEER Respiratory Rate 20 03/24/2020 3:34 PM INCIDENT ENGINEER Oxygen Saturation 99% 04/13/2020 3:58 PM INCIDENT ENGINEER Inhaled Oxygen Concentration - - Weight 60.8 kg (134 lb) 03/07/2020 3:36 PM INCIDENT ENGINEER Height 156 cm (5' 1.42) 03/07/2020 3:36 PM INCIDENT ENGINEER Body Mass Index 24.98 03/07/2020 3:36 PM INCIDENT ENGINEER Plan of Treatment Health Maintenance Due Date Last Done Comments HPV series for age 9-45 (1 - 3-dose SCDM series) 05/21/2019 Depression screening for age 12+ 04/21/2020 04/22/2019, 04/22/2019, 07/17/2018, Additional history exists BMI (ht and wt on same day) for age 18+ 03/07/2021 03/07/2020, 01/26/2020, 01/04/2020, Additional history exists COVID-19 vaccine series (2024- season) 2024 Influenza Vaccine (#1) 2024 9, 11/17/2017, 03/24/2011, Additional history exists Pap test for age 21-65 10/31/2024 , 10/31/2021, 09/01/2018, Additional history exists Tetanus booster 11/06/2028 11/06/2018, 11/12, 12/19/2016, Additional history exists RSV vaccine for adults or (1 - 1-dose 75+ series) 05/21/2067 Hepatitis B series for 19+ Completed 03/17, 08/29/1995, 06/27/1995 Hepatitis C screening for age 18-79 Completed 11/02/2014, 07/27/2013 HIV for age 15-65 Completed 10/29/2017, , 10/26/2013, Additional history exists Pneumococcal series for age 6-49 Aged Out No longer eligible based on patient's age to complete this topic Medical Devices Implanted Type Area Security Officer Supervisor Device Identifier Shelf Expiration Date Model / Serial / Lot Stent Ent Mini Steroid-Releas ing [employer] - [id number] Implanted:Qty: 2 on 04/22/2017 by Pedro Plascencia MD at [facility] Bilateral : [employer] 10/30/2018 [id number]# / / [id number] Stent Sinus 8mm [employer]el Contour Bioabsorb - [id number] Implanted:Qty: 1 on 04/22/2017 by Pedro Plascencia MD at [facility] Left: [employer] 10/19/2018 [id number]# / / [id number] Procedures Procedure Name Priority Date/Time Associated Diagnosis Comments HPV HIGH RISK Routine 10/31/2021 12:00 PM CDT ANTI HIV 1/2 Routine 10/29/2017 10:21 AM CDT , unspecified gestational age (HC) ANTI HCV Routine 11/02/2014 5:51 PM CDT (HC) from Last 3 Months or Most Recently Relevant to Health Maintenance Results * HPV HIGH RISK (10/31/2021 12:00 PM CDT) TYPE 16 Negative Negative 11/03/2021 11:22 AM CDT [facility] TYPE 18 Negative Negative 11/03/2021 11:22 AM CDT [facility] OTHER HIGH RISK TYPES Negative Negative 11/03/2021 11:22 AM CDT [facility] TRAL LAB[facility] Other (Cervical) 10/31/2021 12:00 PM CDT 11/02/2021 9:17 AM CDT [facility] - 11/03/2021 11:22 AM CDT HPV types 16, 18, 31, 33, 35, 39, 45, 51, 52, 56, 58, 59, 66 and 68 DNA were undetectable or below the pre-set threshold. Methodology: Kenisha Simone 4800 HPV Test Agnieszka Horan NP MICROBIOLOGY Final Res ult [facility] [address] [place] [address], * ANTI HIV 1/2 (10/29/2017 10:21 AM CDT) HIV-1/HIV-2 ANTIBODY Non-Reacti ve Non-Reacti ve 10/29/2017 5:05 PM CDT [facility] Comment:HIV-1 p24 and HIV-1/ HIV-2 Ab not detected. Blood BLOOD SPECIMEN / Unknown Venipuncture / Unknown 10/29/2017 10:21 AM CDT 10/29/2017 10:21 AM CDT Jessica Machado MD SEND OUTS Final Result Performing Organization Address [facility]/ZIP Co de Phone Number [facility] [address] [place] [address], * ANTI HCV (11/02/2014 5:51 PM CDT) HEPATITIS C ANTIBODY Non-Reacti ve Non-Reacti ve 11/03/2014 1:19 PM CDT [facility] TR[facility] Blood specimen (specimen) BLOOD SPECIMEN / Unknown Venipuncture / Unknown 11/02/2014 5:51 PM CDT 11/02/2014 5:51 PM CDT Narrative [facility] - 11/03/2014 1:19 PM CDT Antibodies to HCV not detected; does not exclude the possibility of exposure to HCV. Vale ROCHE SEND OUTS Final R esult Performing Organization Address City/[facility]/ZIP Co de Phone Number [facility] [address] [place] [address], from Last 3 Months or Most Recently Relevant to Health Maintenance Insurance [employer] CR[employer] OF NON-FL-ITS [facility] Advance Directives * Full Code (Latest Code [...] Code Status Discussion: Not Discussed Care Teams Traffic Worker Relationship Specialty Start Date End Date Pcp, No . PCP - General 09/30/20 Guilherme Olguin MD AUTOMOBILE RENTAL AGENT Obstetrics and Gynecology 01/25/11
--- OUTSIDE RECORDS SUMMARY | 2025-01-16 21:40 | XMS_ITS ---
Author Organization [facility] Source Produ ction (ClinicalSummary Clone) Address Unknown Care Team Providers Care Loss Prevention And Safety Manager Name Role Phone Unavailable Primary Care Physician Unavailab le Results * [UNITY] ANEUPLOIDY NIPT Performed by: [employer] Component Value Range Date Fraction 12.8% 09/12/2024 03 :21 am UT 22q11.2 Microdeletion LOW RISK <1 in 10,000 09/12/2024 03:21 am UT Sex Chromosome Aneuploidy NOT DETECTED 03:21 am UT Monosomy X LOW RISK <1 in 10,000 2024 03:21 am UT Trisomy 13 LOW RISK <1 in 10,000 2024 03:21 am UT Trisomy 18 LOW RISK <1 in 10,000 2024 03:21 am UT Trisomy 21 LOW RISK <1 in 10,000 2024 03:21 am UT Sex MALE 09/12/2024 03:2 1 am UT Gestation CHILDERS 09/13/19 03:21 am [facility] For detailed report, see PDF See PDF 09/12/2024 03:21 am UTC 09/12/2024 03:2 1 am [facility] Social History Observation Value Start Date End Date
[2025-01-16 21:43] VITALS: BP 118/83; PULSE 96; RESP 16; TEMP 36.8; O2SAT 100; BMI 27.5
--- NOTE | 2025-01-16 22:10 | ED.GENADULT ---
HPI - General Adult General Chief complaint: Rib Pain Stated complaint: stomach pain Time Seen by Provider: 01/16/25 22:04 History of Present Illness HPI narrative: This 34-year-old female is 36 weeks . She has been coughing and now has developed pain related to coughing in her right lower anterior ribs. She went to urgent care today and had negative testing for viral infections. She is not reporting any fevers or shortness of breath. She was told to take Tylenol. She has done this and also taken cough drops but yet is frequently coughing with distinct pain each time she coughs. She arrives here with normal vital signs. Related Data Home Medications ?Medication ?Instructions ?Recorded ?Confirmed albuterol sulfate 2.5 mg/3 mL 1 mg Q4-6H 08/24/23 01/15/25 (0.083 %) solution for nebulization Previous Rx's ?Medication ?Instructions ?Recorded montelukast 10 mg tablet 10 mg PO QHS #90 tabs 06/22/22 gilbert.stocking,thigh,reg,med #2 ea 06/04/23 compression socks, medium #2 ea 06/21/23 albuterol sulfate 90 mcg/actuation 2 puff inhalation Q6H PRN 09/01/24 aerosol inhaler shortness of breath or wheezing #6.7 grams fluticasone furoate 200 1 inh inhalation Q24H #30 ea 09/01/24 mcg/actuation blister powder for inhalation levothyroxine 175 mcg tablet 175 mcg PO QDAY #90 tabs 10/20/24 fluticasone propionate 50 1 spray intranasal BID #48 grams 12/09/24 mcg/actuation nasal spray,suspension Allergies Allergy/AdvReac Type Severity Reaction Status Date / Time etonogestrel (From Nexplanon) Allergy Mild Verified 01/15/25 08:33 Review of Systems Status of ROS: Reports: 10 or more systems reviewed and unremarkable except as noted in History and below Narrative: Constitutional: No fevers, no weight gain or loss. Eyes: No discharge. No vision changes. HENT: No congestion, no sore throat, no ear pain. Cardiovascular: No chest pain, no palpitations. Respiratory: No shortness of breath, no wheezes. Frequent cough with associated right lower anterior rib pain. Gastrointestinal: No abdominal pain, no vomiting, no diarrhea. Genitourinary: No dysuria, no hematuria. Musculoskeletal: Normal range of motion. Skin: No rashes, no pruritis. Neurological: No dizziness, weakness, sensory change, speech change. Endo/Heme/Allergies: No bruising or bleeding. No polydipsia. Pysch: no suicidality, no anxiety, no insomnia. All other systems reviewed and are negative. [facility] Medical History History of delivery ?Z87.51 - Personal history of pre-term labor (ICD-10) History of hemorrhage ?Z87.59 - Personal history of other complications of , childbirth and the puerperium (ICD-10) History of thyroid irradiation ?Z92.3 - Personal history of irradiation (ICD-10) History of Graves' disease ?Z86.39 - Personal history of other endocrine, nutritional and metabolic disease (ICD-10) PTSD (post-traumatic stress disorder) ?F43.10 - Post-traumatic stress disorder, unspecified (ICD-10) Moderate persistent asthma ?J45.40 - Moderate persistent asthma, uncomplicated (ICD-10) Varicose veins of both legs with edema ?I83.893 - Varicose veins of bilateral lower extremities with other complications (ICD-10) Recurrent urinary tract infection ?N39.0 - Urinary tract infection, site not specified (ICD-10) Positive antinuclear antibody (01/26/20) ?R76.8 - Other specified abnormal immunological findings in serum (ICD-10) Numbness and tingling of right upper extremity ?R20.0 - Anesthesia of skin (ICD-10) ?R20.2 - Paresthesia of skin (ICD-10) Moderate asthma without complication ?J45.909 - Unspecified asthma, uncomplicated (ICD-10) Meniere's disease ?H81.09 - Meniere's disease, unspecified ear (ICD-10) Incomplete spontaneous (2013) ?O03.4 - Incomplete spontaneous without complication (ICD-10) Hypothyroidism ?E03.9 - Hypothyroidism, unspecified (ICD-10) History of use of contraceptive intrauterine device (IUD) (01/2020) ?Z92.0 - Personal history of contraception (ICD-10) History of severe acute respiratory syndrome coronavirus 2 (SARS-CoV-2) disease (12/24/19) ?Z86.16 - Personal history of COVID-19 (ICD-10) History of radioactive iodine thyroid ablation (03/2013) ?Z92.3 - Personal history of irradiation (ICD-10) History of anemia (2017) ?Z86.2 - Personal history of diseases of the blood and blood-forming organs and certain disorders involving the immune mechanism (ICD-10) Chronic sinusitis ?J32.9 - Chronic sinusitis, unspecified (ICD-10) Arnold-Chiari malformation ?Q07.00 - Arnold-Chiari syndrome without spina bifida or hydrocephalus (ICD-10) Allergic rhinitis ?J30.9 - Allergic rhinitis, unspecified (ICD-10) Surgical History Status post delivery (11/2019) ?Z98.891 - History of uterine scar from previous surgery (ICD-10) History of nasal septoplasty (2017) ?Z98.890 - Other specified postprocedural states (ICD-10) History of dilation and curettage (05/13/13) ?Z98.890 - Other specified postprocedural states (ICD-10) Social History Narrative: Occupation: Works at [employer] and [employer]. Marital status: . Taoism/cultural needs: no. Chemical or radiation exposure: no. Pre- tobacco use: no. Pre- alcohol use: no. Current tobacco use: no. Current alcohol use: no. Recreational drug use: no. Dietary restrictions: no. Blood transfusion acceptable in an emergency: yes. PSYCHOSOCIAL HISTORY: History of depression or currently depressed: Denies. Current or past physical, emotional, or sexual mistreatment: denies. Problems that will make it hard to make it to appointments: denies. What is your current living situation?: I presently have a place to live Problems where you live: no known problems In the past 12 months, utilities in danger of being shut off: no In past 12 months, lack of transportation kept you from medical appts, meetings, work, or getting things needed for daily living: no In the past 12 mos, have been you worried that your food would run out before you had money to buy more?: never true In the past 12 mos, the food you bought just didn't last and you didn't have money to buy more?: never true Smoking Status: Never smoker Do you use any of these nicotine containing products: None and E-Cigarettes Second hand tobacco smoke exposure: No How often do you have a drink containing alcohol: monthly or less AUDIT-C Alcohol total score: 1 Non-prescribed substance use: denies use How often does anyone, including family, friends and others, physically hurt you: never How often does anyone, including family, friends and others, insult or talk down to you: never How often does anyone, including family, friends and others, threaten you with harm: never How often does anyone, including family, friends and others, scream or curse at you: never service: No Exam Narrative: Exam Narrative: Constitutional: Well-developed, well-nourished, no acute distress. HEENT: Normocephalic, atraumatic. Neck: Normal range of motion. Nontender. Supple. Heart: Regular. No murmurs. Normal rate. Intact distal pulses. Lungs: Clear to auscultation. No wheezes, rhonchi, or rales. Right lower anterior rib pain that is reproducible when palpating in this area and with coughing and certain other maneuvers. Abdomen: Normal bowel sounds. Nontender. No rebound tenderness. Gravid at approximately 36 weeks gestation. Genitalia: Deferred. Back: No midline tenderness. Normal range of motion. Extremities: Normal range of motion. No injury. Skin: Intact. No rash. Warm. No erythema or pallor. Neurologic: No altered sensation. No weakness. Alert and oriented. Psychiatric: No suicidality. No anxiety or depression. No insomnia. Nursing notes and vitals signs are reviewed. Const: Vital Signs, click to edit/add: Vital Signs - 24 hr 01/16/25 21:43 Temperature 98.3 F Pulse Rate [Pulse Oximeter] 96 Respiratory Rate 16 Blood Pressure [Ri ght Upper Arm] 118/83 Pulse Oximetry 100 Oxygen Delivery Me thod Room Air Course Vital Signs Vital signs: Initial Vital Signs Temperature 98.3 F 01/16/25 21:43 Temperature Source Temporal Artery Scan 01/16/25 21:43 Pulse Rate 96 01/16/25 21:43 Respiratory Rate 16 01/16/25 21:43 Blood Pressure 118/83 01/16/25 21:43 Blood Pressure Mean 94 01/16/25 21:43 Blood Pressure Position Sitting 01/16/25 21:43 Pulse Oximetry 100 01/16/25 21:43 Oxygen Delivery Method Room Air 01/16/25 21:43 Vital Signs Temperature 98.3 F 01/16/25 21:43 Pulse Rate 96 01/16/25 21:43 Respiratory Rate 16 01/16/25 21:43 Blood Pressure 118/83 01/16/25 21:43 Pulse Oximetry 100 01/16/25 21:43 Oxygen Delivery Method Room Air 01/16/25 21:43 Temperature 98.3 F 01/16/25 21:43 Pulse Rate 96 01/16/25 21:43 Respiratory Rate 16 01/16/25 21:43 Blood Pressure 118/83 01/16/25 21:43 Pulse Oximetry 100 01/16/25 21:43 Oxygen Delivery Method Room Air 01/16/25 21:43 Medical Decision Making MDM Narrative Medical decision making narrative: This patient has a frequent cough with associated rib pain. She arrives with normal vital signs. She did have testing at urgent care which was negative for viruses. Her lungs sound clear today. She has distinct pain when coughing indicating a chest wall type pain or pleuritic pain. I did provide [facility] prescription for Tylenol 3 and encouraged her also to use [id number] cough medicine such as Robitussin DM or Mucinex DM. Discharge Plan Discharge Clinical Impression: Acute upper respiratory infection, Acute chest wall pain Patient Disposition: Home, Self-Care Condition: Stable Additional Instructions: Take Tylenol 3 as needed and directed. Also use [id number] cough medicine such as Robitussin DM or Mucinex DM as needed and directed. Follow up with MD return if worsening. Prescriptions: No Action (DME) compression socks, medium Misc See Rx Instructions .Route Qty: 2 0RF Rx Instructions: As directed (DME) gilbert.stocking,thigh,reg,med Misc See Rx Instructions .Route Qty: 2 0RF Rx Instructions: As directed fluticasone furoate 200 mcg/actuation blister with device 1 inh inhalation Q24H Qty: 30 1RF albuterol sulfate 90 mcg/actuation HFA aerosol inhaler 2 puff inhalation Q6H PRN (Reason: shortness of breath or wheezing) Qty: 6.7 3RF albuterol sulfate 2.5 mg /3 mL (0.083 %) solution for nebulization 1 mg Q4-6H montelukast 10 mg tablet 10 mg PO QHS Qty: 90 1RF levothyroxine 175 mcg tablet 175 mcg PO QDAY Qty: 90 0RF fluticasone propionate 50 mcg/actuation spray,suspension 1 spray intranasal BID Qty: 48 0RF Follow Up/Referrals: Provider,Not a Local [Primary Care Provider, Family Practice] Stand Alone Forms: [employer] Info Instructions
[2025-01-16 22:15] VITALS: BP 121/78; PULSE 89; RESP 16; TEMP 36.8; O2SAT 100
== END 2025-01-16 22:31 | disposition home or self-care (01) ==
LOC: ED 22:21
PROVIDERS: Emergency Provider Emergency Medicine Emergency Medical Services
DX: J06.9 Acute upper respiratory infection, unspecified (principal); R07.89 Other chest pain; Z33.1 Pregnant state, incidental
CPT/HCPCS: 99283; 99284

== ENCOUNTER 2025-01-19 12:07 | Outpatient (CLI) | payer BC, SELFPAY ==
--- NOTE | 2025-01-19 12:15 | CRLHL7_ITS ---
For Patients: As a result of the Century Cures Act, medical imaging exams and procedure reports are released immediately into your electronic medical record. You may view this report before your referring provider. If you have questions, please contact your health care provider. OBSTETRICAL ULTRASOUND ??? FOLLOW-UP INDICATION: Growth for TOLAC. CLINICAL HISTORY: AISHWARYA by Ultrasound: 02/18/2025 Gestational Age: 35 weeks 5 days COMPARISON: 11/24/2024, 09/29/2024, 09/01/2024. TECHNIQUE: Real-time aguilar-scale transabdominal imaging of the fetus was performed. FINDINGS: Fetus: Single positioning: Vertex Amniotic Fluid: 5.6 cm SDP Placenta technique: Transabdominal Placenta position: Posterior heart rate: 150 bpm BIOMETRY: BPD: 8.4 cm, 33 weeks 5 days, 8% HC: 31.3 cm, 35 weeks 1 day, 9% AC: 30.5 cm, 34 weeks 3 days, 23% FL: 6.8 cm, 34 weeks 5 days, 21% FL/AC Ratio: 22.18% HC/AC ratio: 1.03 EFW: 2447 grams; 5 lbs. 6 oz. age by this ultrasound: 34 weeks 4 days AISHWARYA by this ultrasound: 02/26/2025 Percentile by AISHWARYA: 19% COMMENTS: Growth is within normal limits. IMPRESSION: 1. Sonographic gestational age is 34 weeks 4 days and sonographic due date is 02/26/2025. Sonographic age is 8 days behind the clinical age. 2. Estimated weight is 19th percentile. Abdominal circumference is 23rd percentile. INDRA GILL M.D. Diagnostic Radiologist [email or web address] Transcribed: 3:[address]/Dictated by: Indra Gill MD @ 01/19/2025 3:13:00 PM (Electronically Signed)
== END 2025-01-19 12:08 | disposition home or self-care (01) ==
LOC: US 12:08
PROVIDERS: Visit Provider Obstetrics & Gynecology
DX: O36.5930 Maternal care for other known or suspected poor fetal growth, third trimester, not applicable or unspecified (principal); Z3A.34 34 weeks gestation of pregnancy
CPT/HCPCS: 76816

== ENCOUNTER 2025-01-19 13:27 | Outpatient (CLI) | payer BC, SELFPAY ==
[2025-01-20 15:40] LABS: Strep B DNA Probe Negative (Negative)
[2025-01-20 16:05] LABS: Strep B Susceptibility Needed? No
== END 2025-01-19 13:28 | disposition home or self-care (01) ==
LOC: NFLDREF 13:28
PROVIDERS: Visit Provider Obstetrics & Gynecology
DX: Z34.83 Encounter for supervision of other normal pregnancy, third trimester (principal)
CPT/HCPCS: 87081; 87653